=== PATIENT | female | born 1950 | race Caucasian/White ===

== ENCOUNTER 2020-03-16 00:50 | Observation (INO) ==
--- NOTE | 2020-03-16 01:03 | Emergency Department Note ---
Impression & Plan Left-sided chest pain ED Provider Note NAME: IZABEL CAMACHO AGE: 70 SEX: F ARRIVES VIA: Walk-In INFORMANT: Patient ED PROVIDER(S): Kiana Paez DO CHIEF COMPLAINT: Left-sided chest pain PLAN: Disposition: Admitted to the [facility] service Condition: Stable MEDICAL DECISION MAKING: This is a 70-year-old female patient who presents to the emergency department complaining of left-sided chest pain that radiates down her left arm. Patient has a normal-appearing EKG and a negative troponin. The patient's chest discomfort was improved after receiving 2 sublingual nitroglycerin. Patient has a strong family history of heart disease. She had been told previously by her furniture crater at [facility] that she would require a cardiac catheterization. I discussed the case with the [facility] and they will evaluate for further management. Patient had taken aspirin at home. Triage Nursing notes reviewed and agree them. Prior medical records reviewed Vital Signs: reviewed and remarkable for hypertension Differential diagnosis: GERD, costochondritis, NSTEMI, STEMI, aortic dissection ER treatment provided: Sublingual nitroglycerin x2 Diagnostics interpreted by me: ECG: Normal sinus rhythm at a rate of 81. There is no ST segment elevation or signs of ischemia. There is no ectopy Cardiac Monitoring: Normal sinus rhythm at a rate of 80 Laboratory studies: See below Imaging studies: As per my interpretation Chest x-ray: No acute pulmonary infiltrates or consolidations HPI: 70/F arrives for evaluation of left-sided chest tightness. Around 6 PM this evening, the patient noted that she was feeling weak and tired. She then developed some discomfort in her left shoulder. She felt tightness in the left side of her chest that seem to radiate down her left arm. She took her blood pressure and found to be 188/100. At that time, she took a clonidine, aspirin and Xanax along with her hypercholesterol medication. Since then, the discomfort in her arm and shoulder has eased up but the chest discomfort has persisted. This is concerning to the patient since usually the symptoms resolved. ROS: See above HPI for pertinent positives & negatives. A total of 10 systems reviewed and were otherwise negative. PAST MEDICAL HISTORY:Hypertension, hypercholesterolemia, anxiety FAMILY HISTORY:The patient's father at age 65 from a heart attack. The patient is a twin and the twin at age 59 from complications of vascular disease SOCIAL HISTORY:The patient does not smoke; she lives with family HOME MEDICATIONS:See list ALLERGIES:See list VITALS:See Below PHYSICAL EXAMINATION: HEENT: Head - normocephalic and atraumatic Pupils are equal, round, and reactive to light. Extraocular eye muscles are intact, and sclera are anicteric. Nose - moist nasal mucosa without discharge. Mouth - moist buccal mucosa. Oropharynx is nonerythematous and there is no tonsillar exudate or edema noted. Neck: Supple; no JVD, nuchal rigidity, cervical lymphadenopathy, or auscultated bruits. Heart: Regular rate and rhythm. There is a normal S1 and S2 with no murmurs, clicks, or gallops appreciated. Lungs: Clear to auscultation bilaterally with no wheezes, rales, or rhonchi. Abdomen: Soft, completely nontender, nondistended, with good bowel sounds. There are no palpable pulsatile masses or hepatosplenomegaly. There is no guarding, rigidity, or rebound noted. Extremities: No evidence of cyanosis, clubbing, or edema. There are easily palpable peripheral pulses. Skin: warm and dry with good turgor and no rashes. ED COURSE: Times/Reassessments: 0100: Patient was evaluated in room a 12. A complete history and physical was performed. An IV lock was initiated and labs were drawn as above. An order was placed for continuous cardiac monitoring. The patient was in a normal sinus rhythm at a rate of 80. Twelve-lead EKG was obtained. The patient was given sublingual nitroglycerin for chest discomfort that she rated as a 6/10 0140: The patient was reevaluated at this time and she rated her pain as a 4/10 stating that the nitro helped. The patient's blood pressure had come down sl ightly. She was given a second sublingual nitroglycerin 0200: The patient was reevaluated at this time and she rated the discomfort in her chest is a 3/10. She explained that her furniture crater at [facility] told her that because of her high cholesterol, she would require a cardiac cath. I discussed the case with the [facility] hospitalist and they will evaluate for further management. Kiana Paez, DO Past Med/Surg History Social History Smoking Status: Never smoker Preferred Language: Polish Feels Safe at Home: Yes Allergies Allergies Allergy/AdvReac Type Severity Reaction Status Date / Time erythromycin base AdvReac Severe Gastrointestinal Verified 03/16/20 01:49 Upset Home Meds Home Medications Medication Instructions Recorded Confirmed alprazolam 1 tab PO DAILY PRN 03/16/20 03/16/20 amlodipine 10 mg PO DAILY 03/16/20 03/16/20 bempedoic acid-ezetimibe [Nexlizet] 1 tab PO QPM 03/16/20 03/16/20 clonidine HCl 0.1 mg PO BID PRN 03/16/20 03/16/20 levalbuterol tartrate [Xopenex HFA] 2 inh INHALATION Q6H PRN 03/16/20 03/16/20 metformin 1,000 mg PO BIDM 03/16/20 03/16/20 montelukast 10 mg PO DAILY PRN 03/16/20 03/16/20 Results & Data (ED) Vital Signs Vital Signs - 24 hr 03/16/20 00:53 03/16/20 01:09 03/16/20 01:16 Temperature 37.0 C Temperature Source Oral Pulse Rate 88 78 78 Pulse Rate from SpO2 Sensor 79 75 Respiratory Rate 20 17 13 Respiratory Effort / Characteristics Non-Labored Spontaneous Respiratory Depth Normal Blood Pressure 201/98 H 194/96 H 175/88 H Blood Pressure Mean 132 136 134 Pulse Oximetry 96 97 96 Oxygen Delivery Method Room Air Room Air Sepsis New/Unexplained Change in Mental Status N/A Sepsis Action Taken by Nursing No Action Required 03/16/20 01:17 03/16/20 01:20 03/16/20 01:25 Temperature Temperature Source Pulse Rate 87 85 Pulse Rate from SpO2 Sensor 88 83 Respiratory Rate 24 15 Respiratory Effort / Characteristics Respiratory Depth Blood Pressure 151/84 H 167/84 H Blood Pressure Mean 106 109 Pulse Oximetry 98 95 94 Oxygen Delivery Method Room Air Room Air Sepsis New/Unexplained Change in Mental Status Sepsis Action Taken by Nursing 03/16/20 01:30 03/16/20 01:35 03/16/20 01:40 Temperature Temperature Source Pulse Rate 78 78 78 Pulse Rate from SpO2 Sensor 79 76 Respiratory Rate 16 17 16 Respiratory Effort / Characteristics Respiratory Depth Blood Pressure 160/83 H 154/85 H 141/82 H Blood Pressure Mean 106 127 110 Pulse Oximetry 94 93 Oxygen Delivery Method Room Air Room Air Room Air Sepsis New/Unexplained Change in Mental Status Sepsis Action Taken by Nursing 03/16/20 01:46 03/16/20 03:40 Temperature Temperature Source Pulse Rate 74 79 Pulse Rate from SpO2 Sensor 73 Respiratory Rate 15 20 Respiratory Effort / Characteristics Respiratory Depth Blood Pressure 154/79 H 177/93 H Blood Pressure Mean 101 121 Pulse Oximetry 95 98 Oxygen Delivery Method Room Air Room Air Sepsis New/Unexplained Change in Mental Status Sepsis Action Taken by Nursing Laboratory Data Result diagrams: 03/16/20 01:07 03/16/20 01:07 Lab Results 03/16/20 03/16/20 03/16/20 Range/Units 01:07 01:07 01:07 WBC 7.95 (4.8-10.8) K/uL RBC 4.12 L (4.2-5.4) M/uL Hgb 11.3 L (12.0-16.0) g/dL Hct 35.7 L (37-47) % MCV 86.7 (80-100) fL MCH 27.4 (25-34) pg MCHC 31.7 L (32-36) g/dL RDW Std Deviation 53.5 H (36.4-46.3) fL RDW Coeff of Guillermina 16.9 H (11.5-14.5) % Plt Count 273 (130-400) K/uL MPV 12.0 H (7.4-10.4) fL Immature Gran % (Auto) 0.1 % Neut % (Auto) 58.1 % Lymph % (Auto) 25.4 % [place] % (Auto) 7.3 % Eos % (Auto) 8.7 % Baso % (Auto) 0.4 % Neut # (Auto) 4.62 (1.4-6.5) K/uL Lymph # (Auto) 2.02 (1.2-3.4) K/uL [place] # (Auto) 0.58 (0.11-0.59) K/uL Eos # (Auto) 0.69 H (0-0.5) K/uL Baso # (Auto) 0.03 (0-0.2) K/uL Immature Gran # (Auto) 0.01 (0.00-0.02) K/uL PT 10.0 (9.0-12.0) Seconds INR 0.9 (0.9-1.1) APTT 25.5 (21.0-31.0) Seconds PTT Ratio 0.9 Sodium 141 (136-145) mmol/L Potassium 3.8 (3.5-5.1) mmol/L Chloride 111 H (98-107) mmol/L Carbon Dioxide 21 (21-32) mmol/L Anion Gap 10.0 (3-11) BUN 19 H (7-18) mg/dl Creatinine 1.43 H (0.6-1.2) mg/dl Est Cr Clr Drug Dosing 44.1 ml/min Est GFR ( Amer) 43.5 Est GFR (Non-Af Amer) 37.5 BUN/Creatinine Ratio 13.1 (10-20) Glucose 117 H (70-99) mg/dl Calcium 9.8 (8.5-10.1) mg/dl Magnesium 1.8 (1.8-2.4) mg/dl Total Bilirubin 0.3 (0.2-1) mg/dl AST 11 L (15-37) U/L ALT 19 (12-78) U/L Alkaline Phosphatase 59 (45-117) U/L Troponin I < 0.015 (0-0.045) ng/ml Total Protein 7.8 (6.4-8.2) gm/dl Albumin 3.8 (3.4-5.0) gm/dl Globulin 4.0 (2.5-4.0) gm/dl Albumin/Globulin Ratio 1.0 (0.9-2) Lipase 244 (73-393) U/L TSH 3.720 (0.300-4.500) uIu/ml Administered Medications Nitroglycerin (Nitroglycerin Sl 0.4 Mg/Tab Tab) 0.4 mg SL UD PRN PRN Reason: Chest Pain Stop: 04/15/20 01:13 Last Admin: 03/16/20 01:46 Dose: 0.4 mg Documented by: [id number] Admin: 03/16/20 01:16 Dose: 0.4 mg Documented by: [id number] Discontinued Medications Amlodipine Besylate (Amlodipine Besylate 5 Mg Tab) 10 mg PO NOW STA Stop: 03/16/20 03:16 Last Admin: 03/16/20 03:37 Dose: 10 mg Documented by: [id number] Clonidine HCl (Clonidine Hcl 0.1 Mg Tab) 0.1 mg PO NOW STA Stop: 03/16/20 03:41 Last Admin: 03/16/20 03:42 Dose: 0.1 mg Documented by: [id number] Nitroglycerin (Nitroglycerin Sl 0.4 Mg/Tab Tab) Confirm Administered Dose 0.4 mg .ROUTE .STK-MED ONE Stop: 03/16/20 01:15 Last Admin: 03/16/20 01:16 Dose: Not Given Documented by: [id number] Tramadol HCl (Tramadol Hcl 50 Mg Tablet) Confirm Administered Dose 50 mg .ROUTE .STK-MED ONE Stop: 03/16/20 02:49 Last Admin: 03/16/20 03:35 Dose: Not Given Documented by: [id number] Tramadol HCl (Tramadol Hcl 50 Mg Tablet) 25 mg PO NOW STA Stop: 03/16/20 03:12 Last Admin: 03/16/20 03:35 Dose: Not Given Documented by: [id number] Discharge Plan Visit Data Chief Complaint: Chest Pain Stated Complaint: RADIATING CHEST PAIN ED Provider: Kiana Paez Discharge Problem: Left-sided chest pain Forms Stand Alone Forms: [facility] Prescriptions Prescriptions: No Action amlodipine 10 mg tablet 10 mg PO DAILY RF: 0 metformin 1,000 mg tablet 1,000 mg PO BIDM RF: 0 Nexlizet 180-10 mg tablet 1 tab PO QPM RF: 0 clonidine HCl 0.1 mg tablet 0.1 mg PO BID PRN (Reason: Hypertension) RF: 0 montelukast 10 mg Tablet 10 mg PO DAILY PRN (Reason: asthma) RF: 0 levalbuterol tartrate [Xopenex HFA] 45 mcg/actuation Hfa Aerosol Inhaler 2 inh INHALATION Q6H PRN (Reason: Shortness Of Breath Or Wheezing) RF: 0 alprazolam 1 tab PO DAILY PRN (Reason: Anxiety) RF: 0
[2020-03-16] MEDS ORDERED: NITROGLYCERIN SL 0.4 MG/TAB TAB ONE (01:14)
[2020-03-16] MEDS: NITROGLYCERIN SL 0.4 MG/TAB TAB SL PRN ×2 (01:16→01:46)
[2020-03-16 01:31] LABS: Basophils # (auto) 0.03 K/uL (0-0.2); Basophils % (auto) 0.4 %; Eosinophils # (auto) 0.69 K/uL (0-0.5); Eosinophils % (auto) 8.7 %; Hematocrit (blood only) 35.7 % (37-47); Hemoglobin 11.3 g/dL (12.0-16.0); Immature Granulocytes # (auto) 0.01 K/uL (0.00-0.02); Immature Granulocytes % (auto) 0.1 %; Lymphocytes # (auto) 2.02 K/uL (1.2-3.4); Lymphocytes % (auto) 25.4 %; Mean Corpuscular Hemoglobin 27.4 pg (25-34); Mean Corpuscular Hgb Conc 31.7 g/dL (32-36); Mean Corpuscular Volume 86.7 fL (80-100); Monocytes # (auto) 0.58 K/uL (0.11-0.59); Monocytes % (auto) 7.3 %; Neutrophils # (auto) 4.62 K/uL (1.4-6.5); Neutrophils % (auto) 58.1 %; Platelet Count 273 K/uL (130-400); RDW Coefficient of Variation 16.9 % (11.5-14.5); RDW Standard Deviation 53.5 fL (36.4-46.3); Red Blood Count 4.12 M/uL (4.2-5.4); White Blood Count 7.95 K/uL (4.8-10.8)
[2020-03-16 01:38] LABS: Blood Urea Nitrogen 19 mg/dl (7-18); Carbon Dioxide 21 mmol/L (21-32); Chloride 111 mmol/L (98-107); Potassium 3.8 mmol/L (3.5-5.1); Sodium 141 mmol/L (136-145)
[2020-03-16 01:39] LABS: Alanine Aminotransferase 19 U/L (12-78); Albumin Level 3.8 gm/dl (3.4-5.0); Aspartate Aminotransferase 11 U/L (15-37); BUN Creatinine Ratio 13.1 (10-20); Calcium 9.8 mg/dl (8.5-10.1); Creatinine Clr Calc Pharmacy 44.1 ml/min; Est GFR (African American) 43.5; Est GFR (Non-African American) 37.5; Glucose 117 mg/dl (70-99); Lipase 244 U/L (73-393)
[2020-03-16 01:43] LABS: Alkaline Phosphatase 59 U/L (45-117); Bilirubin,Total 0.3 mg/dl (0.2-1); INR 0.9 (0.9-1.1); Partial Thromboplastin Ratio 0.9; Partial Thromboplastin Time 25.5 Seconds (21.0-31.0); Total Protein 7.8 gm/dl (6.4-8.2); Troponin I < 0.015 ng/ml (0-0.045)
[2020-03-16] MEDS ORDERED: TRAMADOL HCL 50 MG TABLET ONE (02:48)
[2020-03-16] MEDS ORDERED: TRAMADOL HCL 50 MG TABLET PO STA (03:11)
--- NOTE | 2020-03-16 03:11 | History & Physical Report ---
Date of Service March 16, 2020 Assessment & Plan (1) Left-sided chest pain: Possibly from uncontrolled hypertension Musculoskeletal component given reproducibility on examination Anxiety contributory Rule out ACS hx CVA as per records hyperlipidemia currently on Nextlizet tx DM 2 on oral medications well-controlled as of recent outpatient hemoglobin A1c of 6.16 Oct 2019 CRI, creatinine at baseline Chronic anemia, hemoglobin at baseline OBS PCU Continue amlodipine. Increase clonidine frequency to twice daily RTC for now (patient currently taking 1 tablet in the morning, 1 tablet as needed at night) Analgesia, anxiolytic PRN Follow troponin TTE, Cardiology consult RE chest pain ISS BG goal [id number] DVT prophylaxis. Heparin subcu Full code Text document was generated using [email or web address] voice recognition software. It may contain grammatical or spelling errors. Kindly contact undersigned for clarification of any documentation item in question. History of Present Illness Chief Complaint: Chest pain Primary Care Provider: Dr. Bravo History obtained from patient and records. Medical history significant for CVA, hypertension, hyperlipidemia, DM 2 on oral medications, CRI (baseline creatinine 1.4 ), chronic anemia (baseline hemoglobin 11), anxiety/mood disorder. 2 days ago patient noted transient left-sided chest pain going to her left arm without other associated symptoms. Recurrence of left-sided chest pain going to the arm last night. SBP 180s at home which patient gets from time to time. No headache, no cough, no shortness of breath, no diaphoresis. No unusual neck pain. No unusual stress at home. Denies unusual stress. Denies NSAID intake. Some relief with nitroglycerin given at the ER. Medical History as above Surgical History : section, tarsal tunnel release, tubal ligation, ovarian cyst drainage Family History : Heart disease, breast cancer, stroke, hypercholesterolemia Personal/Social history : Non-smoker, no EtOH intake, prior work as an [employer] Allergies Allergy/AdvReac Type Severity Reaction Status Date / Time erythromycin base AdvReac Severe Gastrointestinal Verified 03/16/20 01:49 Upset Home Medications Home Medications Medication Instructions Recorded Confirmed Type alprazolam 1 tab PO DAILY PRN 03/16/20 03/16/20 History amlodipine 10 mg PO DAILY 03/16/20 03/16/20 History bempedoic acid-ezetimibe [Nexlizet] 1 tab PO QPM 03/16/20 03/16/20 History clonidine HCl 0.1 mg PO BID PRN 03/16/20 03/16/20 History levalbuterol tartrate [Xopenex HFA] 2 inh INHALATION Q6H PRN 03/16/20 03/16/20 History metformin 1,000 mg PO BIDM 03/16/20 03/16/20 History montelukast 10 mg PO DAILY PRN 03/16/20 03/16/20 History Past Med/Surg History Social History Smoking Status: Never smoker Hx Alcohol Use: No Hx Substance Use: No Preferred Language: Maori Communication Ability: Effective Risk Control Officer Required: No Beliefs That Will Affect Care: None Current Living Situation: Family Feels Safe at Home: Yes Assistive Devices: Denture - Upper, Denture - Lower and Glasses Review of Systems Review of Systems: As per HPI, all 10 systems reviewed, all other ROS negative Physical Exam Physical Exam: GENERAL: Slightly uncomfortable, slightly anxious, no respiratory distress SKIN: Pallor , warm HEENT: Pale palpebral conjunctivae, no ptosis, dry buccal mucosa NECK : Supple, no tenderness CHEST : CTA, left chest wall tenderness HEART : RRR, no obvious murmurs ABDOMEN: Some distention, nontender EXTREMITIES : No LE swelling/tenderness, no other conspicuous deformities noted NEUROLOGIC : Coherent, no facial asymmetry, no other gross focality Results & Data Results & Data ([facility]) Vital Signs (Past 12 Hours) Vital Signs Temp Pulse Resp BP Pulse Ox 03/16/20 01:46 74 15 154/79 H 95 03/16/20 01:40 78 16 141/82 H 03/16/20 01:35 78 17 154/85 H 93 03/16/20 01:30 78 16 160/83 H 94 03/16/20 01:25 85 15 167/84 H 94 03/16/20 01:20 87 24 151/84 H 95 03/16/20 01:17 98 03/16/20 01:16 78 13 175/88 H 96 03/16/20 01:09 78 17 194/96 H 97 03/16/20 00:53 37.0 C 88 20 201/98 H 96 Laboratory Results Laboratory Results WBC 7.95 K/uL (4.8-10.8) 03/16/20 01:07 RBC 4.12 M/uL (4.2-5.4) L 03/16/20 01:07 Hgb 11.3 g/dL (12.0-16.0) L 03/16/20 01:07 Hct 35.7 % (37-47) L 03/16/20 01:07 MCV 86.7 fL (80-100) 03/16/20 01:07 MCH 27.4 pg (25-34) 03/16/20 01:07 MCHC 31.7 g/dL (32-36) L 03/16/20 01:07 RDW Std Deviation 53.5 fL (36.4-46.3) H 03/16/20 01:07 RDW Coeff of Guillermina 16.9 % (11.5-14.5) H 03/16/20 01:07 Plt Count 273 K/uL (130-400) 03/16/20 01:07 MPV 12.0 fL (7.4-10.4) H 03/16/20 01:07 Immature Gran % (Auto) 0.1 % 03/16/20 01:07 Neut % (Auto) 58.1 % 03/16/20 01:07 Lymph % (Auto) 25.4 % 03/16/20 01:07 [place] % (Auto) 7.3 % 03/16/20 01:07 Eos % (Auto) 8.7 % 03/16/20 01:07 Baso % (Auto) 0.4 % 03/16/20 01:07 Neut # (Auto) 4.62 K/uL (1.4-6.5) 03/16/20 01:07 Lymph # (Auto) 2.02 K/uL (1.2-3.4) 03/16/20 01:07 [place] # (Auto) 0.58 K/uL (0.11-0.59) 03/16/20 01:07 Eos # (Auto) 0.69 K/uL (0-0.5) H 03/16/20 01:07 Baso # (Auto) 0.03 K/uL (0-0.2) 03/16/20 01:07 Immature Gran # (Auto) 0.01 K/uL (0.00-0.02) 03/16/20 01:07 PT 10.0 Seconds (9.0-12.0) 03/16/20 01:07 INR 0.9 (0.9-1.1) 03/16/20 01:07 APTT 25.5 Seconds (21.0-31.0) 03/16/20 01:07 PTT Ratio 0.9 03/16/20 01:07 Sodium 141 mmol/L (136-145) 03/16/20 01:07 Potassium 3.8 mmol/L (3.5-5.1) 03/16/20 01:07 Chloride 111 mmol/L (98-107) H 03/16/20 01:07 Carbon Dioxide 21 mmol/L (21-32) 03/16/20 01:07 Anion Gap 10.0 (3-11) 03/16/20 01:07 BUN 19 mg/dl (7-18) H 03/16/20 01:07 Creatinine 1.43 mg/dl (0.6-1.2) H 03/16/20 01:07 Est Cr Clr Drug Dosing 44.1 ml/min 03/16/20 01:07 Est GFR ( Amer) 43.5 03/16/20 01:07 Est GFR (Non-Af Amer) 37.5 03/16/20 01:07 BUN/Creatinine Ratio 13.1 (10-20) 03/16/20 01:07 Glucose 117 mg/dl (70-99) H 03/16/20 01:07 Calcium 9.8 mg/dl (8.5-10.1) 03/16/20 01:07 Total Bilirubin 0.3 mg/dl (0.2-1) 03/16/20 01:07 AST 11 U/L (15-37) L 03/16/20 01:07 ALT 19 U/L (12-78) 03/16/20 01:07 Alkaline Phosphatase 59 U/L (45-117) 03/16/20 01:07 Troponin I < 0.015 ng/ml (0-0.045) 03/16/20 01:07 Total Protein 7.8 gm/dl (6.4-8.2) 03/16/20 01:07 Albumin 3.8 gm/dl (3.4-5.0) 03/16/20 01:07 Globulin 4.0 gm/dl (2.5-4.0) 03/16/20 01:07 Albumin/Globulin Ratio 1.0 (0.9-2) 03/16/20 01:07 Lipase 244 U/L (73-393) 03/16/20 01:07 Diagnostic Findings Chest x-ray as per my interpretation no congestion EKG as per my interpretation : Rate rate 80, NSR, normal axis, no ischemia
[2020-03-16] MEDS ORDERED: AMLODIPINE BESYLATE 5 MG TAB PO STA (03:15)
[2020-03-16] MEDS ORDERED: cloNIDine HCL 0.1 MG TAB PO STA (03:40)
[2020-03-16 03:41] LABS: Magnesium 1.8 mg/dl (1.8-2.4)
[2020-03-16] MEDS ORDERED: PNEUMOCOCCAL ADMINISTRATION CHARGE ONE (05:07)
[2020-03-16] MEDS ORDERED: PNEUMOCOCCAL POLYSACCHARIDES 25 MCG/0.5 ML VIAL/SYR IM ONE (05:07)
[2020-03-16] MEDS ORDERED: DEXTROSE 50% 50 ML SYRINGE IV PRN (05:08)
[2020-03-16] MEDS ORDERED: LEVALBUTEROL TARTRATE 15 GM HFA.AER.AD INH PRN (05:08)
[2020-03-16] MEDS ORDERED: NITROGLYCERIN SL 0.4 MG/TAB TAB SL PRN (05:08)
[2020-03-16] MEDS ORDERED: ACETAMINOPHEN 325 MG TAB PO PRN (05:08)
[2020-03-16] MEDS ORDERED: MONTELUKAST SODIUM 10 MG TABLET PO PRN (05:08)
[2020-03-16] MEDS ORDERED: LACTATED RINGER'S 1,000 ML IV SCH (05:08)
[2020-03-16] MEDS ORDERED: GLUCOSE 40% GEL 15 GM TUBE PO PRN (05:08)
[2020-03-16] MEDS ORDERED: LORazepam 0.25 MG/0.5 ML VIAL IV PRN (05:08)
[2020-03-16] MEDS ORDERED: GLUCOSE 10 TABS/TUBE PO PRN (05:08)
[2020-03-16] MEDS ORDERED: GLUCAGON FOR INJ 1 MG VIAL SQ PRN (05:08)
[2020-03-16] MEDS ORDERED: PROMETHAZINE HCL 12.5 MG in SODIUM CHLORIDE 0.9% 50 ML IV PRN (05:08)
[2020-03-16] MEDS ORDERED: HYDROmorphone INJ 0.5 MG/0.5 ML SYR IV PRN (05:08)
[2020-03-16] MEDS ORDERED: CARBOHYDRATES FOR HYPOGLYCEMIA PO PRN (05:08)
[2020-03-16] MEDS ORDERED: ACETAMINOPHEN 325 MG TAB ONE (05:18)
[2020-03-16] MEDS: INSULIN ASPART 100 UNITS/ML 3 ML PEN SC SCH ×3 (05:25→17:00)
[2020-03-16] MEDS ORDERED: ALPRAZolam 0.25 MG TABLET PO PRN (05:26)
[2020-03-16] MEDS: HEPARIN SOD 5,000 UNIT/0.5 ML VIAL SQ SCH ×2 (06:21→14:17)
[2020-03-16 06:30] LABS: Estimated Average Glucose 108 mg/dl; Hemoglobin A1C 5.4 % (4.5-5.6)
--- NOTE | 2020-03-16 07:53 | XRay Report ---
XR chest 1V portable HISTORY: Atypical Chest Pain COMPARISON: None. FINDINGS: There is 1.7 cm nodular density overlying the right lateral lung base. Otherwise, lungs are clear. No pleural effusions. No pneumothorax. The heart is normal in size. IMPRESSION: 1. No acute process within the chest. 2. Questionable 1.7 cm nodular density overlying the right lung base which could be external to the p atient or represent a nipple shadow. Nonemergent follow-up chest x-ray with PA and lateral views and nipple markers is recommended for further evaluation. ACT 112: Negative or not required by law. Electronically signed by: Demetrius Lucio M.D. 03/16/2020 7:52 AM
--- NOTE | 2020-03-16 11:00 | Cardiology Consultation ---
Date of Consultation March 16, 2020 Assessment & Plan (1) Left-sided chest pain: The patient reports chest pain as described above. Troponins have so far been negative. Echocardiogram revealed normal LV function without wall motion abnormalities. Discussed with the patient that chest pain can be related to a number of etiologies other than cardiac including stress, musculoskeletal, gastrointestinal and pulmonary processes. Will have patient complete dobutamine stress test to rule out coronary disease. If the stress test is negative she will not need to undergo any additional cardiac work up in the hospital and may follow up with per primary rn intern as an outpatient. (2) Hypertension: The patient reports "adequate" blood pressure management at home however blood pressures in the hospital revealed systolic blood pressure consistently above 140. She would benefit from improved control. Could consider [facility] or [facility]. Recommend outpatient follow up with primary rn intern. (3) Diastolic dysfunction: Improved HTN management as above. History of Present Illness Reason for Consultation: chest pain Requesting Physician: Dr. Gates Attending Physician: Padmaja Akhtar MD History of Present Illness 70 year old female patient presented to the ED last evening with c/o chest pain that radiated down her left arm. She had traveled to see her daughter yesterday which is a [address] It was raining during the drive which she reported makes her nervous to drive in. When she returned home she was unloading groceries from her car and noticed that she was diaphoretic and had some chest pressure in her mid sternum. At that time she sat down and checked her blood pressure which she reported was 180 systolically and her BSG was around 120. She took her evening medications which included Clonidine, Xanax, and Nexlizet. 15 minutes later she rechecked her blood pressure which had not improved and her chest pain seemed to be worse. She denies dizziness, palpitations, or shortness of breath during the event. At that time she came to the ED for further evaluation. In the ED she received Nitro which she reported did alleviate the chest pain. She did report another episode of chest discomfort after arriving to her room in the critical care unit, which resolved without intervention. She reports feeling back to "normal" at this time. She has been following with a rn intern in [place] who has been treating her for hypercholesterolemia who recommended genetic counseling. She has spoken with the genetic counselor via phone but has had no blood work done at this time. He also recommended a cardiac cath which has not yet been completed. Allergies Allergy/AdvReac Type Severity Reaction Status Date / Time erythromycin base AdvReac Severe Gastrointestinal Verified 03/16/20 01:49 Upset Home Medications Home Medications Medication Instructions Recorded Confirmed Type alprazolam 1 tab PO DAILY PRN 03/16/20 03/16/20 History amlodipine 10 mg PO DAILY 03/16/20 03/16/20 History bempedoic acid-ezetimibe [Nexlizet] 1 tab PO QPM 03/16/20 03/16/20 History clonidine HCl 0.1 mg PO BID PRN 03/16/20 03/16/20 History levalbuterol tartrate [Xopenex HFA] 2 inh INHALATION Q6H PRN 03/16/20 03/16/20 History metformin 1,000 mg PO BIDM 03/16/20 03/16/20 History montelukast 10 mg PO DAILY PRN 03/16/20 03/16/20 History Patient History Medical History (Updated 03/16/20 @ 12:11 by Esau Parks DO) Hypertension Social History Smoking Status: Never smoker Hx Alcohol Use: No Hx Substance Use: No Preferred Language: Liberian Communication Ability: Effective Electric Meter Reader Required: No Beliefs That Will Affect Care: None Current Living Situation: Family Feels Safe at Home: Yes Assistive Devices: Glasses Review of Systems Review of Systems: All systems reviewed & are unremarkable except as noted in HPI & below Physical Exam Physical Exam: Physical Exam: General: Awake, alert and oriented x 3. No acute distress. HEENT: Normocephalic, atraumatic. Pupils equal, round and reactive to light and accommodation. Extraocular muscles are intact. Anicteric sclera. Moist mucous membranes. Neck: No JVD. No bruit. Cardiovascular: Regular. No S-4. Normal S-1 and S-2. No S-3. No murmurs, rubs or gallops. Pulmonary: Clear to auscultation bilaterally. No rales, rhonchi, or wheezing. Abdomen: Bowel sounds x 4, soft. No rebound, guarding or tenderness. No organomegaly. Extremities: No clubbing, cyanosis or edema. +2 pedal pulses bilaterally. Skin: Warm and dry. Results & Data ([facility]) Vital Signs (Past 12 Hours) Vital Signs Temp Pulse Pulse Resp BP BP Pulse Ox 03/16/20 07:35 36.6 C 59 L 16 141/79 H 96 03/16/20 07:27 61 03/16/20 05:28 135/79 03/16/20 04:20 36.4 C L 62 20 176/80 H 97 03/16/20 04:00 70 18 163/85 H 95 03/16/20 03:40 79 20 177/93 H 98 03/16/20 01:46 74 15 154/79 H 95 03/16/20 01:40 78 16 141/82 H 03/16/20 01:35 78 17 154/85 H 93 03/16/20 01:30 78 16 160/83 H 94 03/16/20 01:25 85 15 167/84 H 94 03/16/20 01:20 87 24 151/84 H 95 03/16/20 01:17 98 03/16/20 01:16 78 13 175/88 H 96 03/16/20 01:09 78 17 194/96 H 97 03/16/20 00:53 37.0 C 88 20 201/98 H 96 Laboratory Results Laboratory Results - last 24 hr 03/16/20 03/16/20 03/16/20 01:07 01:07 01:07 WBC 7.95 RBC 4.12 L Hgb 11.3 L Hct 35.7 L MCV 86.7 MCH 27.4 MCHC 31.7 L RDW Std Deviation 53.5 H RDW Coeff of Guillermina 16.9 H Plt Count 273 MPV 12.0 H Immature Gran % (Auto) 0.1 Neut % (Auto) 58.1 Lymph % (Auto) 25.4 [place] % (Auto) 7.3 Eos % (Auto) 8.7 Baso % (Auto) 0.4 Neut # (Auto) 4.62 Lymph # (Auto) 2.02 [place] # (Auto) 0.58 Eos # (Auto) 0.69 H Baso # (Auto) 0.03 Immature Gran # (Auto) 0.01 PT 10.0 INR 0.9 APTT 25.5 PTT Ratio 0.9 Sodium 141 Potassium 3.8 Chloride 111 H Carbon Dioxide 21 Anion Gap 10.0 BUN 19 H Creatinine 1.43 H Est Cr Clr Drug Dosing 44.1 Est GFR ( Amer) 43.5 Est GFR (Non-Af Amer) 37.5 BUN/Creatinine Ratio 13.1 Glucose 117 H POC Glucose Estimat Average Glucose Hemoglobin A1c Calcium 9.8 Magnesium 1.8 Total Bilirubin 0.3 AST 11 L ALT 19 Alkaline Phosphatase 59 Troponin I < 0.015 Total Protein 7.8 Albumin 3.8 Globulin 4.0 Albumin/Globulin Ratio 1.0 Lipase 244 TSH 3.720 03/16/20 03/16/20 03/16/20 04:32 05:21 05:21 WBC RBC Hgb Hct MCV MCH MCHC RDW Std Deviation RDW Coeff of Guillermina Plt Count MPV Immature Gran % (Auto) Neut % (Auto) Lymph % (Auto) [place] % (Auto) Eos % (Auto) Baso % (Auto) Neut # (Auto) Lymph # (Auto) [place] # (Auto) Eos # (Auto) Baso # (Auto) Immature Gran # (Auto) PT INR APTT PTT Ratio Sodium Potassium Chloride Carbon Dioxide Anion Gap BUN Creatinine Est Cr Clr Drug Dosing Est GFR ( Amer) Est GFR (Non-Af Amer) BUN/Creatinine Ratio Glucose POC Glucose 106 H Estimat Average Glucose 108 Hemoglobin A1c 5.4 Calcium Magnesium Total Bilirubin AST ALT Alkaline Phosphatase Troponin I < 0.015 Total Protein Albumin Globulin Albumin/Globulin Ratio Lipase TSH 03/16/20 03/16/20 07:08 11:03 WBC RBC Hgb Hct MCV MCH MCHC RDW Std Deviation RDW Coeff of Guillermina Plt Count MPV Immature Gran % (Auto) Neut % (Auto) Lymph % (Auto) [place] % (Auto) Eos % (Auto) Baso % (Auto) Neut # (Auto) Lymph # (Auto) [place] # (Auto) Eos # (Auto) Baso # (Auto) Immature Gran # (Auto) PT INR APTT PTT Ratio Sodium Potassium Chloride Carbon Dioxide Anion Gap BUN Creatinine Est Cr Clr Drug Dosing Est GFR ( Amer) Est GFR (Non-Af Amer) BUN/Creatinine Ratio Glucose POC Glucose 107 H 81 Estimat Average Glucose Hemoglobin A1c Calcium Magnesium Total Bilirubin AST ALT Alkaline Phosphatase Troponin I Total Protein Albumin Globulin Albumin/Globulin Ratio Lipase TSH Medications Administered Current Inpatient Medications Acetaminophen (Acetaminophen 325 Mg Tab) 650 mg PO Q4H PRN PRN Reason: Pain or Fever Stop: 04/15/20 05:07 Alprazolam (Alprazolam 0.25 Mg Tablet) 0.25 mg PO DAILY PRN PRN Reason: Anxiety Stop: 04/15/20 05:25 Amlodipine Besylate (Amlodipine Besylate 5 Mg Tab) 10 mg PO DAILY MAYANK Stop: 04/16/20 08:59 Clonidine HCl (Clonidine Hcl 0.1 Mg Tab) 0.1 mg PO BID MAYANK Stop: 04/15/20 20:59 Dextrose (Dextrose 50% 50 Ml Syringe) 25 - 50 ml IV UD PRN; Protocol PRN Reason: Hypoglycemia Protocol Stop: 04/15/20 05:07 Glucagon (Glucagon For Inj 1 Mg Vial) 1 mg SQ UD PRN; Protocol PRN Reason: Hypoglycemia Protocol Stop: 04/15/20 05:07 Glucose (Glucose 10 Tabs/Tube) 4 - 8 tabs PO UD PRN; Protocol PRN Reason: Hypoglycemia Protocol Stop: 04/15/20 05:07 Glucose (Glucose 40% Gel 15 Gm Tube) 15 - 30 gm PO UD PRN; Protocol PRN Reason: Hypoglycemia Protocol Stop: 04/15/20 05:07 Heparin Sodium (Porcine) (Heparin Sod 5,000 Unit/0.5 Ml Vial) 5,000 units SQ Q8 MAYANK Stop: 04/15/20 05:59 Last Admin: 03/16/20 06:21 Dose: 5,000 units Documented by: Hydromorphone HCl (Hydromorphone Inj 0.5 Mg/0.5 Ml Syr) 0.5 mg IV Q3H PRN PRN Reason: Pain Stop: 03/30/20 05:07 Lactated Ringer's (Lr) 1,000 mls @ 40 mls/hr IV .Q24H MAYANK Stop: 04/15/20 05:07 Last Admin: 03/16/20 05:25 Dose: 40 mls/hr Documented by: Promethazine HCl 12.5 mg/ (Sodium Chloride) 50.5 mls @ 202 mls/hr IV Q6H PRN PRN Reason: Nausea And Vomiting Stop: 04/15/20 05:07 Lorazepam (Ativan) 0.25 mg in 0.5 mls @ 0.5 mls/min IV Q4H PRN PRN Reason: Anxiety Stop: 04/15/20 05:07 Insulin Aspart (Insulin Aspart 100 Units/Ml 3 Ml Pen) 0 units SC ACHS [facility] Stop: 04/15/20 05:07 Last Admin: 03/16/20 12:42 Dose: Not Given Documented by: Levalbuterol HCl (Levalbuterol Tartrate 15 Gm Hfa.Aer.Ad) 2 puffs INH Q6H PRN PRN Reason: Shortness Of Breath Or Wheezing Stop: 04/15/20 05:07 Miscellaneous (Nexlizet~Order Awaiting Action) 1 ea N/A QS [facility] Stop: 04/15/20 07:59 Last Admin: 03/16/20 08:18 Dose: Not Given Documented by: Miscellaneous (Carbohydrates For Hypoglycemia ) 15 - 30 gm PO UD PRN PRN Reason: Hypoglycemia Protocol Stop: 04/15/20 05:07 Montelukast Sodium (Montelukast Sodium 10 Mg Tablet) 10 mg PO DAILY PRN PRN Reason: asthma Stop: 04/15/20 05:07 Nitroglycerin (Nitroglycerin Sl 0.4 Mg/Tab Tab) 0.4 mg SL UD PRN PRN Reason: Chest Pain Stop: 04/15/20 01:13 Last Admin: 03/16/20 01:46 Dose: 0.4 mg Documented by: Nitroglycerin (Nitroglycerin Sl 0.4 Mg/Tab Tab) 0.4 mg SL UD PRN PRN Reason: Chest Pain Stop: 04/15/20 05:07
--- NOTE | 2020-03-16 12:50 | Hospitalist Progress Note ---
Date of Service March 16, 2020 Assessment & Plan (1) Left-sided chest pain: Chest pain was nonexertional but anyway typical presentation Negative serial cardiac enzymes and negative EKG for any ACS Appreciate cardiology input and recommendation Echo did not show any significant abnormalities We will have dobutamine stress test prior to discharge Uncontrolled hypertension May be contributing the chest pain Anxiety contributory Blood pressure remains elevated Chest blood pressure medications on discharge History of CVA as per records-no acute symptoms DM 2 on oral medications well-controlled as of recent outpatient hemoglobin A1c of 6.16 Oct 2019 We will hold any oral medication SSI CRI, creatinine at baseline Chronic anemia, hemoglobin at baseline DVT prophylaxis. Heparin subcu Full code Admission and Anticipated Discharge Date Admission Date: March 16, 2020 Subjective 03/16/2020 The patient was seen and examined in telemetry unit in presence of the daughter He was admitted with left-sided chest pain with radiation to left neck and left upper extremity Initial pain was not relieved with sublingual nitro and she was noted to have a very high blood pressure She denies any more chest pain as of this morning and denies any other symptoms. Review of Systems Review of Systems: All systems reviewed and are unremarkable except as noted below Cardiovascular: no chest pain, no dyspnea and no palpitations Physical Exam Physical Exam: Sitting at the edge of the bed without any acute symptoms Constitutional: well developed, well nourished, + ill appearing and + obese; no acute distress Eyes: PERRL, conjunctivae normal, anicteric sclerae ENMT: external ear and nose normal, oropharynx normal Neck: trachea midline, no thyromegaly Respiratory: normal respiratory effort; no respiratory distress Auscultation: lungs clear to auscultation bilaterally Cardiovascular: Rate/Rhythm: regular rate and regular rhythm Heart Sounds: no murmur Gastrointestinal (Abdomen): Inspection/Auscultation: abdomen normal to inspection and normal bowel sounds; abdomen not distended Percuss ion/Palpation: abdomen soft; abdomen nontender Musculoskeletal: No acute arthritis involving any joints Neurologic: moves all extremities; no focal motor deficits Alert, awake and oriented x3 Psychiatric: A+Ox3, euthymic affect Lymphatic: no cervical or axillary lymphadenopathy Results & Data Results & Data ([facility]) Vital Signs (Past 12 Hours) Vital Signs Temp Pulse Pulse Resp BP BP Pulse Ox 03/16/20 11:36 36.5 C 66 16 181/95 H 95 03/16/20 07:35 36.6 C 59 L 16 141/79 H 96 03/16/20 07:27 61 03/16/20 05:28 135/79 03/16/20 04:20 36.4 C L 62 20 176/80 H 97 03/16/20 04:00 70 18 163/85 H 95 03/16/20 03:40 79 20 177/93 H 98 03/16/20 01:46 74 15 154/79 H 95 03/16/20 01:40 78 16 141/82 H 03/16/20 01:35 78 17 154/85 H 93 03/16/20 01:30 78 16 160/83 H 94 03/16/20 01:25 85 15 167/84 H 94 03/16/20 01:20 87 24 151/84 H 95 03/16/20 01:17 98 03/16/20 01:16 78 13 175/88 H 96 03/16/20 01:09 78 17 194/96 H 97 03/16/20 00:53 37.0 C 88 20 201/98 H 96 Laboratory Results Short CBC 03/16/20 Range/Units 01:07 WBC 7.95 (4.8-10.8) K/uL Hgb 11.3 L (12.0-16.0) g/dL Hct 35.7 L (37-47) % Plt Count 273 (130-400) K/uL BMP 03/16/20 01:07 Sodium 141 Potassium 3.8 Chloride 111 H Carbon Dioxide 21 BUN 19 H Creatinine 1.43 H Glucose 117 H Calcium 9.8 Cardiac Enzymes 03/16/20 03/16/20 Range/Units 01:07 05:21 Troponin I < 0.015 < 0.015 (0-0.045) ng/ml Liver Function 03/16/20 Range/Units 01:07 Total Bilirubin 0.3 (0.2-1) mg/dl AST 11 L (15-37) U/L ALT 19 (12-78) U/L Alkaline Phosphatase 59 (45-117) U/L Albumin 3.8 (3.4-5.0) gm/dl Medications Administered Current Inpatient Medications Acetaminophen (Acetaminophen 325 Mg Tab) 650 mg PO Q4H PRN PRN Reason: Pain or Fever Stop: 04/15/20 05:07 Alprazolam (Alprazolam 0.25 Mg Tablet) 0.25 mg PO DAILY PRN PRN Reason: Anxiety Stop: 04/15/20 05:25 Amlodipine Besylate (Amlodipine Besylate 5 Mg Tab) 10 mg PO DAILY [facility]ANK Stop: 04/16/20 08:59 Clonidine HCl (Clonidine Hcl 0.1 Mg Tab) 0.1 mg PO BID [facility] Stop: 04/15/20 20:59 Dextrose (Dextrose 50% 50 Ml Syringe) 25 - 50 ml IV UD PRN; Protocol PRN Reason: Hypoglycemia Protocol Stop: 04/15/20 05:07 Glucagon (Glucagon For Inj 1 Mg Vial) 1 mg SQ UD PRN; Protocol PRN Reason: Hypoglycemia Protocol Stop: 04/15/20 05:07 Glucose (Glucose 10 Tabs/Tube) 4 - 8 tabs PO UD PRN; Protocol PRN Reason: Hypoglycemia Protocol Stop: 04/15/20 05:07 Glucose (Glucose 40% Gel 15 Gm Tube) 15 - 30 gm PO UD PRN; Protocol PRN Reason: Hypoglycemia Protocol Stop: 04/15/20 05:07 Heparin Sodium (Porcine) (Heparin Sod 5,000 Unit/0.5 Ml Vial) 5,000 units SQ Q8 [facility] Stop: 04/15/20 05:59 Last Admin: 03/16/20 06:21 Dose: 5,000 units Documented by: Hydromorphone HCl (Hydromorphone Inj 0.5 Mg/0.5 Ml Syr) 0.5 mg IV Q3H PRN PRN Reason: Pain Stop: 03/30/20 05:07 Lactated Ringer's (Lr) 1,000 mls @ 40 mls/hr IV .Q24H [facility] Stop: 04/15/20 05:07 Last Admin: 03/16/20 05:25 Dose: 40 mls/hr Documented by: Promethazine HCl 12.5 mg/ (Sodium Chloride) 50.5 mls @ 202 mls/hr IV Q6H PRN PRN Reason: Nausea And Vomiting Stop: 04/15/20 05:07 Lorazepam (Ativan) 0.25 mg in 0.5 mls @ 0.5 mls/min IV Q4H PRN PRN Reason: Anxiety Stop: 04/15/20 05:07 Insulin Aspart (Insulin Aspart 100 Units/Ml 3 Ml Pen) 0 units SC ACHS [facility] Stop: 04/15/20 05:07 Last Admin: 03/16/20 12:42 Dose: Not Given Documented by: Levalbuterol HCl (Levalbuterol Tartrate 15 Gm Hfa.Aer.Ad) 2 puffs INH Q6H PRN PRN Reason: Shortness Of Breath Or Wheezing Stop: 04/15/20 05:07 Miscellaneous (Nexlizet~Order Awaiting Action) 1 ea N/A QS [facility] Stop: 04/15/20 07:59 Last Admin: 03/16/20 08:18 Dose: Not Given Documented by: Miscellaneous (Carbohydrates For Hypoglycemia ) 15 - 30 gm PO UD PRN PRN Reason: Hypoglycemia Protocol Stop: 04/15/20 05:07 Montelukast Sodium (Montelukast Sodium 10 Mg Tablet) 10 mg PO DAILY PRN PRN Reason: asthma Stop: 04/15/20 05:07 Nitroglycerin (Nitroglycerin Sl 0.4 Mg/Tab Tab) 0.4 mg SL UD PRN PRN Reason: Chest Pain Stop: 04/15/20 01:13 Last Admin: 03/16/20 01:46 Dose: 0.4 mg Documented by: Nitroglycerin (Nitroglycerin Sl 0.4 Mg/Tab Tab) 0.4 mg SL UD PRN PRN Reason: Chest Pain Stop: 04/15/20 05:07
[2020-03-16] MEDS ORDERED: ATROPINE SULFATE 0.1 MG/ML 10ML SYR IV ONE (13:00)
[2020-03-16] MEDS ORDERED: METOPROLOL TARTRATE 1 MG/ML VIAL IV ONE (13:01)
[2020-03-16] MEDS ORDERED: DOBUTamine HCL 12.5 MG/ML 20 ML VIAL IV ONE (13:01)
[2020-03-16 15:46] VITALS: BP 154/83; PULSE 70; TEMP 97.5; O2SAT 94
--- NOTE | 2020-03-16 16:36 | Electrocardiogram Report ---
Test Reason : Blood Pressure : / mmHG Vent. Rate : 081 BPM Atrial Rate : 081 BPM P-R Int : 144 ms QRS Dur : 080 ms QT Int : 364 ms P-R-T Axes : 057 071 040 degrees QTc Int : 422 ms Normal sinus rhythm Possible Anterior infarct , age undetermined Abnormal ECG No previous ECGs available Confirmed by Baltazar Vo ([id number]) on 03/16/2020 4:35:40 PM Referred By: REFERRED SELF Confirmed By:Baltazar Vo
[2020-03-16] MEDS ORDERED: cloNIDine HCL 0.1 MG TAB PO SCH (21:00)
--- NOTE | 2020-03-17 08:12 | Discharge Summary ---
Date of Service March 17, 2020 Admission HPI Per Admitting Provider History obtained from patient and records. Medical history significant for CVA, hypertension, hyperlipidemia, DM 2 on oral medications, CRI (baseline creatinine 1.4 ), chronic anemia (baseline hemoglobin 11), anxiety/mood disorder. 2 days ago patient noted transient left-sided chest pain going to her left arm without other associated symptoms. Recurrence of left-sided chest pain going to the arm last night. SBP 180s at home which patient gets from time to time. No headache, no cough, no shortness of breath, no diaphoresis. No unusual neck pain. No unusual stress at home. Denies unusual stress. Denies NSAID intake. Some relief with nitroglycerin given at the ER. 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 Admission Exam Per Admitting Provider Physical Exam: GENERAL: Slightly uncomfortable, slightly anxious, no respiratory distress SKIN: Pallor , warm HEENT: Pale palpebral conjunctivae, no ptosis, dry buccal mucosa NECK : Supple, no tenderness CHEST : CTA, left chest wall tenderness HEART : RRR, no obvious murmurs ABDOMEN: Some distention, nontender EXTREMITIES : No LE swelling/tenderness, no other conspicuous deformities noted NEUROLOGIC : Coherent, no facial asymmetry, no other gross focality Principal Diagnosis Left-sided chest pain, negative dobutamine stress echo, elevated blood pressure Discharge Exam Constitutional well developed, well nourished, + ill appearing and + obese; no acute distress Eyes PERRL, conjunctivae normal, anicteric sclerae ENMT external ear and nose normal, oropharynx normal Neck trachea midline, no thyromegaly Respiratory normal respiratory effort; no respiratory distress Auscultation: lungs clear to auscultation bilaterally Cardiovascular Rate/Rhythm: regular rate and regular rhythm Heart Sounds: no murmur Gastrointestinal (Abdomen) Inspection/Auscultation: abdomen normal to inspection and normal bowel sounds; abdomen not distended Percussion/Palpation: abdomen soft; abdomen nontender Neurologic moves all extremities; no focal motor deficits Psychiatric A+Ox3, euthymic affect Lymphatic no cervical or axillary lymphadenopathy Discharge Data Allergies Allergy/AdvReac Type Severity Reaction Status Date / Time erythromycin base AdvReac Severe Gastrointestinal Verified 03/16/20 01:49 Upset Consultations 03/16/20 02:01 ED Decision to Admit Stat 03/16/20 05:08 Consult Cardiology Routine Hospital Course (1) Left-sided chest pain: Chest pain was nonexertional but anyway typical presentation Negative serial cardiac enzymes and negative EKG for any ACS Appreciate cardiology input and recommendation Echo did not show any significant abnormalities We will have dobutamine stress test prior to discharge Uncontrolled hypertension May be contributing the chest pain Anxiety contributory Blood pressure remains elevated Chest blood pressure medications on discharge History of CVA as per records-no acute symptoms DM 2 on oral medications well-controlled as of recent outpatient hemoglobin A1c of 6.16 Oct 2019 We will hold any oral medication SSI CRI, creatinine at baseline Chronic anemia, hemoglobin at baseline DVT prophylaxis. Heparin subcu Full code Total Time Total Time Spent Total Time Spent (In Minutes): 35 minutes Total Time Includes: Examination of the Patient, Discharge Planning, Medication Reconciliation and Communication With Other Providers Discharge Plan Discharge Items Patient Disposition: Home - Self-Care Reason For Visit: CP Discharge Diagnosis: Left-sided chest pain, negative dobutamine stress echo, elevated blood pressure Condition on Discharge: Good Activity: Resume your previous activity Non-emergency contact: Primary Care Provider Call non-emergency contact if: you have any medication questions and your symptoms worsen Follow-up/Referrals: Joe Bravo MD [Physician] - 03/23/20 2:20 pm (Your appointment is with Dr. Torres. Dr. 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 Studies at Discharge: No Stand-Alone Forms: My Matter and Form, Smoking Cessation Medications and DC Order Prescriptions: Continued amlodipine 10 mg tablet 10 mg PO DAILY RF: 0 metformin 1,000 mg tablet 1,000 mg PO BIDM RF: 0 Nexlizet 180-10 mg tablet 1 tab PO QPM RF: 0 clonidine HCl 0.1 mg tablet 0.1 mg PO BID PRN (Reason: Hypertension) RF: 0 montelukast 10 mg Tablet 10 mg PO DAILY PRN (Reason: asthma) RF: 0 levalbuterol tartrate [Xopenex HFA] 45 mcg/actuation Hfa Aerosol Inhaler 2 inh INHALATION Q6H PRN (Reason: Shortness Of Breath Or Wheezing) RF: 0 alprazolam 1 tab PO DAILY PRN (Reason: Anxiety) RF: 0 Discharge Orders: Discharge Order (Routine); Ordered 03/16/20 Ordered By: Padmaja Alford/Other Patient Handouts: Using a Blood Sugar Log, What Is Angina?, Diabetes and Heart Disease, High Blood Sugar (Hyperglycemia), Hypoglycemia (Low Blood Sugar), How to Check Your Blood Sugar, Understanding Carbohydrates, Diabetes: Meal Planning, Your Heart Is at Risk, Warning Signs of a Heart Attack, Eating Heart-Healthy Foods, Glucose (Blood) Admission Data Admit Date/Time: 03/16/20 03:16 Attending Provider: Padmaja Akhtar Admit Provider: Barry Iniguez Primary Care Provider: PCP,NO Other Providers: Barry Iniguez ; Esau Parks ; Rod Atkins ; Prakash Saldaña ; Cleveland Fortune ; Dave Olmedo ; Joe Weber ; Rachael Reeves ; Prudence Yuen ; Иван Molina Other Interventions: Discharge Summary Assessment (RN) Last Done: 03/16/20 17:28
[2020-03-17] MEDS ORDERED: AMLODIPINE BESYLATE 5 MG TAB PO SCH (09:00)
== END 2020-03-16 19:12 | disposition home or self-care (01) ==
LOC: 2S 00:50 → ED 00:50 → 2S 04:10
DX: D64.9 Anemia, unspecified; Z79.84 Long term (current) use of oral hypoglycemic drugs; E11.9 Type 2 diabetes mellitus without complications; R07.9 Chest pain, unspecified; K21.9 Gastro-esophageal reflux disease without esophagitis; I10 Essential (primary) hypertension; Z86.73 Personal history of transient ischemic attack (TIA), and cerebral infarction without residual deficits; Z88.1 Allergy status to other antibiotic agents; Z79.899 Other long term (current) drug therapy; E78.5 Hyperlipidemia, unspecified

== ENCOUNTER 2023-06-03 14:38 | Inpatient (IN) ==
--- NOTE | 2023-06-03 14:43 | ED Triage Note ---
Date of Service June 03, 2023 Provider in Triage Author: Alva Lawler History of Present Illness This patient was briefly evaluated while in triage. An abbreviated physical exam was performed. This patient is a 73-year-old Female who presents to the ED for evaluation of headache on the top left of her head. She checked her blood pressure and it was elevated in the 200/100. She took her blood pressure medication and two tylenol. She called her PA-C and was unable to get in. She states hx migraine, headache is starting to resolve at this time. BP 157/87 in traige. Also reports concern of UTI. Physical Exam CONSTITUTIONAL: in no acute pain or distress, resting comfortably SKIN: pink, warm, dry CARDIAC: regular rate and rhythm RESPIRATORY: in no respiratory distress, lungs clear to auscultation ABDOMEN: no TTP MSK: 5/5 strength throughout NEURO: headache, no other neuro deficits, alert and oriented x 3 Initial orders for labs and / or imaging were placed and patient was placed in the waiting area until a bed is available. Please see further documentation for the full ED course.
[2023-06-03 15:34] LABS: Basophils # (auto) 0.06 K/uL (0.00-0.20); Basophils % (auto) 0.9 %; Eosinophils # (auto) 0.09 K/uL (0.00-0.50); Eosinophils % (auto) 1.3 %; Hematocrit (blood only) 38.8 % (37.0-47.0); Hemoglobin 13.2 g/dl (12.0-16.0); Immature Granulocytes # (auto) 0.04 K/uL (0.01-0.20); Immature Granulocytes % (auto) 0.6 %; Lymphocytes # (auto) 1.83 K/uL (1.20-3.40); Lymphocytes % (auto) 26.3 %; Mean Corpuscular Hemoglobin 31.7 pg (25.0-34.0); Mean Platelet Volume 11.7 fL (9.4-12.4); Monocytes # (auto) 0.38 K/uL (0.11-0.59); Monocytes % (auto) 5.5 %; Neutrophils # (auto) 4.55 K/uL (1.40-6.50); Neutrophils % (auto) 65.4 %; Platelet Count 198 K/uL (130-400); RDW Coefficient of Variation 12.7 % (11.5-14.5); RDW Standard Deviation 43.6 fL (36.4-46.3); Red Blood Count 4.17 M/uL (4.20-5.40); White Blood Count 6.95 K/ul (4.8-10.8)
[2023-06-03 15:43] LABS: Appearance Urine Clear (Clear); Bacteria Urine Automated Negative (Negative); Bilirubin Urine Negative (Negative); Blood Urine Negative (Negative); Cast Urine Automated 0 /lpf (0-5); Color Urine Yellow; Epithelial Cell Urine Auto 0-5 /lpf (0-5); Glucose Urine UA Negative (Negative); Ketones Urine Negative (Negative); Leukocyte Esterase Urine 2+ (Negative); Nitrite Urine Negative (Negative); Protein Urine Negative (Negative); RBC Urine Automated 0-4 /hpf (0-4); Specific Gravity Urine 1.005 (1.000-1.030); Urobilinogen Urine Negative (Negative); WBC Urine Automated >30 /hpf (0-5)
--- NOTE | 2023-06-03 15:48 | CT Scan Report ---
CT OF THE HEAD WITHOUT CONTRAST CLINICAL HISTORY: Headache. COMPARISON STUDY: No previous studies for comparison. CT DOSE: 625.8 mGy.cm TECHNIQUE: Helical axial images of the head were obtained without IV contrast. Automated exposure con trol was utilized for the study. A dose lowering technique was utilized adhering to the principles o f ALARA. FINDINGS: No acute intracranial hemorrhage is present. Basal cisterns are patent. There are no extra axial collections. Encephalomalacia within the right occipital lobe and medial right temporal lobe is noted. 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 There is a 3.8 x 3 cm hypodense focus with lo ss of rodriguez-white differentiation within the anterior superior right frontal lobe on image 18 of 32. C SF densities along the medial aspect of the cerebellar hemispheres could reflect faheem cisterna magna or an arachnoid cyst. Old infarcts could appear similar but are considered less likely. White matter hypodensity suggests small vessel disease. IMPRESSION: 1. No acute intracranial hemorrhage. 2. 3.8 x 3 cm hypodense focus with loss of rodriguez-white differentiation within the anterior superior ri ght frontal lobe. This favors a subacute to acute infarct. MRI could be obtained for further evaluati on. 2. 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 ACT 112: Negative or not required by law. Electronically signed by: Davion Ledesma M.D. 06/03/2023 3:46 PM
[2023-06-03 15:50] LABS: BUN Creatinine Ratio 9.9 (10-20); Calcium 9.6 mg/dl (8.6-10.3); Creatinine Clr Calc Pharmacy 46.1 ml/min; Est GFR (African American) 47.4 ml/min; Est GFR (Non-African American) 40.9 ml/min; Potassium 3.7 mmol/L (3.5-5.1)
[2023-06-03 15:56] LABS: Troponin I High Sensitivity 10.3 pg/ml (0-14)
--- NOTE | 2023-06-03 18:05 | Emergency Department Note ---
History of Present Illness General Chief Complaint: Headache Stated Complaint: HEADACHE Time Seen by Provider: 06/03/23 17:12 History of Present Illness Provider complaint: + headache Onset (ago): day(s) 1 (Began when the patient woke up this morning) Onset description: + gradual and + now resolved Severity: moderate Quality: + throbbing and + dull Relieved By: + prescription medication (Amlodipine) and + other (Oral hydration with water) Exacerbated By: + none Context: + long history of migraine; no occurred at rest, no occurred during intercourse, no recent head injury, no known CO exposure, no tick bite, no recent spinal/epidural procedure or no recent URI Associated symptoms: + nausea and + other (Blurry vision); no fever, no vomiting, no neck stiffness, no photophobia, no eye pain, no syncope, no near syncope, no vision loss, no scotoma, no confusion, no cough, no diaphoresis or no shortness of breath Treatments prior to arrival: + migraine medication (Amlodipine) Home Medications Medication Instructions Recorded Confirmed Type amlodipine 10 mg tablet 10 mg PO QAM 03/16/20 06/03/23 History clonidine HCl 0.1 mg tablet 0.1 mg PO BID PRN SBP over 200. 03/16/20 06/03/23 History levalbuterol tartrate 45 2 inh inhalation Q6H PRN Shortness 03/16/20 06/03/23 History mcg/actuation aerosol inhaler Of Breath Or Wheezing (Xopenex HFA) montelukast 10 mg tablet 10 mg PO DAILY PRN asthma 03/16/20 06/03/23 History alirocumab 150 mg/mL subcutaneous 150 mg subcut .[id number] 06/03/23 06/03/23 History pen injector (Praluent Pen) aspirin 81 mg tablet 81 mg PO DAILY PRN Pain 06/03/23 06/03/23 History budesonide-formoterol HFA 160 2 puff inhalation BID 06/03/23 06/03/23 History mcg-4.5 mcg/actuation aerosol inhaler (Symbicort) cyanocobalamin (vitamin B-12) 1,000 mcg PO DAILY 06/03/23 06/03/23 History 1,000 mcg tablet,extended release (Vitamin B-12 ER) insulin glargine 100 unit/mL (3 26 unit subcut PM 12/18/23 12/18/23 History mL) subcutaneous pen (Lantus Solostar U-100 Insulin) Allergies Allergy/AdvReac Type Severity Reaction Status Date / Time olmesartan [From Benicar] Allergy Severe Stopped me Unverified 06/03/23 17:30 from urinating erythromycin base AdvReac Severe Gastrointestinal Verified 06/03/23 17:30 Upset Sulfa (Sulfonamide AdvReac Severe Gastrointestinal Unverified 06/03/23 17:30 Antibiotics) Upset codeine AdvReac Intermediate Nausea Unverified 06/03/23 17:30 Seasonal Allergies Allergy Intermediate Congestion, Uncoded 06/03/23 17:31 itchy watery eyes, runny nose Beef, chicken AdvReac Intermediate Acid Reflux Uncoded 06/03/23 17:30 Past Med/Surg History Medical History No pertinent family history Hypertension Surgical History No pertinent past surgical history Social History Smoking Status: Never smoker Hx Alcohol Use: No Hx Substance Use: No Preferred Language: Urdu Communication Ability: Effective [employer] Required: No Beliefs That Will Affect Care: None Current Living Situation: Family Feels Safe at Home: Yes Assistive Devices: Glasses Physical Exam Vital Signs Vital Signs - 24 hr 06/03/23 14:39 06/03/23 17:07 06/03/23 17:59 Temperature 36.6 C Temperature Source Temporal Artery Scan Pulse Rate 73 68 Pulse Rate [Apical] 69 Respiratory Rate 18 18 Respiratory Effort / Characteristics Non-Labored Spontaneous Respiratory Depth Normal Respiratory Pattern Regular Blood Pressure 159/87 H Blood Pressure [Right Arm] 176/90 H Blood Pressure Mean 111 Blood Pressure Mean [Right Arm] 118 Blood Pressure Position [Right Arm] Lying Pulse Oximetry 95 99 Oxygen Delivery Method Room Air Sepsis Recent Fever Within 48 Hours No Sepsis New/Unexplained Change in Mental Status N/A Sepsis Action Taken by Nursing No Action Required 06/03/23 18:07 Temperature 37 C Temperature Source Oral Pulse Rate Pulse Rate [Apical] 70 Respiratory Rate 18 Respiratory Effort / Characteristics Non-Labored Spontaneous Respiratory Depth Normal Respiratory Pattern Blood Pressure Blood Pressure [Right Arm] 193/89 H Blood Pressure Mean Blood Pressure Mean [Right Arm] 123 Blood Pressure Position [Right Arm] Pulse Oximetry 97 Oxygen Delivery Method Room Air Sepsis Recent Fever Within 48 Hours Sepsis New/Unexplained Change in Mental Status Sepsis Action Taken by Nursing Physical Exam HENT: Exam performed. -Head: Normocephalic and atraumatic. -Right Ear: External ear normal. No mastoid erythema -Left Ear: External ear normal. No mastoid erythema -Mouth/Throat: The oropharynx is clear and moist. No trismus in the jaw. No dental abscesses or uvula swelling. No oropharyngeal exudate or tonsillar abscesses. EYES: Conjunctivae and EOM are normal. Pupils are equal, round, and reactive to light. Right eye exhibits no discharge. Left eye exhibits no discharge. No scleral icterus. NECK: Normal range of motion. Neck supple. No JVD present. No spinous process tenderness present. No rigidity. No tracheal deviation and normal range of motion present. No Brudzinski's sign and no Kernig's sign noted. CV: Normal rate, regular rhythm, normal heart sounds and intact distal pulses. There is no peripheral edema. Palpable radial pulses bue. PULM/CHEST: Effort normal and breath sounds normal. No respiratory distress. No stridor. She has no wheezes. She has no rales. MUSC/SKEL: Normal range of motion. There is no peripheral edema, tenderness or deformity. NEURO: She is alert and oriented to person, place, and time. She has normal strength. No cranial nerve deficit or sensory deficit. Coordination and gait normal. GCS eye subscore is 4. GCS verbal subscore is 5. GCS motor subscore is 6. Cerebellar tests wnl. No clonus. SKIN: Skin is warm and dry. She is not diaphoretic. PSYCH: She has a normal mood and affect. Behavior is normal. Judgment and thought content normal. Course Course 171: The patient was evaluated in room A10. A complete history and physical exam was performed Medical Decision Making Laboratory Data Attestation: I reviewed the patient's lab results. 06/03/23 15:12 06/03/23 15:12 Lab Results 06/03/23 06/03/23 Range/Units 15:12 15:13 WBC 6.95 (4.8-10.8) K/ul RBC 4.17 L (4.20-5.40) M/uL Hgb 13.2 (12.0-16.0) g/dl Hct 38.8 (37.0-47.0) % MCV 93.0 (80.0-100.0) fL MCH 31.7 (25.0-34.0) pg MCHC 34.0 (32.0-36.0) g/dL RDW Std Deviation 43.6 (36.4-46.3) fL RDW Coeff of Guillermina 12.7 (11.5-14.5) % Plt Count 198 (130-400) K/uL MPV 11.7 (9.4-12.4) fL Immature Gran % (Auto) 0.6 % Neut % (Auto) 65.4 % Lymph % (Auto) 26.3 % [place]ff[place] % (Auto) 5.5 % Eos % (Auto) 1.3 % Baso % (Auto) 0.9 % Neut # (Auto) 4.55 (1.40-6.50) K/uL Lymph # (Auto) 1.83 (1.20-3.40) K/uL [place]ffie # (Auto) 0.38 (0.11-0.59) K/uL Eos # (Auto) 0.09 (0.00-0.50) K/uL Baso # (Auto) 0.06 (0.00-0.20) K/uL Immature Gran # (Auto) 0.04 (0.01-0.20) K/uL Sodium 139 (136-145) mmol/L Potassium 3.7 (3.5-5.1) mmol/L Chloride 106 (98-107) mmol/L Carbon Dioxide 26 (21-32) mmol/L Anion Gap 7 (3-11) BUN 13 (6-23) mg/dl Creatinine 1.31 H (0.6-1.2) mg/dl Est Cr Clr Drug Dosing 46.1 ml/min Est GFR ( Amer) 47.4 ml/min Est GFR (Non-Af Amer) 40.9 ml/min BUN/Creatinine Ratio 9.9 L (10-20) Glucose 112 H (70-99(Fasting)) mg/dl Calcium 9.6 (8.6-10.3) mg/dl Troponin I High Sens 10.3 (0-14) pg/ml Urine Color Yellow Urine Appearance Clear (Clear) Urine pH 6.0 (4.5-7.5) Ur Specific [place] 1.005 (1.000-1.030) Urine Protein Negative (Negative) Urine Glucose (UA) Negative (Negative) Urine Ketones Negative (Negative) Urine Blood Negative (Negative) Urine Nitrite Negative (Negative) Urine Bilirubin Negative (Negative) Urine Urobilinogen Negative (Negative) Ur Leukocyte Esterase 2+ H (Negative) Urine WBC (Auto) >30 H (0-5) /hpf Urine RBC (Auto) 0-4 (0-4) /hpf U Hyaline Cast (Auto) 0 (0-5) /lpf U Epithel Cells (Auto) 0-5 (0-5) /lpf Urine Bacteria (Auto) Negative (Negative) Imaging Data Radiologist's Impression: Head CT 06/03/23 14:50 CT OF THE HEAD WITHOUT CONTRAST CLINICAL HISTORY: Headache. COMPARISON STUDY: No previous studies for comparison. CT DOSE: 625.8 mGy.cm TECHNIQUE: Helical axial images of the head were obtained without IV contrast. Automated exposure control was utilized for the study. A dose lowering technique was utilized adhering to the principles of ALARA. FINDINGS: No acute intracranial hemorrhage is present. Basal cisterns are patent. There are no extra axial collections. Encephalomalacia within the right occipital lobe and medial right temporal lobe is noted. 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 There is a 3.8 x 3 cm hypodense focus with loss of rodriguez- white differentiation within the anterior superior right frontal lobe on image 18 of 32. CSF densities along the medial aspect of the cerebellar hemispheres could reflect faheem cisterna magna or an arachnoid cyst. Old infarcts could appear similar but are considered less likely. White matter hypodensity suggests small vessel disease. IMPRESSION: 1. No acute intracranial hemorrhage. 2. 3.8 x 3 cm hypodense focus with loss of rodriguez-white differentiation within the anterior superior right frontal lobe. This favors a subacute to acute infarct. MRI could be obtained for further evaluation. 2. 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 ACT 112: Negative or not required by law. Electronically signed by: Davion Ledesma M.D. 06/03/2023 3:46 PM ECG Data Attestation: I personally reviewed and interpreted this ECG as follows: Rate (beats per minute): 68 Rhythm: normal sinus Findings: + PVC; no ST depression, no ST elevation or no prolonged QT MDM Narrative Cardiac monitoring: An order was placed for continuous cardiac monitoring. The monitor shows a rate of 70 with sinus rhythm interpreted by me Patient was seen during a time of extreme volume and extreme acuity. Nursing triage protocols were initiated labs and imaging was conducted by protocol in the triage area. Imaging shows possible infarct. Patient will be admitted to the hospitalist team for stroke workup MRI and neurology evaluation. Impression & Plan Headache, Stroke-like symptoms Discharge Plan Visit Data Chief Complaint: Headache Stated Complaint: HEADACHE ED Provider: Parish Rolon Discharge Problem: Headache, Stroke-like symptoms Patient Disposition: Being Evaluated by Hospitalist Forms Stand Alone Forms: Trak Prescriptions Prescriptions: No Action amlodipine 10 mg tablet 10 mg PO QAM clonidine HCl 0.1 mg tablet 0.1 mg PO BID PRN (Reason: SBP over 200. ) montelukast 10 mg Tablet 10 mg PO DAILY PRN (Reason: asthma) levalbuterol tartrate [Xopenex HFA] 45 mcg/actuation Hfa Aerosol Inhaler 2 inh INHALATION Q6H PRN (Reason: Shortness Of Breath Or Wheezing) cyanocobalamin (vitamin B-12) [Vitamin B-12] 1,000 mcg Tablet Extended Release 1,000 mcg PO DAILY aspirin 81 mg Tablet 81 mg PO DAILY PRN (Reason: Pain) budesonide-formoterol [Symbicort] 160-4.5 mcg/actuation HFA aerosol inhaler 2 puff INHALATION BID insulin glargine [Lantus Solostar U-100 Insulin] 100 unit/mL (3 mL) insulin pen 26 unit SUBCUT PM Praluent Pen 150 mg/mL pen injector 150 mg SUBCUT .[id number] Referrals Referrals: PCP,NO [Primary Care Provider] - Discharge Problem: Headache Qualifiers: Headache type: unspecified Headache chronicity pattern: unspecified pattern I ntractability: not intractable Qualified Code(s): R51.9 - Headache, unspecified
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
[2023-06-03] MEDS ORDERED: PHARMACIST DISCHARGE MED REC CONSULT PRN (18:57)
[2023-06-03] MEDS ORDERED: ASPIRIN CHEW 324 MG PO STA (19:10)
[2023-06-03] MEDS ORDERED: DEXTROSE 50% 50 ML SYRINGE IV PRN (19:42)
[2023-06-03] MEDS ORDERED: CARBOHYDRATES FOR HYPOGLYCEMIA PO PRN (19:42)
[2023-06-03] MEDS ORDERED: GLUCOSE 40% GEL 15 GM TUBE PO PRN (19:42)
[2023-06-03] MEDS ORDERED: LEVALBUTEROL TARTRATE 15 GM HFA.AER.AD INH PRN (19:42)
[2023-06-03] MEDS ORDERED: GLUCOSE 10 TAB/TUBE PO PRN (19:42)
[2023-06-03] MEDS ORDERED: MONTELUKAST SODIUM 10 MG TABLET PO PRN (19:42)
[2023-06-03] MEDS ORDERED: GLUCAGON FOR INJ 1 MG VIAL SQ PRN (19:42)
[2023-06-03] MEDS ORDERED: ACETAMINOPHEN 325 MG TAB PO PRN (19:42)
[2023-06-03] MEDS: INSULIN ASPART PER UNIT CHARGE SC SCH (20:23)
[2023-06-03] MEDS ORDERED: LANTUS PER UNIT CHARGE SQ SCH (21:00)
--- OUTSIDE RECORDS SUMMARY | 2023-06-03 23:36 | External Medical Summary | Summary of Care ---
Author Name Unknown Organization [facility] Address [address] [address] Phone [phone] Care Team Providers Care Plant Equipment Engineer Name Role Phone Joe Bravo MD Primary Care Provider [phone] Reason for Visit * Reason Onset Date Comments Appointment 04/15/2023 Encounter Details Date Type Department Care Team (Late st Contact Info) Description 04/15/2023 Telephone Nephrology, [facility] [address] [facility] [place] [address] Real Tejeda MD [address] [facility] [place] [address] Appointment Allergies Active Allergy Reactions Criticality Noted Date Comments Atenolol Tachycardia High 03/26/2018 Olmesartan Other (Please comment) High 03/26/2018 Unable to void Codeine 10/27/1997 Vomiting Rosuvastatin Nausea/vomiting 01/20/2020 Pollen 08/31/2021 Other trees Erythromycin Nausea/vomiting High 08/24/2013 Atorvastatin Nausea/vomiting 01/20/2020 Lost 20lbs Lisinopril 03/26/2018 Hair loss Sulfa Antibiotics Nausea/vomiting Low 05/13/2018 Simvastatin Nausea/vomiting 01/20/2020 documented as of this encounter (statuses as of 04/15/2023) Medications Medication Sig Dispensed Refills Start Date End Date Status Cetirizine HCl 10 MG CapsuleIndications: Chronic rhinitis,Nasal turbinate hypertrophy Take 1 Cap by mouth daily. 30 Cap 5 10/31/2017 Active Additional Information Patient taking differently:10 mg OralDAILY PRN, Reported on 01/20/2020 Glucose Blood (RELION PRIME TEST) STRPIndications:Typ e 1 diabetes mellitus with hemoglobin A1c goal of less than 7.0% (HCC) Test glucose 5 times daily Dx: E11.22 200 Strip 11 04/14/2019 Active Blood Glucose Monitoring Suppl (RELION PRIME MONITOR) DEVIIndications:Typ e 1 diabetes mellitus with hemoglobin A1c goal of less than 7.0% (HCC) Test Glucose 5 times daily Dx: E11.22 1 Device 0 04/14/2019 Active RELION LANCETS MICRO-THIN 33G MISCIndications:Typ e 1 diabetes mellitus with hemoglobin A1c goal of less than 7.0% (HCC) Test glucose 5 times daily DX: E11.22 200 Each 11 04/14/2019 Active Zoster Vac Recomb Adjuvanted 50 MCG/0.5ML Intramuscular Suspension Reconstituted (Shingrix)Indicatio ns:Need for vaccination for zoster Inject 0.5 mL into a large muscle now and repeat dose in 60 to 180 days 1 Each 1 03/30/2020 Active Montelukast Sodium 10 MG Oral Tablet (Singulair)Indicati ons:Asthma with severity to be determined Take 1 Tab by mouth daily as needed for Allergies. 90 Tab 3 01/20/2021 Active metFORMIN HCl 500 MG Oral Tablet (Glucophage) TAKE 1 TABLET BY MOUTH TWICE DAILY WITH MORNING MEAL AND WITH EVENING MEAL 180 Tab 1 01/26/2021 Active Additional Information Patient taking differently: Has been using prn, Reported on 05/24/2021 Levalbuterol HCl 1.25 MG/3ML Inhalation Nebulization Solution (Xopenex)Indication s:Mild intermittent asthma with exacerbation,Acute bronchitis, antibiotics not indicated Inhale 3 mL via nebulizer every 4 hours as needed for Wheezing or Shortness of Breath. 120 mL 1 05/22/2021 Active ALPRAZolam 0.5 MG Oral Tablet (xaNAX)Indications: Anxiety state Take by mouth 1 Tablet as needed in the morning AND 1 Tablet as needed at noon AND 1 Tablet as needed in the evening for Anxiety. 30 Tablet 0 08/01/2021 Active cloNIDine HCl 0.1 MG Oral Tablet (Catapres)Indicatio ns:HTN, goal below 140/90 TAKE 1 TABLET BY MOUTH THREE TIMES DAILY 270 Tablet 3 08/09/2021 Active Tylenol 325 MG Oral Capsule (Acetaminophen) Take by mouth 325 mg as needed for Headache. 0 Active PreserVision AREDS Oral Capsule Take by mouth 1 Capsule daily . Macusheild gold instead of this 0 Active Famotidine 20 MG Oral Tablet (Pepcid)Indications :Gastroesophageal reflux disease without esophagitis Take by mouth 1 Tablet in the morning. 90 Tablet 3 10/11/2021 Active Aspirin 81 MG Oral Tablet Chewable (Aspirin 81) Take by mouth 81 mg in the morning. 0 Active Triamcinolone Acetonide 0.1 % External Cream (Aristocort)Indicat ions:Dermatitis Apply topically to affected area 2 times a day as needed for Irritation. To affected area. 80 g 5 01/31/2022 Active Triamcinolone Acetonide 0.1 % External Lotion (Aristocort)Indicat ions:Folliculitis Apply topically to affected area 2 times a day . To affected area. 60 mL 5 01/31/2022 Active Levalbuterol Tartrate 45 MCG/ACT Inhalation Aerosol (Xopenex Hfa)Indications:Ast hma with severity to be determined INHALE 2 PUFFS BY MOUTH EVERY 4 HOURS NEEDED FOR WHEEZING 15 g 3 02/27/2022 Active Lantus SoloStar 100 UNIT/ML Subcutaneous Solution Pen-injectorIndicat ions:Type 2 diabetes mellitus with stage 3b chronic kidney disease, without long-term current use of insulin ([facility]) INJECT 8 to 11 UNITS SUBCUTANEOUSLY ONCE DAILY (ADJUST DOSING DEPENDING ON GLUCOSE MONITORING) 15 mL 3 02/27/2022 Active amLODIPine Besylate 10 MG Oral Tablet (Norvasc) Take 1 tablet by mouth once daily 90 Tablet 0 08/24/2022 Active ReliOn Pen [place] 32G X 4 MM (Insulin Pen Needle)Indications: Type 2 diabetes mellitus with stage 3b chronic kidney disease, without long-term current use of insulin (HCC) USE ONCE DAILY 100 Each 3 04/11/2023 Active documented as of this encounter (statuses as of 04/15/2023) Active Problems Problem Noted Date Diagnosed Date Statin intolerance 05/07/2022 Hypertensive heart disease w ith diastolic heart failure and stage 3b chronic kidney disease 01/31/2022 Asthma, intermittent, uncomplicated 01/31/2022 Diastolic congestive heart failure 02/08/2021 Other hyperlipidemia 02/08/2021 Left carotid stenosis 02/08/2021 Diabetes mellitus with peripheral vascular disea se 02/08/2021 Type 2 diabetes mellitus wit h stage 3b chronic kidney disease 10/25/2020 Overview: Per CKD protocol Hypertensive kidney disease with stage 3b chronic kidney disease 04/25/2020 Overview: Per CKD protocol Familial hypercholesterolemia 03/21/2020 Diabetes mellitus type 2, noninsulin dependent 0 07/14/2019 Anxiety state 07/14/2019 Cerebrovascular disease, arteriosclerotic, post- stroke 05/13/2018 ADVANCE DIRECTIVE INFORMATION 10/25/2005 Overview: No, Advance Directive brochure offered , patient declined. Gastroesophageal reflux disease without esophagi tis 10/25/2005 Family history of premature CAD 01/24/2002 Overview: ICD-10 update of inactive term PLANTAR FIBROMATOSIS 11/02/1998 Asthma with severity to be determined 09/23/1998 Overview: ICD-10 update of inactive term FAMILY HX-BREAST MALIG FAM HX-DIABETES MELLITUS Osteitis condensans Major depressive disorder without psychotic feat ures Overview: ICD-10 update of inactive term BENIGN HYPERTENSION documented as of this encounter (statuses as of 04/15/2023) Resolved Problems Problem Noted Date Diagnosed Date Resolved Date Chronic kidney disease, stage 3b 10/25/2020 07/19/2021 Overview: Per CKD protocol Duplicate Skin lesion 11/04/2019 11/04/2019 Hypertensive kidney disease with stage 3 chronic kidney disease 07/14/2019 04/28/2020 Overview: Per CKD protocol Gastroesophageal reflux dise ase without esophagitis 07/14/2019 07/14/2019 Hyperlipidemia, unspecified 07/14/2019 07/19/2021 Overview: Duplicate. More specific code in use Diabetes mellitus with stage 3 chronic kidney disease 08/25/2018 10/27/2020 Overview: Per CKD protocol #1 Type 1 diabetes mellitus wit h hemoglobin A1c goal of less than 7.0% 05/13/2018 10/20/2019 PERIAPICAL ABSCESS 01/24/2002 9 DIARRHEA 01/24/2002 08/06/2018 Other chronic sinusitis 01/24/200206/18 Heartburn 01/24/2002 08/06/2018 Skin Tags 01/21/2002 11/04/2019 documented as of this encounter (statuses as of 04/15/2023) Immunizations Name Administration Dates Next Due COVID-19 mRNA, LNP-s, No Pre serve, 2-Dose Series (Moderna) 10/07/2020,09/09/2020 PPD 07/18/2004 Pneumococcal Polysaccharide PPV23 (Pneumovax) 03/16/2020 SEASONAL INFLUENZA, PF, 6 M & Above, IM , (FLULAVAL or FLUZONE) 03/30/2020,07/14/2019,05/13/2018 05/13/2019 TDAP (age 10 and older)(Boostrix) 05/04/2020 documented as of this encounter Social History Tobacco Use Types Packs/Day Years Used Date Smoking Tobacco: Never Smokeless Tobacco: Never Alcohol Use Standard Drinks/Week Comments No 0 (1 standard drink = 0.6 oz pur e alcohol) Hasn't had any in years PHQ-2 Answer Date Recorded PHQ Adult Total Score 0 08/10/2020 Hunger Vital Sign Answer Date Recorded Within the past 12 months, y ou worried that your food would run out before you got the money to buy more. Never true 08/10/19 21 Within the past 12 months, t he food you bought just didn't last and you didn't have money to get more. Never true 08/10/2020 Sex and Gender Information Value Date Recorded Sex Assigned at Not on file Gender Identity Not on file Sexual Orientation Not on file Job Start Date Occupation Industry Not on file Not on file Not on file documented as of this encounter Miscellaneous Notes * Telephone Encounter - Karin Hughes OSA - 04/15/2023 8:16 AM EDT 04/15 called patient, left message. Trying to get patient re-scheduled for a follow-up with Dr. Tejeda. Last seen in 2021. Patient is on the recall list. documented in this encounter Plan of Treatment Health Maintenance Due Date Last Done Comments DXA Scan 1950 Hepatitis C Screening 01/08/1970 Cologuard 01/08/1997 Colonoscopy 01/08/1997 Sigmoidoscopy 01/08/1997 Colorectal Cancer Screening 05/05/1997 Fecal Occult Blood Test 05/05/1997 05/05/1996 Zoster Vaccines (1 of 2) 01/08/2002 Hepatitis B (1 of 3 - Risk 3-dose series) 2012 Albumin/Creatinine Ratio 10/23/2020 10/24/2019 Pneumococcal Vaccine: 65+ Years (2 - PCV) 03/16/2021 03/16/2020 Depression Screening 08/10/2021 08/10/2020 Diabetic Foot Exam 08/10/2021 08/10/2020, 07/14/2019 *SPIROMETRY ONCE FOR ASTHMA-ADULT 05/10/2022 CKD HGB USE SMARTSET 27393 05/22/202205/22, 05/22/2021, 11/24/2020, Additional history exists CKD PHOS USE SMARTSET 40593 05/22/2022 05/22/2021, 0 10/24/2019 GFR 05/27/2022 11/25/2021, 12/0 11/2020, 08/23/2020, Additional history exists HbA1c 05/27/2022 11/25/2021, 11/15, 08/23/2020, Additional history exists B-12 11/25/2022 11/25/2021, 11/15, 08/23/2020, Additional history exists Mammogram 02/02/2023 02/02/2022, 11/29/2020 COVID-19 Vaccine ( season) 2023 10/07/2020, 09/09/2020 Influenza Vaccine (FLU shot) (#1) 2023 03/30/2020, 07/14/2019, 05/13/2018 DIABETES-EYE EXAM 01/02/2024 01/01/2023, , 08/13/2018 DTaP,Tdap,and Td Vaccines (2 - Td or Tdap) 05/04/2030 05/04/2020 GARDASIL-HPV IMMUNIZATION SERIES Aged Out No longer eligible based on patient's age to complete this topic MENINGOCOCCAL (MENACTRA/MENVEO) Aged Out No longer eligible based on patient's age to complete this topic documented as of this encounter Medical Devices Not on filedocumented as of this encounter Care Teams Plant Equipment Engineer Relationship Specialty Start Date End Date Joe Bravo MD [address] [place] [address] PCP - General Family Medicine 03/26/18 documented as of this encounter
--- OUTSIDE RECORDS SUMMARY | 2023-06-03 23:36 | External Medical Summary | Continuity of Care Document ---
Author Name Unknown Organization [address] Address [address] [place], [place] [id number] Care Team Providers Care Shake Sawyer Name Role Phone JahAnh victor Huma Primary Care Physician [phone] [id number] Date(s): 04/03/23 - 04/03/23 [facility] [address], [address] [place] [address] [phone] Discharge Disposition: Home or Self Care Attending Physician: DO Moon Jason D Referring Physician: DO Moon Jason D Allergies, Adverse Reactions, Alerts Substance Reaction Severity Status atenolol SOB Active codeine vomiting nausea Active erythromycin vomiting nausea Active lisinopril hair loss Active sulfa drugs voiting nausea Active Bactrim vomiting nausea Active Benicar kidney issues Active Medications amLODIPine 10 mg oral tablet Start: 12/10/22 14:02:00 EDT, 1 tab, PO, Daily, Disp# 90 tab, Refills: 2, TAKE 1 TABLET BY MOUTH ONCE DAILY, Pharmacy: [facility] Start Date: 12/10/22 Status: Ordered aspirin 81 mg oral delayed release tablet Start: 09/24/22 8:05:00 EDT, Ocassionally Start Date: 09/24/22 Status: Ordered cloNIDine 0.1 mg oral tablet TAKE 1 TABLET BY MOUTH THREE TIMES DAILY Start Date: 07/30/22 Status: Ordered famotidine 20 mg oral tablet TAKE 1 TABLET BY MOUTH IN THE MORNING Start Date: 07/30/22 Status: Ordered FreeStyle Dayday 2 - 14 day reader Start: 08/16/22 16:04:00 EST, See Instructions, Disp# 2 each, continous glucose monitoring, Pharmacy: [facility] Start Date: 08/16/22 Status: Ordered FreeStyle Dayday 2 - 14 day sensor Start: 08/16/22 16:04:00 EST, See Instructions, Disp# 2 each, Refills: 11, Continous glucose monitoring, Pharmacy: [facility] Start Date: 08/16/22 Status: Ordered Lantus Solostar Pen 100 units/mL subcutaneous solution Start: 10/17/22 15:47:00 EDT, See Instructions, Disp# 15 mL, Refills: 3, INJECT 20 to 25 UNITS SUBCUTANEOUSLY ONCE DAILY (ADJUST DOSING DEPENDING ON GLUCOSE MONITORING), Pharmacy: [facility] 2229 Start Date: 10/17/22 Status: Ordered levalbuterol CFC free 45 mcg/inh inhalation aerosol Start: 03/26/23 9:56:00 EDT, 2 puff, inhaled, q4h, Disp# 1 each, Refills: 5, INHALE 2 PUFFS BY MOUTH EVERY 4 HOURS NEEDED FOR WHEEZING, Pharmacy: [facility] [address]229 Start Date: 03/26/23 Stop Date: 09/22/23 Status: Ordered montelukast 10 mg oral tablet Start: 09/24/22 8:22:00 EDT, 1 tab, PO, Daily, Disp# 30 tab, Refills: 5, TAKE 1 TABLET BY MOUTH ONCE DAILY NEEDED FOR ALLERGIES, Pharmacy: [facility] [address] Start Date: 09/24/22 Status: Ordered mupirocin 2% topical ointment Start: 09/24/22 8:28:00 EDT, 1 appl, topical, tid, Disp# 15 g, Refills: 0, Pharmacy: [facility] [address] Start Date: 09/24/22 Stop Date: 09/29/22 Status: Ordered Praluent Pen 150 mg/mL subcutaneous solution Start: 04/01/23 14:05:00 EDT, 150 mg =, subQ, [id number] Start Date: 04/01/23 Status: Ordered RELION PEN NEEDLE [id number] MIS USE ONCE DAILY Start Date: 07/30/22 Status: Ordered Symbicort 160 mcg-4.5 mcg/inh inhalation aerosol Start: 02/05/23 13:37:00 EDT, See Instructions, Disp# 11 g, Refills: 5, Inhale 2 puffs by mouth twice daily, Brand Medically Necessary, Pharmacy: [facility] Start Date: 02/05/23 Status: Ordered Problem List Condition Confirmation Course Effective Dates Status H ealth Status Informant Benign hypertension without CHF Confirmed Active Chronic kidney disease (CKD) stage G3b/A2, moderately decreased glomerular filtration rate (GFR) between 30-44 mL/min/1.73 square meter and albuminuria creatinine ratio between 30-299 mg/g Confirmed Active History of CVA (cerebrovascular accident) Confirmed Active Other hyperlipidemia Confirmed Active Left carotid artery stenosis Confirmed Active Asthma, moderate persistent, well-controlled Confirmed Active Controlled type 2 diabetes mellitus with stage 3 chronic kidney disease, with long-term current use of insulin Confirmed Active Social History Social History Type Response Smoking Status Never smoked cigaret domenic Sex Female Patient Care team information Care Team Personnel Name: CHERRY Manriquez, Anh Finn Position: Physician Asst [facility] - Family Med Member Role: Primary Care Provider Address: Address: [address] [place] [id number] [place] Care Team Related Persons Name: ZAKIA ARANDA
--- OUTSIDE RECORDS SUMMARY | 2023-06-03 23:36 | External Medical Summary | Continuity of Care Document ---
Author Name Unknown Organization [facility] [address] [facility] Address [address] [place], [place] [id number] Care Team Providers Care Educational Guidance Counselor Name Role Phone Anh Manriquez Primary Care Physician [phone] [id number] Date(s): 04/01/23 - 04/01/23 [facility] [address], [address] [place] [phone] Encounter Diagnosis Left carotid artery stenosis(Discharge Diagnosis) - 04/01/23 Esophagitis, reflux(Discharge Diagnosis) - 04/01/23 Discharge Disposition: Home or Self Care Attending Physician: MD Botello Eugene J Referring Physician: CHERRY Manriquez Jessica A Allergies, Adverse Reactions, Alerts Substance Reaction Severity Status atenolol SOB Active codeine vomiting nausea Active erythromycin vomiting nausea Active lisinopril hair loss Active sulfa drugs voiting nausea Active Bactrim vomiting nausea Active Benicar kidney issues Active Medications amLODIPine 10 mg oral tablet Start: 12/10/22 14:02:00 EDT, 1 tab, PO, Daily, Disp# 90 tab, Refills: 2, TAKE 1 TABLET BY MOUTH ONCE DAILY, Pharmacy: [id number] Start Date: 12/10/22 Status: Ordered aspirin 81 [...] Disp# 2 each, continous glucose monitoring, Pharmacy: [facility] Start Date: 08/16/22 Status: Ordered FreeStyle Dayday 2 - 14 day sensor Start: 08/16/22 16:04:00 EST, See Instructions, Disp# 2 each, Refills: 11, Continous glucose monitoring, Pharmacy: [facility] Start Date: 08/16/22 Status: Ordered Lantus Solostar Pen 100 units/mL subcutaneous solution Start: 10/17/22 15:47:00 EDT, See Instructions, Disp# 15 mL, Refills: 3, INJECT 20 to 25 UNITS SUBCUTANEOUSLY ONCE DAILY (ADJUST DOSING DEPENDING ON GLUCOSE MONITORING), Pharmacy: [facility]229 Start Date: 10/17/22 Status: Ordered levalbuterol CFC free 45 mcg/inh inhalation aerosol Start: 03/26/23 9:56:00 EDT, 2 puff, inhaled, q4h, Disp# 1 each, Refills: 5, INHALE 2 PUFFS BY MOUTH EVERY 4 HOURS NEEDED FOR WHEEZING, Pharmacy: [facility] Start Date: 03/26/23 Stop Date: 09/22/23 Status: Ordered montelukast 10 mg oral tablet Start: 09/24/22 8:22:00 EDT, 1 tab, PO, Daily, Disp# 30 tab, Refills: 5, TAKE 1 TABLET BY MOUTH ONCE DAILY NEEDED FOR ALLERGIES, Pharmacy: [facility] Start Date: 09/24/22 Status: Ordered mupirocin 2% topical ointment Start: 09/24/22 8:28:00 EDT, 1 appl, topical, tid, Disp# 15 g, Refills: 0, Pharmacy: [facility] Start Date: 09/24/22 Stop Date: 09/29/22 Status: Ordered Praluent Pen 150 mg/mL subcutaneous solution Start: 04/01/23 14:05:00 EDT, 150 mg =, subQ, [id number] Start Date: 04/01/23 Status: Ordered RELION PEN NEEDLE [id number] MIS USE ONCE DAILY Start Date: 07/30/22 Status: Ordered Symbicort 160 mcg-4.5 mcg/inh inhalation aerosol Start: 02/05/23 13:37:00 EDT, See Instructions, Disp# 11 g, Refills: 5, Inhale 2 puffs by mouth twice daily, Brand Medically Necessary, Pharmacy: [facility] Start Date: 02/05/23 Status: Ordered Mental Status 04/01/23 Barriers to Learning one year None evide nt Mandatory Health Literacy Documentation Yes Health Literacy Communication Barriers N ever Primary Language Upper Sorbian Problem List Condition Confirmation Course Effective Dates [...] long-term current use of insulin Confirmed Active Diagnosis Diagnosis Type Effective Dates Health Status Cl inical Service Informant Left carotid artery stenosis Discharge Diagnosis 04/01/23 Non-Specified Esophagitis, reflux Discharge Diagnosis 04/01/23 Non-Specified Social History Social History Type Response Smoking Status Never smoked cigaret domenic Sex Female Patient Care team information Care Team Personnel Name: CHERRY Manriquez, Anh Finn Position: Physician Asst [facility] - Family Med Member Role: Primary Care Provider Address: Address: [address] [place] [id number] Care Team Related Persons Name: ZAKIA ARANDA
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
--- OUTSIDE RECORDS SUMMARY | 2023-06-03 23:36 | External Medical Summary | Continuity of Care Document ---
Author Name Unknown Organization [address] Address [address] [place], [place] [id number] Care Team Providers Care Multimedia Producer Name Role Phone Anh Manriquez Primary Care Physician [phone] [id number] Date(s): 03/28/23 - 03/28/23 [facility] [address], [address] [place] [address] [phone] Discharge Disposition: Home or Self Care Attending [...] 1 TABLET BY MOUTH ONCE DAILY, Pharmacy: [facility] 2229 Start Date: 12/10/22 Status: Ordered aspirin [...] Disp# 2 each, continous glucose monitoring, Pharmacy: [facility] 2229 Start Date: 08/16/22 Status: Ordered FreeStyle Dayday 2 - 14 day sensor Start: 08/16/22 16:04:00 EST, See Instructions, Disp# 2 each, Refills: 11, Continous glucose monitoring, Pharmacy: [facility] 2229 Start Date: 08/16/22 Status: Ordered Lantus Solostar Pen 100 units/mL subcutaneous solution Start: 10/17/22 15:47:00 EDT, See Instructions, Disp# 15 mL, Refills: 3, INJECT 20 to 25 UNITS SUBCUTANEOUSLY ONCE DAILY (ADJUST DOSING DEPENDING ON GLUCOSE MONITORING), Pharmacy: [facility] 2229 Start Date: 10/17/22 Status: Ordered levalbuterol CFC free 45 mcg/inh inhalation aerosol Start: 03/26/23 9:56:00 EDT, 2 puff, inhaled, q4h, Disp# 1 each, Refills: 5, INHALE 2 PUFFS BY MOUTH EVERY 4 HOURS NEEDED FOR WHEEZING, Pharmacy: [facility] 2229 Start Date: 03/26/23 Stop Date: 09/22/23 Status: Ordered montelukast 10 mg oral tablet Start: 09/24/22 8:22:00 EDT, 1 tab, PO, Daily, Disp# 30 tab, Refills: 5, TAKE 1 TABLET BY MOUTH ONCE DAILY NEEDED FOR ALLERGIES, Pharmacy: [facility] 2229 Start Date: 09/24/22 Status: Ordered mupirocin 2% topical ointment Start: 09/24/22 8:28:00 EDT, 1 appl, topical, tid, Disp# 15 g, Refills: 0, Pharmacy: [facility] 2229 Start Date: 09/24/22 Stop Date: 09/29/22 Status: Ordered RELION PEN NEEDLE [id number] MIS USE ONCE DAILY Start Date: 07/30/22 Status: Ordered Repatha SureClick 140 mg/mL subcutaneous solution Start: 08/16/22 15:39:00 EST, 140 mg =, subQ, [id number] Start Date: 08/16/22 Status: Ordered Symbicort 160 mcg-4.5 mcg/inh inhalation aerosol Start: 02/05/23 13:37:00 EDT, See Instructions, Disp# 11 g, Refills: 5, Inhale 2 puffs by mouth twice daily, Brand Medically Necessary, Pharmacy: [facility] 2230 Start Date: 02/05/23 Status: Ordered [...] long-term current use of insulin Confirmed Active Results Radiology Reports * Exam Date Time Procedure Performing Provider Status 03/28/23 3:55 PM VL Carotid Duplex Bilateral Saturday, imelda; Final Notes: (VL Carotid Duplex Bilateral) Reason For Exam: left carotid stenosis w/ hx of CVA VL Carotid Duplex Bilateral [facility] FINAL REPORT Name: IZABEL CAMACHO : 1950 Visit: [id number] Date: 28 Mar 2023 TYPE OF TEST: Cerebrovascular Duplex REASON FOR TEST Known carotid stenosis INTERPRETATION/FINDINGS Duplex imaging performed of the bilateral extracranial arteries: 1. No hemodynamically significant stenosis in the right internal carotid artery. 2. 80-99% stenosis of the left internal carotid artery. 3. >50% stenosis of the left external carotid artery. 4. Bidirectional flow insonated in the left vertebral artery. 5. Normal, antegrade flow in the right vertebral artery. 6. Normal flow in the bilateral subclavian arteries. Plaque Morphology: 1. Irregular-surfaced, fibro-fatty plaque in the right bulb and internal carotid artery. 2. Complex, calcified and smooth-surfaced, fatty plaque in the left bulb and internal carotid artery. *Technologist preliminary results were given to Anh Manriquez PA-C in person (03/28/2023 @ 4743). Read back. Verified. No previous studies available for comparison. IMPRESSION/COMMENTS I have personally reviewed the data relevant to the interpretation of this study. TECHNOLOGIST: Rosalinda Crabtree RDCS, RVT PHYSICIAN: Angelica Genao M.D. Signed: 03/28/2023 06:09 PM Final Dictated by:MD Genao Kristine L Dictated DT/TM:03/28/2023 6:09 Signed by:MD Genao Kristine L Signed (Electronic Signature):03/28/2023 6:09 p Transcribed by:CHEMA Social History Social History Type Response Smoking Status Never smoked cigaret domenic Sex Female Patient Care team information Care Team Personnel Name: CHERRY Manriquez, Anh Finn Position: Physician Jonast Maxine - Family Med Member Role: Primary Care Provider Address: Address: [address] [place] [address] Care Team Related Persons Name: ZAKIA ARANDA
--- OUTSIDE RECORDS SUMMARY | 2023-06-03 23:36 | External Medical Summary | Summary of Care ---
Author Name Unknown Organization [facility] Address [address] [facility] [place] [address] Phone [phone] Care Team Providers Care Boilermaker Mechanic Name Role Phone Svetlana Bravo MD Primary Care Provider [phone] Reason for Visit * Reason Comments eRx-Medication Refill Encounter Details Date Type Department Care Team (Late st Contact Info) Description 04/10/[address] [facility] [address] [place] [address] Svetlana Bravo MD [address] [place] [address] Type 2 diabetes mellitus with stage 3b chronic kidney disease, without long-term current use of insulin ([facility]) Allergies Active Allergy Reactions Criticality Noted Date Comments Atenolol Tachycardia High 03/26/2018 Olmesartan Other (Please comment) High 03/26/2018 Unable to void Codeine 10/27/1997 Vomiting Rosuvastatin Nausea/vomiting 01/20/2020 Pollen 08/31/2021 Other trees Erythromycin Nausea/vomiting High 08/24/2013 Atorvastatin Nausea/vomiting 01/20/2020 Lost 20lbs Lisinopril 03/26/2018 Hair loss Sulfa Antibiotics Nausea/vomiting Low 05/13/2018 Simvastatin Nausea/vomiting 01/20/2020 documented as of this encounter (statuses as of 04/11/2023) Medications Medication Sig Dispensed Refills Start Date End Date Status Cetirizine HCl 10 MG CapsuleIndication s:Chronic rhinitis,Nasal turbinate hypertrophy Take 1 Cap by mouth daily. 30 Cap 5 8 Active Additional Information Patient taking differently:10 mg OralDAILY PRN, Reported on 01/20/2020 Glucose Blood (RELION PRIME TEST) STRPIndications:T ype 1 diabetes mellitus with hemoglobin A1c goal of less than 7.0% (HCC) Test glucose 5 times daily Dx: E11.22 200 Strip 11 9 Active Blood Glucose Monitoring Suppl (RELION PRIME MONITOR) DEVIIndications:T ype 1 diabetes mellitus with hemoglobin A1c goal of less than 7.0% (HCC) Test Glucose 5 times daily Dx: E11.22 1 Device 0 9 Active RELION LANCETS MICRO-THIN 33G MISCIndications:T ype 1 diabetes mellitus with hemoglobin A1c goal of less than 7.0% (HCC) Test glucose 5 times daily DX: E11.22 200 Each 11 9 Active Zoster Vac Recomb Adjuvanted 50 MCG/0.5ML Intramuscular Suspension Reconstituted (Shingrix)Indicat ions:Need for vaccination for zoster Inject 0.5 mL into a large muscle now and repeat dose in 60 to 180 days 1 Each 1 0 Active Montelukast Sodium 10 MG Oral Tablet (Singulair)Indica tions:Asthma with severity to be determined Take 1 Tab by mouth daily as needed for Allergies. 90 Tab 3 1 Active metFORMIN HCl 500 MG Oral Tablet (Glucophage) TAKE 1 TABLET BY MOUTH TWICE DAILY WITH MORNING MEAL AND WITH EVENING MEAL 180 Tab 1 1 Active Additional Information Patient taking differently: Has been using prn, Reported on 05/24/2021 Levalbuterol HCl 1.25 MG/3ML Inhalation Nebulization Solution (Xopenex)Indicati ons:Mild intermittent asthma with exacerbation,Acut e bronchitis, antibiotics not indicated Inhale 3 mL via nebulizer every 4 hours as needed for Wheezing or Shortness of Breath. 120 mL 1 1 Active ALPRAZolam 0.5 MG Oral Tablet (xaNAX)Indication s:Anxiety state Take by mouth 1 Tablet as needed in the morning AND 1 Tablet as needed at noon AND 1 Tablet as needed in the evening for Anxiety. 30 Tablet 0 2 Active cloNIDine HCl 0.1 MG Oral Tablet (Catapres)Indicat ions:HTN, goal below 140/90 TAKE 1 TABLET BY MOUTH THREE TIMES DAILY 270 Tablet 3 2 Active Tylenol 325 MG Oral Capsule (Acetaminophen) Take by mouth 325 mg as needed for Headache. 0 Active PreserVision AREDS Oral Capsule Take by mouth 1 Capsule daily . Macusheild gold instead of this 0 Active Famotidine 20 MG Oral Tablet (Pepcid)Indicatio ns:Gastroesophage al reflux disease without esophagitis Take by mouth 1 Tablet in the morning. 90 Tablet 3 2 Active Aspirin 81 MG Oral Tablet Chewable (Aspirin 81) Take by mouth 81 mg in the morning. 0 Active Triamcinolone Acetonide 0.1 % External Cream (Aristocort)Indic ations:Dermatitis Apply topically to affected area 2 times a day as needed for Irritation. To affected area. 80 g 5 2 Active Triamcinolone Acetonide 0.1 % External Lotion (Aristocort)Indic ations:Folliculit is Apply topically to affected area 2 times a day . To affected area. 60 mL 2 Active Levalbuterol Tartrate 45 MCG/ACT Inhalation Aerosol (Xopenex Hfa)Indications:A sthma with severity to be determined INHALE 2 PUFFS BY MOUTH EVERY 4 HOURS NEEDED FOR WHEEZING 15 g 2 Active Lantus SoloStar 100 UNIT/ML Subcutaneous Solution Pen-injectorIndic ations:Type 2 diabetes mellitus with stage 3b chronic kidney disease, without long-term current use of insulin ([facility]) INJECT 8 to 11 UNITS SUBCUTANEOUSLY ONCE DAILY (ADJUST DOSING DEPENDING ON GLUCOSE MONITORING) 15 mL 3 2 Active amLODIPine Besylate 10 MG Oral Tablet (Norvasc) Take 1 tablet by mouth once daily 90 Tablet 0 3 Active ReliOn Pen [place] 32G X 4 MM (Insulin Pen Needle)Indication s:Type 2 diabetes mellitus with stage 3b chronic kidney disease, without long-term current use of insulin ([facility]) USE ONCE DAILY 100 Each 3 3 Active ReliOn Pen [place] 32G X 4 MM (Insulin Pen Needle)Indication s:Type 2 diabetes mellitus with stage 3b chronic kidney disease, without long-term current use of insulin ([facility]) USE WITH INSULIN PEN DAILY 100 Each 3 2 023 Discontinued documented as of this encounter (statuses as of 04/11/2023) Active Problems Problem Noted Date Diagnosed Date [...] as of this encounter (statuses as of 04/11/2023) Resolved Problems Problem Noted Date Diagnosed Date [...] as of this encounter (statuses as of 04/11/2023) Immunizations Name Administration Dates Next Due COVID-19 [...] encounter Miscellaneous Notes * Telephone Encounter - William Barraza RP - 04/11/2023 9:45 AM EDT Signed Prescriptions: Disp Refills ReliOn Pen [place] 32G X 4 MM (Insulin Pen*100 Ea*3 Sig: USE ONCE DAILYAuthorizing Provider: SVETLANA BRAVO User: WILLIAM BARRAZA documented in this encounter Plan of Treatment Upcoming Encounters Date Type Department Care Team (Late st Contact Info) Description 04/17/2023 1:30 PM EDT Office Visit Nephrology, [facility] [address] [place] [address] ZemaAlize george PA-C [address] [place] [address] Health Maintenance Due Date Last Done Comments [...] FOR ASTHMA-ADULT 05/10/2022 CKD HGB USE SMARTSET 08071 05/22/202205/22, 05/22/2021, 11/24/2020, Additional history exists CKD PHOS USE SMARTSET 26169 05/22/2022 05/22/2021, 0 10/24/2019 GFR 05/27/2022 11/25/2021, [...] Not on filedocumented as of this encounter Visit Diagnoses Diagnosis Type 2 diabetes mellitus with stage 3b chronic kidney disease, without long-term current use of insulin (HCC) documented in this encounter Care Teams Boilermaker Mechanic Relationship Specialty Start Date End Date [facility]vetlana Bravo [facility] [address] [facility] [place] [address] PCP - General Family Medicine 03/26/18 documented as of this encounter
--- OUTSIDE RECORDS SUMMARY | 2023-06-03 23:36 | External Medical Summary | Summary of Care ---
Author Name Unknown Organization [facility] Address [address] [facility] [address] Phone [phone] Care Team Providers Care Sports Athletic Trainer Name Role Phone Joe Bravo MD Primary Care Provider [phone] Reason for Visit * Reason Onset Date Comments Appointment 04/16/2023 Encounter Details Date Type Department Care Team (Late st Contact Info) Description 04/16/2023 Telephone Nephrology, [place] [address] [facility] [place] [address] Real Tejeda MD [address] [facility] [place] [address] Appointment Allergies Active Allergy Reactions Criticality Noted Date Comments Atenolol Tachycardia High 03/26/2018 Olmesartan Other (Please comment) High 03/26/2018 Unable to void Codeine 10/27/1997 Vomiting Rosuvastatin Nausea/vomiting 01/20/2020 Pollen 08/31/2021 Other trees Erythromycin Nausea/vomiting High 08/24/2013 Atorvastatin Nausea/vomiting 01/20/2020 Lost 20lbs Lisinopril 03/26/2018 Hair loss Sulfa Antibiotics Nausea/vomiting Low 05/13/2018 Simvastatin Nausea/vomiting 01/20/2020 documented as of this encounter (statuses as of 04/16/2023) Medications Medication Sig Dispensed Refills Start Date [...] disease, without long-term current use of insulin ([facility]) INJECT 8 to 11 UNITS SUBCUTANEOUSLY ONCE DAILY (ADJUST DOSING DEPENDING ON GLUCOSE MONITORING) 15 mL 3 02/27/2022 Active amLODIPine Besylate 10 MG Oral Tablet (Norvasc) Take 1 tablet by mouth once daily 90 Tablet 0 08/24/2022 Active ReliOn Pen [place] 32G X 4 MM (Insulin Pen Needle)Indications: Type 2 diabetes mellitus with stage 3b chronic kidney disease, without long-term current use of insulin (HCC) USE ONCE DAILY 100 Each 3 04/11/2023 Active documented as of this encounter (statuses as of 04/16/2023) Active Problems Problem Noted Date Diagnosed Date [...] as of this encounter (statuses as of 04/16/2023) Resolved Problems Problem Noted Date Diagnosed Date [...] as of this encounter (statuses as of 04/16/2023) Immunizations Name Administration Dates Next Due COVID-19 [...] Telephone Encounter - Karin Hughes OSA - 04/16/2023 9:33 AM EDT 04/16 called patient to schedule a follow-up with Dr. Tejeda. Patient has switched to [facility] in June 2022. Patient is being removed from the recall list. documented in this encounter [...] FOR ASTHMA-ADULT 05/10/2022 CKD HGB USE SMARTSET 52007 05/22/202205/22, 05/22/2021, 11/24/2020, Additional history exists CKD PHOS USE SMARTSET 13247 05/22/2022 05/22/2021, 0 10/24/2019 GFR 05/27/2022 11/25/2021, 12/0 11/2020, 08/23/2020, Additional history exists HbA1c 05/27/2022 11/25/2021, 11/15, 08/23/2020, Additional history exists B-12 11/25/2022 11/25/2021, 11/15, 08/23/2020, Additional history exists Mammogram 02/02/2023 02/02/2022, 11/29/2020 COVID-19 Vaccine ( season) 2023 10/07/2020, 09/09/2020 Influenza Vaccine (FLU shot) (#1) 2023 03/30/2020, 07/14/2019, 05/13/2018 Diabetic Eye Exam 01/02/2024 01/01/2023, , 08/13/2018 DTaP,Tdap,and Td Vaccines (2 - Td or Tdap) 05/04/2030 05/04/2020 GARDASIL-HPV IMMUNIZATION SERIES Aged Out No longer eligible based on patient's age to complete this topic MENINGOCOCCAL (MENACTRA/MENVEO) Aged Out No longer eligible based on patient's age to complete this topic documented as of this encounter Medical Devices Not on filedocumented as of this encounter Care Teams Sports Athletic Trainer Relationship Specialty Start Date End Date Joe Bravo MD [address] [place] [address] PCP - General Family Medicine 03/26/18 documented as of this encounter
--- OUTSIDE RECORDS SUMMARY | 2023-06-03 23:36 | External Medical Summary | Continuity of Care Document ---
Author Name Unknown Organization [address] Address [address] [place], [place] [id number] Care Team Providers Care Sales Support Advisor Name Role Phone Anh Manriquez Primary Care Physician [phone] [id number]26[facility] - 03/26/23 [facility] [address], [address] [place] [address] [phone] Discharge Disposition: Home or Self Care Attending [...] 1 TABLET BY MOUTH ONCE DAILY, Pharmacy: [facility] 2229 Start Date: 12/10/22 Status: Ordered [...] Disp# 2 each, continous glucose monitoring, Pharmacy: [facility] 2229 Start Date: 08/16/22 Status: Ordered FreeStyle Dayday 2 - 14 day sensor Start: 08/16/22 16:04:00 EST, See Instructions, Disp# 2 each, Refills: 11, Continous glucose monitoring, Pharmacy: [facility] 2229 Start Date: 08/16/22 Status: Ordered Lantus Solostar Pen 100 units/mL subcutaneous solution Start: 10/17/22 15:47:00 EDT, See Instructions, Disp# 15 mL, Refills: 3, INJECT 20 to 25 UNITS SUBCUTANEOUSLY ONCE DAILY (ADJUST DOSING DEPENDING ON GLUCOSE MONITORING), Pharmacy: [facility] 2229 Start Date: 10/17/22 Status: Ordered levalbuterol CFC free 45 mcg/inh inhalation aerosol Start: 03/26/23 9:56:00 EDT, 2 puff, inhaled, q4h, Disp# 1 each, Refills: 5, INHALE 2 PUFFS BY MOUTH EVERY 4 HOURS NEEDED FOR WHEEZING, Pharmacy: [facility] 2229 Start Date: 03/26/23 Stop Date: 09/22/23 Status: Ordered montelukast 10 mg oral tablet Start: 09/24/22 8:22:00 EDT, 1 tab, PO, Daily, Disp# 30 tab, Refills: 5, TAKE 1 TABLET BY MOUTH ONCE DAILY NEEDED FOR ALLERGIES, Pharmacy: [facility] 2229 Start Date: 09/24/22 Status: Ordered mupirocin 2% topical ointment Start: 09/24/22 8:28:00 EDT, 1 appl, topical, tid, Disp# 15 g, Refills: 0, Pharmacy: [facility] 2229 Start Date: 09/24/22 Stop Date: 09/29/22 Status: Ordered RELION PEN NEEDLE [id number] MIS USE ONCE DAILY Start Date: 07/30/22 Status: Ordered Repatha SureClick 140 mg/mL subcutaneous solution Start: 08/16/22 15:39:00 EST, 140 mg =, subQ, [id number] Start Date: 08/16/22 Status: Ordered Symbicort 160 mcg-4.5 mcg/inh inhalation aerosol Start: 02/05/23 13:37:00 EDT, See Instructions, Disp# 11 g, Refills: 5, Inhale 2 puffs by mouth twice daily, Brand Medically Necessary, Pharmacy: [facility]04 Start Date: 02/05/23 Status: Ordered Problem List [...] Member Role: Primary Care Provider Address: Address: [address] [place] [address] Care Team Related Persons Name: ZAKIA ARANDA
--- OUTSIDE RECORDS SUMMARY | 2023-06-03 23:37 | External Medical Summary | Continuity of Care Document ---
Author Name Unknown Organization [place] [address] [place] [id number] Care Team Providers Care Hospital Coder Name Role Phone Anh Manriquez Primary Care Physician [phone] Encounter [facility] [id number] Date(s): 12/27/22 - 12/27/22 [facility] [address] [facility] [address] [facility] [address] Practice Site [address] [facility] [address] [place], [place] [address]Tuaqm [phone] Discharge Disposition: Home or Self Care Attending Physician: DO Chiu Gretchen Elizabeth Allergies, Adverse Reactions, Alerts Substance Reaction Severity [...] Disp# 2 each, continous glucose monitoring, Pharmacy: [facility] 2229 Start Date: 08/16/22 Status: Ordered FreeStyle Dayday 2 - 14 day sensor Start: 08/16/22 16:04:00 EST, See Instructions, Disp# 2 each, Refills: 11, Continous glucose monitoring, Pharmacy: [facility] 2229 Start Date: 08/16/22 Status: Ordered Lantus Solostar Pen 100 units/mL subcutaneous solution Start: 10/17/22 15:47:00 EDT, See Instructions, Disp# 15 mL, Refills: 3, INJECT 20 to 25 UNITS SUBCUTANEOUSLY ONCE DAILY (ADJUST DOSING DEPENDING ON GLUCOSE MONITORING), Pharmacy: [facility] 2229 Start Date: 10/17/22 Status: Ordered levalbuterol CFC free 45 mcg/inh inhalation aerosol Start: 08/16/22 15:51:00 EST, 2 puff, inhaled, q4h, Disp# 1 each, Refills: 5, INHALE 2 PUFFS BY MOUTH EVERY 4 HOURS NEEDED FOR WHEEZING, Pharmacy: [facility] 2229 Start Date: 08/16/22 Stop Date: 02/12/23 Status: Ordered montelukast 10 mg oral tablet Start: 09/24/22 8:22:00 EDT, 1 tab, PO, Daily, Disp# 30 tab, Refills: 5, TAKE 1 TABLET BY MOUTH ONCE DAILY NEEDED FOR ALLERGIES, Pharmacy: [facility] 2229 Start Date: 09/24/22 Status: Ordered mupirocin 2% topical ointment Start: 09/24/22 8:28:00 EDT, 1 appl, topical, tid, Disp# 15 g, Refills: 0, Pharmacy: [facility] 2229 Start Date: 09/24/22 Stop Date: 09/29/22 Status: Ordered RELION PEN NEEDLE [id number] MIS USE ONCE DAILY Start Date: 07/30/22 Status: Ordered Repatha SureClick 140 mg/mL subcutaneous solution Start: 08/16/22 15:39:00 EST, 140 mg =, subQ, [id number] Start Date: 08/16/22 Status: Ordered Symbicort 160 mcg-4.5 mcg/inh inhalation aerosol Start: 08/16/22 15:50:00 EST, 2 puff, inhaled, bid, Disp# 1 each, Refills: 5, Pharmacy: [facility] 2229 Start Date: 08/16/22 Stop Date: 02/12/23 Status: Ordered Problem List Condition Confirmation Course Effective Dates Status H ealth Status Informant Asthma in adult Confirmed Active Benign hypertension without CHF Confirmed Active Chronic kidney disease (CKD) stage G3b/A2, moderately decreased glomerular filtration rate (GFR) between 30-44 mL/min/1.73 square meter and albuminuria creatinine ratio between 30-299 mg/g Confirmed Active History of CVA (cerebrovascular accident) Confirmed Active Other hyperlipidemia Confirmed Active Left carotid artery stenosis Confirmed Active Asthma, moderate persistent, poorly-controlled Confirmed Active Type 2 diabetes, HbA1c goal < 7% Confirmed Active Social History Social History Type Response Smoking Status Never smoked cigaret domenic Sex Female Patient Care team information Care Team Personnel Name: CHERRY Manriquez, Anh Finn Position: Physician Jonast Maxine - Family Med Member Role: Primary Care Provider Address: Address: [address] [place] [address] [place] Care Team Related Persons Name: ZAKIA ARANDA
--- OUTSIDE RECORDS SUMMARY | 2023-06-03 23:37 | External Medical Summary | Summary of Care ---
Author Name Unknown Organization [facility] Address [address] [place] [address] Phone [phone] Care Team Providers Care Machinist First Class Name Role Phone Joe Bravo MD Primary Care Provider [phone] Reason for Visit * Reason Onset Date Comments Appointment 12/21/2022 Year return Encounter Details Date Type Department Care Team Description 12/21/2022 Telephone Vascular Surg [facility] [address] [place] [address] Rod Merlos MD [address] [place] [address] Appointment (Year return) Allergies Active Allergy Reactions Severity Noted Date Comments Atenolol Tachycardia High 03/26/2018 Olmesartan Other (Please comment) High 03/26/2018 Unable to void Codeine 10/27/1997 Vomiting Rosuvastatin Nausea/vomiting 01/20/2020 Pollen 08/31/2021 Other trees Erythromycin Nausea/vomiting High 08/24/2013 Atorvastatin Nausea/vomiting 01/20/2020 Lost 20lbs Lisinopril 03/26/2018 Hair loss Sulfa Antibiotics Nausea/vomiting Low 05/13/2018 Simvastatin Nausea/vomiting 01/20/2020 documented as of this encounter (statuses as of 12/25/2022) Medications Medication Sig Dispensed Refills Start Date [...] disease, without long-term current use of insulin ([facility]) INJECT 8 to 11 UNITS SUBCUTANEOUSLY ONCE DAILY (ADJUST DOSING DEPENDING ON GLUCOSE MONITORING) 15 mL 3 02/27/2022 Active ReliOn Pen [place] 32G X 4 MM (Insulin Pen Needle)Indications: Type 2 diabetes mellitus with stage 3b chronic kidney disease, without long-term current use of insulin (HCC) USE WITH INSULIN PEN DAILY 100 Each 3 02/27/2022 Active amLODIPine Besylate 10 MG Oral Tablet (Norvasc) Take 1 tablet by mouth once daily 90 Tablet 0 08/24/2022 Active documented as of this encounter (statuses as of 12/25/2022) Active Problems Problem Noted Date Statin intolerance 05/07/2022 Hypertensive heart disease w ith diastolic heart failure and stage 3b chronic kidney disease 01/31/2022 Asthma, intermittent, uncomplicated 01/15 Diastolic congestive heart failure 02/08 Other hyperlipidemia 02/08/2021 Left carotid stenosis 02/08/2021 Diabetes mellitus with peripheral vascul ar disease 02/08/2021 Type 2 diabetes mellitus with stage 3b c hronic kidney disease 10/25/2020 Overview: Per CKD protocol Hypertensive kidney disease with stage 3 b chronic kidney disease 04/25/2020 Overview: Per CKD protocol Familial hypercholesterolemia 03/21/2020 Diabetes mellitus type 2, noninsulin dep endent 07/14/2019 Anxiety state 07/14/2019 Cerebrovascular disease, arterioscleroti c, post-stroke 05/13/2018 ADVANCE DIRECTIVE INFORMATION 10/25/2005 Overview: No, Advance Directive brochure offered , patient declined. Gastroesophageal reflux disease without esophagitis 10/25/2005 Family history of premature CAD 01/25/20 Overview: ICD-10 update of inactive term PLANTAR FIBROMATOSIS 11/02/1998 Asthma with severity to be determined Overview: ICD-10 update of inactive term FAMILY HX-BREAST MALIG FAM HX-DIABETES MELLITUS Osteitis condensans Major depressive disorder without psycho tic features Overview: ICD-10 update of inactive term BENIGN HYPERTENSION documented as of this encounter (statuses as of 12/25/2022) Resolved Problems Problem Noted Date Resolved Date Chronic kidney disease, stage 3b 10/25/2020 07/19/2021 Overview: Per CKD protocol Duplicate Skin lesion 11/04/2019 11/04/2019 Hypertensive kidney disease with stage 3 chronic kidney disease 07/14/2019 04/28/2020 Overview: Per CKD protocol Gastroesophageal reflux disease without esophagi tis 07/14/2019 07/14/2019 Hyperlipidemia, unspecified 07/14/2019 02/07/2021 Overview: Duplicate. More specific code in use Diabetes mellitus with stage 3 chronic kidney di sease 08/25/2018 10/27/2020 Overview: Per CKD protocol #1 Type 1 diabetes mellitus wit h hemoglobin A1c goal of less than 7.0% 05/13/2018 10/20/2019 PERIAPICAL ABSCESS 01/24/2002 08/06/2018 DIARRHEA 01/24/2002 08/06/2018 Other chronic sinusitis 01/24/2002 07/14/19 Heartburn 01/24/2002 08/06/2018 Skin Tags 01/21/2002 11/04/2019 documented as of this encounter (statuses as of 12/25/2022) Immunizations Name Administration Dates Next Due COVID-19 mRNA, LNP-s, No Pre serve, 2-Dose Series (Moderna) 10/07/2020,09/09/2020 PPD 07/18/2004 Pneumococcal Polysaccharide PPV23 (Pneumovax) 03/16/2020 Seasonal Influenza, Quadriva lent, No Preserve, 6 Mons & Above, IM 03/30/2020,07/14/2019,05/13/2018 05/13/2019 TDAP (age 10 and older)(Boostrix) 05/04/2020 documented as of this encounter Social History Tobacco Use Types Packs/Day Years Used Date Smoking Tobacco: Never Smokeless Tobacco: Never Alcohol Use Standard Drinks/Week Comments No 0 (1 standard drink = 0.6 oz pur e alcohol) Hasn't had any in years Food Insecurity Answer Date Recorded Within the past 12 months, y ou worried that your food would run out before you got money to buy more. Never true 08/10/2020 Within the past 12 months, t he food you bought just didn't last and you didn't have money to get more. Never true 08/10/2020 Sex Assigned at Date Recorded Not on file Job Start Date Occupation Industry Not on file Not on file Not on file documented as of this encounter Miscellaneous Notes * Telephone Encounter - PETRA Mueller - 12/25/2022 7:34 AM EDT Sent letter recall [facility] * Telephone Encounter - PETRA Mueller - 12/24/2022 9:36 AM EDT Called patient x2 to schedule her year appt Left message rr * Telephone Encounter - PETRA Mueller - 12/21/2022 3:11 PM EDT 1 year RTC visit @ [facility] with Dr. Gaurang marie/ study due 02/2023 Carotid duplex Called and left message for patient to schedule her one year return rrh documented in this encounter Plan of Treatment Upcoming Encounters Date Type Specialty Care Team Description 04/17/2023 Office Visit Nephrology Alize Bergman PA-C [address] [place] [address] Health Maintenance Due Date Last Done Comments DXA Scan 1950 B-12 01/08/1970 Hepatitis C Screening 01/08/1970 Cologuard 01/08/1997 Colonoscopy 01/08/1997 Sigmoidoscopy 01/08/1997 Colorectal Cancer Screening 05/05/1997 Fecal Occult Blood Test 05/05/1997 05/05/1996 Zoster Vaccines (1 of 2) 01/08/2002 Albumin/Creatinine Ratio 10/23/2020 10/24/2019 COVID-19 Vaccine (3 - Moderna series) 12/02/2020 10/07/2020, 09/09/2020 Pneumococcal Vaccine: 65+ Years (2 - PCV) 03/16/2021 03/16/2020 DIABETES-EYE EXAM 05/02/2021 05/02/2020, 08/13/2018 DIABETES-FOOT EXAM 08/10/2021 08/10/2020, 07/14/2019 Depression Screening, Annual for Pts 12 and Over 08/10/2021 08/10/2020 *SPIROMETRY ONCE FOR ASTHMA-ADULT 05/10/2022 CKD HGB USE SMARTSET 63651 05/22/202205/22, 05/22/2021, 11/24/2020, Additional history exists CKD PHOS USE SMARTSET 42001 05/22/2022 05/22/2021, 0 10/24/2019 GFR 05/27/2022 11/25/2021, 11/2020, 08/23/2020, Additional history exists HbA1c 05/27/2022 11/25/2021, 11/15, 08/23/2020, Additional history exists Mammogram 02/02/2023 02/02/2022, 11/29/2020 Influenza Vaccine (FLU shot) (#1) 2023 03/30/2020, 07/14/2019, 05/13/2018 DTaP,Tdap,and Td Vaccines (2 - Td or Tdap) 05/04/2030 05/04/2020 GARDASIL-HPV IMMUNIZATION SERIES Aged Out No longer eligible based on patient's age to complete this topic Hepatitis B Aged Out No longer eligi ble based on patient's age to complete this topic MENINGOCOCCAL (MENACTRA/MENVEO) Aged Out No longer eligible based on patient's age to complete this topic documented as of this encounter Medical Devices Not on filedocumented as of this encounter Care Teams Machinist First Class Relationship Specialty Start Date End Date Joe Bravo MD [address] [place] [address] PCP - General Family Medicine 03/26/18 documented as of this encounter
--- OUTSIDE RECORDS SUMMARY | 2023-06-03 23:37 | External Medical Summary | Summary of Care ---
Author Name Unknown Organization [facility] Address [address] [place] [address] Phone [phone] Care Team Providers Care Manager Process Improvement Name Role Phone Joe Bravo MD Primary Care Provider [phone] Reason for Visit * Reason Onset Date Comments Appointment 12/21/2022 Year return Encounter Details Date Type Department Care Team Description 12/21/2022 Telephone Vascular Surg [facility] [address] [place] [address] Rod Merlos MD [address] [place] [address] Appointment (Year return) Allergies Active [...] as of this encounter (statuses as of 12/24/2022) Medications Medication Sig Dispensed Refills Start Date [...] disease, without long-term current use of insulin ([facility]) INJECT 8 to 11 UNITS SUBCUTANEOUSLY ONCE DAILY (ADJUST DOSING DEPENDING ON GLUCOSE MONITORING) 15 mL 3 02/27/2022 Active ReliOn Pen [place] 32G X 4 MM (Insulin Pen Needle)Indications: Type 2 diabetes mellitus with stage 3b chronic kidney disease, without long-term current use of insulin (HCC) USE WITH INSULIN PEN DAILY 100 Each 3 02/27/2022 Active amLODIPine Besylate 10 MG Oral Tablet (Norvasc) Take 1 tablet by mouth once daily 90 Tablet 0 08/24/2022 Active documented as of this encounter (statuses as of 12/24/2022) Active Problems Problem Noted Date Statin intolerance [...] as of this encounter (statuses as of 12/24/2022) Resolved Problems Problem Noted Date Resolved Date [...] as of this encounter (statuses as of 12/24/2022) Immunizations Name Administration Dates Next Due COVID-19 [...] PM EDT 1 year RTC visit @ [facility] with Dr. Gaurang marie/ study due 02/2023 Carotid duplex Called and left message for patient to schedule her one year return rr documented in this encounter Plan of Treatment Upcoming Encounters Date Type Specialty Care Team Description 04/17/2023 Office Visit Nephrology Alize Bergman PA-C [address] [place] [address] Health Maintenance Due Date Last Done Comments [...] FOR ASTHMA-ADULT 05/10/2022 CKD HGB USE SMARTSET 02415 05/22/202205/22, 05/22/2021, 11/24/2020, Additional history exists CKD PHOS USE SMARTSET 37136 05/22/2022 05/22/2021, 0 10/24/2019 GFR 05/27/2022 11/25/2021, [...] filedocumented as of this encounter Care Teams Manager Process Improvement Relationship Specialty Start Date End Date Joe Bravo MD [address] [place], [place] [id number] PCP - General Family Medicine 03/26/18 documented as of this encounter
--- OUTSIDE RECORDS SUMMARY | 2023-06-03 23:37 | External Medical Summary | Summary of Care ---
Author Name Unknown Organization [facility] Address [address] [facility] [address] Phone [phone] Care Team Providers Care Shipsmith Name Role Phone Joe Bravo MD Primary Care Provider [phone] Encounter Details Date Type Department Care Team Description 01/03/2023 Orders Only [facility] [address] [place] [address] Joe Bravo MD [address] [place] [address] Allergies Active Allergy Reactions Severity Noted Date Comments Atenolol Tachycardia High 03/26/2018 Olmesartan Other (Please comment) High 03/26/2018 Unable to void Codeine 10/27/1997 Vomiting Rosuvastatin Nausea/vomiting 01/20/2020 Pollen 08/31/2021 Other trees Erythromycin Nausea/vomiting High 08/24/2013 Atorvastatin Nausea/vomiting 01/20/2020 Lost 20lbs Lisinopril 03/26/2018 Hair loss Sulfa Antibiotics Nausea/vomiting Low 05/13/2018 Simvastatin Nausea/vomiting 01/20/2020 documented as of this encounter (statuses as of 01/03/2023) Medications Medication Sig Dispensed Refills Start Date [...] long-term current use of insulin ([facility]) INJECT 8 to 11 UNITS SUBCUTANEOUSLY ONCE DAILY (ADJUST DOSING DEPENDING ON GLUCOSE MONITORING) 15 mL 3 02/27/2022 Active ReliOn Pen [place] 32G X 4 MM (Insulin Pen Needle)Indications: Type 2 diabetes mellitus with stage 3b chronic kidney disease, without long-term current use of insulin (HCC) USE WITH INSULIN PEN DAILY 100 Each 3 02/27/2022 Active amLODIPine Besylate 10 MG Oral Tablet (Norvasc) Take 1 tablet by mouth once daily 90 Tablet 0 08/24/2022 Active documented as of this encounter (statuses as of 01/03/2023) Active Problems Problem Noted Date Statin intolerance [...] as of this encounter (statuses as of 01/03/2023) Resolved Problems Problem Noted Date Resolved Date Chronic kidney disease, stage 3b 10/25/2020 07/19/2021 Overview: Per CKD protocol Duplicate Skin lesion 11/04/2019 11/04/2019 Hypertensive kidney disease with stage 3 chronic kidney disease 07/14/2019 04/28/2020 Overview: Per CKD protocol Gastroesophageal reflux disease without esophagi tis 07/14/2019 07/14/2019 Hyperlipidemia, unspecified 07/14/2019 02/0 07/2021 Overview: Duplicate. More specific code in use [...] as of this encounter (statuses as of 01/03/2023) Immunizations Name Administration Dates Next Due COVID-19 [...] on file documented as of this encounter Plan of Treatment Upcoming Encounters Date Type Specialty Care Team Description 04/17/2023 Office Visit Nephrology Alize Bergman PA-C [address] [facility] [place] [address] Health Maintenance Due Date Last Done Comments DXA Scan 1950 Hepatitis C Screening 01/08/1970 Cologuard 01/08/1997 Colonoscopy 01/08/1997 Sigmoidoscopy 01/08/1997 Colorectal Cancer Screening 05/05/1997 Fecal Occult Blood Test 05/05/1997 05/05/1996 Zoster Vaccines (1 of 2) 01/08/2002 Albumin/Creatinine Ratio 10/23/2020 10/24/2019 COVID-19 Vaccine (3 - Moderna series) 12/02/2020 10/07/2020, 09/09/2020 Pneumococcal Vaccine: 65+ Years (2 - PCV) 03/16/2021 03/16/2020 DIABETES-EYE EXAM 05/02/2021 01/01/2023, , 08/13/2018 DIABETES-FOOT EXAM 08/10/2021 08/10/2020, 07/14/2019 Depression Screening, Annual for Pts 12 and Over 08/10/2021 08/10/2020 *SPIROMETRY ONCE FOR ASTHMA-ADULT 05/10/2022 CKD HGB USE SMARTSET 06834 05/22/202205/22, 05/22/2021, 11/24/2020, Additional history exists CKD PHOS USE SMARTSET 70572 05/22/2022 05/22/2021, 0 10/24/2019 GFR 05/27/2022 11/25/2021, [...] Not on filedocumented as of this encounter Procedures Procedure Name Priority Date/Time Associated Diagnosis Comments DIABETIC EYE EXAM Routine 01/01/2023 documented in this encounter Results * DIABETIC EYE EXAM (01/01/2023) 01/01/2023 History Per Patient OTHER OUTSIDE LAB (SEE SCANNED REPORT) documented in this encounter Care Teams Shipsmith Relationship Specialty Start Date End Date Joe Bravo MD [address] [place] [address] PCP - General Family Medicine 03/26/18 documented as of this encounter
--- OUTSIDE RECORDS SUMMARY | 2023-06-03 23:37 | External Medical Summary | Summary of Care ---
Author Name Unknown Organization [facility] Address [address] [place] [address] Phone [phone] Care Team Providers Care Vertical Contour Band Saw Operator Name Role Phone Joe Bravo MD Primary Care Provider [phone] Reason for Visit * Reason Onset Date Comments Appointment 12/21/2022 Year return Encounter Details Date Type Department Care Team Description 12/21/2022 Telephone Vascular Surg [facility] [address] [place] [address] Rod Merlos MD [address] [place] [address] Appointment (Year return) Allergies Active [...] disease, without long-term current use of insulin ([facility]) INJECT 8 to 11 UNITS SUBCUTANEOUSLY ONCE DAILY (ADJUST DOSING DEPENDING ON GLUCOSE MONITORING) 15 mL 3 02/27/2022 Active ReliOn Pen [place] 32G X 4 MM (Insulin Pen Needle)Indications: [...] to schedule her year appt Left message [facility] * Telephone Encounter - PETRA Mueller - 12/21/2022 3:11 PM EDT 1 year RTC visit @ [facility] with Dr. Gaurang marie/ study due 02/2023 Carotid duplex Called and left message for patient to schedule her one year return [facility] documented in this encounter Plan of Treatment Upcoming Encounters Date Type Specialty Care Team Description 04/17/2023 Office Visit Nephrology Alize Bergman PA-C [address] [place], [place] [address] Health Maintenance Due Date Last Done Comments [...] FOR ASTHMA-ADULT 05/10/2022 CKD HGB USE SMARTSET 11965 05/22/202205/22, 05/22/2021, 11/24/2020, Additional history exists CKD PHOS USE SMARTSET 42650 05/22/2022 05/22/2021, 0 10/24/2019 GFR 05/27/2022 11/25/2021, 1211/2020, 08/23/2020, Additional history exists HbA1c 05/27/2022 11/25/2021, [...] filedocumented as of this encounter Care Teams Vertical Contour Band Saw Operator Relationship Specialty Start Date End Date Joe Bravo MD [address] [place], [place] [phone] PCP - General Family Medicine 03/26/18 documented as of this encounter
--- OUTSIDE RECORDS SUMMARY | 2023-06-03 23:37 | External Medical Summary | Summary of Care ---
Author Name Unknown Organization [facility] Address [address] [place] [address] Phone [phone] Care Team Providers Care Assistant Hairstylist Name Role Phone Joe Bravo MD Primary Care Provider [phone] Reason for Visit * Reason Onset Date Comments Appointment 12/21/2022 Year return Encounter Details Date Type Department Care Team Description 12/21/2022 Telephone Vascular Surg [facility] [address] [place] [address] Rod Merlos MD [address] [place] [address] Appointment (Year return) Allergies Active [...] without long-term current use of insulin ([facility]) INJECT 8 to 11 UNITS SUBCUTANEOUSLY ONCE DAILY (ADJUST DOSING DEPENDING ON GLUCOSE MONITORING) 15 mL 3 02/27/2022 Active ReliOn Pen [place] 32G X 4 MM (Insulin Pen Needle)Indications: [...] 12/25/2022 7:34 AM EDT Sent letter recall [facility] * Telephone Encounter - PETRA Mueller - 12/24/2022 9:36 AM EDT Called patient x2 to schedule her year appt Left message rr * Telephone Encounter - PETRA Mueller - 12/21/2022 3:11 PM EDT 1 year RTC visit @ [facility] with Dr. Gaurang marie/ study due 02/2023 Carotid duplex Called and left message for patient to schedule her one year return rrh documented in this encounter Plan of Treatment Upcoming Encounters Date Type Specialty Care Team Description 04/17/2023 Office Visit Nephrology Alize Bergman PA-C [address] [place] [address] Health Maintenance Due Date Last Done Comments [...] FOR ASTHMA-ADULT 05/10/2022 CKD HGB USE SMARTSET 08669 05/22/202205/22, 05/22/2021, 11/24/2020, Additional history exists CKD PHOS USE SMARTSET 82741 05/22/2022 05/22/2021, 0 10/24/2019 GFR 05/27/2022 11/25/2021, [...] filedocumented as of this encounter Care Teams Assistant Hairstylist Relationship Specialty Start Date End Date Joe Bravo MD [address] [place] [address] PCP - General Family Medicine 03/26/18 documented as of this encounter
--- OUTSIDE RECORDS SUMMARY | 2023-06-03 23:37 | External Medical Summary | Summary of Care ---
Author Name Unknown Organization [facility] Address [address] [facility] [place] [address] Phone [phone] Care Team Providers Care Carpet Cleaning Technician Name Role Phone Joe Bravo MD Primary Care Provider [phone] Reason for Visit * Reason Onset Date Comments Medication Refill 08/19/2022 Encounter Details Date Type Department Care Team Description 08/19/2022 Refill [facility] [address] [place] [address] Medication, [place] [facility]ill, [address] [place] [address] Allergies Active Allergy Reactions Severity Noted Date Comments Atenolol Tachycardia High 03/26/2018 Olmesartan Other (Please comment) High 03/26/2018 Unable to void Codeine 10/27/1997 Vomiting Rosuvastatin Nausea/vomiting 01/20/2020 Pollen 08/31/2021 Other trees Erythromycin Nausea/vomiting High 08/24/2013 Atorvastatin Nausea/vomiting 01/20/2020 Lost 20lbs Lisinopril 03/26/2018 Hair loss Sulfa Antibiotics Nausea/vomiting Low 05/13/2018 Simvastatin Nausea/vomiting 01/20/2020 documented as of this encounter (statuses as of 01/30/2023) Medications Medication Sig Dispensed Refills Start Date [...] without long-term current use of insulin (HCC) INJECT 8 to 11 UNITS SUBCUTANEOUSLY ONCE DAILY (ADJUST DOSING DEPENDING ON GLUCOSE MONITORING) 15 mL 3 02/27/2022 Active ReliOn Pen [place] 32G X 4 MM (Insulin Pen Needle)Indications: Type 2 diabetes mellitus with stage 3b chronic kidney disease, without long-term current use of insulin (HCC) USE WITH INSULIN PEN DAILY 100 Each 3 02/27/2022 Active documented as of this encounter (statuses as of 01/30/2023) Active Problems Problem Noted Date Statin intolerance [...] as of this encounter (statuses as of 01/30/2023) Resolved Problems Problem Noted Date Resolved Date [...] 01/24/2002 08/06/2018 Other chronic sinusitis 01/24/2002 07/14/19 20 Heartburn 01/24/2002 08/06/2018 Skin Tags 01/21/2002 11/04/2019 documented as of this encounter (statuses as of 01/30/2023) Immunizations Name Administration Dates Next Due COVID-19 [...] Office Visit Nephrology Alize Bergman PA-C [address] [facility], [place] [address] Health Maintenance Due Date Last Done Comments DXA Scan 1950 Hepatitis C Screening 01/08/1970 Cologuard 01/08/1997 Colonoscopy 01/08/1997 Sigmoidoscopy 01/08/1997 Colorectal Cancer Screening 05/05/1997 Fecal Occult Blood Test 05/05/1997 05/05/1996 Zoster Vaccines (1 of 2) 01/08/2002 Albumin/Creatinine Ratio 10/23/2020 10/24/2019 COVID-19 Vaccine (3 - Moderna series) 12/02/2020 10/07/2020, 09/09/2020 Pneumococcal Vaccine: 65+ Years (2 - PCV) 03/16/2021 03/16/2020 DIABETES-FOOT EXAM 08/10/2021 08/10/2020, 07/14/2019 Depression Screening, Annual for Pts 12 and Over 08/10/2021 08/10/2020 *SPIROMETRY ONCE FOR ASTHMA-ADULT 05/10/2022 CKD HGB USE SMARTSET 94231 05/22/202205/22, 05/22/2021, 11/24/2020, Additional history exists CKD PHOS USE SMARTSET 97723 05/22/2022 05/22/2021, 0 10/24/2019 GFR 05/27/2022 11/25/2021, [...] filedocumented as of this encounter Care Teams Carpet Cleaning Technician Relationship Specialty Start Date End Date Joe Bravo MD [address] [place] [address] PCP - General Family Medicine 03/26/18 documented as of this encounter
--- NOTE | 2023-06-03 23:40 | Magnetic Resonance Report ---
Exam(s): MRI HEAD Without Contrast EXAM: MR Head Without Intravenous Contrast CLINICAL HISTORY: Reason for exam: CVA workup. TECHNIQUE: Magnetic resonance images of the head/brain without intravenous contrast in multiple planes. COMPARISON: CT head 06/03/2023. FINDINGS: Brain: Acute infarctions of the right frontal lobe, left occipital lobe, and right cerebellum. Mild hemosiderin staining the right frontal lobe infarction compatible petechial hemorrhage. Punctate foci of susceptibility artifact in the cerebral hemispheres and left cerebellum likely represent chronic microhemorrhages. Chronic right posterior cerebral artery territory infarction and chronic bilateral cerebellar infarctions. Global parenchymal volume loss with chronic microvascular ischemic changes and chronic infarctions is present. Ventricles: Unremarkable. No ventriculomegaly. Bones/joints: Unremarkable. No acute fracture. Sinuses: Mild mucosal thickening in the paranasal sinuses. Mastoid air cells: Trace mastoid effusions. Orbits: Unremarkable as visualized. IMPRESSION: 1. Acute infarctions of the right frontal lobe, left occipital lobe, and right cerebellum. 2. Global parenchymal volume loss with chronic microvascular ischemic changes and chronic infarctions is present. Communications: Call Doctor Stroke Electronically signed by: Bandar Contreras MD 06/03/23 23:39 PM
--- NOTE | 2023-06-03 23:42 | Magnetic Resonance Report ---
Exam(s): MRA HEAD Without Contrast EXAM: MR Angiography Head Without Intravenous Contrast CLINICAL HISTORY: Reason for exam: acute/subacute right frontal stroke. TECHNIQUE: Magnetic resonance angiography images of the head without intravenous contrast. COMPARISON: MRI brain 06/03/2023. 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 Intracranial segment is patent with no significant stenosis. Right anterior cerebral artery: Unremarkable. No occlusion or significant stenosis. No aneurysm. Right middle cerebral artery: Unremarkable. No occlusion or significant stenosis. No aneurysm. 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 Right vertebral artery: Unremarkable as visualized. Left internal carotid artery: No acute findings. Intracranial segment is patent with no significant stenosis. No aneurysm. Left anterior cerebral artery: Unremarkable. No occlusion or significant stenosis. No aneurysm. Left middle cerebral artery: Unremarkable. No occlusion or significant stenosis. No aneurysm. Left posterior cerebral artery: Unremarkable. No occlusion or significant stenosis. No aneurysm. Left vertebral artery: Unremarkable as visualized. Basilar artery: Unremarkable. No occlusion or significant stenosis. No aneurysm. IMPRESSION: 1. 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 Otherwise, no large vessel occlusion. 2. 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 Electronically signed by: Bandar Contreras MD 06/03/23 23:41 PM
--- NOTE | 2023-06-03 23:47 | Ultrasound Report ---
Exam(s): US CAROTID EXAM: US Duplex Bilateral Extracranial Arteries CLINICAL HISTORY: Reason for exam: Acute/subacute right frontal stroke. TECHNIQUE: Real-time duplex ultrasound scan of the extracranial arteries integrating B-mode two-dimensional vascular structure, Doppler spectral analysis and color flow Doppler imaging. COMPARISON: None. FINDINGS: Right common carotid artery: Unremarkable. No occlusion or significant stenosis on color flow and spectral Doppler imaging. Right internal carotid artery: Unremarkable. No occlusion or significant stenosis on color flow and spectral Doppler imaging. Right external carotid artery: Unremarkable. No occlusion or significant stenosis on color flow and spectral Doppler imaging. Right vertebral artery: Unremarkable. Antegrade flow. Right ICA/CCA ratio: Unremarkable. Within normal limits. Left common carotid artery: Unremarkable. No occlusion or significant stenosis on color flow and spectral Doppler imaging. Left internal carotid artery: Calcified atherosclerosis of the left carotid bifurcation. There is narrowing of the proximal left internal carotid artery. Peak systolic velocity of the proximal left internal carotid artery measures 475 cm/s. Left external carotid artery: Unremarkable. No occlusion or significant stenosis on color flow and spectral Doppler imaging. Left vertebral artery: Unremarkable. Antegrade flow. Left ICA/CCA ratio: 11.2 Lymph nodes: Unremarkable. No lymphadenopathy. CAROTID STENOSIS REFERENCE USING SRU CRITERIA: Mild - <50% stenosis. ICA PSV is less than 125 cm/second and plaque or intimal thickening is visible. Moderate - 50-69% stenosis. ICA PSV is 125 to 230 cm/second and plaque is visible. Severe - 70-94% stenosis. ICA PSV is more than 230 cm/second and visible plaque with lumen narrowing is seen. Near occlusion - 95-99% stenosis. ICA PSV is variable and significant plaque with luminal narrowing is seen. Occluded - 100% stenosis. No flow identified. IMPRESSION: Atherosclerosis of the left carotid bifurcation with greater than 70% stenosis of the proximal left internal carotid artery by ultrasound. Consider evaluation with CT neck angiogram as clinically warranted. Electronically signed by: Bandar Contreras MD 06/03/23 23:46 PM
[2023-06-04] MEDS ORDERED: PHARMACY GLYCEMIC MGMT CONSULT PRN (00:11)
[2023-06-04 06:36] LABS: Basophils # (auto) 0.04 K/uL (0.00-0.20); Basophils % (auto) 0.8 %; Eosinophils % (auto) 3.9 %; Hematocrit (blood only) 35.5 % (37.0-47.0); Hemoglobin 12.1 g/dl (12.0-16.0); Immature Granulocytes # (auto) 0.01 K/uL (0.01-0.20); Immature Granulocytes % (auto) 0.2 %; Lymphocytes # (auto) 1.54 K/uL (1.20-3.40); Mean Corpuscular Hemoglobin 31.5 pg (25.0-34.0); Mean Corpuscular Hgb Conc 34.1 g/dL (32.0-36.0); Mean Corpuscular Volume 92.4 fL (80.0-100.0); Mean Platelet Volume 12.1 fL (9.4-12.4); Monocytes # (auto) 0.44 K/uL (0.11-0.59); Monocytes % (auto) 8.6 %; Neutrophils # (auto) 2.91 K/uL (1.40-6.50); Neutrophils % (auto) 56.5 %; Platelet Count 185 K/uL (130-400); RDW Coefficient of Variation 12.5 % (11.5-14.5); RDW Standard Deviation 42.5 fL (36.4-46.3); Red Blood Count 3.84 M/uL (4.20-5.40); White Blood Count 5.14 K/ul (4.8-10.8)
[2023-06-04 07:14] LABS: Estimated Average Glucose 126 mg/dl
[2023-06-04 07:15] LABS: BUN Creatinine Ratio 10.9 (10-20); Calcium 9.1 mg/dl (8.6-10.3); Chol HDL Ratio 3.3 (0-5); Creatinine Clr Calc Pharmacy 51.6 ml/min; Est GFR (African American) 53.2 ml/min; Est GFR (Non-African American) 45.9 ml/min
[2023-06-04] MEDS ORDERED: FLUTICASONE/VILANTEROL 200/25MCG 14 PUFFS/INHALER INH SCH (09:00)
[2023-06-04] MEDS ORDERED: ASPIRIN 81 MG ECTAB PO SCH (09:00)
[2023-06-04] MEDS ORDERED: amLODIPine BESYLATE 5 MG TAB PO SCH (09:00)
[2023-06-04] MEDS ORDERED: CYANOCOBALAMIN (B-12) 500 MCG TABLET PO SCH (09:00)
[2023-06-04] MEDS: INSULIN ASPART PER UNIT CHARGE SC SCH ×3 (09:13→16:59)
--- NOTE | 2023-06-04 09:31 | Neurology Consultation ---
Date of Consultation June 04, 2023 Assessment & Plan (1) CVA (cerebral vascular accident): Plan Neuro: Mental: AOx4, fluent speech, normal comprehension, no apraxia, no L/R confusion, no neglect CN: PERRL, Full EOM, symmetric face, intact sensation t/o face, midline T/U/P, 5/5 SCM/traps. Motor: No abnormal movements, normal tone and bulk, 5/5 t/o bilaterally Sens: intact to touch b/l grossly Coord: intact FNT b/l, maybe subtle rt hand dysmetria at the end. DTR: 2+ sym b/l Gait: intact grossly Impression: 73 yo female with acute rt frontal and left occipital and rt cerebellum ischemic stroke in setting of probably UTI and prior hx of stroke with Rt P2 severe stenosis. Although she did have b/l stroke, overall appearance of the stroke does not appears to be embolic in nature. there is also no report of prior atrial fib or hypercoag state. Recommendations: 1. finish Standard stroke work up as planned 2. antiplatelet therapy: for this pt, recommend 90 days, then ASA 81mg daily is ok. * DAPT (dual antiplatelet therapy): start for pts with ABCD2 score 4 or higher. Initial loading dose with ASA 325mg and Plavix 300mg (if pt has not been started), then ASA 81mg daily and Plavix 75mg daily. Continue DAPT for 21 days if found small vessel disease only or continue for 90 days if found to have intracranial large artery atherosclerosis. After that, can continue single antiplatelet therapy (either ASA or Plavix). 3. Images: TTE with bubble done this morning. CTA deferred due to poor renal, ok with carotid ultrasound. 4. Permissive Hypertension for next 24-48 hrs. Keep SBP goal range less than 220. Avoid hypotension. Do not stop beta-demarco if on it. 6. Long-term SBP goal less than 130. 7. Plenty of hydration including IV fluid if possible (use isotonic solution) next 1-2 days. Avoid hypovolemia and hypotension. 8. Initiate DVT prevention therapy. 9. Avoid hypoglycemia, serum glucose goal during hospitalization: 140-180. 10. Long-term HgA1c goal less than 7. 11. Start statin if not on it and no absolute contraindication, long-term LDL goal less than 70. 12. Head of bed up 30 degrees if possible. 13. Stroke education by nursing and appropriate staff. 14. Telemetry monitoring. Consider half-way cardiac monitoring, i.e. MCOT (mobile cardiac outpatient telemetry) or ICM (insertable ekg monitor, e.g. LINQ), if never had ocean transportation intermediary cardiac monitoring done previously. And if found to have atrial flutter or fibrillation, should consider anticoagulation therapy if no contraindication. please check with cardiology, per pt, she already had prior holter monitoring. 16. Consult physical therapy consult for any need at home. pt is eager to go home today, told her she can likely go home next 1-2 days once all testing done and as BP normalizes. she can have routine f/u with neurology as outpt in 1-2 months. please call again if new question. Chart reviewed I have spent more than 50% educating patient about potential diagnosis and neurological evaluation and coordinating care with patient's treatment team. Total time spent (including chart review and coordination of care): 85 min (this includes chart review). History of Present Illness Attending Physician: Alex Montague, History of Present Illness HPI: pt with mri brain finding of new acute ischemic stroke in rt frontal, left occiput, rt cerebellum. pt this morning essentially asymptomatic from it. pt initially with headache and now asymptomatic. no vision change this morning. 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 pt has been off ASA due to prior issue with anemia. pt apparently also followed by cardiology for ventricular dysfunction, only saw 2020 note from cardiology for stress test work up etc. pt denies having weakness or gait problem or speech change. chart reviewed. admission HPI: Tessa is a 73-year-old female with PMH of CVA, HTN, T2DM, and asthma. She presented for worsening headache on the top of her head the morning of 06/03. She was having headache when she woke up this morning, and took her morning amlodipine as well as extra strength Tylenol at 0650; then took Tylenol again at 1400 without relief. She also noted some visual changes this morning when trying to read; she reports that it was "dark and spotty". She wears glasses at baseline. She denies recent trauma to the head or neck. She also reports that she takes insulin 26u at nighttime, but sometimes splits it and reports that she took 11u this morning. Prior ischemic posterior stroke on 03/14/2018; the patient reports that she hit her head, but did not go to the hospital; she then worked through the weekend and did not experience any slurred speech, facial droop, or unilateral deficits. However [facility] they noted an acute stroke. Patient has not been taking aspirin daily; stopped aspirin years ago due to pernicious anemia with metformin use. history of migraines. Head CT on arrival revealed an acute to subacute infarct in the anterior superior right frontal lobe. History of migraines. She denies smoking, tobacco use, and recreational drug use; minimal alcohol use. She rates her headache 2/10 on the posterior scalp at the time of admission; no radiation down the neck. Patient is hypertensive at time of admission at 193/89. ROS: Patient endorses posterior scalp headache, visual changes that have resolved, and flank pain/burning with urination earlier in the week (resolved). Patient denies slurred speech, facial droop, difficulty swallowing, unilateral deficits, fever, chills, night-sweats, diplopia, photophobia, neck pain, neck stiffness, confusion, word finding difficulty, changes in hearing/taste/smell, CP, pleuritic CP, SOB, abdominal pain, nausea, vomiting, burning with urination, urinary s/s, or numbness/tingling going down arms or legs. She denies PMH of MN, DVT/PE, cancer Allergies Allergy/AdvReac Type Severity Reaction Status Date / Time olmesartan [From Benicar] Allergy Severe Stopped me Unverified 06/03/23 17:30 from urinating erythromycin base AdvReac Severe Gastrointestinal Verified 06/03/23 17:30 Upset Sulfa (Sulfonamide AdvReac Severe Gastrointestinal Unverified 06/03/23 17:30 Antibiotics) Upset codeine AdvReac Intermediate Nausea Unverified 06/03/23 17:30 Seasonal Allergies Allergy Intermediate Congestion, Uncoded 06/03/23 17:31 itchy watery eyes, runny nose Beef, chicken AdvReac Intermediate Acid Reflux Uncoded 06/03/23 17:30 Home Medications Medication Instructions Recorded Confirmed Type amlodipine 10 mg tablet 10 mg PO QAM 03/16/20 06/03/23 History clonidine HCl 0.1 mg tablet 0.1 mg PO BID PRN SBP over 200. 03/16/20 06/03/23 History levalbuterol tartrate 45 2 inh inhalation Q6H PRN Shortness 03/16/20 06/03/23 History mcg/actuation aerosol inhaler Of Breath Or Wheezing (Xopenex HFA) montelukast 10 mg tablet 10 mg PO DAILY PRN asthma 03/16/20 06/03/23 History alirocumab 150 mg/mL subcutaneous 150 mg subcut .[id number] 06/03/23 06/03/23 History pen injector (Praluent Pen) aspirin 81 mg tablet 81 mg PO DAILY PRN Pain 06/03/23 06/03/23 History budesonide-formoterol HFA 160 2 puff inhalation BID 06/03/23 06/03/23 History mcg-4.5 mcg/actuation aerosol inhaler (Symbicort) cyanocobalamin (vitamin B-12) 1,000 mcg PO DAILY 06/03/23 06/03/23 History 1,000 mcg tablet,extended release (Vitamin B-12 ER) insulin glargine 100 unit/mL (3 26 unit subcut PM 06/03/23 06/03/23 History mL) subcutaneous pen (Lantus Solostar U-100 Insulin) Patient History Medical History (Updated 06/04/23 @ 09:45 by Tyler Rojas MD) Asthma History of stroke Diabetes No pertinent family history Hypertension Surgical History No pertinent past surgical history Social History Smoking Status: Never smoker Hx Alcohol Use: No Hx Substance Use: No Preferred Language: Kiswahili Communication Ability: Effective Automotive General Sales Manager Required: No Beliefs That Will Affect Care: None Current Living Situation: Family Other Information That Helps Us Care for You: No Feels Safe at Home: Yes Safety Concerns: Feels Safe At This Time Assistive Devices: Glasses Review of Systems Review of Systems: All systems reviewed & are unremarkable except as noted in Subjective Constitutional: as per Subjective / HPI Eyes: as per Subjective / HPI Ear, Nose, Mouth, Throat: as per Subjective / HPI Respiratory: as per Subjective / HPI Cardiovascular: as per Subjective / HPI Gastrointestinal: as per Subjective / HPI Musculoskeletal: as per Subjective / HPI Integumentary: as per Subjective / HPI Neurologic: as per Subjective / HPI Psychiatric: as per Subjective / HPI Endocrine: as per Subjective / HPI Hematologic / Lymphatic: as per Subjective / HPI Allergy / Immunological: as per Subjective / HPI Results & Data Vital Signs (Past 12 Hours) Vital Signs Temp Pulse Pulse Resp BP Pulse Ox O2 Del Method 06/04/23 07:12 36.5 C 77 17 175/94 H 96 Room Air 06/04/23 03:22 36.6 C 74 20 176/99 H 95 Room Air 06/03/23 23:17 79 06/03/23 22:36 36.7 C 79 18 114/71 06/03/23 21:58 36.5 C 71 16 185/95 H 96 Room Air PG Care Time/CCT Total # of Minutes Spent Total Time Spent with Patient: Total time spent is greater than 50% in coordination of care (as documented) at patient's floor/unit and/or counseling patient: Coding Level of Care Code 93505 IN/OBS CONSULT LVL 5,80M Diagnoses Cerebrovascular accident (CVA), unspecified mechanism I63.9 CVA mechanism: unspecified (1) CVA (cerebral vascular accident) CVA mechanism: unspecified Qualified Code(s): I63.9 - Cerebral infarction, unspecified
[2023-06-04] MEDS ORDERED: CLOPIDOGREL BISULFATE 300 MG TAB PO ONE (10:14)
--- NOTE | 2023-06-04 10:31 | Hospitalist Progress Note ---
Date of Service June 04, 2023 Assessment & Plan (1) CVA (cerebral vascular accident): Plan: - Head CT on arrival favored an acute to subacute infarct of the anterior superior right frontal lobe; no acute intracranial hemorrhage - TNKase contraindicated given the window of symptoms - Brain MRI -- acute infarctions of right frontal lobe, left occipital lobe, and right cerebellum - Brain MRA -- Severe stenosis of proximal P2 segment of right GROUP MARKETING VP related to chronic right GROUP MARKETING VP territory infarction. Otherwise no LVO; 2mm medially projecting aneurysm of infundibulum from cavernous segment of right ICA. 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 Moon if possible since she follows with JASON Hernandez ([facility]) (2) Diabetes: Plan: Last A1c 5.4% on 03/16/2020 Patient normally takes Lantus 26u HS Split Lantus 13u BID while inpatient SSI; with target BSG range 110-150mg/dL, CF 45, carb ratio 15 T2DM diet Adjust regimen as needed (3) Hypertension: Plan: Permissive HTN in the setting of stroke; treat if SBP >220 or DBP >120 Hold a.m. amlodipine, then continue on 12 Hold clonidine (4) History of stroke: Plan: On 03/14/2018; right GROUP MARKETING VP infarct; in the setting of acute head trauma, per patient Patient was previously taken on aspirin 81 mg daily years ago d/t pernicious anemia associated with aspirin and metformin usage, per patient (5) Asthma: Plan: Continue Symbicort Plan Disposition: Admit to PCU telemetry Full code T2DM diet (patient passed dysphagia screen) VTE PPx: SCDs Admission and Anticipated Discharge Date Admission Date: June 03, 2023 Asia Zarate is a 73 y/o pleasant female patient who was admitted due to acute CVA (ischemic) involving the (R) frontal and (L) occipital and (R) cerebellum. On admission she was c/o vision changes in the form of spots in her vision ("black spots") and associated worsening headache on the top of her head that began yesterday (06/03/23) morning. She was evaluated today and found to be alone, sitting on the side of the bed eating, and in no acute distress. She endorses mild headache (1/10), but no vision changes or ambulation problems when she walks around the room or to the bathroom. She feels better. Denies chest pain, SOB, HUDSON, fevers, chills, malaise, weakness, or any other symptoms. Review of Systems Review of Systems: As per HPI. Physical Exam Physical Exam: General: Alert. Oriented to person, time, and place. Afebrile. No acute distress. Eyes: pupils equal and reactive to light bilaterally, extraocular movements intact. Cardiac: Regular rate and rhythm, no murmurs/rubs/gallops. Respiratory: Clear to auscultation bilaterally a/p, no wheezes/rales/rhonchi. No increased work of breathing. Symmetrical chest rise. No respiratory distress. Abdomen: Soft, nontender, nondistended. Bowel sounds present. Lower Extremities: No lower extremity edema or swelling. No deep calf pain. Natanael's negative bilaterally. 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
--- NOTE | 2023-06-04 12:21 | Pharmacy Report ---
Pharmacy Glycemic Short Note 2 - Date of Service June 04, 2023 - Glycemic Short BSG Results (Last 24 hours): 06/03/23 06/03/23 06/04/23 15:12 20:10 06:20 Glucose 112 H 102 H POC Glucose 101 H 06/04/23 06/04/23 07:10 11:09 Glucose POC Glucose 117 H 113 H OUTPATIENT ANTIDIABETIC REGIMEN: * Lantus 26 units HS ASSESSMENT: * 73 year old female admitted with concerns for CVA. Pharmacy consulted for glycemic management. Patient received 13 units of basal insulin last evening, fasting BSG 102 mg/dL - patient ordered diet this morning, however no PO intake noted * Plan to continue with basal only at HS for now, will add a small scale in case PO intake poor today PLAN FOR INPATIENT GLYCEMIC CONTROL: * Hold outpatient oral diabetes medications * Basal insulin * Lantus 6-9 units HS based upon BSG value * Bolus insulin * NovoLog per scale ACHS or Q6hrs while NPO * Goal Range: Low 110 mg/dL - High 150 mg/dL * Correction Factor: 45 mg/dL/unit * Nutritional / Prandial insulin per carb ratio of 1 unit per 15 grams CHO consumed
[2023-06-04] MEDS ORDERED: STROKE PATIENT DISCHARGE STA (17:19)
--- NOTE | 2023-06-04 17:23 | Discharge Summary ---
Date of Service June 04, 2023 Admission HPI Per Admitting Provider Tessa is a 73-year-old female with PMH of CVA, HTN, T2DM, and asthma. She presented for worsening headache on the top of her head the morning of 06/03. She was having headache when she woke up this morning, and took her morning amlodipine as well as extra strength Tylenol at 0650; then took Tylenol again at 1400 without relief. She also noted some visual changes this morning when trying to read; she reports that it was "dark and spotty". She wears glasses at baseline. She denies recent trauma to the head or neck. She also reports that she takes insulin 26u at nighttime, but sometimes splits it and reports that she took 11u this morning. Prior ischemic posterior stroke on 03/14/2018; the patient reports that she hit her head, but did not go to the hospital; she then worked through the weekend and did not experience any slurred speech, facial droop, or unilateral deficits. However when she went to the [facility] on 03/19/2018 they noted an acute stroke. Patient has not been taking aspirin da james; stopped aspirin years ago due to pernicious anemia with metformin use. history of migraines. Head CT on arrival revealed an acute to subacute infarct in the anterior superior right frontal lobe. History of migraines. She denies smoking, tobacco use, and recreational drug use; minimal alcohol use. She rates her headache 2/10 on the posterior scalp at the time of admission; no radiation down the neck. Patient is hypertensive at time of admission at 193/89. ROS: Patient endorses posterior scalp headache, visual changes that have resolved, and flank pain/burning with urination earlier in the week (resolved). Patient denies slurred speech, facial droop, difficulty swallowing, unilateral deficits, fever, chills, night-sweats, diplopia, photophobia, neck pain, neck stiffness, confusion, word finding difficulty, changes in hearing/taste/smell, CP, pleuritic CP, SOB, abdominal pain, nausea, vomiting, burning with urination, urinary s/s, or numbness/tingling going down arms or legs. She denies PMH of MN, DVT/PE, cancer Principal Diagnosis stroke Discharge Exam In general she is awake and alert pleasant no distress. HEENT normocephalic atraumatic mucous membranes moist. Breathing unlabored no accessory muscle use good effort. Skin shows no rashes no pallor or icterus. No overt neurodeficits noted. See resident progress note and neuro note for further details on physical exam. Discharge Data Allergies Allergy/AdvReac Type Severity Reaction Status Date / Time olmesartan [From Benicar] Allergy Severe Stopped me Unverified 06/03/23 17:30 from urinating erythromycin base AdvReac Severe Gastrointestinal Verified 06/03/23 17:30 Upset Sulfa (Sulfonamide AdvReac Severe Gastrointestinal Unverified 06/03/23 17:30 Antibiotics) Upset codeine AdvReac Intermediate Nausea Unverified 06/03/23 17:30 Seasonal Allergies Allergy Intermediate Congestion, Uncoded 06/03/23 17:31 itchy watery eyes, runny nose Beef, chicken AdvReac Intermediate Acid Reflux Uncoded 06/03/23 17:30 Consultations 06/03/23 17:24 ED Decision to Admit Stat 06/03/23 19:58 Consult Neurology Routine 06/04/23 15:58 Consult [facility] sleever Routine Ordered Studies 06/03/23 14:50 CT Brain [CT head/brain wo con] Stat 06/03/23 18:57 MR brain wo con Urgent 06/03/23 19:51 MR angio head wo con Urgent US carotid doppler BI Urgent Hospital Course (1) CVA (cerebral vascular accident): Stroke of multiple territoriesright frontal, left occipital, right cerebellar. Workup shows chronic appearing right P2 severe stenosis, known longstanding left carotid 70% stenosis, with surprisingly clear right sided circulation anteriorly. A1c 6.0, lipids show total cholesterol of 107 with an HDL 32, LDL 46, triglycerides 147. Blood pressure running somewhat high, but patient notes this is not normal for her, and is likely in the context of stroke related autoregulation. No atrial fibrillation, echocardiogram done formal read by cardiology pending at the time of this dictation. Seen by neurologyrecommended dual antiplatelets for now, likely for 3 weeks followed by Plavix alone. Seen by PT/OT, stable for home. Does not show overt visual field deficits at the bedside to any examiner, did ask her to have formal visual field assessment at her eye doctor given the occipital involvement, and cautioned to make sure she is looking very carefully before doing anything that could result in harm if she were to have an undetected blind spot (which again she does not have any symptoms of and does not show at the bedside). Echo pending, ask cardiology to assist in setting up outpatient event monitordiscussed with patient that while the literature favors treating with dual antiplatelets when a "smoking gun" of embolism for this type of stroke is not found, definitely concerning given multiple territories across multiple distributions of circulation and will evaluate for causes of cardioembolic/central embolic stroke Safe/stable for home. Total Time Total Time Spent Total Time Spent (In Minutes): Less than 30 Discharge Plan Discharge Items Patient Disposition: Home - Self-Care Reason For Visit: HEADACHE, CVA WORKUP Discharge Diagnosis: stroke Activity: Resume your previous activity Non-emergency contact: Primary Care Provider Call non-emergency contact if: you have any medication questions Follow-up/Referrals: Tyler Rojas MD [Physician] - PCP,DWAYNE [Primary Care Provider] - Diet: Regular Addtl Attending Provider Instructions: stroke: As we discussed, you did have a stroke of several discrete areas of your brain. While this does raise concern for more of a "clot caused stroke" (embolic stroke), we do not see any clear evidence of a cause of embolism (i.e. clot driven strokes tend to come from the heart with things like atrial fibrillation that we are not seeing). Because of this, we need to look at you 2 different ways simultaneously: We treat with aspirin and Plavix together for the time being, to prevent a future stroke. At the same time, we look more closely for any reasons that you could have had a clot driven stroke (waiting on the ultrasound of your heart to be read at the time of this dictation, and we will get a cardiac event monitor set up via the [facility] cardiology office to screen in more depth for atrial fibrillation). Generally, this will mostly be the difference of treating with aspirin and Plavix to prevent a future stroke or treating with a different type of blood thinner such as Eliquis. Further, as we discussed, while you are not showing is anything that looks to be a true visual field deficit, I would have you see your regular eye doctor this week/next week for more formal visual field screening to make sure you do not have a blind spot that you are unaware of. Until that time, be extremely careful with any situation where "not seeing what you don't see" could be dangerous (such as dr gupta, stairs, etc). follow your blood pressure daily at home - in the short term, it's common/expected (and actually preferred) to let your pressures run a little high (around 160-180) - and then after about a month ideally not wanting to see anything above ~130. it's quite likely that your pressures will get back to normal without any additional medications; if that's not the case, then Marley porter adjust medicines/add medicines if needed as she is seeing you in the office we will have you on aspirin and plavix (clopidogrel) BOTH for the next 3 weeks at least (depending on how you're doing and how the rest of the workup turns out, we might have you on BOTH for as long as 3 months) and then we'll eventually drop the aspirin and just have you on plavix (clopidogrel); as we discussed if we see clear evidence of a clot-caused stroke (such as seeing afib on your thermal engineer) then it will most likely simply entail a switch from aspirin/plavix to a different type of blood thinner like eliquis stay well hydrated - we have better blood flow through "full" blood vessels (the same as a hose has higher pressure when the faucet is turned the whole way on) - so make sure you get 60-80 ounces of fluid a day follow up with Marley Manriquez in the [facility] family med office ideally in the next week expect a call from Dr Moon's office ([facility] Cardiology) to have the thermal engineer set up by some time next week again the echocardiogram has not yet been read by the on-call journalism internship, but given the very low likelihood it will show something (afib / most common clot type causes of strokes don't show up on an echo) we'll let you go home and give you a call if there's anything that would require a change in management, and Marley Manriquez can review the full report with you otherwise, that way you're not "held hostage" here in the hospital waiting on a test that's not very likely to be "game changing"! Pending Studies at Discharge: Yes (echocardiogram has not yet been read) Stand-Alone Forms: My [facility] [employer], Smoking Cessation Medications and DC Order Prescriptions: New clopidogrel 75 mg Tablet 75 mg PO QAM Qty: 90 0RF aspirin 81 mg Tablet,Delayed Release (Dr/Ec) 81 mg PO QAM Qty: 90 0RF Continued amlodipine 10 mg tablet 10 mg PO QAM clonidine HCl 0.1 mg tablet 0.1 mg PO BID PRN (Reason: SBP over 200. ) montelukast 10 mg Tablet 10 mg PO DAILY PRN (Reason: asthma) levalbuterol tartrate [Xopenex HFA] 45 mcg/actuation Hfa Aerosol Inhaler 2 inh INHALATION Q6H PRN (Reason: Shortness Of Breath Or Wheezing) cyanocobalamin (vitamin B-12) [Vitamin B-12] 1,000 mcg Tablet Extended Release 1,000 mcg PO DAILY aspirin 81 mg Tablet 81 mg PO DAILY PRN (Reason: Pain) budesonide-formoterol [Symbicort] 160-4.5 mcg/actuation HFA aerosol inhaler 2 puff INHALATION BID insulin glargine [Lantus Solostar U-100 Insulin] 100 unit/mL (3 mL) insulin pen 26 unit SUBCUT PM Praluent Pen 150 mg/mL pen injector 150 mg SUBCUT .[id number] Discharge Orders: Discharge Order (Routine); Ordered 06/04/23 Ordered By: Alex Alford/Other Patient Handouts: High Blood Sugar (Hyperglycemia), Hypoglycemia (Low Blood Sugar), Managing Type 2 Diabetes Admission Data Admit Date/Time: 06/03/23 19:09 Attending Provider: Alex Montague Admit Provider: Eliazar Kim Primary Care Provider: PCP,NO Other Providers: Eliazar Kim; Tyler Rojas Coding Level of Care Code 84773 IN/OBS DISCH 30 MIN/LESS Diagnoses Cerebrovascular accident (CVA), unspecified mechanism I63.9 CVA mechanism: unspecified
--- NOTE | 2023-06-04 17:30 | Billing Data ---
Date of Service June 04, 2023 Coding Level of Care Code 46987 IN/OBS DISCH 30 MIN/LESS
--- NOTE | 2023-06-04 18:45 | XCELERA ---
[id number]
[2023-06-04] MEDS ORDERED: LANTUS PER UNIT CHARGE SQ SCH (21:00)
[2023-06-05] MEDS ORDERED: ATORVASTATIN 40 MG TAB PO SCH (09:00)
[2023-06-05] MEDS ORDERED: ATORVASTATIN 20 MG TAB PO SCH (09:00)
[2023-06-05] MEDS ORDERED: CLOPIDOGREL BISULFATE 75 MG TAB PO SCH (09:00)
--- NOTE | 2023-06-06 05:26 | Electrocardiogram Report ---
Test Reason : Blood Pressure : / mmHG Vent. Rate : 068 BPM Atrial Rate : 068 BPM P-R Int : 150 ms QRS Dur : 084 ms QT Int : 404 ms P-R-T Axes : 042 055 003 degrees QTc Int : 429 ms Sinus rhythm with Premature ventricular complexes Premature atrial complexes Possible Anterior infarct (cited on or before 16-MAR-2020) Abnormal ECG When compared with ECG of 16-MAR-2020 00:59, Premature atrial complexes are now Present Premature ventricular complexes are now Present Inverted T waves have replaced nonspecific T wave abnormality in Inferior leads Confirmed by Baltazar Vo ([id number]) on 06/06/2023 5:26:27 AM Referred By: Confirmed By:Baltazar Vo
--- NOTE | 2023-06-06 10:54 | Pharmacy Report ---
Pharmacist Stroke Counseling - Date of Service June 06, 2023 - Scope: Pharmacy has been consulted to provide medication discharge counseling for this patient admitted with [ischemic stroke] [hemorrhagic stroke] [transient ischemic attack] as per the Pharmacist Discharge Counseling for Stroke Patients Pro tocol. - Medications on Discharge: Home Medications Medication Instructions Recorded Confirmed amlodipine 10 mg tablet 10 mg PO QAM 03/16/20 06/03/23 clonidine HCl 0.1 mg tablet 0.1 mg PO BID PRN SBP over 200. 03/16/20 06/03/23 levalbuterol tartrate 45 2 inh inhalation Q6H PRN Shortness 03/16/20 06/03/23 mcg/actuation aerosol inhaler Of Breath Or Wheezing (Xopenex HFA) montelukast 10 mg tablet 10 mg PO DAILY PRN asthma 03/16/20 06/03/23 alirocumab 150 mg/mL subcutaneous 150 mg subcut .[id number] 06/03/23 06/03/23 pen injector (Praluent Pen) aspirin 81 mg tablet 81 mg PO DAILY PRN Pain 06/03/23 06/03/23 budesonide-formoterol HFA 160 2 puff inhalation BID 06/03/23 06/03/23 mcg-4.5 mcg/actuation aerosol inhaler (Symbicort) cyanocobalamin (vitamin B-12) 1,000 mcg PO DAILY 06/03/23 06/03/23 1,000 mcg tablet,extended release (Vitamin B-12 ER) insulin glargine 100 unit/mL (3 26 unit subcut PM 06/03/23 06/03/23 mL) subcutaneous pen (Lantus Solostar U-100 Insulin) New Rx's Medication Instructions Recorded aspirin 81 mg tablet,delayed 81 mg PO QAM #90 tabs 06/04/23 release clopidogrel 75 mg tablet 75 mg PO QAM #90 tabs 06/04/23 - Action: The above medications, specifically ones for stroke treatment/prophylaxis, have been reviewed in detail with the patient and/or patient motor vehicle field representative(s) prior to discharge. This includes indication, common adverse reactions, drug interactions, and medication administration. Medication counseling has been employed using the teach-back method to ensure understanding. - Outcome: The patient and/or patient motor vehicle field representative(s) have demonstrated understanding of the medications. Additional comments: Spoke with Tessa regarding her discharge medications. She has picked up her new medications. * She is aware that aspirin and clopidogrel will work to keep her platelets from sticking together and forming a clot. Reviewed to let doctor, surgeons, and dentists know that she is taking this as this could change how they treat her. * Reviewed importance of lower cholesterol with Praluent and lower cholesterol helps to prevent stroke. * Reviewed A1C from the hospital that was in goal range (6%), mentioned that she can talk with her primary care doctor about starting a medication with proven CVD benefit to help lower stroke risk (mentioned Janene and Margaux). Stated that with her current A1C this is not necessary as an A1C within goal range will also help prevent stroke, but it is an option she can discuss with her primary care doctor. Tessa asked if these medications were expensive, and stated that it does vary, but they usually are covered by insurance. * Reinforced the importance of maintaining blood pressure within goal range to help prevent stroke. Reviewed that these medications may not make her feel better, but are working to prevent stroke and heart attacks in the background. All questions answered Thank you for allowing pharmacy to be involved in the care of this patient. Please call [phone] with any additional questions
== END 2023-06-04 18:12 | disposition home or self-care (01) | DRG 66 ==
LOC: ED 14:38 → EDINP 19:09 → SUATTDRO 19:09 → 2S 19:43

== ENCOUNTER 2023-06-08 16:13 | Observation (INO) ==
[2023-06-08 16:36] LABS: Basophils # (auto) 0.03 K/uL (0.00-0.20); Basophils % (auto) 0.4 %; Eosinophils # (auto) 0.13 K/uL (0.00-0.50); Eosinophils % (auto) 1.9 %; Hematocrit (blood only) 37.7 % (37.0-47.0); Hemoglobin 12.6 g/dl (12.0-16.0); Immature Granulocytes # (auto) 0.04 K/uL (0.01-0.20); Immature Granulocytes % (auto) 0.6 %; Lymphocytes # (auto) 1.67 K/uL (1.20-3.40); Lymphocytes % (auto) 24.9 %; Mean Corpuscular Hemoglobin 31.5 pg (25.0-34.0); Mean Corpuscular Hgb Conc 33.4 g/dL (32.0-36.0); Mean Corpuscular Volume 94.3 fL (80.0-100.0); Mean Platelet Volume 12.2 fL (9.4-12.4); Monocytes # (auto) 0.41 K/uL (0.11-0.59); Monocytes % (auto) 6.1 %; Neutrophils # (auto) 4.44 K/uL (1.40-6.50); Neutrophils % (auto) 66.1 %; Platelet Count 189 K/uL (130-400); RDW Coefficient of Variation 12.3 % (11.5-14.5); RDW Standard Deviation 42.8 fL (36.4-46.3); White Blood Count 6.72 K/ul (4.8-10.8)
[2023-06-08] MEDS ORDERED: SODIUM CHLORIDE 0.9% 1,000 ML IV ONE (16:52)
--- NOTE | 2023-06-08 16:54 | Emergency Department Note ---
Impression & Plan Chest pain ADMIT ED Provider Note HPI: History obtained from patient. The patient is a 73-year-old female with history of previous CVA noted on CT imaging earlier this month, presents emergency department with multiple issues today. Patient states that earlier today she had a headache, this seemed to improve with Tylenol. Patient states she was having intermittent issues with right hand numbness today that is now also resolved. Patient states that at various points throughout the day today she had chest pain towards the right side of her chest that radiated to her back but that is also now resolved. Patient is a somewhat poor historian, she arrives with a family member at the bedside. On arrival here to the ED the patient does not have any focal deficits, she is mildly hypertensive on arrival at 146/67 but is otherwise hemodynamically stable and saturating well on room air. ROS: - Per HPI Differential Diagnosis: Acute intracranial hemorrhage, acute ischemic stroke, TIA, acute coronary syndrome, pneumothorax, pulmonary embolism, amongst other potential pathologies. *Outpatient medications and allergy history reviewed. 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 Lab work shows no leukocytosis, hemoglobin is normal, platelet count is normal, CMP does not show any critical findings, troponin is slightly elevated at 39, EKG per my interpretation does not show any evidence of any acute ischemic changes. CT imaging of the head does not show any evidence of any acute infarct but does redemonstrate subacute infarcts similar to previous imaging earlier this month. No evidence of any acute intracranial hemorrhage per the interpreting radiologist. Repeat troponin was also obtained and shows slight progression to 42.4 from 39. On my reassessment the patient is resting comfortably in bed, she does not have any focal deficits, she currently is asymptomatic from the standpoint of having any symptoms however following discussion with the patient and her family they are concerned about her chest pain and elevated troponin and would prefer admission versus discharge. Given the patient's multiple risk factors including TIA-like symptoms earlier today I think this is reasonable. [facility] service was consulted for admission, patient was given aspirin prior to admission, patient was placed for admission in stable condition for chest pain, elevated troponin. Consultants: -[facility], Dr. Mancilla Disposition discussion held by myself with: -Patient and daughter is at bedside Diagnosis: 1. Chest pain, acute, transient 2. Elevated troponin, acute 3. Transient right hand numbness, acute, nonspecific 4. 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 Required: No Beliefs That Will Affect Care: None Current Living Situation: Family Feels Safe at Home: Yes Assistive Devices: None Allergies Allergies Allergy/AdvReac Type Severity Reaction Status Date / Time olmesartan [From Benicar] Allergy Severe Stopped me Unverified 06/08/23 17:48 from urinating erythromycin base AdvReac Severe Gastrointestinal Verified 06/08/23 17:48 Upset Sulfa (Sulfonamide AdvReac Severe Gastrointestinal Unverified 06/08/23 17:48 Antibiotics) Upset codeine AdvReac Intermediate Nausea Unverified 06/08/23 17:48 Seasonal Allergies Allergy Intermediate Congestion, Uncoded 06/08/23 17:48 itchy watery eyes, runny nose Beef, chicken AdvReac Intermediate Acid Reflux Uncoded 06/08/23 17:48 Home Meds Home Medications Medication Instructions Recorded Confirmed amlodipine 10 mg tablet 10 mg PO QAM 03/16/20 06/08/23 clonidine HCl 0.1 mg tablet 0.1 mg PO BID PRN SBP over 200. 03/16/20 06/08/23 levalbuterol tartrate 45 2 inh inhalation Q6H PRN Shortness 03/16/20 06/08/23 mcg/actuation aerosol inhaler Of Breath Or Wheezing (Xopenex HFA) montelukast 10 mg tablet 10 mg PO DAILY PRN asthma 03/16/20 06/08/23 alirocumab 150 mg/mL subcutaneous 150 mg subcut .[id number] 06/03/23 06/08/23 pen injector (Praluent Pen) budesonide-formoterol HFA 160 2 puff inhalation BID 06/03/23 06/08/23 mcg-4.5 mcg/actuation aerosol inhaler (Symbicort) cyanocobalamin (vitamin B-12) 1,000 mcg PO DAILY 06/03/23 06/08/23 1,000 mcg tablet,extended release (Vitamin B-12 ER) insulin glargine 100 unit/mL (3 26 unit subcut PM 06/03/23 06/08/23 mL) subcutaneous pen (Lantus Solostar U-100 Insulin) Previous Rx's Medication Instructions Recorded aspirin 81 mg tablet,delayed 81 mg PO QAM #90 tabs 06/04/23 release clopidogrel 75 mg tablet 75 mg PO QAM #90 tabs 06/04/23 Results & Data (ED) Vital Signs Vital Signs - 24 hr 06/08/23 16:16 06/08/23 16:30 06/08/23 18:41 Temperature 36.8 C Temperature Source Temporal Artery Scan Pulse Rate 60 Pulse Rate [Left Finger] 65 61 Respiratory Rate 18 20 16 Blood Pressure 203/87 H Blood Pressure [Left Arm] 146/67 H 160/81 H Blood Pressure Mean 125 Blood Pressure Mean [Left Arm] 93 107 Blood Pressure Position [Left Arm] Sitting Sitting Pulse Oximetry 96 96 96 Oxygen Delivery Method Room Air Room Air Sepsis Recent Fever Within 48 Hours No Sepsis New/Unexplained Change in Mental Status No Sepsis Action Taken by Nursing No Action Required 06/08/23 20:00 12/23/23 20:00 Temperature Temperature Source Pulse Rate Pulse Rate [Left Finger] 59 L Respiratory Rate 16 Blood Pressure Blood Pressure [Left Arm] 157/83 H Blood Pressure Mean Blood Pressure Mean [Left Arm] 107 Blood Pressure Position [Left Arm] Pulse Oximetry 96 94 Oxygen Delivery Method Room Air Room Air Sepsis Recent Fever Within 48 Hours Sepsis New/Unexplained Change in Mental Status Sepsis Action Taken by Nursing Laboratory Data 06/08/23 16:24 06/08/23 16:24 Lab Results 06/08/23 06/08/23 Range/Units 16:24 18:04 WBC 6.72 (4.8-10.8) K/ul RBC 4.00 L (4.20-5.40) M/uL Hgb 12.6 (12.0-16.0) g/dl Hct 37.7 (37.0-47.0) % MCV 94.3 (80.0-100.0) fL MCH 31.5 (25.0-34.0) pg MCHC 33.4 (32.0-36.0) g/dL RDW Std Deviation 42.8 (36.4-46.3) fL RDW Coeff of Guillermina 12.3 (11.5-14.5) % Plt Count 189 (130-400) K/uL MPV 12.2 (9.4-12.4) fL Immature Gran % (Auto) 0.6 % Neut % (Auto) 66.1 % Lymph % (Auto) 24.9 % [place] % (Auto) 6.1 % Eos % (Auto) 1.9 % Baso % (Auto) 0.4 % Neut # (Auto) 4.44 (1.40-6.50) K/uL Lymph # (Auto) 1.67 (1.20-3.40) K/uL [place] # (Auto) 0.41 (0.11-0.59) K/uL Eos # (Auto) 0.13 (0.00-0.50) K/uL Baso # (Auto) 0.03 (0.00-0.20) K/uL Immature Gran # (Auto) 0.04 (0.01-0.20) K/uL PT 10.3 (9.0-12.0) Seconds INR 0.9 (0.9-1.1) APTT 25 (21-31) Seconds PTT Ratio 0.9 Sodium 136 (136-145) mmol/L Potassium 3.8 (3.5-5.1) mmol/L Chloride 103 (98-107) mmol/L Carbon Dioxide 26 (21-32) mmol/L Anion Gap 7 (3-11) BUN 17 (6-23) mg/dl Creatinine 1.22 H (0.6-1.2) mg/dl Est Cr Clr Drug Dosing 49.9 ml/min Est GFR ( Amer) 51.6 ml/min Est GFR (Non-Af Amer) 44.5 ml/min BUN/Creatinine Ratio 13.9 (10-20) Glucose 85 (70-99(Fasting)) mg/dl Calcium 9.2 (8.6-10.3) mg/dl Total Bilirubin 0.4 (0.2-1.0) mg/dl AST 16 (13-39) U/L ALT 10 (7-52) U/L Alkaline Phosphatase 68 (34-104) U/L Troponin I High Sens 39.1 H 42.4 H (0-14) pg/ml Total Protein 7.1 (6.0-8.3) gm/dl Albumin 4.1 (3.4-5.0) gm/dl Globulin 3.0 (2.5-4.0) gm/dl Albumin/Globulin Ratio 1.4 (0.9-2) Administered Medications Discontinued Medications Aspirin (Aspirin Chew 324 Mg) 324 mg PO NOW STA Stop: 06/08/23 19:01 Last Admin: 06/08/23 19:04 Dose: 324 mg Documented By: DARCIE Sodium Chloride (Nss) 1,000 mls @ 999 mls/hr IV .Q1H1M ONE Stop: 06/08/23 17:52 Last Infusion: 06/08/23 18:48 Dose: Infused Documented By: Admin: 06/08/23 17:17 Dose: 999 mls/hr Documented By: DARCIE Imaging Data Radiologist's Impression: Chest X-Ray 06/08/23 16:21 XR chest 1V not portable CLINICAL HISTORY: Chest pain, nonspecific COMPARISON STUDY: Chest radiograph March 16, 2020. FINDINGS: Lung volumes are normal. There is no consolidation to suggest pneumonia. Linear bibasilar densities favor atelectasis. There is no pneumothorax or pleural effusion. Cardiac size is normal. Mediastinal contours are normal. There is no evidence for pulmonary edema. IMPRESSION: No acute cardiopulmonary findings. ACT 112: Negative or not required by law. Electronically signed by: Davion Ledesma M.D. 06/08/2023 5:[address] 06/08/23 17:49 CT OF THE HEAD WITHOUT CONTRAST CLINICAL HISTORY: Headache. Right hand numbness. COMPARISON STUDY: Head CT and MRI of the brain June 03, 2023. CT DOSE: 703.85 mGy.cm TECHNIQUE: Helical axial images of the head were obtained without IV contrast. Automated exposure control was utilized for the study. A dose lowering technique was utilized adhering to the principles of ALARA. FINDINGS: No acute intracranial hemorrhage is present. 4.8 cm right frontal lobe infarct is again noted. A 1.8 cm subacute left occipital lobe infarct is also noted. 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 Old bilateral cerebellar infarcts are present. Possible subacute right cerebellar infarct is present. No new infarcts are identified by CT. White matter hypodensity suggests small vessel disease. Ventricular system is unremarkable. Basal cisterns are patent. There are no extra-axial collections. There are no findings to suggest acute dural sinus thrombosis. IMPRESSION: 1. No acute intracranial hemorrhage. 2. Expected evolution of the subacute right frontal and left occipital infarcts shown on MRI of June 03, 2023. Possible subacute right cerebellar infarct. No hemorrhagic conversion. No significant mass effect. 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, as above. ACT 112: Negative or not required by law. Electronically signed by: Davion Ledesma M.D. 06/08/2023 6:12 PM Discharge Plan Visit Data Chief Complaint: Cardiac Assessment Stated Complaint: CHEST PAIN , SHORTNESS OF BREATH ED Provider: Joe Kapoor Discharge Problem: Chest pain Forms Stand Alone Forms: [facility] [employer] Prescriptions Prescriptions: No Action amlodipine 10 mg tablet 10 mg PO QAM clonidine HCl 0.1 mg tablet 0.1 mg PO BID PRN (Reason: SBP over 200. ) montelukast 10 mg Tablet 10 mg PO DAILY PRN (Reason: asthma) levalbuterol tartrate [Xopenex HFA] 45 mcg/actuation Hfa Aerosol Inhaler 2 inh INHALATION Q6H PRN (Reason: Shortness Of Breath Or Wheezing) cyanocobalamin (vitamin B-12) [Vitamin B-12] 1,000 mcg Tablet Extended Release 1,000 mcg PO DAILY budesonide-formoterol [Symbicort] 160-4.5 mcg/actuation HFA aerosol inhaler 2 puff INHALATION BID insulin glargine [Lantus Solostar U-100 Insulin] 100 unit/mL (3 mL) insulin pen 26 unit SUBCUT PM Praluent Pen 150 mg/mL pen injector 150 mg SUBCUT .[id number] clopidogrel 75 mg Tablet 75 mg PO QAM Qty: 90 0RF aspirin 81 mg Tablet,Delayed Release (Dr/Ec) 81 mg PO QAM Qty: 90 0RF Referrals Referrals: PCP,NO [Physician] - Discharge Problem: Chest pain Qualifiers: Chest pain type: unspecified Qualified Code(s): R07.9 - Chest pain, unspecified
[2023-06-08 16:55] LABS: Albumin Globulin Ratio 1.4 (0.9-2); Albumin Level 4.1 gm/dl (3.4-5.0); BUN Creatinine Ratio 13.9 (10-20); Bilirubin,Total 0.4 mg/dl (0.2-1.0); Calcium 9.2 mg/dl (8.6-10.3); Creatinine Clr Calc Pharmacy 49.9 ml/min; Est GFR (African American) 51.6 ml/min; Est GFR (Non-African American) 44.5 ml/min; Potassium 3.8 mmol/L (3.5-5.1); Total Protein 7.1 gm/dl (6.0-8.3)
[2023-06-08 17:01] LABS: Troponin I High Sensitivity 39.1 pg/ml (0-14)
[2023-06-08 17:04] LABS: INR 0.9 (0.9-1.1); Partial Thromboplastin Ratio 0.9; Partial Thromboplastin Time 25 Seconds (21-31); Prothrombin Time 10.3 Seconds (9.0-12.0)
--- NOTE | 2023-06-08 17:23 | XRay Report ---
XR chest 1V not portable CLINICAL HISTORY: Chest pain, nonspecific COMPARISON STUDY: Chest radiograph March 16, 2020. FINDINGS: Lung volumes are normal. There is no consolidation to suggest pneumonia. Linear bibasilar d ensities favor atelectasis. There is no pneumothorax or pleural effusion. Cardiac size is normal. Med iastinal contours are normal. There is no evidence for pulmonary edema. IMPRESSION: No acute cardiopulmonary findings. ACT 112: Negative or not required by law. Electronically signed by: Davion Ledesma M.D. 06/08/2023 5:21 PM
--- NOTE | 2023-06-08 18:15 | CT Scan Report ---
CT OF THE HEAD WITHOUT CONTRAST CLINICAL HISTORY: Headache. Right hand numbness. COMPARISON STUDY: Head CT and MRI of the brain June 03, 2023. CT DOSE: 703.85 mGy.cm TECHNIQUE: Helical axial images of the head were obtained without IV contrast. Automated exposure con trol was utilized for the study. A dose lowering technique was utilized adhering to the principles o f ALARA. FINDINGS: No acute intracranial hemorrhage is present. 4.8 cm right frontal lobe infarct is again not ed. A 1.8 cm subacute left occipital lobe infarct is also noted. 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 Old bilateral cerebellar infarcts are present. Possible subacute right cerebellar infarct is present. No new infarcts are identified by CT. White matter hypodensity suggests small vessel diseas e. Ventricular system is unremarkable. Basal cisterns are patent. There are no extra-axial collection s. There are no findings to suggest acute dural sinus thrombosis. IMPRESSION: 1. No acute intracranial hemorrhage. 2. Expected evolution of the subacute right frontal and left occipital infarcts shown on MRI of Decem 2022. Possible subacute right cerebellar infarct. No hemorrhagic conversion. No significant m ass effect. 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, as above. ACT 112: Negative or not required by law. Electronically signed by: Davion Ledesma M.D. 06/08/2023 6:12 PM
[2023-06-08 18:39] LABS: Troponin I High Sensitivity 42.4 pg/ml (0-14)
[2023-06-08] MEDS ORDERED: ASPIRIN CHEW 324 MG PO STA (19:00)
--- NOTE | 2023-06-08 19:49 | History & Physical Report ---
Date of Service June 08, 2023 Assessment & Plan (1) Intermittent chest pain: Plan: Patient endorses intermittent chest/jaw pain x 3 on 06/08 No prior history of MIs Elevated troponin 39.1 --> 42.4 on arrival EKG on arrival showed normal sinus rhythm at 65 bpm; QTc 403 TSH WNL Continuous telemetry monitoring Nitrostat as needed for chest pain Repeat AM troponin Repeat a.m. EKG A.m. CBC, BMP (2) History of stroke: Plan: Patient was recently discharged from [facility] following an acute to subacute anterior superior right frontal lobe CVA; admission from 06/03-06/04 She also had a right MASTER PRINTER infarct on 03/14/2018; in the setting of acute head trauma, per patient Continue aspirin, Plavix Given recent emboli, and no history of A-fib, hypercoagulable panel ordered, pending (3) Diabetes: Plan: Last A1c 6.0% on 06/04/2023 Patient normally takes Lantus 26u HS Split Lantus 13u BID while inpatient SSI; with target BSG range 110-150mg/dL, CF 45, carb ratio 15 T2DM diet Adjust regimen as needed (4) Hypertension: Plan: Continue amlodipine Hold clonidine (5) Asthma: Plan: Continue Symbicort Plan Disposition: Obs -admit to MedSurg telemetry Full code T2DM, AHA diet VTE PPx: Lovenox 40mg SQ q24h History of Present Illness Chief Complaint: Cardiac Assessment Primary Care Provider: Anh Manriquez PA-C Tessa is a pleasant 73-year-old female with PMH of T2DM, CVA, HTN, and asthma. She presented due to intermittent chest pain on throughout 06/08. Patient was concerned that she was having a heart attack today, and reports that she has an extensive family history of heart attacks (including father, and brothers). Patient took her normal dose of AM amlodipine the night of 06/07 at 2230. She then reports she felt woozy when she woke up this morning, and was having chest palpitations. She took her normal morning medications, but reports that she took clonidine 0.1 mg 3 times throughout the day. She also took 2 tablets of Tylenol this morning. Patient describes 3 instances of intermittent chest pain as dull and achy. It radiates to her left shoulder. She also endorses jaw pain and numbness in her right hand throughout the day. No past history of MIs. Hypertension 160/81 at time of admission; vitals otherwise stable ED Course: ASA 324mg p.o. IVF ROS: Patient endorses UTI, chills, burning with urination, intermittent chest pain Patient denies fever, slurred speech, facial droop, unilateral deficits, SOB, abdominal pain, N/V/D, Allergies Allergy/AdvReac Type Severity Reaction Status Date / Time olmesartan [From Benicar] Allergy Severe Stopped me Unverified 06/08/23 17:48 from urinating erythromycin base AdvReac Severe Gastrointestinal Verified 06/08/23 17:48 Upset Sulfa (Sulfonamide AdvReac Severe Gastrointestinal Unverified 06/08/23 17:48 Antibiotics) Upset codeine AdvReac Intermediate Nausea Unverified 06/08/23 17:48 Seasonal Allergies Allergy Intermediate Congestion, Uncoded 06/08/23 17:48 itchy watery eyes, runny nose Beef, chicken AdvReac Intermediate Acid Reflux Uncoded 06/08/23 17:48 Home Medications Medication Instructions Recorded Confirmed Type amlodipine 10 mg tablet 10 mg PO QAM 03/16/20 06/08/23 History clonidine HCl 0.1 mg tablet 0.1 mg PO BID PRN SBP over 200. 03/16/20 06/08/23 History levalbuterol tartrate 45 2 inh inhalation Q6H PRN Shortness 03/16/20 06/08/23 History mcg/actuation aerosol inhaler Of Breath Or Wheezing (Xopenex HFA) montelukast 10 mg tablet 10 mg PO DAILY PRN asthma 03/16/20 06/08/23 History alirocumab 150 mg/mL subcutaneous 150 mg subcut .[id number] 06/03/23 06/08/23 History pen injector (Praluent Pen) budesonide-formoterol HFA 160 2 puff inhalation BID 06/03/23 06/08/23 History mcg-4.5 mcg/actuation aerosol inhaler (Symbicort) cyanocobalamin (vitamin B-12) 1,000 mcg PO DAILY 06/03/23 06/08/23 History 1,000 mcg tablet,extended release (Vitamin B-12 ER) insulin glargine 100 unit/mL (3 26 unit subcut PM 06/03/23 06/08/23 History mL) subcutaneous pen (Lantus Solostar U-100 Insulin) aspirin 81 mg tablet,delayed 81 mg PO QAM #90 tabs 06/04/23 06/08/23 Rx release clopidogrel 75 mg tablet 75 mg PO QAM #90 tabs 06/04/23 06/08/23 Rx Past Med/Surg History Medical History (Updated 06/08/23 @ 21:02 by Joe Kapoor DO) Asthma History of stroke Diabetes No pertinent family history Hypertension Surgical History No pertinent past surgical history Social History Smoking Status: Never smoker Hx Alcohol Use: Yes Alcohol type: wine Hx Substance Use: No Preferred Language: Turkish Communication Ability: Effective 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 Beliefs That Will Affect Care: None Current Living Situation: Family Other Information That Helps Us Care for You: No Feels Safe at Home: Yes Safety Concerns: Feels Safe At This Time Assistive Devices: Glasses Review of Systems Review of Systems: See HPI above Physical Exam Physical Exam: General: no acute distress; pleasant affect; non-toxic appearing; well- nourished; cooperative HEENT: normocephalic, atraumatic; no scleral icterus; PERRLA w/ EOMs intact; moist mucus membrane; vision and hearing grossly intact Neck: supple; no lymphadenopathy; trachea midline Skin: warm, dry without signs of tenting; no cyanosis; no rashes, bruising, lesions, or erythema noted CV: chest wall NTP; RRR; S1/S2 normal; no murmurs/rubs/gallops; pulses intact and symmetric at radial, DP, and PT Lungs: no acute respiratory distress; symmetrical chest wall expansion; clear breath sounds across all lung smith w/o adventitious sounds; no wheezing ABD: Soft, NTP; BS present; no rebound/guarding; no rashes, lesions or bruising on the abdomen or back MSK: no tics or fasciculations; +1 pitting edema in the LEs B/L around the ankles, nonerythematous Neuro: A&Ox3; fluent speech; no focal deficits; no facial droop; sensation grossly intact in the LEs B/L Results & Data Results & Data Vital Signs (Past 12 Hours) Vital Signs Temp Pulse Pulse Resp BP BP Pulse Ox 06/08/23 18:41 61 16 160/81 H 96 06/08/23 16:30 65 20 146/67 H 96 06/08/23 16:16 36.8 C 60 18 203/87 H 96 O2 Del Method 06/08/23 18:41 06/08/23 16:30 Room Air 06/08/23 16:16 Room Air Laboratory Results Abnormal lab results 06/08/23 06/08/23 Range/Units 16:24 18:04 RBC 4.00 L (4.20-5.40) M/uL Creatinine 1.22 H (0.6-1.2) mg/dl Troponin I High Sens 39.1 H 42.4 H (0-14) pg/ml Diagnostic Findings Chest X-Ray 06/08/23 16:21 XR chest 1V not portable CLINICAL HISTORY: Chest pain, nonspecific COMPARISON STUDY: Chest radiograph March 16, 2020. FINDINGS: Lung volumes are normal. There is no consolidation to suggest pneumonia. Linear bibasilar densities favor atelectasis. There is no pneumothorax or pleural effusion. Cardiac size is normal. Mediastinal contours are normal. There is no evidence for pulmonary edema. IMPRESSION: No acute cardiopulmonary findings. ACT 112: Negative or not required by law. Electronically signed by: Davion Ledesma M.D. 06/08/2023 5:[address] 06/08/23 17:49 CT OF THE HEAD WITHOUT CONTRAST CLINICAL HISTORY: Headache. Right hand numbness. COMPARISON STUDY: Head CT and MRI of the brain June 03, 2023. CT DOSE: 703.85 mGy.cm TECHNIQUE: Helical axial images of the head were obtained without IV contrast. Automated exposure control was utilized for the study. A dose lowering technique was utilized adhering to the principles of ALARA. FINDINGS: No acute intracranial hemorrhage is present. 4.8 cm right frontal lobe infarct is again noted. A 1.8 cm subacute left occipital lobe infarct is also noted. There is an old right MASTER PRINTER territory infarct. Old bilateral cerebellar infarcts are present. Possible subacute right cerebellar infarct is present. No new infarcts are identified by CT. White matter hypodensity suggests small vessel disease. Ventricular system is unremarkable. Basal cisterns are patent. There are no extra-axial collections. There are no findings to suggest acute dural sinus thrombosis. IMPRESSION: 1. No acute intracranial hemorrhage. 2. Expected evolution of the subacute right frontal and left occipital infarcts shown on MRI of June 03, 2023. Possible subacute right cerebellar infarct. No hemorrhagic conversion. No significant mass effect. 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, as above. ACT 112: Negative or not required by law. Electronically signed by: Davion Ledesma M.D. 06/08/2023 6:12 PM Code Status & VTE Plan Code Status Full code VTE Prophylaxis Plan VTE Prophylaxis will be ordered: Yes Supervising Physician Co-Signing Physician Notes Attending addendum: I have physically seen this patient, have supervised the SMITHA's activities, and agree with the H&P unless as otherwise noted. Assessment and Plan: Elevated troponin/chest pain/hypertension- The patient will be admitted to telemetry for serial cardiac enzymes, serial EKG's, cardiac rhythm monitoring and a 2-D echocardiogram with Dopplers. Troponin 39.1 on admission, with follow-up 42.4 Continue amlodipine, aspirin and clopidogrel Transient headache/right hand numbness- Status post admission to [facility] from 06/03-06/04/2023 for right frontal, left occipital and right cerebellar infarcts TIA-like symptoms at this point along with history of recent infarcts and old infarcts are concerning for possible intermittent atrial fibrillation and/or hypercoagulable state Echocardiogram performed on 06/04/2023 with normal EF is 65-70%, sclerotic aortic valve, mild mitral regurgitation, overall similar to 03/16/2020, no mention of thrombus Order hypercoagulable panel If symptoms are recurrent, may need a SOL Diabetes mellitus- In hospital adjustments to glargine as noted Placed on Accu-Cheks SSI as noted Hyperlipidemia- On Praluent as an outpatient PG Care Time/CCT Total # of Minutes Spent Total Time Spent with Patient: Total time spent is greater than 50% in coordination of care (as documented) at patient's floor/unit and/or counseling patient: Coding [place] [address] INT INP/OBS CARE 3/75MIN Patient Type Established Medical Decision Making Moderate Complexity Diagnoses Intermittent chest pain R07.9 History of stroke Z86.73 Diabetes E11.9 Hypertension I10 Asthma J45.909
[2023-06-08] MEDS ORDERED: FAMOTIDINE 20 MG TAB PO ONE (20:34)
[2023-06-08 21:13] LABS: Magnesium 1.9 mg/dl (1.7-2.4)
[2023-06-08 21:23] LABS: Appearance Urine Clear (Clear); Bilirubin Urine Negative (Negative); Blood Urine Negative (Negative); Color Urine Yellow; Glucose Urine UA Negative (Negative); Ketones Urine Negative (Negative); Leukocyte Esterase Urine Trace (Negative); Nitrite Urine Negative (Negative); Protein Urine Negative (Negative); Specific Gravity Urine 1.004 (1.000-1.030); Urobilinogen Urine Negative (Negative)
[2023-06-08 21:29] LABS: Thyroid Stimulating Hormone 1.576 uIu/ml (0.300-4.500)
[2023-06-08 21:43] LABS: Bacteria Urine Automated Negative (Negative); Epithelial Cell Urine Auto 0-5 /lpf (0-5); RBC Urine Automated 0-4 /hpf (0-4); WBC Urine Automated 0 /hpf (0-5)
[2023-06-08] MEDS ORDERED: DEXTROSE 50% 50 ML SYRINGE IV PRN (23:40)
[2023-06-08] MEDS ORDERED: ACETAMINOPHEN 325 MG TAB PO PRN (23:40)
[2023-06-08] MEDS ORDERED: MONTELUKAST SODIUM 10 MG TABLET PO PRN (23:40)
[2023-06-08] MEDS ORDERED: GLUCOSE 40% GEL 15 GM TUBE PO PRN (23:40)
[2023-06-08] MEDS ORDERED: GLUCAGON FOR INJ 1 MG VIAL SQ PRN (23:40)
[2023-06-08] MEDS ORDERED: GLUCOSE 10 TAB/TUBE PO PRN (23:40)
[2023-06-08] MEDS ORDERED: LEVALBUTEROL TARTRATE 15 GM HFA.AER.AD INH PRN (23:40)
[2023-06-08] MEDS ORDERED: ENOXAPARIN INJ 40 MG/0.4 ML SYR SQ SCH (23:40)
[2023-06-08] MEDS ORDERED: NITROGLYCERIN SL 0.4 MG/TAB TAB SL PRN (23:40)
[2023-06-08] MEDS ORDERED: CARBOHYDRATES FOR HYPOGLYCEMIA PO PRN (23:40)
[2023-06-09] MEDS: LANTUS PER UNIT CHARGE SQ SCH ×2 (00:43→08:50)
[2023-06-09] MEDS: INSULIN ASPART PER UNIT CHARGE SC SCH ×3 (00:43→12:02)
[2023-06-09] MEDS ORDERED: INFLUENZA VACCINE HIGH-DOSE (HD-IIV4) PF 65+ 0.7mL SYR IM ONE (02:38)
[2023-06-09 07:27] LABS: Basophils # (auto) 0.04 K/uL (0.00-0.20); Basophils % (auto) 0.8 %; Eosinophils # (auto) 0.14 K/uL (0.00-0.50); Eosinophils % (auto) 2.8 %; Hematocrit (blood only) 35.7 % (37.0-47.0); Immature Granulocytes # (auto) 0.01 K/uL (0.01-0.20); Immature Granulocytes % (auto) 0.2 %; Lymphocytes % (auto) 27.9 %; Mean Corpuscular Hemoglobin 31.2 pg (25.0-34.0); Mean Corpuscular Hgb Conc 33.6 g/dL (32.0-36.0); Mean Corpuscular Volume 92.7 fL (80.0-100.0); Mean Platelet Volume 12.9 fL (9.4-12.4); Monocytes # (auto) 0.33 K/uL (0.11-0.59); Monocytes % (auto) 6.6 %; Neutrophils % (auto) 61.7 %; Platelet Count 174 K/uL (130-400); RDW Coefficient of Variation 12.8 % (11.5-14.5); RDW Standard Deviation 43.4 fL (36.4-46.3); Red Blood Count 3.85 M/uL (4.20-5.40); White Blood Count 5.02 K/ul (4.8-10.8)
[2023-06-09 07:50] LABS: BUN Creatinine Ratio 11.1 (10-20); Calcium 9.2 mg/dl (8.6-10.3); Creatinine Clr Calc Pharmacy 56.2 ml/min; Est GFR (African American) 59.8 ml/min; Est GFR (Non-African American) 51.6 ml/min
[2023-06-09] MEDS ORDERED: ASPIRIN 81 MG ECTAB PO SCH (09:00)
[2023-06-09] MEDS ORDERED: amLODIPine BESYLATE 5 MG TAB PO SCH (09:00)
[2023-06-09] MEDS ORDERED: cloNIDine HCL 0.1 MG TAB PO SCH (09:00)
[2023-06-09] MEDS ORDERED: FLUTICASONE/VILANTEROL 200/25MCG 14 PUFFS/INHALER INH SCH (09:00)
[2023-06-09] MEDS ORDERED: CLOPIDOGREL BISULFATE 75 MG TAB PO SCH (09:00)
--- NOTE | 2023-06-09 10:37 | Discharge Summary ---
Date of Service June 09, 2023 Admission HPI Per Admitting Provider Tessa is a pleasant 73-year-old female with PMH of T2DM, CVA, HTN, and asthma. She presented due to intermittent chest pain on throughout 06/08. Patient was concerned that she was having a heart attack today, and reports that she has an extensive family history of heart attacks (including father, and brothers). Patient took her normal dose of AM amlodipine the night of 06/07 at 2230. She then reports she felt woozy when she woke up this morning, and was having chest palpitations. She took her normal morning medications, but reports that she took clonidine 0.1 mg 3 times throughout the day. She also took 2 tablets of Tylenol this morning. Patient describes 3 instances of intermittent chest pain as dull and achy. It radiates to her left shoulder. She also endorses jaw pain and numbness in her right hand throughout the day. No past history of MIs. Hypertension 160/81 at time of admission; vitals otherwise stable ED Course: ASA 324mg p.o. IVF ROS: Patient endorses UTI, chills, burning with urination, intermittent chest pain Patient denies fever, slurred speech, facial droop, unilateral deficits, SOB, abdominal pain, N/V/D, Discharge Data Allergies Allergy/AdvReac Type Severity Reaction Status Date / Time olmesartan [From Benicar] Allergy Severe Stopped me Unverified 06/08/23 17:48 from urinating erythromycin base AdvReac Severe Gastrointestinal Verified 06/08/23 17:48 Upset Sulfa (Sulfonamide AdvReac Severe Gastrointestinal Unverified 06/08/23 17:48 Antibiotics) Upset codeine AdvReac Intermediate Nausea Unverified 06/08/23 17:48 Consultations 06/08/23 19:04 ED Decision to Admit Stat Ordered Studies 06/08/23 17:49 CT head/brain wo con Stat Hospital Course (1) Intermittent chest pain: Patient endorses intermittent chest/jaw pain x 3 on 06/08 No prior history of MIs Elevated troponin 39.1 --> 42.4 on arrival EKG on arrival showed normal sinus rhythm at 65 bpm; QTc 403 TSH WNL Continuous telemetry monitoring Nitrostat as needed for chest pain Repeat AM troponin Repeat a.m. EKG A.m. 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; in the setting of acute head trauma, per patient Continue aspirin, Plavix Given recent emboli, and no history of A-fib, hypercoagulable panel ordered, pending (3) Diabetes: Last A1c 6.0% on 06/04/2023 Patient normally takes Lantus 26u HS Split Lantus 13u BID while inpatient SSI; with target BSG range 110-150mg/dL, CF 45, carb ratio 15 T2DM diet Adjust regimen as needed (4) Hypertension: Continue amlodipine Hold clonidine (5) Asthma: Continue Symbicort Plan Disposition: Obs -admit to [facility] telemetry Full code T2DM, AHA diet VTE PPx: Lovenox 40mg SQ q24h Discharge Plan Discharge Items Patient Disposition: Home - Self-Care Reason For Visit: CARDIAC ASSESSMENT, ELEVATED TROPONIN Discharge Diagnosis: Atypical chest pain Activity: Per Instructions section Exercise Comment: Low intensity exercise until after you are seen by your dewer Non-emergency contact: Primary Care Provider and Gunite Nozzle Operator Call non-emergency contact if: you have any medication questions and your symptoms worsen Follow-up/Referrals: Anh Manriquez PA-C [Primary Care Provider] - Diet: Heart Healthy Addtl Attending Provider Instructions: You were observed overnight due to chest pain. Serial high sensitivity troponins overnight were stable which is not consistent with a heart attack. Given hours of chest pain and minimally elevated high sensitivity troponin - I have a low suspicion this pain was coming from your heart however recommend following up with your dewer to consider stress testing. You are no longer having chest pain therefore no further workup was done at this time. No changes to your regular medications were made - you noted you are taking the clonidine three times a day therefore this was just updated on your home medication list. Nitroglycerin was added as needed for recurring chest pain but if you require more than three tablets in an hour please call for an ambulance. Please follow up with your dewer and primary care provider for ongoing blood pressure control. Pending Studies at Discharge: Yes (hypercoagulable workup ordered by admitting physician) Stand-Alone Forms: Benjamin's Desk, Smoking Cessation Medications and DC Order Prescriptions: New nitroglycerin 0.4 mg tablet, sublingual 0.4 mg sublingual ONCE PRN (Reason: chest pain) Qty: 10 0RF Continued amlodipine 10 mg tablet 10 mg PO QAM montelukast 10 mg Tablet 10 mg PO DAILY PRN (Reason: asthma) levalbuterol tartrate [Xopenex HFA] 45 mcg/actuation Hfa Aerosol Inhaler 2 inh INHALATION Q6H PRN (Reason: Shortness Of Breath Or Wheezing) cyanocobalamin (vitamin B-12) [Vitamin B-12] 1,000 mcg Tablet Extended Release 1,000 mcg PO DAILY budesonide-formoterol [Symbicort] 160-4.5 mcg/actuation HFA aerosol inhaler 2 puff INHALATION BID insulin glargine [Lantus Solostar U-100 Insulin] 100 unit/mL (3 mL) insulin pen 26 unit SUBCUT PM Praluent Pen 150 mg/mL pen injector 150 mg SUBCUT .[id number] clopidogrel 75 mg Tablet 75 mg PO QAM Qty: 90 0RF aspirin 81 mg Tablet,Delayed Release (Dr/Ec) 81 mg PO QAM Qty: 90 0RF Changed clonidine HCl 0.1 mg tablet 0.1 mg PO TID Qty: 90 0RF Discharge Orders: Discharge Order (Routine); Ordered 06/09/23 Ordered By: Eliazar Kim Admission Data Admit Date/Time: 06/08/23 20:15 Attending Provider: Eliazar Kim Admit Provider: Master Mancilla Primary Care Provider: Anh Manriquez Other Providers: Master Mancilla Coding Diagnoses Intermittent chest pain R07.9 History of stroke Z86.73 Diabetes E11.9 Hypertension I10 Asthma J45.909
--- NOTE | 2023-06-10 06:06 | Electrocardiogram Report ---
Test Reason : Blood Pressure : / mmHG Vent. Rate : 065 BPM Atrial Rate : 065 BPM P-R Int : 158 ms QRS Dur : 074 ms QT Int : 388 ms P-R-T Axes : 056 030 015 degrees QTc Int : 403 ms Sinus rhythm with Premature atrial complexes Possible Anterior infarct (cited on or before 16-MAR-2020) Abnormal ECG When compared with ECG of 03-JUN-2023 15:08, Premature ventricular complexes are no longer Present Confirmed by Nba Hunt ([id number]) on 06/10/2023 6:06:20 AM Referred By: REFERRED SELF Confirmed By:Nba Hunt
--- NOTE | 2023-06-10 06:34 | Electrocardiogram Report ---
Test Reason : Blood Pressure : / mmHG Vent. Rate : 070 BPM Atrial Rate : 070 BPM P-R Int : 184 ms QRS Dur : 086 ms QT Int : 390 ms P-R-T Axes : 047 023 010 degrees QTc Int : 421 ms Normal sinus rhythm with sinus arrhythmia Possible Anterior infarct (cited on or before 16-MAR-2020) Abnormal ECG When compared with ECG of 08-JUN-2023 16:24, (unconfirmed) Premature atrial complexes are no longer Present Confirmed by Nba Hunt ([id number]) on 06/10/2023 6:34:29 AM Referred By: REFERRED SELF Confirmed By:Nba Hunt
== END 2023-06-09 14:21 | disposition home or self-care (01) ==
LOC: 2S 16:13 → ED 16:13 → SUATTDRO 20:15 → 2S 23:00

== ENCOUNTER 2024-03-18 12:40 | Inpatient (IN) ==
[2024-03-18] MEDS: TICAGRELOR 90 MG TAB ONE (13:01)
[2024-03-18] MEDS: ASPIRIN CHEW 324 MG ONE (13:02)
[2024-03-18] MEDS: HEPARIN SOD (PORCINE) 1000 UNIT/ML IV ONE (13:02)
[2024-03-18] MEDS: ASPIRIN CHEW 324 MG PO STA (13:02)
[2024-03-18] MEDS: HEPARIN SOD (PORCINE) 1000 UNIT/ML ONE (13:03)
[2024-03-18] MEDS: TICAGRELOR 90 MG TAB PO ONE (13:03)
--- NOTE | 2024-03-18 13:10 | Emergency Department Note ---
Impression & Plan STEMI (ST elevation myocardial infarction), Left-sided chest pain, Elevated troponin I level ED Provider Note NAME: IZABEL CAMACHO AGE: 74 SEX: F : 1950 ARRIVES VIA: Walk-In INFORMANT: Patient, ED PROVIDER(S): Aryan Patel DO CHIEF COMPLAINT: Chest pain HPI: The patient is a 74-year-old female who is a history of stroke who presented to the emergency department for an evaluation of chest discomfort. The patient states that she started having chest discomfort approximately 11:00 this morning. She describes as an anterior pressure that goes to her neck. She denies having any leg swelling or difficulty breathing. She denies having abdominal pain. She did note some nausea. The patient came to the emerged part with her son. She came through triage. An EKG was obtained and the patient was made a heart alert while she was coming back from triage to room B1. The patient has been compliant with her outpatient medications but she did not take her aspirin this morning. She no longer takes Plavix. ROS: See above HPI for pertinent positives & negatives. A total of 10 systems reviewed and were otherwise negative. PAST MEDICAL HISTORY: See Below PAST SURGICAL HISTORY: See Below FAMILY HISTORY: See Below SOCIAL HISTORY: See Below HOME MEDICATIONS: See Below ALLERGIES: See Below VITALS: See Below PHYSICAL EXAMINATION: GENERAL: The patient is awake and alert. The patient is very anxious appearing. The patient is tearful EYES: The conjunctivae are clear. The pupils are round and reactive. EARS, NOSE, MOUTH AND THROAT: The nose is without any evidence of any deformity. NECK: The neck is nontender and supple. RESPIRATORY: Normal respiratory effort is noted there is no evidence of wheezing rhonchi or rales CARDIOVASCULAR: Regular rate and rhythm noted there no murmurs rubs or gallops normal S1 normal S2. GASTROINTESTINAL: The abdomen is soft. Abdomen is nontender. MUSCULOSKELETAL/EXTREMITIES: There is no evidence of gross deformity full range of motion is noted in the hips and shoulders. SKIN: There is no obvious evidence of any rash. There are no petechiae, pallor or cyanosis noted. NEUROLOGIC: Patient is awake alert and oriented x3 MEDICAL DECISION MAKING: The patient is a 74-year-old female who presented to the emergency department for an evaluation of chest discomfort. The patient was found to have signs of acute ST segment elevation [place] on initial EKG. The patient was made a heart alert immediately. She was treated with aspirin in the emergency department. She was also given a Brilinta load as well as a heparin bolus after consultation with interventional cardiology. I discussed the patient's EKG and condition with her. I discussed her condition with the digital court reporter as well as the [facility]. The patient was evaluated in the emergency department was felt to be a good candidate for cardiac catheterization. She was taken to the [facility]. Triage Nursing notes reviewed. Prior medical records reviewed Vital Signs: reviewed and remarkable for no significant abnormalities Differential diagnosis: Cardiac ischemia, aortic dissection, pulmonary embolism, pneumothorax, pneumonia, pericarditis, myocarditis, esophageal rupture, GERD, cholecystitis, pancreatitis, musculoskeletal, as well as other pathologies. ER treatment provided: See below Diagnostics interpreted by me: ECG: EKG was obtained in the emergency department. My interpretation is sinus rhythm at 65 bpm. Sinus arrhythmia was noted. Acute ST segment elevations were noted in the apical and low lateral leads. Reciprocal changes were noted in the high lateral leads. This was compared to a tracing from June 09, 2023. The ST segment abnormalities are new. This appears to be consistent with acute apical and lateral wall NH. Cardiac Monitoring: An order was placed for continuous cardiac monitoring. The monitor shows a rate of 67 bpm with sinus rhythm. Laboratory studies: As stated above and show below. Imaging studies: See below. Radiographic imaging was reviewed by myself Consultation(s): I discussed this case with Dr. Frankel who is on-call for interventional cardiology. He was evaluating the patient in the emergency department. I discussed this case with Dr. Kim who is on-call for the [facility] group. ED COURSE: Procedures: none Critical Care: I have personally spent greater than 35 minutes of critical care time in the direct management of this patient. This includes bedside care, interpretation of diagnostic studies, and testing, discussion with consultants, patient, and family members, and other required patient management activities. This 35 minutes is in excess of all separately billable procedures. Past Med/Surg History Problem List STEMI (ST elevation myocardial infarction) Chest pain (Acute) Intermittent chest pain CVA (cerebral vascular accident) Diastolic dysfunction Left-sided chest pain (Acute) Medical History Abnormal urinalysis Stroke-like symptoms Headache Asthma History of stroke Diabetes No pertinent family history Hypertension Surgical History No pertinent past surgical history Social History Smoking Status: Never smoker Second Hand Exposure: No; Do You Dip or Chew Tobacco: No; Tobacco Cessation Education Requested by Patient: No Hx Alcohol Use: No Hx Substance Use: No Preferred Language: Italian Communication Ability: Effective Orthotic Fitter Required: No Beliefs That Will Affect Care: None Current Living Situation: Alone Other Information That Helps Us Care for You: No Feels Safe at Home: Yes Safety Concerns: Feels Safe At This Time Assistive Devices: Denture - Upper, Denture - Lower and Glasses Allergies Allergies Allergy/AdvReac Type Severity Reaction Status Date / Time olmesartan [From Benicar] Allergy Severe Stopped me Unverified 06/08/23 17:48 from urinating erythromycin base AdvReac Severe Gastrointestinal Verified 06/08/23 17:48 Upset Sulfa (Sulfonamide AdvReac Severe Gastrointestinal Unverified 06/08/23 17:48 Antibiotics) Upset codeine AdvReac Intermediate Nausea Unverified 06/08/23 17:48 Home Meds Home Medications Medication Instructions Recorded Confirmed amlodipine 10 mg tablet 10 mg PO QAM 03/16/20 03/18/24 levalbuterol tartrate 45 2 inh inhalation Q6H PRN Shortness 03/16/20 03/18/24 mcg/actuation aerosol inhaler Of Breath Or Wheezing (Xopenex HFA) montelukast 10 mg tablet 10 mg PO DAILY PRN asthma 03/16/20 03/18/24 budesonide-formoterol HFA 160 2 puff inhalation BID PRN seasonal 06/03/23 03/18/24 mcg-4.5 mcg/actuation aerosol inhaler (Symbicort) insulin glargine 100 unit/mL (3 13 unit subcut PM 06/03/23 03/18/24 mL) subcutaneous pen (Lantus Solostar U-100 Insulin) clonidine HCl 0.1 mg tablet 0.2 mg PO QID 03/18/24 03/18/24 esomeprazole magnesium 40 mg 40 mg PO DAILY PRN gerd/nausea 03/18/24 03/18/24 capsule,delayed release evolocumab 140 mg/mL subcutaneous 140 mg subcut UD 03/18/24 03/18/24 pen injector (Reptessiea SureOdellick) famotidine 20 mg tablet 20 mg PO DAILY PRN gerd/nausea 03/18/24 03/18/24 semaglutide 0.25 mg or 0.5 mg (2 0.25 mg subcut WK 03/18/24 03/18/24 mg/3 mL) subcutaneous pen injector (Ozempic) spironolactone 25 mg tablet 25 mg PO DAILY 03/18/24 03/18/24 Previous Rx's Medication Instructions Recorded aspirin 81 mg tablet,delayed 81 mg PO QAM #90 tabs 06/04/23 release Results & Data (ED) Vital Signs Vital Signs - 24 hr 03/18/24 12:45 03/18/24 13:03 03/18/24 13:04 Temperature 36.4 C L Temperature Source Skin Pulse Rate 63 65 Pulse Rate [Apical] Pulse Rhythm Pulse Rhythm [Apical] Pulse Strength [Apical] Respiratory Rate 20 Respiratory Effort / Characteristics Non-Labored Spontaneous Respiratory Depth Normal Respiratory Pattern Blood Pressure 140/85 Blood Pressure [Left Arm] Blood Pressure Mean 103 Blood Pressure Mean [Left Arm] Blood Pressure Position [Left Arm] Pulse Oximetry 98 100 Oxygen Delivery Method Room Air Room Air Sepsis Recent Fever Within 48 Hours No Sepsis New/Unexplained Change in Mental Status No Sepsis Action Taken by Nursing No Action Required 03/18/24 13:04 03/18/24 13:04 03/18/24 13:12 Temperature 36.8 C 36.8 C Temperature Source Oral Oral Pulse Rate 71 71 Pulse Rate [Apical] 70 Pulse Rhythm Regular Pulse Rhythm [Apical] Regular Pulse Strength [Apical] Normal Respiratory Rate 20 20 20 Respiratory Effort / Characteristics Non-Labored Spontaneous Respiratory Depth Normal Respiratory Pattern Regular Blood Pressure 170/90 H Blood Pressure [Left Arm] 170/90 H Blood Pressure Mean Blood Pressure Mean [Left Arm] 116 Blood Pressure Position [Left Arm] Semi-fowlers Pulse Oximetry 100 100 100 Oxygen Delivery Method Room Air Room Air Room Air Sepsis Recent Fever Within 48 Hours Sepsis New/Unexplained Change in Mental Status Sepsis Action Taken by [facility] Medications Current Medication List: was personally reviewed by me Laboratory Data Attestation: I reviewed the patient's lab results. 03/18/24 15:12 03/18/24 12:58 Lab Results 03/18/24 Range/Units 12:58 WBC 9.31 (4.8-10.8) K/ul RBC 4.27 (4.20-5.40) M/uL Hgb 13.6 (12.0-16.0) g/dl Hct 40.0 (37.0-47.0) % MCV 93.7 (80.0-100.0) fL MCH 31.9 (25.0-34.0) pg MCHC 34.0 (32.0-36.0) g/dL RDW Std Deviation 42.0 (36.4-46.3) fL RDW Coeff of Guillermina 12.1 (11.5-14.5) % Plt Count 210 (130-400) K/uL MPV 11.4 (9.4-12.4) fL Immature Gran % (Auto) 0.3 % Neut % (Auto) 81.6 % Lymph % (Auto) 13.2 % [place] % (Auto) 3.7 % Eos % (Auto) 0.6 % Baso % (Auto) 0.6 % Neut # (Auto) 7.59 H (1.40-6.50) K/uL Lymph # (Auto) 1.23 (1.20-3.40) K/uL [place] # (Auto) 0.34 (0.11-0.59) K/uL Eos # (Auto) 0.06 (0.00-0.50) K/uL Baso # (Auto) 0.06 (0.00-0.20) K/uL Immature Gran # (Auto) 0.03 (0.01-0.20) K/uL PT 10.4 (9.0-12.0) Seconds INR 1.0 (0.9-1.1) APTT 24 (21-31) Seconds PTT Ratio 0.9 Sodium 140 (136-145) mmol/L Potassium 4.5 (3.5-5.1) mmol/L Chloride 106 (98-107) mmol/L Carbon Dioxide 23 (21-32) mmol/L Anion Gap 11 (3-11) BUN 18 (6-23) mg/dl Creatinine 1.49 H (0.6-1.2) mg/dl Est Cr Clr Drug Dosing 41.8 ml/min eGFR 37.09 BUN/Creatinine Ratio 12.1 (10-20) Glucose 155 H (70-99(Fasting)) mg/dl Calcium 10.1 (8.6-10.3) mg/dl Total Bilirubin 0.7 (0.2-1.0) mg/dl AST 19 (13-39) U/L ALT 11 (7-52) U/L Alkaline Phosphatase 64 (34-104) U/L Troponin I High Sens 93.0 H* (0-14) pg/ml Total Protein 7.9 (6.0-8.3) gm/dl Albumin 4.5 (3.4-5.0) gm/dl Globulin 3.4 (2.5-4.0) gm/dl Albumin/Globulin Ratio 1.3 (0.9-2) Administered Medications Sodium Chloride (Nss) 1,000 mls @ 75 mls/hr IV .[id number] [facility] Stop: 04/17/24 14:29 Last Admin: 03/18/24 15:31 Dose: 75 mls/hr Documented By: MAYDA Insulin Aspart (Insulin Aspart Per Unit Charge) 0 units SC [facility] Stop: 04/17/24 17:14 Last Admin: 03/18/24 17:32 Dose: Not Given Documented By: MAYDA Miscellaneous (Icu Protocol For Hyperglycemia) 1 each N/A [facility] Stop: 03/20/24 16:29 Last Admin: 03/18/24 16:34 Dose: 1 each Documented By: MAYDA Discontinued Medications Adenosine (Adenosine Iv Soln 3 Mg/Ml 2 Ml Vial) Confirm Administered Dose 6 mg IV .STK-MED ONE Stop: 03/18/24 13:52 Last Admin: 03/18/24 14:02 Dose: 6 mg Documented By: PILI Aspirin (Aspirin Chew 324 Mg) 324 mg PO NOW STA Stop: 03/18/24 12:58 Last Admin: 03/18/24 13:02 Dose: 324 mg Documented By: KALIA Aspirin (Aspirin Chew 324 Mg) Confirm Administered Dose 324 mg .ROUTE .STK-MED ONE Stop: 03/18/24 12:59 Last Admin: 03/18/24 13:02 Dose: Not Given Documented By: KALIA Fentanyl Citrate (Fentanyl Citrate Pf 100 Mcg/2 Ml Vial) Confirm Administered Dose 100 mcg .ROUTE .ST-MED ONE Stop: 03/18/24 13:18 Last Admin: 03/18/24 14:03 Dose: 100 mcg Documented By: JONNY Heparin Sodium (Porcine) (Heparin Sod (Porcine) 1000 Unit/Ml) Confirm Administered Dose 1,000 units .ROUTE .STK-MED ONE Stop: 03/18/24 12:59 Last Admin: 03/18/24 13:03 Dose: Not Given Documented By: KALIA Heparin Sodium (Porcine) (Heparin Sod (Porcine) 1000 Unit/Ml) 5,000 units IV NOW ONE Stop: 03/18/24 13:02 Last Admin: 03/18/24 13:02 Dose: 5,000 units Documented By: KALIA Co-signed By: Heparin Sodium (Porcine) (Heparin (Porcine) 1000 Unit/Ml 10 Ml ([facility] Use Only)) Confirm Administered Dose 10,000 units .ROUTE .[facility] ONE Stop: 03/18/24 13:17 Last Admin: 03/18/24 14:03 Dose: 5,500 units Documented By: JONNY Heparin Sodium/Sodium Chloride (Heparin In Nss Infusion 1000 Unit/500 Ml (2 U/Ml) Bag) Confirm Administered Dose 3,000 units IV .[facility] ONE Stop: 03/18/24 13:18 Last Admin: 03/18/24 13:26 Dose: 3,000 units Documented By: PILI Famotidine (Pepcid 20mg Iv Push) 20 mg in 5 mls @ 2.5 mls/min IV NOW STA Stop: 03/18/24 17:07 Last Admin: 03/18/24 17:31 Dose: 2.5 mls/min Documented By: MAYDA Pantoprazole Sodium 40 mg/ (Syringe) 10 mls @ 5 mls/min IV NOW ONE Stop: 03/18/24 17:07 Last Admin: 03/18/24 17:31 Dose: 5 mls/min Documented By: MAYDA Ioversol (Optiray 350) Confirm Administered Dose 1 ml .ROUTE .STK-MED ONE Stop: 03/18/24 13:19 Last Admin: 03/18/24 14:03 Dose: 165 ml Documented By: PILI Midazolam HCl (Midazolam Hcl 1 Mg/Ml 2ml Vial) Confirm Administered Dose 2 mg .ROUTE .STK-MED ONE Stop: 03/18/24 13:17 Last Admin: 03/18/24 14:02 Dose: 4 mg Documented By: JONNY Midazolam HCl (Midazolam Hcl 1 Mg/Ml 2ml Vial) Confirm Administered Dose 2 mg .ROUTE .STK-MED ONE Stop: 03/18/24 13:28 Last Admin: 03/18/24 13:28 Dose: Not Given Documented By: JONNY Nicardipine HCl (Nicardipine Hcl Inj 2.5 Mg/Ml 10 Ml Amp) Confirm Administered Dose 25 mg .ROUTE .STK-MED ONE Stop: 03/18/24 13:18 Last Admin: 03/18/24 13:26 Dose: 25 mg Documented By: PILI Nitroglycerin/Dextrose (Nitroglycerin/D5w 100mcg/Ml 20ml Syr) Confirm Administered Dose 2,000 mcg .ROUTE .STK-MED ONE Stop: 03/18/24 13:18 Last Admin: 03/18/24 13:28 Dose: 2,000 mcg Documented By: PILI Ondansetron HCl (Ondansetron Inj 2 Mg/Ml 2 Ml Vial) Confirm Administered Dose 4 mg .ROUTE .STK-MED ONE Stop: 03/18/24 13:16 Last Admin: 03/18/24 13:26 Dose: 4 mg Documented By: BERNA Ticagrelor (Ticagrelor 90 Mg Tab) Confirm Administered Dose 180 mg .ROUTE .STK- MED ONE Stop: 03/18/24 12:59 Last Admin: 03/18/24 13:01 Dose: 180 mg Documented By: KALIA Ticagrelor (Ticagrelor 90 Mg Tab) 180 mg PO ONE ONE Stop: 03/18/24 13:02 Last Admin: 03/18/24 13:03 Dose: Not Given Documented By: KALIA Imaging Data Attestation: I personally reviewed and interpreted this imaging study as follows: My Impression: 1 view chest x-ray was obtained in the emergency department. My interpretation is no free air or definite infiltrate, final report below. Radiologist's Impression: Chest X-Ray 03/18/24 12:47 XR chest 1V portable HISTORY: 74 years-old Female Chest pain, nonspecific acute chest pain COMPARISON: 06/08/2023 TECHNIQUE: AP view of the chest FINDINGS: Cardiac silhouette is mildly enlarged. Atherosclerosis of the aorta. The medial lung apices are partially obscured by the patient's chin. No pneumothorax, pleural effusion or airspace consolidation. The bones of the chest appear grossly intact. IMPRESSION: No acute process. ACT 112: Negative or not required by law. The above report was generated using voice recognition software. It may contain grammatical, syntax or spelling errors. Electronically signed by: Nile Duran M.D. 03/18/2024 1:15 PM Discharge Plan Visit Data Chief Complaint: Shortness of Breath/Dyspnea Stated Complaint: SOB ED Provider: Aryan Patel Discharge Problem: STEMI (ST elevation myocardial infarction), Left-sided chest pain, Elevated troponin I level Patient Disposition: Admitted As Inpatient Discharge Instructions Interventions: ED Discharge Assessment Last Done: 03/18/24 13:12 Discharge Problem: STEMI (ST elevation myocardial infarction) Qualifiers: Involved coronary artery: unspecified coronary artery Qualified Code(s): I21.3 - ST elevation (STEMI) myocardial infarction of unspecified site
--- NOTE | 2024-03-18 13:16 | XRay Report ---
XR chest 1V portable HISTORY: 74 years-old Female Chest pain, nonspecific acute chest pain COMPARISON: 06/08/2023 TECHNIQUE: AP view of the chest FINDINGS: Cardiac silhouette is mildly enlarged. Atherosclerosis of the aorta. The medial lung apices are parti ally obscured by the patient's chin. No pneumothorax, pleural effusion or airspace consolidation. The bones of the chest appear grossly intact. IMPRESSION: No acute process. ACT 112: Negative or not required by law. The above report was generated using voice recognition software. It may contain grammatical, syntax o r spelling errors. Electronically signed by: Nile Duran M.D. 03/18/2024 1:15 PM
[2024-03-18] MEDS: niCARdipine HCL INJ 2.5 MG/ML 10 ML AMP ONE (13:26)
[2024-03-18] MEDS: ONDANSETRON INJ 2 MG/ML 2 ML VIAL ONE (13:26)
[2024-03-18 13:27] LABS: Basophils # (auto) 0.06 K/uL (0.00-0.20); Basophils % (auto) 0.6 %; Eosinophils # (auto) 0.06 K/uL (0.00-0.50); Eosinophils % (auto) 0.6 %; Hemoglobin 13.6 g/dl (12.0-16.0); Immature Granulocytes # (auto) 0.03 K/uL (0.01-0.20); Immature Granulocytes % (auto) 0.3 %; Lymphocytes # (auto) 1.23 K/uL (1.20-3.40); Lymphocytes % (auto) 13.2 %; Mean Corpuscular Hemoglobin 31.9 pg (25.0-34.0); Mean Corpuscular Volume 93.7 fL (80.0-100.0); Mean Platelet Volume 11.4 fL (9.4-12.4); Monocytes # (auto) 0.34 K/uL (0.11-0.59); Monocytes % (auto) 3.7 %; Neutrophils # (auto) 7.59 K/uL (1.40-6.50); Neutrophils % (auto) 81.6 %; Platelet Count 210 K/uL (130-400); RDW Coefficient of Variation 12.1 % (11.5-14.5); Red Blood Count 4.27 M/uL (4.20-5.40); White Blood Count 9.31 K/ul (4.8-10.8)
[2024-03-18] MEDS: MIDAZOLAM HCL 1 MG/ML 2ML VIAL ONE ×2 (13:28→14:02)
[2024-03-18] MEDS: NITROGLYCERIN/D5W 100MCG/ML 20ML SYR ONE (13:28)
[2024-03-18 13:33] LABS: Potassium 4.5 mmol/L (3.5-5.1)
[2024-03-18 13:34] LABS: Albumin Globulin Ratio 1.3 (0.9-2); Albumin Level 4.5 gm/dl (3.4-5.0); BUN Creatinine Ratio 12.1 (10-20); Bilirubin,Total 0.7 mg/dl (0.2-1.0); Calcium 10.1 mg/dl (8.6-10.3); Creatinine Clr Calc Pharmacy 41.8 ml/min; Globulin 3.4 gm/dl (2.5-4.0); Total Protein 7.9 gm/dl (6.0-8.3)
[2024-03-18 13:41] LABS: Partial Thromboplastin Ratio 0.9; Partial Thromboplastin Time 24 Seconds (21-31); Prothrombin Time 10.4 Seconds (9.0-12.0)
[2024-03-18] MEDS: ADENOSINE IV SOLN 3 MG/ML 2 ML VIAL IV ONE (14:02)
[2024-03-18] MEDS: fentaNYL citrate PF 100 MCG/2 ML VIAL ONE (14:03)
[2024-03-18] MEDS: HEPARIN (PORCINE) 1000 UNIT/ML 10 ML (CATH LAB USE ONLY) ONE (14:03)
[2024-03-18] MEDS: OPTIRAY 350 ONE (14:03)
[2024-03-18] MEDS ORDERED: NITROGLYCERIN SL 0.4 MG/TAB TAB SL PRN (14:18)
[2024-03-18] MEDS ORDERED: ATROPINE SULFATE 0.1 MG/ML 10ML SYR IV PRN (14:18)
--- NOTE | 2024-03-18 14:27 | Pre Anesthesia Assessment ---
Date of Service March 18, 2024 Pre Sedation Assessment Vital Signs Temp Pulse Pulse Resp BP BP Pulse Ox 03/18/24 13:12 36.8 C 71 20 170/90 H 100 03/18/24 13:04 71 20 100 03/18/24 13:04 36.8 C 70 20 170/90 H 100 03/18/24 13:04 100 03/18/24 13:03 65 03/18/24 12:45 36.4 C L 63 20 140/85 98 O2 Del Method 03/18/24 13:12 Room Air 03/18/24 13:04 Room Air 03/18/24 13:04 Room Air 03/18/24 13:04 Room Air 03/18/24 13:03 03/18/24 12:45 Room Air Cardiovascular Additional Comments: Regular rhythm, bradycardic rate. Grade 2/6 systolic murmur. No edema. Respiratory normal respiratory effort, lungs clear to auscultation Pre-Sedation Airway Assessment Smoking Status: Never smoker Mallampati 3 ASA 4 Notes The planned sedation has been discussed with the patient. Informed Consent was obtained. I have identified the patient, determined the appropriateness of sedation and have assessed the patient immediately prior to the procedure. All medicine(s) and interventions are by my order. [facility] Procedure Codes (Charges) Indication for Procedure Indication for procedure: Acute ST elevation [place]
--- NOTE | 2024-03-18 14:29 | Post Anesthesia Assessment ---
Date of Service March 18, 2024 Post Sedation Assessment Vital Signs Temp Pulse Pulse Resp BP BP Pulse Ox 03/18/24 13:12 36.8 C 71 20 170/90 H 100 03/18/24 13:04 71 20 100 03/18/24 13:04 36.8 C 70 20 170/90 H 100 03/18/24 13:04 100 03/18/24 13:03 65 03/18/24 12:45 36.4 C L 63 20 140/85 98 O2 Del Method 03/18/24 13:12 Room Air 03/18/24 13:04 Room Air 03/18/24 13:04 Room Air 03/18/24 13:04 Room Air 03/18/24 13:03 03/18/24 12:45 Room Air Recovery Score Activity: Moves 4 extremities Respiration: Deep Breath/Cough Circulation: +/-20% PreAnes Value Consciousness: Fully Awake Oxygen Saturation: > 92% On Room Air Discharge Sedation Level of Care: Fast Track Phase II Post Sedation Plan On clinical assessment, the patient appears to have tolerated the sedation without complications. Patient is recovering as anticipated. Patient will continue to be monitored by nursing and may be discharged when sedation discharge criteria are met per below protocol. Upon Completions of procedure up to 15 minutes continue every 5 minute vital signs and the P.A.R. score; then discharge to a Phase I or Fast Track to Phase II per the following guidelines: * Discharge Patient to appropriate Phase II area if PAR is 8 or greater or return to pre- procedure baseline. The post - procedure orders will be as directed. * If PAR score is less than 8 or not return to pre-procedure baseline then patient will follow Phase I monitoring till PAR is reached for Phase II. The Phase I may be done in procedure room or may call to secure a Phase I area. * If naloxone or flumazenil are used for reversal, hold in Phase I for continued monitoring from when last reversal dose was given for a minimum of 60 minutes or longer pending the nurse and/or physician discretion of patient condition before discharge to Phase II. Please call the Sedation Physician to re-evaluate and complete post-note for discharge to Phase II area. Do NOT discharge from procedure sedation or Phase 1 until post- sedation evaluation note is complete by procedure /sedation MD Sedation Discharge Instructions to be given to the patient at discharge to home. [facility] Procedure Codes (Charges) Indication for Procedure Indication for procedure: ST elevation [place] Sedation/Anesthesia Procedure 1: Sedation/Anesthesia: 04140 Mod Sedation by the same physician;Init15 Min Child Age 5 & Up (Initial 15 minutes, start time 1020) Total Sedation Time (minutes): 55 Procedure 2: Sedation/Anesthesia: 17963 Mod Sedation by the same physician; Ea [id number] Minutes (Additional 40 minutes, end time 1115) Total Sedation Time (minutes): 55
--- NOTE | 2024-03-18 15:30 | Electrocardiogram Report ---
Test Reason : Blood Pressure : */* mmHG Vent. Rate : 65 BPM Atrial Rate : 65 BPM P-R Int : 180 ms QRS Dur : 86 ms QT Int : 388 ms P-R-T Axes : -3 -1 55 degrees QTcB Int : 403 ms Sinus rhythm with marked sinus arrhythmia possible Inferior infarct , age undetermined Lateral injury pattern ACUTE OR / STEMI Abnormal ECG When compared with ECG of 09-Jun-2023 10:51, ST elevation now present in Anterior leads Confirmed by Jose Montero ([id number]) on 03/18/2024 3:29:59 PM Referred By: REFERRED SELF Confirmed By: Jose Montero
[2024-03-18] MEDS: SODIUM CHLORIDE 0.9% 1,000 ML IV SCH (15:31)
[2024-03-18 15:33] LABS: Basophils # (auto) 0.04 K/uL (0.00-0.20); Basophils % (auto) 0.4 %; Eosinophils # (auto) 0.01 K/uL (0.00-0.50); Eosinophils % (auto) 0.1 %; Hematocrit (blood only) 39.3 % (37.0-47.0); Hemoglobin 12.6 g/dl (12.0-16.0); Immature Granulocytes # (auto) 0.05 K/uL (0.01-0.20); Immature Granulocytes % (auto) 0.4 %; Lymphocytes # (auto) 1.14 K/uL (1.20-3.40); Lymphocytes % (auto) 10.1 %; Mean Corpuscular Hemoglobin 31.3 pg (25.0-34.0); Mean Corpuscular Hgb Conc 32.1 g/dL (32.0-36.0); Mean Corpuscular Volume 97.5 fL (80.0-100.0); Mean Platelet Volume 11.2 fL (9.4-12.4); Monocytes % (auto) 2.7 %; Neutrophils # (auto) 9.75 K/uL (1.40-6.50); Neutrophils % (auto) 86.3 %; Platelet Count 204 K/uL (130-400); RDW Coefficient of Variation 12.1 % (11.5-14.5); RDW Standard Deviation 43.7 fL (36.4-46.3); Red Blood Count 4.03 M/uL (4.20-5.40); White Blood Count 11.29 K/ul (4.8-10.8)
[2024-03-18 15:57] LABS: Troponin I High Sensitivity 682.6 pg/ml (0-14)
[2024-03-18 16:14] LABS: Influenza A virus by PCR Negative (Neg); Influenza B virus by PCR Negative (Neg); RSV by PCR Negative (Neg); SARS CoV2 RNA(COVID-19) Ceph NEGATIVE (Negative)
[2024-03-18] MEDS ORDERED: PHARMACY GLYCEMIC MGMT CONSULT PRN (16:33)
[2024-03-18] MEDS ORDERED: GLUCAGON FOR INJ 1 MG VIAL SQ PRN (16:33)
[2024-03-18] MEDS ORDERED: GLUCOSE 10 TAB/TUBE PO PRN (16:33)
[2024-03-18] MEDS ORDERED: GLUCOSE 40% GEL 15 GM TUBE PO PRN (16:33)
[2024-03-18] MEDS ORDERED: CARBOHYDRATES FOR HYPOGLYCEMIA PO PRN (16:33)
[2024-03-18] MEDS ORDERED: DEXTROSE 50% 50 ML SYRINGE IV PRN (16:33)
[2024-03-18] MEDS: ICU Protocol for HYPERglycemia SCH (16:34)
--- NOTE | 2024-03-18 16:34 | History & Physical Report ---
Date of Service March 18, 2024 Assessment & Plan (1) STEMI (ST elevation myocardial infarction): Plan: S/p cardiac catheterization with severe multivessel coronary artery disease with successful PCI of the culprit RCA with STONE Aspirin, Brilinta, metoprolol, Repatha (continue as outpatient), intolerant to statins Hold clonidine, spironolactone and amlodipine for consideration of ACEi/ARB (possible prior concern with lisinopril of hair loss per patient) TTE Admit to ICU (2) Type 2 diabetes mellitus: Plan: HbA1C 6.0 in May 2023, will repeat with AM labs Recently reduced Lantus dosing due to starting on Ozempic (due next dose on Saturday) Consult pharmacy for glycemic control in setting of STEMI (3) History of stroke: (4) Hypertension: (5) Hyperlipidemia: Plan GERD - takes famotidine everyday for nausea, Nexium more as needed, continue pantoprazole and famotidine daily here VTE prophylaxis - deferred to ICU team Diet - heart healthy, T2DM Disposition - admit to ICU Admission and Anticipated Discharge Date Admission Date: March 18, 2024 History of Present Illness Chief Complaint: Chest pain Primary Care Provider: Anh Manriquez PA-C Tessa Almaraz is a 74 year old female presents to the ER with chest pain. Around 10am had severe central chest pain radiating to jaw with associated nausea, shortness of breath and diaphoresis. Severity 10/10. Patient seen after cardiac catheterization and currently notes no chest pain. Accidently locked in her daughters room and managed to push her way out but with all the exertion is when the pain started but did not alleviate when at rest. Called her son who brought her to the ER. She was notably admitted overnight for atypical chest pain in May with advice to consider outpatient stress testing although she reports no recurrent symptoms since then and never underwent stress testing with her general operations agent. Allergies Allergy/AdvReac Type Severity Reaction Status Date / Time olmesartan [From Benicar] Allergy Severe Stopped me Unverified 06/08/23 17:48 from urinating erythromycin base AdvReac Severe Gastrointestinal Verified 06/08/23 17:48 Upset Rffmfkx-UHP-OeN Reductase AdvReac Severe Nausea and Verified 03/18/24 18:52 Inhibitor vomiting Sulfa (Sulfonamide AdvReac Severe Gastrointestinal Unverified 06/08/23 17:48 Antibiotics) Upset codeine AdvReac Intermediate Nausea Unverified 06/08/23 17:48 atenolol AdvReac Unknown Worsening Verified 03/18/24 18:53 Asthma Home Medications Medication Instructions Recorded Confirmed Type amlodipine 10 mg tablet 10 mg PO QAM 03/16/20 03/18/24 History levalbuterol tartrate 45 2 inh inhalation Q6H PRN Shortness 03/16/20 03/18/24 History mcg/actuation aerosol inhaler Of Breath Or Wheezing (Xopenex HFA) montelukast 10 mg tablet 10 mg PO DAILY PRN asthma 03/16/20 03/18/24 History budesonide-formoterol HFA 160 2 puff inhalation BID PRN seasonal 06/03/23 03/18/24 History mcg-4.5 mcg/actuation aerosol inhaler (Symbicort) insulin glargine 100 unit/mL (3 13 unit subcut PM 06/03/23 03/18/24 History mL) subcutaneous pen (Lantus Solostar U-100 Insulin) aspirin 81 mg tablet,delayed 81 mg PO QAM #90 tabs 06/04/23 03/18/24 Rx release clonidine HCl 0.1 mg tablet 0.2 mg PO QID 03/18/24 03/18/24 History esomeprazole magnesium 40 mg 40 mg PO DAILY PRN gerd/nausea 03/18/24 03/18/24 History capsule,delayed release evolocumab 140 mg/mL subcutaneous 140 mg subcut UD 03/18/24 03/18/24 History pen injector (Too Jo) famotidine 20 mg tablet 20 mg PO DAILY PRN gerd/nausea 03/18/24 03/18/24 History semaglutide 0.25 mg or 0.5 mg (2 0.25 mg subcut WK 03/18/24 03/18/24 History mg/3 mL) subcutaneous pen injector (Ozempic) spironolactone 25 mg tablet 25 mg PO DAILY 03/18/24 03/18/24 History Past Med/Surg History Problem List (Updated 03/18/24 @ 20:57 by Armando Hamm DO) STEMI (ST elevation myocardial infarction) Chest pain (Acute) Intermittent chest pain Diastolic dysfunction Left-sided chest pain (Acute) Medical History Type 2 diabetes mellitus Hyperlipidemia Abnormal urinalysis Headache Asthma History of stroke Diabetes No pertinent family history Hypertension Surgical History No pertinent past surgical history Social History Smoking Status: Never smoker Second Hand Exposure: No; Do You Dip or Chew Tobacco: No; Tobacco Cessation Education Requested by Patient: No Hx Alcohol Use: No Hx Substance Use: No Preferred Language: Estonian Communication Ability: Effective Lead Burner Apprentice Required: No Beliefs That Will Affect Care: None Current Living Situation: Alone Other Information That Helps Us Care for You: No Feels Safe at Home: Yes Safety Concerns: Feels Safe At This Time Assistive Devices: Denture - Upper, Denture - Lower and Glasses Review of Systems Review of Systems: All systems reviewed & are unremarkable except as noted in HPI & below Physical Exam Constitutional: WD/WN, vitals as above Eyes: + anicteric sclerae; normal pupil size ENMT: external ear and nose normal, oropharynx normal Respiratory: normal respiratory effort, lungs clear to auscultation Cardiovascular: RRR, no murmur, no edema Gastrointestinal (Abdomen): normal bowel sounds, soft, nontender, no hepatosplenomegaly Musculoskeletal: no cyanosis or clubbing, extremities motor strength 5/5 Skin: no rashes, warm and dry Neurologic: moves all extremities and awake; no focal motor deficits and not confused Psychiatric: A+Ox3, euthymic affect Genitourinary: no CVA tenderness Results & Data Results & Data Vital Signs (Past 12 Hours) Vital Signs Temp Pulse Pulse Resp BP BP Pulse Ox 03/18/24 16:21 61 17 100 03/18/24 16:12 63 19 96 03/18/24 16:00 154/73 H 03/18/24 16:00 154/73 H 03/18/24 15:48 56 L 14 95 03/18/24 15:42 56 L 14 100 03/18/24 15:33 58 L 14 99 03/18/24 15:31 132/57 L 03/18/24 15:24 53 L 20 96 03/18/24 15:24 03/18/24 15:18 55 L 15 98 03/18/24 15:13 143/70 H 03/18/24 15:12 55 L 21 98 03/18/24 15:00 54 L 17 98 03/18/24 15:00 131/66 03/18/24 14:51 55 L 19 99 03/18/24 14:49 54 L 18 156/72 H 96 03/18/24 14:35 54 L 17 107/54 L 96 03/18/24 14:20 52 L 17 122/62 96 03/18/24 13:12 36.8 C 71 20 170/90 H 100 03/18/24 13:04 71 20 100 03/18/24 13:04 36.8 C 70 20 170/90 H 100 03/18/24 13:04 100 03/18/24 13:03 65 03/18/24 12:45 36.4 C L 63 20 140/85 98 Pulse Ox O2 Del Method O2 Del Method 03/18/24 16:21 03/18/24 16:12 03/18/24 16:00 03/18/24 16:00 03/18/24 15:48 03/18/24 15:42 03/18/24 15:33 03/18/24 15:31 03/18/24 15:24 03/18/24 15:24 98 Room Air 03/18/24 15:18 03/18/24 15:13 03/18/24 15:12 Room Air 03/18/24 15:00 03/18/24 15:00 03/18/24 14:51 03/18/24 14:49 Room Air 03/18/24 14:35 Room Air 03/18/24 14:20 Room Air 03/18/24 13:12 Room Air 03/18/24 13:04 Room Air 03/18/24 13:04 Room Air 03/18/24 13:04 Room Air 03/18/24 13:03 03/18/24 12:45 Room Air Laboratory Results Abnormal lab results 03/18/24 03/18/24 03/18/24 Range/Units 12:58 13:52 15:12 WBC 11.29 H (4.8-10.8) K/ul RBC 4.03 L (4.20-5.40) M/uL Neut # (Auto) 7.59 H 9.75 H (1.40-6.50) K/uL Lymph # (Auto) 1.14 L (1.20-3.40) K/uL Activ Coag Time Kaolin 238 H (94-140) SECONDS Creatinine 1.49 H (0.6-1.2) mg/dl Glucose 155 H (70-99(Fasting)) mg/dl POC Glucose (70-99) mg/dl Troponin I High Sens 93.0 H* 682.6 H* D (0-14) pg/ml 03/18/24 Range/Units 16:21 WBC (4.8-10.8) K/ul RBC (4.20-5.40) M/uL Neut # (Auto) (1.40-6.50) K/uL Lymph # (Auto) (1.20-3.40) K/uL Activ Coag Time Kaolin (94-140) SECONDS Creatinine (0.6-1.2) mg/dl Glucose (70-99(Fasting)) mg/dl POC Glucose 121 H (70-99) mg/dl Troponin I High Sens (0-14) pg/ml Diagnostic Findings XR chest 1V portable HISTORY: 74 years-old Female Chest pain, nonspecific acute chest pain COMPARISON: 06/08/2023 TECHNIQUE: AP view of the chest FINDINGS: Cardiac silhouette is mildly enlarged. Atherosclerosis of the aorta. The medial lung apices are partially obscured by the patient's chin. No pneumothorax, pleural effusion or airspace consolidation. The bones of the chest appear grossly intact. IMPRESSION: No acute process. Medications Administered ER medications given: Aspirin 324 mg p.o. Ticagrelor 180 mg p.o. Heparin 5000 units IV ECG Rate (beats per minute): 65 Rhythm: sinus with SA Findings: + ST elevation (Anterolateral) Comparison ECG Date: from (June 09, 2023) Change: the following changes noted (ST elevations are new) Code Status & VTE Plan Code Status Full VTE Prophylaxis Plan VTE Prophylaxis will be ordered: No PG Care Time/CCT Total # of Minutes Spent Total Time Spent with Patient: Total time spent is greater than 50% in coordination of care (as documented) at patient's floor/unit and/or counseling patient: Coding Level of Care Code 80687 INT INP/OBS CARE 3/75MIN Diagnoses STEMI (ST elevation myocardial infarction) I21.3 Type 2 diabetes mellitus E11.9 History of stroke Z86.73 Hypertension I10 Hyperlipidemia E78.5
--- NOTE | 2024-03-18 16:42 | XCELERA ---
[id number] [id number]
--- NOTE | 2024-03-18 17:09 | Cardiac Catheterization ---
ACC Data: Title Closer Cardiac Status Clinical evaluation leading to the procedure CAD Presenation: STEMI Anginal Classification: CCS IV Heart Failure: No Cardiogenic Shock within 24 Hours: No Cardiac Arrest within 24 Hours: No Imaging Studies Past 6 Months: No Stress Studies Past 6 Months: No STEMI OR Non-STEMI Symptom Onset Date: 03/18/24 Symptom Onset Time: 11:00 Thrombolytics: No Coronary Anatomy Dominant: Right Left Main (% Stenosis): Normal LAD (% Stenosis): Mid (90-95 5) D1 (% Stenosis): Proximal (95%) Circumflex (% Stenosis): Distal (Long eccentric up to 90%) OM1 (% Stenosis): Normal OM2 (% Stenosis): Normal OM3 (% Stenosis): Normal L PL1 (% Stenosis): Normal RCA (% Stenosis): Proximal (100%) and Distal (50%) R PDA (% Stenosis): Normal R PL1 (% Stenosis): Normal (Up to 50%) Diagnostic Physicians Name: Rod Frankel MD, PhD Closure Device Percutaneous Entry Location: Radial Closure Device: Radial Band Recommendations: Medical Therapy and/or Counseling and PCI without planned CABG PCI Indication: PCI for STEMI - Stable First Noted: First EKG Lesion Segment Name: Proximal RCA Culprit Artery: Yes Stenosis Prior to Rx (%): 100 Chronic Total Occlusion: No Pre-Procedure GEETA Flow: 0 Previously Treated Lesion: No Lesion Complexity: Non-High/Non-C Lesion Length (mm): 12 Thrombus Present: Yes Bifurcation Lesion: No Guidewire Across Lesion: Yes Intraprocedure Events Significant Disection: No Perforation: Yes Cardiac Cath Procedure Full Procedure Date March 18, 2024 Pre-Procedure Diagnosis Pre-Procedure Diagnosis: STEMI AUC Score AUC Score: 09 Post-Procedure Diagnosis Post-Procedure Diagnosis: Severe CAD and Successful PCI Procedure(s) Performed Procedure(s) Performed: Coronary Angiography and Drug Eluting Stent Rn Allergy Rod Frankel MD, PhD Estimated Blood Loss Estimated Blood Loss: 10 Medication(s) Medication(s): Adenosine, Fentanyl, Heparin, Lidocaine 1%, Nicardipine, Nitroglycerin and Versed Summary of Findings Brief description: Patient was brought to the cardiac catheterization suite where she was shaved and prepped in a sterile fashion. Sedated using IV Versed and fentanyl. Soft tissues of the right wrist were anesthetized using 2 mL of 1% Xylocaine. The right radial artery was accessed with a modified Seldinger technique and a 6 Romanian radial artery glide sheath was placed. Patient was provided anticoagulation with IV heparin and antispasmodics including nicardipine and nitroglycerin. All catheters were advanced and exchanged over a 0.035 J-tip wire. Left coronary angiography in orthogonal views with a 6 Romanian EBU 3.0 guide catheter. Right coronary angiography performed in orthogonal views with a 5 Romanian JR4 diagnostic catheter. The patient had significant vasospasm with a 6 Romanian catheter we therefore chose to proceed with PCI using a 5 Romanian catheter. ACT was checked and additional heparin was provided. This process was repeated throughout the case to ensure appropriate therapeutic anticoagulation. 5 Romanian JR4 guide catheter was used to engage the right coronary. BMW reversal guidewire was advanced through the guide catheter and under fluoroscopic guidance positioned distally. The lesion was predilated using a CBR X trek 1.5 x 8 mm balloon with 2 inflations to 8 ace. The balloon was removed and supervisor livestock yard angiography performed. Additional predilatation was performed using a trek 2.5 x 12 mm balloon inflated twice up to 8 ace. The balloon was then deflated and removed. An Zavalla 3.0 x 18 mm drug-eluting stent was then positioned across the lesion with initial inflation pressure of 13 ace. A second inflation was performed to 18 ace. The stent balloon was then removed. [employer] angiography revealed residual thrombus, and some plaque. Decision was made to proceed with postdilatation. A 3.5 x 8 mm NC Shiv balloon was positioned in the proximal portion of the stent. It was first inflated to 14 ace and then repositioned so that its proximal edge was at the proximal edge of the stent. This was postdilated to 17 ace. Balloon removed. An NC sprinter 3.25 balloon was then used to dilate the IntraStent thrombus and residual plaque which was in the distal part of the stent. 2 inflations were performed up to 10 ace. The balloon was then removed. Finally, the mid to proximal portion of the stent was postdilated using an NC Shiv 3.5x8 mm balloon inflated to 13 atms. Guidewire and balloon were removed. Final angiographic evaluation performed in orthogonal views. Guide catheter was removed. Radial artery sheath was removed. Hemostasis was obtained using the TR band. Patient was hemodynamically stable and asymptomatic. She was then admitted to the ICU for further workup and management. This ended the case. Coronary angiography findings: Left [id number]. Bifurcates into LAD and circumflex. No disease. [id number]. Gives an early arising medium caliber branching first diagonal. This has proximal 95% stenosis. LAD then gives a large septal branch. Beyond this in the mid to distal vessel there is a long eccentric 90 to 95% stenosis. The distal vessel beyond this has mild luminal irregularities. MFb-[id number] and nondominant. Proximally there is mild less than 20% stenosis. The AV groove vessel gives a small OM1 and shortly thereafter a small OM 2. Then there is a large caliber branching OM 3. In the distal AV groove circumflex which remains relatively large in caliber there is a long eccentric up to 90% stenosis occurring before the ostium of a large posterolateral branch. RCA-proximally this is 100% occluded. GEETA 0 flow. PCI of RCA-there is less than 10% residual stenosis post PCI. This appears to be mostly thrombus but also some residual "cheese grater" effect from the stent. No evidence of dissection or perforation post PCI GEETA II flow post PCI Post PCI the mid and distal RCA are visualized. The mid has no significant disease but as it transitions to the distal segment there is up to 50% stenosis. The RCA then bifurcates into a large multi branching posterior lateral and a long PDA. Posterolateral has scattered up to 50% stenosis. The PDA has sluggish flow distally but no focal stenosis. Summary: 1. Severe multivessel coronary artery disease as described. Culprit lesion for ST elevation WI is the RCA. 2. Successful PCI of the RCA with a large caliber drug-eluting stent. 3. Significant residual coronary disease in the LAD and circumflex. These may be appropriate for PCI in the near future. 4. Dual antiplatelet therapy with aspirin 81 mg daily and Brilinta 90 mg p.o. twice daily. Therapy should continue for up to 2 years. Consideration can be made for change to clopidogrel. 5. Guideline directed medical therapy for secondary prevention of coronary disease. Patient will be on aspirin 81 mg daily, will initiate beta-demarco as tolerated, reported allergy to olmesartan but will consider alternative GARDENIA inhibitor/ARB given diabetes, and patient was on Praluent. While hospitalized she will be on statin as I do not see this as a listed allergy but she will resume PCSK9 inhibitor as an outpatient. She reportedly follows with the hyper lipidemia clinic in [place]. 6. Highly recommend the patient participate in cardiac rehab after discharge. Hemodynamics Rest Ao:: 136/67 mmHg Final Ao: 109/47 mmHg LV: Not performed Recommendations Recommendations: Medical Therapy and/or Counseling and PCI without planned CABG Radiation Exposure (mGy) 2676 mGy, fluoroscopy time 13.8 minutes Contrast (mls) 165 cc Anesthesia 4 mg Versed, 100 mcg fentanyl IV. Start 1321, and 1407 Procedural Complication(s) None Disposition ICU I attest to the content of the Intraoperative Record and any orders documented therein. Any exceptions are noted below. [facility] Card Cath Procedure Codes Cardiac Catheterization Procedure 1: Cardiovascular Cath Procedures: 83976 Coronaries Moderate Sedation Procedure 1: Sedation/Anesthesia: 03295 Mod Sedation by the same physician;Init15 Min Child Age 5 & Up (Initial 15 min, start time 1321) Procedure 2: Sedation/Anesthesia: 66068 Mod Sedation by the same physician; Ea [id number] Minutes (Additional 31 min, end time 1407) Stenting Procedure 1: Cardiovascular Stent Procedures: 26095 Perc transluminal revascularization of acute sub/total occl, aMI (RCA) PG Care Time/CCT Total # of Minutes Spent Total Time Spent with Patient: Total time spent is greater than 50% in coordination of care (as documented) at patient's floor/unit and/or counseling patient:
[2024-03-18] MEDS: FAMOTIDINE 20MG IV PUSH 20 MG/5 ML SYR IV STA (17:31)
[2024-03-18] MEDS: PANTOprazole 40 MG in SYRINGE 0 ML IV ONE (17:31)
[2024-03-18] MEDS: INSULIN ASPART PER UNIT CHARGE SC SCH (17:32)
--- NOTE | 2024-03-18 17:44 | Cardiology Consultation ---
Date of Consultation March 18, 2024 Assessment & Plan (1) STEMI (ST elevation myocardial infarction): Status post PCI of the RCA. Significant residual disease in the left coronary system. She will remain on aspirin 81 mg daily and Brilinta 90 mg p.o. twice daily as tolerated. She was hypertensive and this will need to be managed. She is diabetic and by definition is dyslipidemic. Echocardiogram was performed as requested. I recommend ICU for 24 hours and assuming no complications she can be transferred to the stepdown unit following this. Initiating guideline directed medical therapy. This includes aspirin 81 mg daily, beta-demarco, statin, and GARDENIA inhibitor/ARB. She is specifically intolerant to statin, atenolol, and olmesartan. We will try to optimize her medical therapy using alternative medications. In place of statin she will continue with her PCSK9 inhibitor although this is not likely to be available in the hospital she can resume her prior dosing schedule at home. I strongly encourage her to participate in cardiac rehab as an outpatient. (2) Hypertension: Blood pressure is above target. We are going to start metoprolol to tartrate 25 mg p.o. but twice daily and hopefully she will tolerate this without developing significant wheezing. Previously also on clonidine 0.2 mg 4 times daily which is not optimal but can continue if needed. We would anticipate rebound hypertension if we removed the medication completely. Will need to look further into her ARB intolerance. She takes amlodipine 10 mg daily which can continue although it would be preferable for her to take an GARDENIA inhibitor or angiotensin receptor demarco. (3) Diastolic dysfunction: The echo demonstrates normal EF with anticipated RCA territory hypokinesis which is mild. He does have LVH consistent with inadequately controlled blood pressure. Mild valvular heart disease. Grade 1 diastolic dysfunction and normal RV function. She has no evidence of volume overload at this time. I would anticipate resolution of her wall motion abnormality during recovery post revascularization. Plan I will see the patient tomorrow. Will see how her renal function is post catheterization as she had a GFR of only 37 today prior to cath. Will discuss revascularization including PCI of the LAD and potentially at some time PCI of the circumflex. Patient will also need to decide if she elects to continue with [facility] group cardiology or she would like to transfer her care to [facility] cardiology. History of Present Illness Reason for Consultation: Stat for ST elevation RI Attending Physician: Eliazar Kim MD History of Present Illness 74-year-old diabetic female presented after developing sudden onset chest pain at around 11:00 AM. She had chest pressure with associated nausea and shortness of breath. In the emergency department she was found to have evidence of acute ST elevation RI. After brief discussion with the patient to obtain informed consent we proceeded to the cardiac catheterization suite where she underwent diagnostic coronary angiography via the right radial artery approach. This revealed severe multivessel coronary artery disease. Culprit lesion was an occluded RCA for which she received a single large caliber drug-eluting stent. She was subsequently admitted to the ICU for further workup and management. Reviewing the patient's history she was seen in 2019 as an consult here in the hospital by the [facility] cardiology group. Subsequently underwent dobutamine stress echocardiogram which did not demonstrate significant ischemia. Does not seem that she followed up with cardiology any further but she has followed with the lipidologist in [employer]. Patient has a history of CVA. More recently, she changed primary care providers and now follows with [facility] primary care. She has followed with Dr. Landon Botello for carotid artery disease. I spoke with the patient's son who said that she had put off "heart surgery" but was supposed to go back soon to see them. Investigating further it seems that this was actually vascular surgery and the patient has severe left internal carotid stenosis. Further investigation has also revealed that she is intolerant to statins and that she takes a PCSK9 inhibitor for her dyslipidemia. Furthermore, she reportedly developed worsening asthma symptoms on atenolol. Allergies Allergy/AdvReac Type Severity Reaction Status Date / Time olmesartan [From Benicar] Allergy Severe Stopped me Unverified 06/08/23 17:48 from urinating erythromycin base AdvReac Severe Gastrointestinal Verified 06/08/23 17:48 Upset Sulfa (Sulfonamide AdvReac Severe Gastrointestinal Unverified 06/08/23 17:48 Antibiotics) Upset codeine AdvReac Intermediate Nausea Unverified 06/08/23 17:48 Home Medications Medication Instructions Recorded Confirmed Type amlodipine 10 mg tablet 10 mg PO QAM 03/16/20 03/18/24 History levalbuterol tartrate 45 2 inh inhalation Q6H PRN Shortness 03/16/20 03/18/24 History mcg/actuation aerosol inhaler Of Breath Or Wheezing (Xopenex HFA) montelukast 10 mg tablet 10 mg PO DAILY PRN asthma 03/16/20 03/18/24 History budesonide-formoterol HFA 160 2 puff inhalation BID PRN seasonal 06/03/23 03/18/24 History mcg-4.5 mcg/actuation aerosol inhaler (Symbicort) insulin glargine 100 unit/mL (3 13 unit subcut PM 06/03/23 03/18/24 History mL) subcutaneous pen (Lantus Solostar U-100 Insulin) aspirin 81 mg tablet,delayed 81 mg PO QAM #90 tabs 06/04/23 03/18/24 Rx release clonidine HCl 0.1 mg tablet 0.2 mg PO QID 03/18/24 03/18/24 History esomeprazole magnesium 40 mg 40 mg PO DAILY PRN gerd/nausea 03/18/24 03/18/24 History capsule,delayed release evolocumab 140 mg/mL subcutaneous 140 mg subcut UD 03/18/24 03/18/24 History pen injector (Repatha SureClick) famotidine 20 mg tablet 20 mg PO DAILY PRN gerd/nausea 03/18/24 03/18/24 History semaglutide 0.25 mg or 0.5 mg (2 0.25 mg subcut WK 03/18/24 03/18/24 History mg/3 mL) subcutaneous pen injector (Ozempic) spironolactone 25 mg tablet 25 mg PO DAILY 03/18/24 03/18/24 History Patient History Medical History Abnormal urinalysis Stroke-like symptoms Headache Asthma History of stroke Diabetes No pertinent family history Hypertension Surgical History No pertinent past surgical history Social History Smoking Status: Never smoker Second Hand Exposure: No; Do You Dip or Chew Tobacco: No; Tobacco Cessation Education Requested by Patient: No Hx Alcohol Use: No Hx Substance Use: No Preferred Language: Martiniquais Communication Ability: Effective Experimental Rocket Sled Mechanic Required: No Beliefs That Will Affect Care: None Current Living Situation: Alone Other Information That Helps Us Care for You: No Feels Safe at Home: Yes Safety Concerns: Feels Safe At This Time Assistive Devices: Denture - Upper, Denture - Lower and Glasses Physical Exam Constitutional: Awake alert oriented obese elderly female in mild distress. Neck: No JVD. Left bruit. Respiratory: Clear to auscultation bilaterally. No wheezing, rhonchi, or rales. Cardiovascular: Regular rhythm with mildly bradycardic rate. Grade 2/6 systolic murmur. No edema. S4 gallop. Musculoskeletal: no cyanosis or clubbing, extremities motor strength 5/5 Neurologic: Cognition intact. Speech fluent. Moves 4 extremities voluntarily. Psychiatric: A+Ox3, euthymic affect Results & Data Vital Signs (Past 12 Hours) Vital Signs Temp Pulse Pulse Resp BP BP Pulse Ox 03/18/24 17:37 36.4 C L 03/18/24 17:31 142/79 H 03/18/24 17:24 67 19 98 03/18/24 17:21 65 19 89 L 03/18/24 17:03 64 14 95 03/18/24 17:00 140/70 03/18/24 16:57 63 26 H 87 L 03/18/24 16:54 64 21 100 03/18/24 16:36 64 21 99 03/18/24 16:30 146/89 H 03/18/24 16:30 146/89 H 03/18/24 16:21 61 17 100 03/18/24 16:12 63 19 96 03/18/24 16:00 154/73 H 03/18/24 16:00 154/73 H 03/18/24 15:48 56 L 14 95 03/18/24 15:42 56 L 14 100 03/18/24 15:33 58 L 14 99 03/18/24 15:31 132/57 L 03/18/24 15:26 53 L 03/18/24 15:24 53 L 20 96 03/18/24 15:24 03/18/24 15:18 55 L 15 98 03/18/24 15:13 143/70 H 03/18/24 15:12 55 L 21 98 03/18/24 15:00 54 L 17 98 03/18/24 15:00 131/66 03/18/24 14:51 55 L 19 99 03/18/24 14:49 54 L 18 156/72 H 96 03/18/24 14:35 54 L 17 107/54 L 96 03/18/24 14:20 52 L 17 122/62 96 03/18/24 13:12 36.8 C 71 20 170/90 H 100 03/18/24 13:04 71 20 100 03/18/24 13:04 36.8 C 70 20 170/90 H 100 03/18/24 13:04 100 03/18/24 13:03 65 03/18/24 12:45 36.4 C L 63 20 140/85 98 Pulse Ox O2 Del Method O2 Del Method 03/18/24 17:37 03/18/24 17:31 03/18/24 17:24 03/18/24 17:21 03/18/24 17:03 03/18/24 17:00 03/18/24 16:57 03/18/24 16:54 03/18/24 16:36 03/18/24 16:30 03/18/24 16:30 03/18/24 16:21 03/18/24 16:12 03/18/24 16:00 03/18/24 16:00 03/18/24 15:48 03/18/24 15:42 03/18/24 15:33 03/18/24 15:31 03/18/24 15:26 03/18/24 15:24 03/18/24 15:24 98 Room Air 03/18/24 15:18 03/18/24 15:13 03/18/24 15:12 Room Air 03/18/24 15:00 03/18/24 15:00 03/18/24 14:51 03/18/24 14:49 Room Air 03/18/24 14:35 Room Air 03/18/24 14:20 Room Air 03/18/24 13:12 Room Air 03/18/24 13:04 Room Air 03/18/24 13:04 Room Air 03/18/24 13:04 Room Air 03/18/24 13:03 03/18/24 12:45 Room Air PG Care Time/CCT Total # of Minutes Spent Total Time Spent with Patient: Total time spent is greater than 50% in coordination of care (as documented) at patient's floor/unit and/or counseling patient: I spent a total of 55 minutes critical care time in the initial evaluation, examination, formulation of a plan of care, and implementation of the plan of care, discussion with patient, family, and the care team and all associated documentation. This time is exclusive of the time spent for the procedure. Coding Level of Care Code 55946 CRITICAL CARE 1ST 30-74M Diagnoses STEMI (ST elevation myocardial infarction) I21.3 Hypertension I10 Diastolic dysfunction I51.89
[2024-03-18 20:21] LABS: Magnesium 2.1 mg/dl (1.7-2.4)
[2024-03-18] MEDS: LANTUS PER UNIT CHARGE SC SCH (20:31)
[2024-03-18] MEDS: METOPROLOL TARTRATE 25 MG TAB PO SCH (20:33)
[2024-03-18] MEDS: ONDANSETRON INJ 2 MG/ML 2 ML VIAL IV PRN (20:35)
--- NOTE | 2024-03-18 20:52 | Critical Care Consultation ---
Date of Consultation March 18, 2024 Assessment & Plan (1) STEMI (ST elevation myocardial infarction): Reason Critically Ill: ST elevation AK PLAN: Neuro: Headache -Tylenol as needed CV: Hypertension Coronary artery disease -Refer to cardiology consultation GI/Nutrition: High intensity statin Heme: Dual antiplatelet therapy DVT prophylaxis: Patient ambulatory Endocrine: ICU hyperglycemia protocol Check hemoglobin A1c Vascular access: Peripheral IVs Code Status: Full code Disposition: ICU for cardiac monitoring History of Present Illness Reason for Consultation: Status post AK Attending Physician: Eliazar Kim MD History of Present Illness Patient presented to the ED with substernal chest, in the ED she was found to have an ST elevation AK and emergently went to the [facility] and received a drug- eluting stent. During my evaluation the patient is chest pain-free and doing well. She does admit to a 7 out of 10 headache for which she is requesting Tylenol. This headache is similar to previous headaches. Allergies Allergy/AdvReac Type Severity Reaction Status Date / Time olmesartan [From Benicar] Allergy Severe Stopped me Unverified 06/08/23 17:48 from urinating erythromycin base AdvReac Severe Gastrointestinal Verified 06/08/23 17:48 Upset [id number] Reductase AdvReac Severe Nausea and Verified 03/18/24 18:52 Inhibitor vomiting Sulfa (Sulfonamide AdvReac Severe Gastrointestinal Unverified 06/08/23 17:48 Antibiotics) Upset codeine AdvReac Intermediate Nausea Unverified 06/08/23 17:48 atenolol AdvReac Unknown Worsening Verified 03/18/24 18:53 Asthma Home Medications Medication Instructions Recorded Confirmed Type amlodipine 10 mg tablet 10 mg PO QAM 03/16/20 03/18/24 History levalbuterol tartrate 45 2 inh inhalation Q6H PRN Shortness 03/16/20 03/18/24 History mcg/actuation aerosol inhaler Of Breath Or Wheezing (Xopenex HFA) montelukast 10 mg tablet 10 mg PO DAILY PRN asthma 03/16/20 03/18/24 History budesonide-formoterol HFA 160 2 puff inhalation BID PRN seasonal 06/03/23 03/18/24 History mcg-4.5 mcg/actuation aerosol inhaler (Symbicort) insulin glargine 100 unit/mL (3 13 unit subcut PM 06/03/23 03/18/24 History mL) subcutaneous pen (Lantus Solostar U-100 Insulin) aspirin 81 mg tablet,delayed 81 mg PO QAM #90 tabs 06/04/23 03/18/24 Rx release clonidine HCl 0.1 mg tablet 0.2 mg PO QID 03/18/24 03/18/24 History esomeprazole magnesium 40 mg 40 mg PO DAILY PRN gerd/nausea 03/18/24 03/18/24 History capsule,delayed release evolocumab 140 mg/mL subcutaneous 140 mg subcut UD 03/18/24 03/18/24 History pen injector (Repatha SureClick) famotidine 20 mg tablet 20 mg PO DAILY PRN gerd/nausea 03/18/24 03/18/24 History semaglutide 0.25 mg or 0.5 mg (2 0.25 mg subcut WK 03/18/24 03/18/24 History mg/3 mL) subcutaneous pen injector (Ozempic) spironolactone 25 mg tablet 25 mg PO DAILY 03/18/24 03/18/24 History Patient History Medical History Type 2 diabetes mellitus Hyperlipidemia Abnormal urinalysis Headache Asthma History of stroke Diabetes No pertinent family history Hypertension Surgical History No pertinent past surgical history Social History Smoking Status: Never smoker Second Hand Exposure: No; Do You Dip or Chew Tobacco: No; Tobacco Cessation Education Requested by Patient: No Hx Alcohol Use: No Hx Substance Use: No Preferred Language: Yoruba Communication Ability: Effective Fiber Optic Splicer Required: No Beliefs That Will Affect Care: None Current Living Situation: Alone Other Information That Helps Us Care for You: No Feels Safe at Home: Yes Safety Concerns: Feels Safe At This Time Assistive Devices: Denture - Upper, Denture - Lower and Glasses Physical Exam Physical Exam: General: Alert. nontoxic. Skin: Warm, dry, Head: Atraumatic Ears, nose, mouth and throat: airway patent Cardiovascular: Normal peripheral perfusion Respiratory: no respiratory distress Gastrointestinal: Non distended Musculoskeletal: No deformity Results & Data Results & Data Vital Signs (Past 12 Hours) Vital Signs Temp Pulse Pulse Resp BP BP Pulse Ox 03/18/24 20:00 60 19 96 03/18/24 19:30 61 15 131/61 96 03/18/24 19:03 63 13 148/71 H 95 03/18/24 18:44 36.6 C 03/18/24 18:39 68 17 95 03/18/24 18:24 66 19 95 03/18/24 18:00 140/75 03/18/24 17:57 65 21 97 03/18/24 17:42 62 17 99 03/18/24 17:39 61 18 97 03/18/24 17:37 36.4 C L 03/18/24 17:31 142/79 H 03/18/24 17:24 67 19 98 03/18/24 17:21 65 19 89 L 03/18/24 17:03 64 14 95 03/18/24 17:00 140/70 03/18/24 16:57 63 26 H 87 L 03/18/24 16:54 64 21 100 03/18/24 16:36 64 21 99 03/18/24 16:30 146/89 H 03/18/24 16:30 146/89 H 03/18/24 16:21 61 17 100 03/18/24 16:12 63 19 96 03/18/24 16:00 154/73 H 03/18/24 16:00 154/73 H 03/18/24 15:48 56 L 14 95 03/18/24 15:42 56 L 14 100 03/18/24 15:33 58 L 14 99 03/18/24 15:31 132/57 L 03/18/24 15:26 53 L 03/18/24 15:24 53 L 20 96 03/18/24 15:24 03/18/24 15:18 55 L 15 98 03/18/24 15:13 143/70 H 03/18/24 15:12 55 L 21 98 03/18/24 15:00 54 L 17 98 03/18/24 15:00 131/66 03/18/24 14:51 55 L 19 99 03/18/24 14:49 54 L 18 156/72 H 96 03/18/24 14:35 54 L 17 107/54 L 96 03/18/24 14:20 52 L 17 122/62 96 03/18/24 13:12 36.8 C 71 20 170/90 H 100 03/18/24 13:04 71 20 100 03/18/24 13:04 36.8 C 70 20 170/90 H 100 03/18/24 13:04 100 03/18/24 13:03 65 03/18/24 12:45 36.4 C L 63 20 140/85 98 Pulse Ox O2 Del Method O2 Del Method 03/18/24 20:00 03/18/24 19:30 03/18/24 19:03 03/18/24 18:44 03/18/24 18:39 03/18/24 18:24 03/18/24 18:00 03/18/24 17:57 03/18/24 17:42 03/18/24 17:39 03/18/24 17:37 03/18/24 17:31 03/18/24 17:24 03/18/24 17:21 03/18/24 17:03 03/18/24 17:00 03/18/24 16:57 03/18/24 16:54 03/18/24 16:36 03/18/24 16:30 03/18/24 16:30 03/18/24 16:21 03/18/24 16:12 03/18/24 16:00 03/18/24 16:00 03/18/24 15:48 03/18/24 15:42 03/18/24 15:33 03/18/24 15:31 03/18/24 15:26 03/18/24 15:24 03/18/24 15:24 98 Room Air 03/18/24 15:18 03/18/24 15:13 03/18/24 15:12 Room Air 03/18/24 15:00 03/18/24 15:00 03/18/24 14:51 03/18/24 14:49 Room Air 03/18/24 14:35 Room Air 03/18/24 14:20 Room Air 03/18/24 13:12 Room Air 03/18/24 13:04 Room Air 03/18/24 13:04 Room Air 03/18/24 13:04 Room Air 03/18/24 13:03 03/18/24 12:45 Room Air Critical Care Results & Data Vital Signs (Past 12 Hours) Vital Signs Temp Pulse Pulse Resp BP BP Pulse Ox 03/18/24 20:00 60 19 96 03/18/24 19:30 61 15 131/61 96 03/18/24 19:03 63 13 148/71 H 95 03/18/24 18:44 36.6 C 03/18/24 18:39 68 17 95 03/18/24 18:24 66 19 95 03/18/24 18:00 140/75 03/18/24 17:57 65 21 97 03/18/24 17:42 62 17 99 03/18/24 17:39 61 18 97 03/18/24 17:37 36.4 C L 03/18/24 17:31 142/79 H 03/18/24 17:24 67 19 98 03/18/24 17:21 65 19 89 L 03/18/24 17:03 64 14 95 03/18/24 17:00 140/70 03/18/24 16:57 63 26 H 87 L 03/18/24 16:54 64 21 100 03/18/24 16:36 64 21 99 03/18/24 16:30 146/89 H 03/18/24 16:30 146/89 H 03/18/24 16:21 61 17 100 03/18/24 16:12 63 19 96 03/18/24 16:00 154/73 H 03/18/24 16:00 154/73 H 03/18/24 15:48 56 L 14 95 03/18/24 15:42 56 L 14 100 03/18/24 15:33 58 L 14 99 03/18/24 15:31 132/57 L 03/18/24 15:26 53 L 03/18/24 15:24 53 L 20 96 03/18/24 15:24 03/18/24 15:18 55 L 15 98 03/18/24 15:13 143/70 H 03/18/24 15:12 55 L 21 98 03/18/24 15:00 54 L 17 98 03/18/24 15:00 131/66 03/18/24 14:51 55 L 19 99 03/18/24 14:49 54 L 18 156/72 H 96 03/18/24 14:35 54 L 17 107/54 L 96 03/18/24 14:20 52 L 17 122/62 96 10/02/24 13:12 36.8 C 71 20 170/90 H 100 03/18/24 13:04 71 20 100 03/18/24 13:04 36.8 C 70 20 170/90 H 100 03/18/24 13:04 100 03/18/24 13:03 65 03/18/24 12:45 36.4 C L 63 20 140/85 98 Pulse Ox O2 Del Method O2 Del Method 03/18/24 20:00 03/18/24 19:30 03/18/24 19:03 03/18/24 18:44 03/18/24 18:39 03/18/24 18:24 03/18/24 18:00 03/18/24 17:57 03/18/24 17:42 03/18/24 17:39 03/18/24 17:37 03/18/24 17:31 03/18/24 17:24 03/18/24 17:21 03/18/24 17:03 03/18/24 17:00 03/18/24 16:57 03/18/24 16:54 03/18/24 16:36 03/18/24 16:30 03/18/24 16:30 03/18/24 16:21 03/18/24 16:12 03/18/24 16:00 03/18/24 16:00 03/18/24 15:48 03/18/24 15:42 03/18/24 15:33 03/18/24 15:31 03/18/24 15:26 03/18/24 15:24 03/18/24 15:24 98 Room Air 03/18/24 15:18 03/18/24 15:13 03/18/24 15:12 Room Air 03/18/24 15:00 03/18/24 15:00 03/18/24 14:51 03/18/24 14:49 Room Air 03/18/24 14:35 Room Air 03/18/24 14:20 Room Air 03/18/24 13:12 Room Air 03/18/24 13:04 Room Air 03/18/24 13:04 Room Air 03/18/24 13:04 Room Air 03/18/24 13:03 03/18/24 12:45 Room Air Lab & Micro Results (Past 24 Hours) RBC 4.03 M/uL (4.20-5.40) L 03/18/24 WBC 11.29 K/ul (4.8-10.8) H 03/18/24 Hgb 12.6 g/dl (12.0-16.0) 03/18/24 Hct 39.3 % (37.0-47.0) 03/18/24 MCV 97.5 fL (80.0-100.0) 03/18/24 MCH 31.3 pg (25.0-34.0) 03/18/24 MCHC 32.1 g/dL (32.0-36.0) 03/18/24 RDW Standard Deviation 43.7 fL (36.4-46.3) 03/18/24 RDW Coefficient of Variation 12.1 % (11.5-14.5) 03/18/24 Plt Count 204 K/uL (130-400) 03/18/24 MPV 11.2 fL (9.4-12.4) 03/18/24 Neutrophils (%) (Auto) 86.3 % 03/18/24 Lymphocytes (%) (Auto) 10.1 % 03/18/24 Monocytes # (Auto) 0.30 K/uL (0.11-0.59) 03/18/24 Eosinophils # (Auto) 0.01 K/uL (0.00-0.50) 03/18/24 Immature Granulocyte % (Auto) 0.4 % 03/18/24 Neutrophils # (Auto) 9.75 K/uL (1.40-6.50) H 03/18/24 Lymphocytes # (Auto) 1.14 K/uL (1.20-3.40) L 03/18/24 Monocytes # (Auto) 0.30 K/uL (0.11-0.59) 03/18/24 Eosinophils # (Auto) 0.01 K/uL (0.00-0.50) 03/18/24 Basophils # (Auto) 0.04 K/uL (0.00-0.20) 03/18/24 Immature Granulocyte # (Auto) 0.05 K/uL (0.01-0.20) 4 Na 140 mmol/L (136-145) 10/02/24 K 4.5 mmol/L (3.5-5.1) 03/18/24 Cl 106 mmol/L (98-107) 03/18/24 CO2 23 mmol/L (21-32) 03/18/24 Anion Gap 11 (3-11) 03/18/24 BUN 18 mg/dl (6-23) 03/18/24 Creatinine 1.49 mg/dl (0.6-1.2) H 03/18/24 BUN/Creatinine Ratio 12.1 (10-20) 03/18/24 Glu 155 mg/dl (70-99(Fasting)) H 03/18/24 Ca 10.1 mg/dl (8.6-10.3) 03/18/24 Total Bilirubin 0.7 mg/dl (0.2-1.0) 03/18/24 AST 19 U/L (13-39) 03/18/24 ALT 11 U/L (7-52) 03/18/24 Alkaline Phosphatase 64 U/L (34-104) 03/18/24 TP 7.9 gm/dl (6.0-8.3) 03/18/24 Albumin 4.5 gm/dl (3.4-5.0) 03/18/24 Globulin 3.4 gm/dl (2.5-4.0) 03/18/24 Albumin/Globulin Ratio 1.3 (0.9-2) 03/18/24 Mg 2.1 mg/dl (1.7-2.4) 03/18/24 15:12 Calcium Level 10.1 mg/dl (8.6-10.3) 03/18/24 12:58 Prothromb Time International Ratio 1.0 (0.9-1.1) 03/18/24 12:5 8 Diagnostic Findings (Past 24 Hours) Chest X-Ray 03/18/24 12:47 XR chest 1V portable HISTORY: 74 years-old Female Chest pain, nonspecific acute chest pain COMPARISON: 06/08/2023 TECHNIQUE: AP view of the chest FINDINGS: Cardiac silhouette is mildly enlarged. Atherosclerosis of the aorta. The medial lung apices are partially obscured by the patient's chin. No pneumothorax, pleural effusion or airspace consolidation. The bones of the chest appear grossly intact. IMPRESSION: No acute process. ACT 112: Negative or not required by law. The above report was generated using voice recognition software. It may contain grammatical, syntax or spelling errors. Electronically signed by: Nile Duran M.D. 03/18/2024 1:15 PM I & O Totals 24 Hours 03/17/24 03/18/24 03/19/24 06:59 06:59 06:59 Intake Total 0 / 0 Output Total 0 / 0 Balance 0 / 0 Cumulative 03/18/24 12:40 thru 03/18/24 20:00 Intake Total 0 Output Total 0 Balance 0 RT Ventilator Mngmt (Last Documented) Ventilator Ordered Settings Respiratory Rate 19 03/18/24 20:00 Ventilator - PT Measurements Respiratory Rate 19 Coding Level of Care Code 36463 IN/OBS CONSULT LVL 3,45M Diagnoses ST elevation myocardial infarction involving right coronary artery I21.11 Involved coronary artery: right coronary artery (1) STEMI (ST elevation myocardial infarction) Involved coronary artery: right coronary artery Qualified Code(s): I21.11 - ST elevation (STEMI) myocardial infarction involving right coronary artery
[2024-03-18] MEDS: ACETAMINOPHEN 500 MG TAB PO PRN (21:12)
--- OUTSIDE RECORDS SUMMARY | 2024-03-19 01:24 | External Medical Summary | Continuity of Care Document ---
Author Name Unknown Organization [facility] [address] [facility] Address [address] [place] [id number] Care Team Providers Care Director Non Profit Name Role Phone Anh Manriquez Primary Care Physician [phone] [facility]counter [facility] [id number] Date(s): 03/12/24 - 03/12/24 [facility] [address], [facility] [address] [place] [address] [phone] Encounter Diagnosis Benign hypertension without CHF(Discharge Diagnosis) - 03/12/24 Controlled type 2 diabetes mellitus with stage 3 chronic kidney disease, with long-term current useof insulin(Discharge Diagnosis) - 03/12/24 Chronic kidney disease (CKD) stage G3b/A2, moderately decreased glomerular filtration rate (GFR) between 30-44 mL/min/1.73 square meter and albuminuria creatinine ratio between 30-299 mg/g(Discharge Diagnosis) - 03/12/24 History of CVA (cerebrovascular accident)(Discharge Diagnosis) - 03/12/24 Left carotid artery stenosis(Discharge Diagnosis) - 03/12/24 Chronic kidney disease, stage 3b(Final) - Type 2 diabetes mellitus with diabetic chronic kidney disease(Final) - Dysphagia(Discharge Diagnosis) - 03/12/24 GERD (gastroesophageal reflux disease)(Discharge Diagnosis) - 03/12/24 Discharge Disposition: Home or Self Care Attending Physician: CHERRY Manriquez Jessica A Allergies, Adverse Reactions, Alerts Substance Criticality Severity Reaction Reaction Severity Status atenolol SOB Active codeine vomiting nausea Active Bactrim vomiting nausea Active Benicar kidney issues Active erythromycin vomiting nausea Active lisinopril hair loss Active sulfa drugs voiting nausea Active Assessment and Plan Extracted from: Title:Office Visit Note Author:CHERRY Manriquez Jessica A Date:03/12/24 1.Benign hypertension with out CHF Benign hypertension without CHF is chronic and currently well-controlled. Goal SBP <130 135 and DBP <80-85 mmHg. To continue spironolactone 25 mg daily, amlodipine 10 mg daily and clonidine 0.2 mg TID. Continue home BP checks as well that were reviewed today. Follow up again in 6 months and sooner if needed. 2.Controlled type 2 diabetes mellitus with stage 3 chronic kidney disease, with long-term current use of insulin Type 2 diabeteswith stage 3 CKD and technician terminal and repeater use of insulin is chronic and well controlled.Goal A1c is <7% andA1c results reviewed fromJune 2023 was stable at 6.9%. She is interested in starting a GLP-1 receptor agonistin addition to her insulin for cardiac benefits. We will get updated labs today that were orderedand based on results we can then discuss starting GLP-1and would plan to reduce her insulin byat least 50%. We did discuss thather Lantus is not a short acting insulin and should not be ingestedbased on postmealglucose. She was also advisedpostprandial glucose reading is <180 and 2 hours postprandial glucose reading is <150. That goal 1 hourfor now to continue Lantus 26 units daily. Follow-up again in 6 months and annual diabetic eye exams. 3.Chronic kidney disease (CKD) stage G3b/A2, moderately decreased glomerular filtration rate (GFR) between 30-44 mL/min/1.73 square meter and albuminuria creatinine ratio between 30-299 mg/g As above in #2. 4.History of CVA (cerebrovascular accident) History of CVA is chronic. To continue on ASA81 mg and Repathainjections every 2 weeks. 5.Left carotid artery stenosis Left carotid artery stenosis is chronic and uncontrolled. Goalis prevention ofstroke. She did see vascular surgery in March 2023 who recommended carotid endarterectomy, but it sounds like patient was to have EGD due to concerns for dysphagia and eosinophilic esophagitisbefore scheduling. Has not yet had this completed or had a follow-up with vascular. I will plan to reach out tovascular via the EMR to determine ifEGD is dependent on proceeding with carotid endarterectomy. Regardless she would be open to having an endarterectomyif this is recommended, but would like to wait until after mid March when insurance changes. She also multiple times that that the close her pulse ox is normal she has not had any issues with her carotid and discussed that this is unrelateddiscussedtypically carotid artery stenosis is asymptomatic untilit results in a stroke, which could bedevastatingand be a cause of . Patient is agreeable to following back up with vascular. 6.Dysphagia Dysphagia is chronic and uncontrolled. Goal is resolution of symptoms. GI note from August 2023 was reviewed today.Start prescription for esomeprazole 40 mg, 1 tab p.o. every morning and was also given famotidine 20 mg, 1 tab p.o. twicedaily as needed for breakthrough symptoms. Encouraged her toproceed with EGD andcolonoscopy as previously recommended when financially and emotionally ready. 7.GERD (gastroesophageal reflux disease) GERD is chronic and uncontrolled. Goal is resolution of symptoms.Start prescription for esomeprazole 40 mg, 1 tab p.o. every morning and was also given famotidine 20 mg, 1 tab p.o. twicedaily as needed for breakthrough symptoms. Encouraged her toproceed with EGD andcolonoscopy as previously recommended when financially and emotionally ready. Time spent on pre-visit plannin minutes on chart review Face to face time spent w/ patient: 27 minutes Time spent documenting pertinent clinical information into the EMR: 16 minutes Total time: 48 minutes Immunizations Given and Recorded Vaccine Date Status Refusal Reason SARS-CoV-2 mRNA ([id number]) 07/12/21 Re corded SARS-CoV-2 (COVID-19) mRNA-1273 vaccine 10/07/20 R ecorded SARS-CoV-2 (COVID-19) mRNA-1273 vaccine 09/09/20 R ecorded tetanus/diphtheria/pertuss, acel (Tdap) 05/04/20 R ecorded pneumococcal 23-valent vaccine 03/16/20 Recorded Medications amLODIPine 10 mg oral tablet Start: 09/16/23 8:02:00 AM EDT, 1 tab, PO, Daily, Disp# 90 tab, Refills: 3, Pharmacy: [id number] Start Date: 09/16/23 Status: Ordered aspirin 81 mg oral delayed release tablet Start: 10/18/23 3:20:00 PM EDT, 1 tab, PO, Daily Start Date: 10/18/23 Status: Ordered cloNIDine 0.2 mg oral tablet Start: 03/12/24 7:54:00 AM EDT, 1 tab, PO, tid Start Date: 03/12/24 Status: Ordered esomeprazole 40 mg oral delayed release capsule Start: 03/12/24 8:15:00 AM EDT, 1 cap, PO, Daily, Disp# 90 cap, Refills: 3, Pharmacy: [facility] Start Date: 03/12/24 Stop Date: 03/07/25 Status: Ordered famotidine 20 mg oral tablet Start: 03/12/24 8:15:00 AM EDT, 1 tab, PO, bid, Disp# 180 tab, Refills: 3, Pharmacy: [facility] Start Date: 03/12/24 Stop Date: 03/07/25 Status: Ordered FreeStyle Dayday 2 - 14 day reader Start: 08/16/22 4:04:00 PM EST, See Instructions, Disp# 2 each, continous glucose monitoring, Pharmacy: [facility] Start Date: 08/16/22 Status: Ordered FreeStyle Dayday 2 - 14 day sensor Start: 08/16/22 4:04:00 PM EST, See Instructions, Disp# 2 each, Refills: 11, Continous glucose monitoring, Pharmacy: [facility] Start Date: 08/16/22 Status: Ordered Lantus Solostar Pen 100 units/mL subcutaneous solution Start: 02/10/24 9:38:00 AM EDT, 13 unit =, subQ, Daily, Disp# 15 mL, Refills: 1, ADJUST BASED ON GLUCOSE MONITORING., Brand Medically Necessary, Pharmacy: [facility] Start Date: 02/10/24 Status: Ordered levalbuterol CFC free 45 mcg/inh inhalation aerosol Start: 03/26/23 9:56:00 AM EDT, 2 puff, inhaled, q4h, Disp# 1 each, Refills: 5, INHALE 2 PUFFS BY MOUTH EVERY 4 HOURS NEEDED FOR WHEEZING, Pharmacy: [facility] Start Date: 03/26/23 Stop Date: 09/22/23 Status: Ordered montelukast 10 mg oral tablet Start: 09/24/22 8:22:00 AM EDT, 1 tab, PO, Daily, Disp# 30 tab, Refills: 5, TAKE 1 TABLET BY MOUTH ONCE DAILY NEEDED FOR ALLERGIES, Pharmacy: [facility] Start Date: 09/24/22 Status: Ordered mupirocin 2% topical ointment Start: 09/24/22 8:28:00 AM EDT, 1 appl, topical, tid, Disp# 15 g, Refills: 0, Pharmacy: [facility] Start Date: 09/24/22 Stop Date: 09/29/22 Status: Ordered Ozempic (0.25 mg or 0.5 mg dose) 2 mg/3 mL subQ pen Start: 03/13/24 11:17:00 AM EDT, See Instructions, subQ, q7days, Disp# 3 mL, Inject 0.25 mg every 7 days X 4 weeks then increase to 0.5 mg SQ every 7 days., Pharmacy: [facility], Supply Start Date: 03/13/24 Status: Ordered PreserVision AREDS Start: 08/21/23 9:03:00 AM EST Start Date: 08/21/23 Status: Ordered RELION PEN NEEDLE [id number] MIS USE ONCE DAILY Start Date: 07/30/22 Status: Ordered Repatha SureClick 140 mg/mL subcutaneous solution INJECT 1 SYRINGE SUBCUTANEOUSLY EVERY TWO WEEKS Start Date: 03/12/24 Status: Ordered spironolactone 25 mg oral tablet Start: 02/21/24 2:31:00 PM EDT, 1 tab, PO, Daily, Disp# 30 tab, Refills: 2, Pharmacy: [facility] Start Date: 02/21/24 Stop Date: 05/21/24 Status: Ordered Symbicort 160 mcg-4.5 mcg/inh inhalation aerosol Start: 02/05/23 1:37:00 PM EDT, See Instructions, Disp# 11 g, Refills: 5, Inhale 2 puffs by mouth twice daily, Brand Medically Necessary, Pharmacy: [facility] Start Date: 02/05/23 Status: Ordered triamcinolone 0.1% topical cream Start: 10/21/23 12:49:00 PM EDT, 1 appl, topical, bid, Disp# 454 g, Refills: 1, to arms and legs, Pharmacy: [facility] Start Date: 10/21/23 Status: Ordered Mental Status 03/12/24 Barriers to Learning one year None evide nt Mandatory Health Literacy Documentation Yes Health Literacy Communication Barriers N ever Primary Language Turkish Problem List Condition Confirmation Course Effective Dates Status H ealth Status Informant Benign hypertension without CHF Confirmed Active Chronic kidney disease (CKD) stage G3b/A2, moderately decreased glomerular filtration rate (GFR) between 30-44 mL/min/1.73 square meter and albuminuria creatinine ratio between 30-299 mg/g Confirmed Active Diastolic CHF Confirmed Active History of CVA (cerebrovascular accident) Confirmed Active Hyperlipidemia LDL goal <70 Confirmed Active HTN, goal below 130/80 Confirmed Active Left carotid artery stenosis Confirmed Active Asthma, moderate persistent, well-controlled Confirmed Active Controlled type 2 diabetes mellitus with stage 3 chronic kidney disease, with long-term current use of insulin Confirmed Active Diagnosis Diagnosis Type Effective Dates Health Status Clinical Service Informant Benign hypertension without CHF Discharge Diagnosis 03/12/24 Non-Specified Controlled type 2 diabetes mellitus with stage 3 chronic kidney disease, with long-term current use of insulin Discharge Diagnosis 03/12/24 Non-Specified Chronic kidney disease (CKD) stage G3b/A2, moderately decreased glomerular filtration rate (GFR) between 30-44 mL/min/1.73 square meter and albuminuria creatinine ratio between 30-299 mg/g Discharge Diagnosis 03/12/24 Non-Specified Left carotid artery stenosis Discharge Diagnosis 03/12/24 Non-Specified History of CVA (cerebrovascular accident) Discharge Diagnosis 03/12/24 Non-Specified Dysphagia Discharge Diagnosis 03/12/24 Non-Specified GERD (gastroesophageal reflux disease) Discharge Diagnosis 03/12/24 Non-Specified Procedures Procedure Date Related Diagnosis Body Site Status CT of head 1 06/08/[address] [place] [address] IMPRESSION: 1. No acute intracranial hemorrhage. 2. Expected evolution of the subacute right frontal and left occipital infarcts shown on MRI of June 03, 2023. Possible subacute right cerebellar infarct. No hemorrhagic conversion. No significant mass effect. 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 Results Laboratory List Name Date Comprehensive Metabolic Panel (COMP META B PANEL) 03/12/24 Hemoglobin A1C (HEMOGLOBIN, A1C) 03/12/24 Lipid Profile (LIPOPROTEINS) 03/12/24 Microalbumin, Urine, Random (MICROALBUMI N, RD UR) 03/12/24 Thyroid Stimulating Hormone (TSH) 4 Most recent to oldest [Reference Range]: 1 eGFR CKD-EPI [>60 mL/min/1.73 m2] 36 mL/ min/1.73 m2 1 *LOW* (03/12/24 8:49 AM) Estimated Average Glucose 117 mg/dL 2 (03/12/24 8:49 AM) Non-HDL 69 mg/dL 3 (03/12/24 8:49 AM) Estimated CrCl 38.34 mL/min (03/12/24 10:08 AM) Micro Alb (u) [<2.00 mg/dL] <1.20 mg/dL (03/12/24 8:49 AM) Anion Gap [5-14 mmol/L] 6 mmol/L (03/12/24 8:49 AM) Alb [3.5-5.0 g/dL] 4.0 g/dL (03/12/24 8:49 AM) Alk Phos [38-126 unit/L] 59 unit/L (03/12/24 8:49 AM) ALT [<35 unit/L] 12 unit/L (03/12/24 8:49 AM) AST [15-46 unit/L] 19 unit/L (03/12/24 8:49 AM) BUN [7-20 mg/dL] 19 mg/dL (03/12/24 8:49 AM) Ca [8.4-10.2 mg/dL] 9.1 mg/dL (03/12/24 8:49 AM) Chol/HDL 3 (03/12/24 8:49 AM) Chol [125-200 mg/dL] 106 mg/dL *LOW* (03/12/24 8:49 AM) Cl- [96-107 mmol/L] 110 mmol/L *HI* (03/12/24 8:49 AM) HCO3 [22-30 mmol/L] 25 mmol/L (03/12/24 8:49 AM) Cret [0.60-1.00 mg/dL] 1.53 mg/dL *HI* (03/12/24 8:49 AM) HbA1c [4.0-6.0 %] 5.7 % (03/12/24 8:49 AM) Glu [74-106 mg/dL] 88 mg/dL (03/12/24 8:49 AM) HDL [>35 mg/dL] 37 mg/dL (03/12/24 8:49 AM) K [3.5-5.1 mmol/L] 4.6 mmol/L (03/12/24 8:49 AM) LDL Chol, Calculated [50-130 mg/dL] 43 m g/dL *LOW* (03/12/24 8:49 AM) Micro Alb Ratio [<20 ug/mg cret] NOT ANGIE CULATED ug/mg cret (03/12/24 8:49 AM) Na [137-145 mmol/L] 141 mmol/L (03/12/24 8:49 AM) T Bili [0.2-1.3 mg/dL] 0.4 mg/dL (03/12/24 8:49 AM) Prot [6.3-8.2 g/dL] 7.0 g/dL (03/12/24 8:49 AM) TG [<200 mg/dL] 129 mg/dL (03/12/24 8:49 AM) TSH [0.47-4.68 uIU/mL] 2.90 uIU/mL 4 (03/12/24 8:49 AM) Creat (u) 72.99 mg/dL 5 (03/12/24 8:49 AM) 1Result Comment: Testing Performed By: Dept of Pathology [facility] Jordan Alex, [address] [place] [address], [place] [address] 2Result Comment: Testing Performed [facility]: [facility], [address] [place] [address], [place] [address] 3Result Comment: Testing Performed By: Dept of Pathology [facility] Jordan Alex, [address] [place] [address], [place] [address] 4Result Comment: Testing Performed By: [facility], [address] [place] [address], [place] [address] 5Result Comment: Reference Range for Random Urine Not Established. Vital Signs Most recent to oldest [Reference Range]: 1 Patient Weight 94.6 kg (03/12/24 7:51 AM) Temperature [36.5-37.9 DegC] 36.5 DegC (03/12/24 7:51 AM) Heart Rate 66 bpm (03/12/24 7:51 AM) Respiratory Rate 16 br/min (03/12/24 7:51 AM) Blood Pressure 128/72mmHg (03/12/24 7:51 AM) Cuff Pulse Pressure 56 mmHg (03/12/24 7:51 AM) BP Location # 1 Left Arm, Manual (03/12/24 7:51 AM) Social History Social History Type Response Smoking Status Never smoked cigaret domenic Sex Female Sex Representation Female (finding) FCM Outpt Note * CHERRY Manriquez, Anh Finn: PERFORM Event Display: FCM Outpt Note Authored Date: [id number] Chief Complaint Routine visit History of Present Illness Izabel presents for 6 month follow up ofhyperlipidemia, left carotid artery stenosis,historyof both hemorrhagic and ischemic CVA, HTN without known hx of HTN and type 2 diabetes w/ stage III CKD. Since our last visit she did see vascular surgery at [facility] due to chronic left carotid stenosis that was confirmed on US in March 2023 to be 80-99% occluded. Dr. Botello recommended carotid endarterectomy. At that visit patient was also talking about her chronic dysphagia and concern for EoE,so he also recommended GI referral and EGD.She did have a consult with Dr. Alfaro of [facility] and EGD. Notes that she has notscheduled these due topoor insurance coverage and financial difficulties. She is unsureif she still needs to have these test completed before she can have an endarterectomy, but also wonders if she needs an endarterectomy because "my pulse ox is just fine at home." Continues on ASA 81 mg daily and is now on Repatha for hyperlipidemia due to intolerance of statins. No blurred vision, loss of vision, slurred speech, facial droop, confusion, extremity weakness, extremity paresthesias or mental status changes. GERD ischronic and has been uncontrolled. Has daily heartburnof varying severity that feels like a sense of burning in her substernal region and radiates into her throatthat is worse after eating. She takes yoag-oyh-rmrdflqNyfftg 20 mg, 1-2 tabs p.o. dailywhen heartburn is bad and if she is feeling slightly nauseated she will use famotidine. Wonders if she can get a prescription as this would be more cost effective. She does have chronic dysphagia to solid foodswith intermittent need for food regurgitation, nausea and vomiting. Admits that she has not had any episodes in the last few months, butdid see GI andhas a plan to schedule EGD and colonoscopy as recommendedafter mid March 2024 when insurance changes. Hyperlipidemia, HTNand history of both hx ischemic and hemorrhagic CV[facility]. Orantes, every 6 months. For chronic hyperlipidemia, she has previouslybeen intolerant to statin therapy and is now on Repatha. She had been on Praulent, but this was tooexpensive. Checks her BP at home daily thatruns 120-140s/70-80s.Remains on spironolactone 25 mg daily, amlodipine 10 mg daily and clonidine 0.2mg, 1 tab p.o. 3 times daily. No ETOH, tobaccoor recreational drug use. No regular exercise.No claudication, chest pain, SOB, palpitations,tachycardia, dizziness, lightheadedness, weakness, near syncope, syncope, nausea, vomiting, diarrhea, constipation, cough, LE edema, headaches, blurred vision, loss of vision, confusion or epistaxis. Moderate persistent asthma is now well controlled.She is using Symbicort 160/4.5 mcg, 2 inhalations p.o. twice daily only during the spring and summer months. Uses Xopenex PRN, which is less thanonce a month. Type 2 diabetes is chronic and well controlled. Last A1c was 6.9% in June 2023. Checking [id number] minutes after eating or drinking multiple times/day and glucose is usually around 200.Uses Lantus 25 to 26 units once daily; admits she'll use 1-2 units more if she will be eating something sweeter during the day. Notes that she took metformin in the past, but this was discontinuedas it caused her to have "pernicious anemia."Has not had recent hypoglycemia, but when present what will cause excessive sweating. Getting annualeye examinations. Interested jarad GLP1 receptoragonist for DMand cardiacbenefits.No polyuria, polydipsia, polyphagia, numbness/tingling in extremities, poor healing wounds, foot ulcerations, blurred vision, loss of vision, chest pain, SOB, palpitations, tachycardia, loss of balance or falls. Review of Systems ROS:All other systems negative, except HPI. Physical Exam Vitals & Measurements T:36.5C HR:66(Monitored) RR:16 BP:128/72 SpO2:96% WT:94.6kg WT:94.600kg(Dosing) PHQ2 Data(Data Documented on:03/12/2024 07:51) Emotional health assessment NEGATIVE General: Alert and oriented, No acute distress.Pleasant. Eye: Pupils are equal, round and reactive to light, Extraocular movements are intact, Normal conjunctiva. HENT: Normocephalic. TMs clear bilaterally. Posterior pharynx is pink. Uvula rises midline. No drooling, stridor or cyanosis. Neck: Supple, No lymphadenopathy, No thyromegaly. + faint left carotid bruit. Respiratory: Lungs are clear to auscultation, Respirations are non-labored, Breath sounds are equal, Symmetrical chest wall expansion. Cardiovascular: Normal rate, Regular rhythm, + soft, grade I JETT loudest at 2nd ICS, RUSB. No gallop, Good pulses equal in all extremities, Normal peripheral perfusion. No LE edema. Abdomen: Normoactive BS x 4. Soft. No tenderness, palpable masses or organomegaly. Lymphatics: No submandibular, anterior or posterior cervical adenopathy palpable. Musculoskeletal Normal gait. FROM and 5/5 strength at BLE and BUE. Integumentary: Warm, [place], No pallor. Neurologic: Alert, Oriented, Cranial Nerves II-XII are grossly intact. Cognition and Speech: Oriented, Speech clear and coherent, Functional cognition intact. Psychiatric: Cooperative, Appropriate mood & affect, Normal judgment, Nonsuicidal. Assessment/Plan 1.Benign hypertension without CHF Benign hypertension without CHF is chronic and currently well-controlled. Goal SBP <130 135 and DBP <80-85 mmHg. To continue spironolactone 25 mg daily, amlodipine 10 mg daily and clonidine 0.2 mg TID. Continue home BP checks as well that were reviewed today. Follow up again in 6 months and sooner if needed. 2.Controlled type 2 diabetes mellitus with stage 3 chronic kidney disease, with long-term currentuse of insulin Type 2 diabeteswith stage 3 CKD and care home use of insulin is chronic and well controlled.Goal A1c is <7% andA1c results reviewed fromJune 2023 was stable at 6.9%. She is interested in starting a GLP-1 receptor agonistin addition to her insulin for cardiac benefits. We will get updated labs today that were orderedand based on results we can then discuss starting GLP-1and would plan to reduce her insulin byat least 50%. We did discuss thather Lantus is not ashort acting insulin and should not be ingestedbased on postmealglucose. She was also advisedpostprandial glucose reading is <180 and 2 hours postprandial glucose reading is <150. That goal 1 hourfor now to continue Lantus 26 units daily. Follow-up again in 6 months and annual diabetic eye exams. 3.Chronic kidney disease (CKD) stage G3b/A2, moderately decreased glomerular filtration rate (GFR) between 30-44 mL/min/1.73 square meter and albuminuria creatinine ratio between 30-299 mg/g As above in #2. 4.History of CVA (cerebrovascular accident) History of CVA is chronic. To continue on ASA81 mg and Repathainjections every 2 weeks. 5.Left carotid artery stenosis Left carotid artery stenosis is chronic and uncontrolled. Goalis prevention ofstroke. Shedid see vascular surgery in March 2023 who recommended carotid endarterectomy, but it sounds likepatient was to have EGD due to concerns for dysphagia and eosinophilic esophagitisbefore scheduling. Has not yet had this completed or had a follow-up with vascular. I will plan to reach out tovascular via the EMR to determine ifEGD is dependent on proceeding with carotid endarterectomy. Regardless she would be open to having an endarterectomyif this is recommended, but would liketo wait until after mid March when insurance changes. She also multiple times that that the close her pulse ox is normal she has not had any issues with her carotid and discussed that this is unrelateddiscussedtypically carotid artery stenosis is asymptomatic untilit results in a stroke, which could bedevastatingand be a cause of . Patient is agreeable to following back up with vascular. 6.Dysphagia Dysphagia is chronic and uncontrolled. Goal is resolution of symptoms. GI note from August 2023 was reviewed today.Start prescription for esomeprazole 40 mg, 1 tab p.o. every morning and was also given famotidine 20 mg, 1 tab p.o. twicedaily as needed for breakthrough symptoms. Encouraged her toproceed with EGD andcolonoscopy as previously recommended when financially and emotionally ready. 7.GERD (gastroesophageal reflux disease) GERD is chronic and uncontrolled. Goal is resolution of symptoms.Start prescription for esomeprazole 40 mg, 1 tab p.o. every morning and was also given famotidine 20 mg, 1 tab p.o. twicedaily as needed for breakthrough symptoms. Encouraged her toproceed with EGD andcolonoscopy as previously recommended when financially and emotionally ready. Time spent on pre-visit plannin minutes on chart review Face to face time spent w/ patient: 27 minutes Time spent documenting pertinent clinical information into the EMR: 16 minutes Total time: 48 minutes Problem List/Past Medical History Ongoing Asthma, moderate persistent, well-controlled Benign hypertension without CHF Chronic kidney disease (CKD) stage G3b/A2, moderately decreased glomerular filtration rate (GFR) between 30-44 mL/min/1.73 square meter and albuminuria creatinine ratio between 30-299 mg/g Controlled type 2 diabetes mellitus with stage 3 chronic kidney disease, with long-term current useof insulin Diastolic CHF History of CVA (cerebrovascular accident) HTN, goal below 130/80 Hyperlipidemia LDL goal <70 Left carotid artery stenosis Resolved Other hyperlipidemia Procedure/Surgical History CT of head| Service Date: 06/08/2023 Medications amLODIPine(amLODIPine 10 mg oral tablet), 1 tab, PO, Daily aspirin(aspirin 81 mg oral delayed release tablet), 81 mg= 1 tab, PO, Daily budesonide-formoterol(Symbicort 160 mcg-4.5 mcg/inh inhalation aerosol), See Instructions cloNIDine(cloNIDine 0.2 mg oral tablet), 0.2 mg= 1 tab, PO, tid diabetes supplies(Sonexa TherapeuticsStyle Dayday 2 - 14 day reader), See Instructions diabetes supplies(FreeStyle Dayday 2 - 14 day sensor), See Instructions, 11 refills esomeprazole(esomeprazole 40 mg oral delayed release capsule), 40 mg= 1 cap, PO, Daily, 3 refills evolocumab(Repatha SureClick 140 mg/mL subcutaneous solution) famotidine(famotidine 20 mg oral tablet), 20 mg= 1 tab, PO, bid, 3 refills insulin glargine(Lantus Solostar Pen 100 units/mL subcutaneous solution), 20 TO 25 UNITS, subQ, Daily levalbuterol(levalbuterol CFC free 45 mcg/inh inhalation aerosol), 2 puff, inhaled, q4h, 5 refills montelukast(montelukast 10 mg oral tablet), 10 mg= 1 tab, PO, Daily, 5 refills multivitamin with minerals(PreserVision AREDS) mupirocin topical(mupirocin 2% topical ointment), 1 appl, topical, tid spironolactone(spironolactone 25 mg oral tablet), 25 mg= 1 tab, PO, Daily, 2 refills triamcinolone topical(triamcinolone 0.1% topical cream), 1 appl, topical, bid, 1 refills unlisted medication(RELION PEN NEEDLE [id number] MIS) Allergies Bactrimvomiting, nausea Benicarkidney issues atenololSOB codeinevomiting, nausea erythromycinvomiting, nausea lisinoprilhair loss sulfa drugsvoiting, nausea Social History Smoking Status Never smoked cigarettes Family History Cancer: Mother and Brother. Heart attack: Father. Heart disease: Sister. Type I diabetes mellitus: Sister. Health Status Family Member(s) Immunizations Vaccine Date Status SARS-CoV-2 mRNA ([id number]) 07/12/2021 Recorded SARS-CoV-2 (COVID-19) mRNA-1273 vaccine 10/07/2020 Recorded SARS-CoV-2 (COVID-19) mRNA-1273 vaccine 09/09/2020 Recorded tetanus/diphtheria/pertuss, acel (Tdap) 05/04/2020 Recorded pneumococcal 23-valent vaccine 03/16/2020 Recorded Recommendations Health Maintenance Pending(in the next year) OverDue Adult Influenza Vaccine due12/15/23and every 1year Due Breast Cancer Screening due02/03/24and every 731day Adult COVID-19 Vaccination due03/12/24Unknown Frequency Adult Social Determinants of Health Screening due03/12/24Unknown Frequency Colorectal Cancer Screening due03/12/24Unknown Frequency Hepatitis C Screening due03/12/24One-time only Medicare Annual Wellness Visit due03/12/24and every 1year Osteoporosis Screening due03/12/24One-time only Shingles Vaccine due03/12/24One-time only Due In Future Diabetic Eye Exam not due until01/01/25and every 731day Satisfied(in the past 1 year) Satisfied Body Mass Index on10/18/23.Satisfied by LALO Melendez Kyla Diabetes Management A1c on03/12/24.Satisfied by Contributor_system, [email or web address] Lipid Screening on03/12/24.Satisfied by Contributor_system, [email or web address] Electronic Signature on File Electronically Reviewed/Signed by: Anh Manriquez PA-C,MARQUIS Author Signature Dt/Tm::50 PM Physician Memory Care Program Resident [facility] [address] [place] [address] JAW Patient Care team information Care Team Personnel Name: MD Caesar, Bin Jackson Position: Physician - Gastro Member Role: Lifetime Relationship Address: [address] [place] [address] [place] Name: CHERRY Erickson Lynn Position: Physician Memory Care Program Resident Exempt - Vasc Surg Member Role: Lifetime Relationship Address: [address] [place] [id number] [place] Name: CHERRY Manriquez, Anh Finn Position: Physician Asst Exmpt - Family Med Member Role: Primary Care Provider Address: [address] [place] [address] Care Team Related Persons Name: ZAKIA ARANDA
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
[2024-03-19 05:24] LABS: Chol HDL Ratio 2.9 (0-5)
[2024-03-19 06:33] LABS: Basophils # (auto) 0.03 K/uL (0.00-0.20); Basophils % (auto) 0.4 %; Eosinophils # (auto) 0.02 K/uL (0.00-0.50); Eosinophils % (auto) 0.3 %; Hemoglobin 11.4 g/dl (12.0-16.0); Immature Granulocytes # (auto) 0.02 K/uL (0.01-0.20); Immature Granulocytes % (auto) 0.3 %; Lymphocytes % (auto) 20.5 %; Mean Corpuscular Hemoglobin 31.8 pg (25.0-34.0); Mean Corpuscular Hgb Conc 33.5 g/dL (32.0-36.0); Mean Platelet Volume 11.9 fL (9.4-12.4); Monocytes # (auto) 0.58 K/uL (0.11-0.59); Monocytes % (auto) 7.9 %; Neutrophils # (auto) 5.18 K/uL (1.40-6.50); Neutrophils % (auto) 70.6 %; Platelet Count 190 K/uL (130-400); RDW Coefficient of Variation 12.3 % (11.5-14.5); RDW Standard Deviation 42.8 fL (36.4-46.3); Red Blood Count 3.58 M/uL (4.20-5.40); White Blood Count 7.33 K/ul (4.8-10.8)
--- NOTE | 2024-03-19 06:44 | Critical Care Progress Note ---
Date of Service March 19, 2024 Assessment & Plan (1) STEMI (ST elevation myocardial infarction): Plan Pt is a 74 yo female with a past medical hx of CVA (R RECREATION LEADER infarct in 2018), DMT2, HTN, asthma who presented to the hospital on 03/18 for chest pain, found to have a STEMI, s/p heart cath with prox RCA stent on 03/18. Reason Critically Ill: ST elevation RI POD #1 s/p cardiac cath 03/18 with prox RCA stent placement PLAN: Neuro: -no additional needs Headache -Tylenol as needed CV: Hypertension Coronary artery disease -s/p heart cath with RCA stent 03/18 -Refer to cardiology consultation; plan for cath again tomorrow -for HTN, taking metoprolol tartrate 25mg BID, home amlodipine 10mg held on admission, clonidine 0.2 QID held on admission, home spironolactone 25mg daily held on admission GI/Nutrition: -statin intolerance noted; in place of statin will continue home repatha on discharge per cardio note Renal Pt notes baseline CKD, Cr 1.2 or so baseline -Cr 1.49 yesterday improved slightly to 1.40 today, Heme: -Dual antiplatelet therapy; aspirin and Brilinta -DVT prophylaxis: Patient ambulatory Endocrine: -ICU hyperglycemia protocol -Check hemoglobin A1c; 5.9 -lipids; TChol 95, LDL 37, triglyc 124 Vascular access: Peripheral IVs Code Status: Full code Disposition: ICU for cardiac monitoring Admission and Anticipated Discharge Date Admission Date: March 18, 2024 Supervising Physician Co-Signing Physician Notes Dr. Garza was resident physician during care of patient. I separately evaluated patient for brooks portions of the history and the exam. I was present during the critical portion of medical decision making, and I discussed the case with the resident. I generally agree with the findings and plan. Episode of nonsustained ventricular tachycardia. Optimize electrolytes. Patient stable for downgrade out of ICU. Critical care will sign off Subjective Pt is a 74 yo female with a past medical hx of CVA (R RECREATION LEADER infarct in 2018), DMT2, HTN, asthma who presented to the hospital on 03/18 for chest pain, found to have a STEMI, s/p heart cath with prox RCA stent on 03/18. Today, pt states she is feeling okay this morning aside from the sensation of occasional palpitations. She states the palpitations come and go and started overnight. No complaints of chest pain or associated shortness of breath. She did note some nausea overnight that was relieved with zofran, no vomiting. Has not had a headache since yesterday but would like tylenol this morning as a preventative for headache. Review of Systems Review of Systems: All systems reviewed & are unremarkable except as noted in HPI & below Physical Exam Physical Exam: General: Alert and oriented, no acute distress HEENT: Normocephalic, atraumatic, Resp: Lungs clear to auscultation bilaterally, no increased work of breathing Cardio: Regular rate but sporadic skipped beat noted GI: Soft and nontender, nondistended, bowel sounds active Skin: Warm, dry, no rashes on visible skin Results & Data Results & Data Vital Signs (Past 12 Hours) Vital Signs Temp Pulse Resp BP Pulse Ox 03/19/24 06:06 69 16 171/81 H 03/19/24 05:57 71 15 94 03/19/24 05:05 36.8 C 03/19/24 05:03 58 L 15 164/67 H 94 03/19/24 04:57 60 13 93 03/19/24 04:00 55 L 15 139/77 95 03/19/24 03:30 79 22 92 03/19/24 02:06 63 14 95 03/19/24 01:00 61 11 L 140/89 95 03/19/24 00:30 36.7 C 03/19/24 00:15 61 03/19/24 00:03 68 16 147/65 H 96 03/18/24 23:51 58 L 15 94 03/18/24 23:12 71 15 95 03/18/24 23:00 124/59 L 03/18/24 22:39 62 13 96 03/18/24 22:03 70 16 154/89 H 99 03/18/24 21:57 57 L 12 96 03/18/24 21:09 63 17 152/72 H 97 03/18/24 20:51 65 19 98 03/18/24 20:00 60 19 96 03/18/24 19:30 61 15 131/61 96 03/18/24 19:03 63 13 148/71 H 95 03/18/24 18:44 36.6 C (1) STEMI (ST elevation myocardial infarction) Involved coronary artery: right coronary artery Qualified Code(s): I21.11 - ST elevation (STEMI) myocardial infarction involving right coronary artery
[2024-03-19 06:45] LABS: BUN Creatinine Ratio 12.9 (10-20); Calcium 9.1 mg/dl (8.6-10.3); Creatinine Clr Calc Pharmacy 44.5 ml/min; Magnesium 1.9 mg/dl (1.7-2.4); Phosphorus 3.8 mg/dl (2.5-4.9)
[2024-03-19 07:53] LABS: Estimated Average Glucose 123 mg/dl; Hemoglobin A1C 5.9 % (4.5-5.6)
[2024-03-19] MEDS: TICAGRELOR 90 MG TAB PO SCH (08:48)
[2024-03-19] MEDS: FAMOTIDINE 20 MG TAB PO SCH (08:49)
[2024-03-19] MEDS: ASPIRIN 81 MG ECTAB PO SCH (08:49)
[2024-03-19] MEDS: PANTOprazole 40 MG TAB PO SCH (08:50)
[2024-03-19] MEDS ORDERED: ATORVASTATIN 40 MG TAB PO SCH (09:00)
--- NOTE | 2024-03-19 10:09 | Cardiology Progress Note ---
Date of Service March 19, 2024 Assessment & Plan (1) STEMI (ST elevation myocardial infarction): (2) CAD (coronary atherosclerotic disease): (3) Diastolic dysfunction: (4) Familial hypercholesterolemia: (5) Bilateral carotid artery disease: Plan Will cont DAPT indefinitely. She needs to be made aware that she is not on Brilinta and not plavix. She tells me she is due for her Repatha shot tomorrow- she can take this when home. will review last lipids. For staged intervention of LAD tomorrow. Keep NPO post midnight. I will follow up with patient post DC in 2 weeks Admission and Anticipated Discharge Date Admission Date: March 18, 2024 Subjective Pt is a 74 yo female with a past medical hx of CVA (R BR[place] CUTTER infarct in 2018-with left sided weekness after she had ?head trauma), DMT2, HTN, asthma who presented to the hospital on 03/18 for chest pain, found to have a STEMI, s/p CBI by Dr. Frankel with prox RCA stent on 03/18. Her cath was reviewed she also had mid severe LAD disease as well as severe Cx disease. After discussion with Dr. Frankel, the plan is to stent LAD tomorrow pnd renal function. She was seen today in her room with her son. She is feeling well without cardiac complaints. We discussed her known severe LICA disease and mild-mod DARYL being followed by Dr. Botello. She is schedule to see his office in early April for f/u carotids. Her ECG and ECHO were both reviewed. Review of Systems Review of Systems: All systems reviewed & are unremarkable except as noted in HPI & below Physical Exam Physical Exam: AAO x 3 in NAD resting comfortably Respiratory: normal respiratory effort, lungs clear to auscultation Cardiovascular: Regular, JETT at base b/l carotid bruits noted right radial pulse intact; some bruising Results & Data Vital Signs (Past 12 Hours) Vital Signs Temp Pulse Resp BP Pulse Ox 03/19/24 06:06 69 16 171/81 H 03/19/24 05:57 71 15 94 03/19/24 05:05 36.8 C 03/19/24 05:03 58 L 15 164/67 H 94 03/19/24 04:57 60 13 93 03/19/24 04:00 55 L 15 139/77 95 03/19/24 03:30 79 22 92 03/19/24 02:06 63 14 95 03/19/24 01:00 61 11 L 140/89 95 03/19/24 00:30 36.7 C 03/19/24 00:15 61 03/19/24 00:03 68 16 147/65 H 96 03/18/24 23:51 58 L 15 94 03/18/24 23:12 71 15 95 03/18/24 23:00 124/59 L 03/18/24 22:39 62 13 96 03/18/24 22:03 70 16 154/89 H 99 Laboratory Results Abnormal lab results 03/18/24 03/18/24 03/18/24 Range/Units 12:58 13:34 13:52 WBC (4.8-10.8) K/ul RBC (4.20-5.40) M/uL Hgb (12.0-16.0) g/dl Hct (37.0-47.0) % Neut # (Auto) 7.59 H (1.40-6.50) K/uL Lymph # (Auto) (1.20-3.40) K/uL Activ Coag Time Kaolin 183 H 238 H (94-140) SECONDS Chloride (98-107) mmol/L Creatinine 1.49 H (0.6-1.2) mg/dl Glucose 155 H (70-99(Fasting)) mg/dl POC Glucose (70-99) mg/dl Hemoglobin A1c (4.5-5.6) % Troponin I High Sens 93.0 H* (0-14) pg/ml 03/18/24 03/18/24 03/18/24 Range/Units 15:12 16:21 20:28 WBC 11.29 H (4.8-10.8) K/ul RBC 4.03 L (4.20-5.40) M/uL Hgb (12.0-16.0) g/dl Hct (37.0-47.0) % Neut # (Auto) 9.75 H (1.40-6.50) K/uL Lymph # (Auto) 1.14 L (1.20-3.40) K/uL Activ Coag Time Kaolin (94-140) SECONDS Chloride (98-107) mmol/L Creatinine (0.6-1.2) mg/dl Glucose (70-99(Fasting)) mg/dl POC Glucose 121 H 114 H (70-99) mg/dl Hemoglobin A1c (4.5-5.6) % Troponin I High Sens 682.6 H* D (0-14) pg/ml 03/18/24 03/19/24 Range/Units 22:37 04:49 WBC (4.8-10.8) K/ul RBC 3.58 L (4.20-5.40) M/uL Hgb 11.4 L (12.0-16.0) g/dl Hct 34.0 L (37.0-47.0) % Neut # (Auto) (1.40-6.50) K/uL Lymph # (Auto) (1.20-3.40) K/uL Activ Coag Time Kaolin (94-140) SECONDS Chloride 109 H (98-107) mmol/L Creatinine 1.40 H (0.6-1.2) mg/dl Glucose (70-99(Fasting)) mg/dl POC Glucose (70-99) mg/dl Hemoglobin A1c 5.9 H (4.5-5.6) % Troponin I High Sens 52587.9 H* D 30461.2 H* D (0-14) pg/ml Medications Administered Current Inpatient Medications Acetaminophen (Acetaminophen 500 Mg Tab) 1,000 mg PO Q8H PRN PRN Reason: Pain Stop: 04/17/24 20:58 Last Admin: 03/19/24 07:27 Dose: 1,000 mg Aspirin (Aspirin 81 Mg Ectab) 81 mg PO [facility] Stop: 04/18/24 08:59 Last Admin: 03/19/24 08:49 Dose: 81 mg Atropine Sulfate (Atropine Sulfate 0.1 Mg/Ml 10ml Syr) 0.5 mg IV UD PRN PRN Reason: bradycardia/hypotension Stop: 04/17/24 14:17 Dextrose (Dextrose 50% 50 Ml Syringe) 25 - 50 ml IV UD PRN; Protocol PRN Reason: Hypoglycemia Protocol Stop: 04/17/24 16:32 Famotidine (Famotidine 20 Mg Tab) 20 mg PO [facility] Stop: 04/18/24 08:59 Last Admin: 03/19/24 08:49 Dose: 20 mg Glucagon (Glucagon For Inj 1 Mg Vial) 1 mg SQ UD PRN; Protocol PRN Reason: Hypoglycemia Protocol Stop: 04/17/24 16:32 Glucose (Glucose 40% Gel 15 Gm Tube) 15 - 30 gm PO UD PRN; Protocol PRN Reason: Hypoglycemia Protocol Stop: 04/17/24 16:32 Glucose (Glucose 10 Tab/Tube) 4 - 8 tab PO UD PRN; Protocol PRN Reason: Hypoglycemia Treatment Stop: 04/17/24 16:32 Sodium Chloride (Nss) 1,000 mls @ 75 mls/hr IV .[id number] [facility] Stop: 04/17/24 14:29 Last Admin: 03/19/24 05:16 Dose: 75 mls/hr Insulin Aspart (Insulin Aspart Per Unit Charge) 0 units SC ACHS [facility] Stop: 04/17/24 17:14 Last Admin: 03/19/24 08:54 Dose: 3 units Insulin Glargine (Lantus Per Unit Charge) 0 units SC PM [facility]; Protocol Stop: 04/17/24 20:59 Last Admin: 03/18/24 20:31 Dose: Not Given Metoprolol Tartrate (Metoprolol Tartrate 25 Mg Tab) 25 mg PO BID [facility] Stop: 04/17/24 20:59 Last Admin: 03/19/24 08:48 Dose: 25 mg Miscellaneous (Carbohydrates For Hypoglycemia ) 15 - 30 gm PO UD PRN PRN Reason: Hypoglycemia Protocol Stop: 04/17/24 16:32 Miscellaneous Information (Pharmacy Glycemic Mgmt Consult) 1 each N/A UD PRN; Protocol PRN Reason: Consult Stop: 04/17/24 16:32 Nitroglycerin (Nitroglycerin Sl 0.4 Mg/Tab Tab) 0.4 mg SL Q5M PRN PRN Reason: Chest Pain Stop: 04/17/24 14:17 Ondansetron HCl (Ondansetron Inj 2 Mg/Ml 2 Ml Vial) 4 mg IV Q6H PRN PRN Reason: Nausea And Vomiting Stop: 04/17/24 14:17 Last Admin: 03/19/24 06:11 Dose: 4 mg Pantoprazole Sodium (Pantoprazole 40 Mg Tab) 40 mg PO QAM [facility] Stop: 04/18/24 08:59 Last Admin: 03/19/24 08:50 Dose: 40 mg Ticagrelor (Ticagrelor 90 Mg Tab) 90 mg PO BID [facility] Stop: 04/18/24 08:59 Last Admin: 03/19/24 08:48 Dose: 90 mg (1) STEMI (ST elevation myocardial infarction) Involved coronary artery: right coronary artery Qualified Code(s): I21.11 - ST elevation (STEMI) myocardial infarction involving right coronary artery
[2024-03-19] MEDS: CALCIUM CARBONATE 500 MG CHEWABLE TAB PO PRN (12:43)
--- NOTE | 2024-03-19 13:07 | Pharmacy Report ---
Pharmacy Glycemic Short Note 2 - Date of Service March 19, 2024 - Glycemic Short BSG Results (Last 24 hours): 03/18/24 03/18/24 03/18/24 12:58 16:21 20:28 Glucose 155 H POC Glucose 121 H 114 H 03/19/24 03/19/24 03/19/24 04:49 07:23 11:16 Glucose 76 POC Glucose 90 108 H OUTPATIENT ANTIDIABETIC REGIMEN: * Lantus 13 units SC HS * Ozempic 0.25 mg SC every Saturday * HbA1c: 5.9% (03/19/24) ASSESSMENT: * 74 yo F admitted on 03/18/24 secondary to STEMI. Pharmacy has been consulted to assist with inpatient glycemic management. Patient is a Type 2 diabetic as an outpatient. Please refer to outpatient regimen and most recent HbA1c above. * BSGs last evening were 121 and 114 mg/dL. Received no insulin last night. Last dose of Lantus was 03/17/24. * Fasting BSG this AM was 90 mg/dL. Continue with scaled basal dose at bedtime only. Continue with previously ordered Novolog parameters based on weight stress of 2. PLAN FOR INPATIENT GLYCEMIC CONTROL: * Hold outpatient Ozempic * Basal insulin * Lantus 0-10 units SC HS * Bolus insulin * NovoLog per scale ACHS or Q6hrs while NPO * Goal Range: Low 110 mg/dL - High 140 mg/dL * Correction Factor: 30 mg/dL/unit * Nutritional / Prandial insulin per carb ratio of 1 unit per 10 grams CHO consumed
--- NOTE | 2024-03-19 13:26 | Billing Data ---
Date of Service March 19, 2024 Coding Level of Care Code 75679 SUB INP/OBS CARE
[2024-03-19 14:37] LABS: Basophils # (auto) 0.04 K/uL (0.00-0.20); Basophils % (auto) 0.4 %; Eosinophils # (auto) 0.06 K/uL (0.00-0.50); Eosinophils % (auto) 0.6 %; Hemoglobin 13.3 g/dl (12.0-16.0); Immature Granulocytes # (auto) 0.04 K/uL (0.01-0.20); Immature Granulocytes % (auto) 0.4 %; Lymphocytes # (auto) 2.08 K/uL (1.20-3.40); Lymphocytes % (auto) 21.7 %; Mean Corpuscular Hemoglobin 31.5 pg (25.0-34.0); Mean Corpuscular Hgb Conc 32.4 g/dL (32.0-36.0); Mean Corpuscular Volume 97.2 fL (80.0-100.0); Mean Platelet Volume 11.5 fL (9.4-12.4); Monocytes # (auto) 0.65 K/uL (0.11-0.59); Monocytes % (auto) 6.8 %; Neutrophils # (auto) 6.73 K/uL (1.40-6.50); Neutrophils % (auto) 70.1 %; Platelet Count 245 K/uL (130-400); RDW Coefficient of Variation 12.4 % (11.5-14.5); RDW Standard Deviation 44.3 fL (36.4-46.3); Red Blood Count 4.22 M/uL (4.20-5.40)
--- NOTE | 2024-03-19 17:44 | Hospitalist Progress Note ---
Date of Service March 19, 2024 Assessment & Plan (1) STEMI (ST elevation myocardial infarction): Plan: S/p cardiac catheterization with severe multivessel coronary artery disease with successful PCI of the culprit RCA with STONE Aspirin, Brilinta, metoprolol, Repatha (continue as outpatient), intolerant to statins Hold clonidine, spironolactone and amlodipine for consideration of ACEi/ARB (possible prior concern with lisinopril of hair loss per patient) TTE WIll ttransfer out of the ICU. Planned for a staged PCI, planning to stent LAD on 03/20 (2) Type 2 diabetes mellitus: Plan: HbA1C 6.0 in May 2023, will repeat with AM labs Recently reduced Lantus dosing due to starting on Ozempic (due next dose on Saturday) Consult pharmacy for glycemic control in setting of STEMI (3) History of stroke: (4) Hypertension: (5) Hyperlipidemia: Plan GERD - takes famotidine everyday for nausea, Nexium more as needed, continue pantoprazole and famotidine daily here VTE prophylaxis - deferred to ICU team Diet - heart healthy, T2DM Disposition - admit to ICU Admission and Anticipated Discharge Date Admission Date: March 18, 2024 Subjective Patient reports no new symptoms. Review of Systems Review of Systems: All systems reviewed & are unremarkable except as noted in HPI & below Physical Exam Constitutional: WD/WN, vitals as above Eyes: + anicteric sclerae; normal pupil size ENMT: external ear and nose normal, oropharynx normal Respiratory: normal respiratory effort, lungs clear to auscultation Cardiovascular: RRR, no murmur, no edema Gastrointestinal (Abdomen): normal bowel sounds, soft, nontender, no hepatosplenomegaly Musculoskeletal: no cyanosis or clubbing, extremities motor strength 5/5 Skin: no rashes, warm and dry Neurologic: moves all extremities and awake; no focal motor deficits and not confused Psychiatric: A+Ox3, euthymic affect Genitourinary: no CVA tenderness Results & Data Results & Data Vital Signs (Past 12 Hours) Vital Signs Temp Pulse Resp BP Pulse Ox O2 Del Method O2 Del Method 03/19/24 15:00 Room Air 03/19/24 12:07 36.9 C 03/19/24 11:16 154/88 H 03/19/24 11:06 54 L 17 100 Room Air 03/19/24 11:00 61 15 03/19/24 10:12 60 18 95 03/19/24 09:00 67 28 H 96 03/19/24 08:21 79 15 94 03/19/24 08:00 36.8 C 03/19/24 08:00 160/89 H 03/19/24 07:51 68 21 95 03/19/24 07:00 63 16 95 03/19/24 06:06 69 16 171/81 H 03/19/24 05:57 71 15 94 PG Care Time/CCT Total # of Minutes Spent Total Time Spent with Patient: Total time spent is greater than 50% in coordination of care (as documented) at patient's floor/unit and/or counseling patient: Coding Level of Care Code 52194 SUB INP/OBS CARE 2/35MIN Diagnoses ST elevation myocardial infarction involving right coronary artery I21.11 Involved coronary artery: right coronary artery Type 2 diabetes mellitus E11.9 History of stroke Z86.73 Hypertension I10 Hyperlipidemia E78.5 (1) STEMI (ST elevation myocardial infarction) Involved coronary artery: right coronary artery Qualified Code(s): I21.11 - ST elevation (STEMI) myocardial infarction involving right coronary artery
[2024-03-20 07:28] LABS: BUN Creatinine Ratio 11.2 (10-20); Calcium 9.7 mg/dl (8.6-10.3); Creatinine Clr Calc Pharmacy 43.5 ml/min; Potassium 4.2 mmol/L (3.5-5.1)
--- NOTE | 2024-03-20 08:18 | Pre Anesthesia Assessment ---
Date of Service March 20, 2024 Pre Sedation Assessment Vital Signs Temp Pulse Pulse Resp BP BP Pulse Ox 03/20/24 07:34 61 03/20/24 07:11 36.8 C 66 18 175/73 H 93 03/20/24 03:08 37.1 C 62 16 170/78 H 93 03/19/24 23:43 64 03/19/24 23:00 36.8 C 70 20 161/80 H 93 03/19/24 20:00 36.5 C 72 18 172/75 H 99 03/19/24 18:00 62 16 03/19/24 18:00 179/71 H 03/19/24 18:00 179/71 H 03/19/24 17:16 173/94 H 03/19/24 17:16 173/94 H 03/19/24 17:16 173/94 H 03/19/24 17:12 83 20 03/19/24 17:06 63 17 03/19/24 16:13 188/79 H 03/19/24 16:13 188/79 H 03/19/24 16:12 72 16 96 03/19/24 16:09 67 22 03/19/24 15:48 36.8 C 03/19/24 15:09 63 27 H 03/19/24 15:00 03/19/24 14:21 58 L 20 03/19/24 13:00 173/79 H 03/19/24 13:00 58 L 21 03/19/24 12:07 36.9 C 03/19/24 12:06 60 17 03/19/24 11:27 60 16 03/19/24 11:16 154/88 H 03/19/24 11:06 54 L 17 100 03/19/24 11:00 61 15 03/19/24 10:12 60 18 95 03/19/24 09:00 67 28 H 96 03/19/24 08:21 79 15 94 O2 Del Method O2 Del Method 03/20/24 07:34 03/20/24 07:11 Room Air 03/20/24 03:08 Room Air 03/19/24 23:43 03/19/24 23:00 Room Air 03/19/24 20:00 Room Air 03/19/24 18:00 03/19/24 18:00 03/19/24 18:00 03/19/24 17:16 03/19/24 17:16 03/19/24 17:16 03/19/24 17:12 03/19/24 17:06 03/19/24 16:13 03/19/24 16:13 03/19/24 16:12 03/19/24 16:09 03/19/24 15:48 03/19/24 15:09 03/19/24 15:00 Room Air 03/19/24 14:21 03/19/24 13:00 03/19/24 13:00 03/19/24 12:07 03/19/24 12:06 03/19/24 11:27 03/19/24 11:16 03/19/24 11:06 Room Air 03/19/24 11:00 03/19/24 10:12 03/19/24 09:00 03/19/24 08:21 Cardiovascular Additional Comments: Regular rate and rhythm. Grade 2/6 SM. No edema. Respiratory normal respiratory effort, lungs clear to auscultation Pre-Sedation Airway Assessment Smoking Status: Never smoker Hx Sleep Apnea: No Short, Thick Neck: No Thyromental Distance: > or= 3.5 Finger Breadths Oral Cavity: + WNL Mallampati Class: III ASA: ASA3 NPO Status Date of Last Intake of Fluids: 03/20/24 Time of Last Intake of Fluids: 07:56 Last Oral Intake of Fluids Comment: sip with meds Date of Last Intake of Solid Food: 03/19/24 Notes The planned sedation has been discussed with the patient. Informed Consent was obtained. I have identified the patient, determined the appropriateness of sedation and have assessed the patient immediately prior to the procedure. All medicine(s) and interventions are by my order.
[2024-03-20] MEDS: ASPIRIN 81 MG CHEW ONE (08:31)
[2024-03-20] MEDS: fentaNYL citrate PF 100 MCG/2 ML VIAL ONE (09:04)
[2024-03-20] MEDS: HEPARIN (PORCINE) 1000 UNIT/ML 10 ML (CATH LAB USE ONLY) ONE (09:05)
[2024-03-20] MEDS: MIDAZOLAM HCL 1 MG/ML 2ML VIAL ONE (09:05)
[2024-03-20] MEDS: OPTIRAY 350 ONE (09:06)
[2024-03-20] MEDS: niCARdipine HCL INJ 2.5 MG/ML 10 ML AMP ONE (09:07)
[2024-03-20] MEDS: hydrALAZINE HCL 20 MG/ML VIAL ONE (09:08)
[2024-03-20] MEDS: METOPROLOL TARTRATE 1 MG/ML VIAL IV ONE (09:08)
--- NOTE | 2024-03-20 09:12 | Post Anesthesia Assessment ---
Date of Service March 20, 2024 Post Sedation Assessment Vital Signs Temp Pulse Pulse Resp BP BP Pulse Ox 03/20/24 07:34 61 03/20/24 07:11 36.8 C 66 18 175/73 H 93 03/20/24 03:08 37.1 C 62 16 170/78 H 93 03/19/24 23:43 64 03/19/24 23:00 36.8 C 70 20 161/80 H 93 03/19/24 20:00 36.5 C 72 18 172/75 H 99 03/19/24 18:00 62 16 03/19/24 18:00 179/71 H 03/19/24 18:00 179/71 H 03/19/24 17:16 173/94 H 03/19/24 17:16 173/94 H 03/19/24 17:16 173/94 H 03/19/24 17:12 83 20 03/19/24 17:06 63 17 03/19/24 16:13 188/79 H 03/19/24 16:13 188/79 H 03/19/24 16:12 72 16 96 03/19/24 16:09 67 22 03/19/24 15:48 36.8 C 03/19/24 15:09 63 27 H 03/19/24 15:00 03/19/24 14:21 58 L 20 03/19/24 13:00 173/79 H 03/19/24 13:00 58 L 21 03/19/24 12:07 36.9 C 03/19/24 12:06 60 17 03/19/24 11:27 60 16 03/19/24 11:16 154/88 H 03/19/24 11:06 54 L 17 100 03/19/24 11:00 61 15 03/19/24 10:12 60 18 95 O2 Del Method O2 Del Method 03/20/24 07:34 03/20/24 07:11 Room Air 03/20/24 03:08 Room Air 03/19/24 23:43 03/19/24 23:00 Room Air 03/19/24 20:00 Room Air 03/19/24 18:00 03/19/24 18:00 03/19/24 18:00 03/19/24 17:16 03/19/24 17:16 03/19/24 17:16 03/19/24 17:12 03/19/24 17:06 03/19/24 16:13 03/19/24 16:13 03/19/24 16:12 03/19/24 16:09 03/19/24 15:48 03/19/24 15:09 03/19/24 15:00 Room Air 03/19/24 14:21 03/19/24 13:00 03/19/24 13:00 03/19/24 12:07 03/19/24 12:06 03/19/24 11:27 03/19/24 11:16 03/19/24 11:06 Room Air 03/19/24 11:00 03/19/24 10:12 Recovery Score Activity: Moves 4 extremities Respiration: Deep Breath/Cough Circulation: +/-20% PreAnes Value Consciousness: Arouseable (by name) Oxygen Saturation: > 92% On Room Air Post Anesthesia Score: 9 Discharge Sedation Level of Care: Fast Track Phase II Post Sedation Plan On clinical assessment, the patient appears to have tolerated the sedation without complications. Patient is recovering as anticipated. Patient will continue to be monitored by nursing and may be discharged when sedation discharge criteria are met per below protocol. Upon Completions of procedure up to 15 minutes continue every 5 minute vital signs and the P.A.R. score; then discharge to a Phase I or Fast Track to Phase II per the following guidelines: * Discharge Patient to appropriate Phase II area if PAR is 8 or greater or return to pre- procedure baseline. The post - procedure orders will be as directed. * If PAR score is less than 8 or not return to pre-procedure baseline then patient will follow Phase I monitoring till PAR is reached for Phase II. The Phase I may be done in procedure room or may call to secure a Phase I area. * If naloxone or flumazenil are used for reversal, hold in Phase I for continued monitoring from when last reversal dose was given for a minimum of 60 minutes or longer pending the nurse and/or physician discretion of patient condition before discharge to Phase II. Please call the Sedation Physician to re-evaluate and complete post-note for discharge to Phase II area. Do NOT discharge from procedure sedation or Phase 1 until post- sedation evaluation note is complete by procedure /sedation MD Sedation Discharge Instructions to be given to the patient at discharge to home. [facility] Procedure Codes (Charges) Indication for Procedure Indication for procedure: Severe coronary artery disease Sedation/Anesthesia Procedure 1: Sedation/Anesthesia: 06159 Mod Sedation by the same physician;Init15 Min Child Age 5 & Up (Initial 15 minutes, start 0833) Total Sedation Time (minutes): 27 Procedure 2: Sedation/Anesthesia: 41904 Mod Sedation by the same physician; Ea [id number] Minutes (Additional 12 minutes, and 0900) Total Sedation Time (minutes): 27
[2024-03-20 09:15] VITALS: RESP 16
[2024-03-20] MEDS: IODIXANOL (VISIPAQUE) 320 MG/ML 100ML IV ONE (09:25)
[2024-03-20] MEDS: NITROGLYCERIN/D5W 100MCG/ML 20ML SYR ONE (09:25)
--- NOTE | 2024-03-20 12:08 | Pharmacy Report ---
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 Pharmacy has been consulted to assist with inpatient glycemic management. Patient is a Type 2 diabetic as an outpatient. Please refer to outpatient regimen and most recent HbA1c above. * BSGs last evening were 121 and 114 mg/dL. Received no insulin last night. Last dose of Lantus was 03/17/24. * Fasting BSG this AM was 90 mg/dL. Continue with scaled basal dose at bedtime only. Continue with previously ordered Novolog parameters based on weight stress of 2. PLAN FOR INPATIENT GLYCEMIC CONTROL: * Hold outpatient Ozempic * Basal insulin * hold * Bolus insulin * NovoLog per scale ACHS or Q6hrs while NPO * Goal Range: Low 110 mg/dL - High 140 mg/dL * Correction Factor: 30 mg/dL/unit * Nutritional / Prandial insulin per carb ratio of 1 unit per 10 grams CHO consumed
--- NOTE | 2024-03-20 12:48 | Cardiac Catheterization ---
[facility] Data: Body Sander Cardiac Status Clinical evaluation leading to the procedure CAD Presenation: Stable angina Anginal Classification: CCS III Heart Failure: No Cardiogenic Shock within 24 Hours: No Cardiac Arrest within 24 Hours: No Imaging Studies Past 6 Months: Yes (Cath for STEMI) Coronary Anatomy Left Main (% Stenosis): Normal (See prior diagnostic report) Diagnostic Physicians Name: Rod Frankel MD, PhD Closure Device Percutaneous Entry Location: Radial Closure Device: Radial Band Recommendations: Medical Therapy and/or Counseling and PCI without planned CABG PCI Indication: Stable Angina Lesion Segment Name: Mid LAD Culprit Artery: Yes Stenosis Prior to Rx (%): 90-95% Chronic Total Occlusion: No Pre-Procedure GEETA Flow: 3 Previously Treated Lesion: No Lesion Complexity: Non-High/Non-C Lesion Length (mm): 24 Thrombus Present: No Bifurcation Lesion: Yes Guidewire Across Lesion: Yes Intraprocedure Events Significant Disection: No Perforation: No Cardiac Cath Procedure Full Procedure Date March 20, 2024 Pre-Procedure Diagnosis Pre-Procedure Diagnosis: CAD AUC Score AUC Score: 07 Post-Procedure Diagnosis Post-Procedure Diagnosis: Severe CAD and Successful PCI Procedure(s) Performed Procedure(s) Performed: Coronary Angiography and Drug Eluting Stent Stock Plan Administrator Rod Frankel MD, PhD Estimated Blood Loss Estimated Blood Loss: 10 Medication(s) Medication(s): Fentanyl, Heparin, Hydralazine, Lidocaine 1%, Metoprolol, Nicardipine, Nitroglycerin and Versed Summary of Findings Brief description: Patient was brought to the cardiac catheterization suite where she was shaved and prepped in a sterile fashion. Sedated using IV Versed and fentanyl. Soft tissues of the right wrist were anesthetized using 2 mL of 1% Xylocaine. Using the ultrasound for guidance (image saved), the right radial artery was accessed and a 6 Algerian radial artery glide sheath was placed. Patient was provided anticoagulation with IV heparin and antispasmodics including nitroglycerin and nicardipine. She was also provided IV hydralazine and Lopressor for hypertension. A 6 Algerian EBU 3.0 guide catheter was used to engage the left main coronary. A BMW reversal guidewire was advanced and positioned distally in the LAD LAD lesion was predilated using a trek 2.5 x 12 mm balloon inflated 3 times at 8 ace PCI with stent implantation using [place] 2.5 x 30 mm drug-eluting stent deployed initially at 14 ace with a second inflation to 16 ace. Postdilatation of the proximal and mid portion of the stent with a NC Shiv 2.75 x 12 mm noncompliant balloon. 17 ace proximally and 15 ace mid stent. Post PCI angiography was performed. Coronary guidewire was removed and final angiographic evaluation performed. Guide catheter was removed from the patient. Radial artery sheath was removed. Hemostasis was obtained using the TR band. Patient remained hemodynamically stable and asymptomatic. She was returned to the recovery area. This ended the case. PCI findings: 0% residual stenosis in the mid LAD post PCI (90% reduced to 0% stenosis) GEETA-3 flow post PCI No evidence of dissection or perforation post PCI Summary: 1. Successful PCI of the mid LAD using a single drug-eluting stent. 2. Continue dual antiplatelet therapy with aspirin and Brilinta to complete 1 to 2 years. 3. Continue guideline directed medical therapy for secondary prevention of coronary disease per primary stone product fabricator. Hemodynamics Rest Ao:: 186/102 mmHg Final Ao: 204/86 mmHg LV: Not performed Recommendations Recommendations: Medical Therapy and/or Counseling and PCI without planned CABG Radiation Exposure (mGy) 846 mGy, fluoroscopy time 7.3 minutes Contrast (mls) 95 Anesthesia 1 mg Versed, 25 mcg fentanyl IV. Start 0833, and 0900 Disposition Body Sander Holding/Recovery I attest to the content of the Intraoperative Record and any orders documented therein. Any exceptions are noted below. [facility] Card Cath Procedure Codes Therapeutic Services & Ancillary Procedure 1: Cardiovascular Tx and Anc Procedures: 40057 Ultrasonic Guidance Vascular Access Moderate Sedation Procedure 1: Sedation/Anesthesia: 23434 Mod Sedation by the same physician;Init15 Min Child Age 5 & Up (Initial 15 minutes, start time 0833) Procedure 2: Sedation/Anesthesia: 26252 Mod Sedation by the same physician; Ea [id number] Minutes (Additional 12 minutes, end time 0900) Stenting Procedure 1: Cardiovascular Stent Procedures: 94375 Perc transcatheter placement of intracoronary stent(s), with ang (LAD) PG Care Time/CCT Total # of Minutes Spent Total Time Spent with Patient: Total time spent is greater than 50% in coordination of care (as documented) at patient's floor/unit and/or counseling patient:
[2024-03-20 15:23] LABS: Basophils # (auto) 0.03 K/uL (0.00-0.20); Basophils % (auto) 0.4 %; Eosinophils # (auto) 0.01 K/uL (0.00-0.50); Eosinophils % (auto) 0.1 %; Hematocrit (blood only) 39.9 % (37.0-47.0); Immature Granulocytes # (auto) 0.06 K/uL (0.01-0.20); Immature Granulocytes % (auto) 0.8 %; Lymphocytes # (auto) 1.18 K/uL (1.20-3.40); Lymphocytes % (auto) 15.3 %; Mean Corpuscular Hemoglobin 31.2 pg (25.0-34.0); Mean Corpuscular Hgb Conc 32.6 g/dL (32.0-36.0); Mean Corpuscular Volume 95.7 fL (80.0-100.0); Mean Platelet Volume 11.6 fL (9.4-12.4); Monocytes # (auto) 0.43 K/uL (0.11-0.59); Monocytes % (auto) 5.6 %; Neutrophils # (auto) 6.01 K/uL (1.40-6.50); Neutrophils % (auto) 77.8 %; Platelet Count 205 K/uL (130-400); RDW Coefficient of Variation 12.3 % (11.5-14.5); RDW Standard Deviation 42.9 fL (36.4-46.3); Red Blood Count 4.17 M/uL (4.20-5.40); White Blood Count 7.72 K/ul (4.8-10.8)
[2024-03-20 15:26] VITALS: BP 148/80; TEMP 97.9; O2SAT 94
[2024-03-20 16:30] VITALS: PULSE 75
--- NOTE | 2024-03-20 18:44 | Electrocardiogram Report ---
Test Reason : Blood Pressure : */* mmHG Vent. Rate : 85 BPM Atrial Rate : 85 BPM P-R Int : 138 ms QRS Dur : 76 ms QT Int : 392 ms P-R-T Axes : 32 48 23 degrees QTcB Int : 466 ms Normal sinus rhythm Low voltage QRS T wave abnormality, consider lateral ischemia Abnormal ECG Confirmed by Jose Montero ([id number]) on 03/20/2024 6:44:31 PM Referred By: REFERRED SELF Confirmed By: Jose Montero
--- NOTE | 2024-03-20 18:45 | Electrocardiogram Report ---
Test Reason : Blood Pressure : */* mmHG Vent. Rate : 74 BPM Atrial Rate : 74 BPM P-R Int : 142 ms QRS Dur : 84 ms QT Int : 404 ms P-R-T Axes : 70 70 -61 degrees QTcB Int : 448 ms Normal sinus rhythm with sinus arrhythmia Abnormal ECG Confirmed by Jose Montero ([id number]) on 03/20/2024 6:45:00 PM Referred By: REFERRED SELF Confirmed By: Jose Montero
--- NOTE | 2024-03-23 08:17 | Discharge Summary ---
Discharge Summary Date of Service March 20, 2024 Principal Dx & Hospital Course #1 = Principal Diagnosis (1) STEMI (ST elevation myocardial infarction): S/p cardiac catheterization with severe multivessel coronary artery disease with successful PCI of the culprit RCA with STONE Aspirin, Brilinta, metoprolol, Repatha (continue as outpatient), intolerant to statins Hold clonidine, spironolactone and amlodipine for consideration of ACEi/ARB (possible prior concern with lisinopril of hair loss per patient) TTE WIll ttransfer out of the ICU. Planned for a staged PCI, planning to stent LAD on 03/20 (2) Type 2 diabetes mellitus: HbA1C 6.0 in May 2023, will repeat with AM labs Recently reduced Lantus dosing due to starting on Ozempic (due next dose on Saturday) Consult pharmacy for glycemic control in setting of STEMI (3) History of stroke: (4) Hypertension: (5) Hyperlipidemia: Plan GERD - takes famotidine everyday for nausea, Nexium more as needed, continue pantoprazole and famotidine daily here VTE prophylaxis - deferred to ICU team Diet - heart healthy, T2DM Disposition - admit to ICU Admission HPI Per Admitting Provider Tessa Almaraz is a 74 year old female presents to the ER with chest pain. Around 10am had severe central chest pain radiating to jaw with associated nausea, shortness of breath and diaphoresis. Severity 10/10. Patient seen after cardiac catheterization and currently notes no chest pain. Accidently locked in her daughters room and managed to push her way out but with all the exertion is when the pain started but did not alleviate when at rest. Called her son who brought her to the ER. 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 Discharge Exam Constitutional WD/WN, vitals as above Eyes + anicteric sclerae; normal pupil size ENMT external ear and nose normal, oropharynx normal Respiratory normal respiratory effort, lungs clear to auscultation Cardiovascular RRR, no murmur, no edema Gastrointestinal (Abdomen) normal bowel sounds, soft, nontender, no hepatosplenomegaly Musculoskeletal no cyanosis or clubbing, extremities motor strength 5/5 Skin no rashes, warm and dry Neurologic moves all extremities and awake; no focal motor deficits and not confused Psychiatric A+Ox3, euthymic affect Genitourinary no CVA tenderness Discharge Plan Discharge Items Patient Disposition: Home - Self-Care Reason For Visit: STEMI Discharge Diagnosis: CAD S/P PCI Activity: Per Instructions section Non-emergency contact: Social Security Benefits Interviewer Call non-emergency contact if: you have any medication questions, your symptoms worsen, your pain is not controlled, you have a fever, your wound has increased redness and your wound has increased drainage Follow-up/Referrals: Anh Manriquez PA-C [Primary Care Provider] - Diet: Carb Consistent or DM2 and Heart Healthy Addtl Attending Provider Instructions: ACTIVITY RECOMMENDATIONS: It is common to feel weak and fatigue for a few days. * Do not drive or operate any motorized equipment for the next three days. * Limit stair usage (2 or 3 trips a day only) for the next three days. * Do not lift anything heavier than 10 pounds for the next three days. * Do not engage in vigorous exercise or any sports for the next five days. * You may shower the day after your procedure, but do not immerse the area for three days. Cleanse the site gently with soap and water. SPECIAL CARE INSTRUCTIONS: * You may replace the pressure dressing or band-aid the morning after the procedure. * After your procedure, it is normal to have a small bruise or small lump at the site. Examine your site daily for any change in the bruise or lump, redness, swelling, drainage or numbness. Notify your doctor if any change. BLEEDING: * If there is a small amount of bleeding at the site, lie down and apply firm pressure with a clean cloth for ten minutes. When the bleeding stops, lie quietly keeping the procedure limb straight for six hours. Notify your doctor as soon as possible. * If the bleeding does not stop after ten minutes or if there is a large amount of bleeding or spurting, call 911 immediately. Continue to lie down and hold firm pressure until help arrives. SKIN IRRITATION: * You may experience some redness and/or swelling in the area where radiation was administered. If any skin irritation occurs, please contact your family physician. FOLLOW UP VISIT: Keep any scheduled doctor appointments. Pending Studies at Discharge: No Stand-Alone Forms: My [employer], Smoking Cessation Medications and DC Order Prescriptions: New Brilinta 90 mg Tablet 90 mg PO BID Qty: 180 3RF metoprolol tartrate 25 mg Tablet 25 mg PO BID Qty: 180 3RF Continued amlodipine 10 mg tablet 10 mg PO QAM montelukast 10 mg Tablet 10 mg PO DAILY PRN (Reason: asthma) levalbuterol tartrate [Xopenex HFA] 45 mcg/actuation Hfa Aerosol Inhaler 2 inh INHALATION Q6H PRN (Reason: Shortness Of Breath Or Wheezing) budesonide-formoterol [Symbicort] 160-4.5 mcg/actuation HFA aerosol inhaler 2 puff INHALATION BID PRN (Reason: seasonal) insulin glargine [Lantus Solostar U-100 Insulin] 100 unit/mL (3 mL) insulin pen 13 unit SUBCUT PM Ozempic 0.25 mg or 0.5 mg (2 mg/3 mL) pen injector 0.25 mg SUBCUT WK Rx Instructions: Saturday clonidine HCl 0.1 mg tablet 0.2 mg PO QID spironolactone 25 mg tablet 25 mg PO DAILY famotidine 20 mg Tablet 20 mg PO DAILY PRN (Reason: gerd/nausea) esomeprazole magnesium 40 mg capsule,delayed release(DR/EC) 40 mg PO DAILY PRN (Reason: gerd/nausea) Repatha SureClick 140 mg/mL pen injector 140 mg SUBCUT UD Rx Instructions: fridays aspirin 81 mg Tablet,Delayed Release (Dr/Ec) 81 mg PO QAM Qty: 90 3RF Discharge Orders: Discharge Order (Routine); Ordered 03/20/24 Ordered By: Isidro Berg Admission Data Admit Date/Time: 03/18/24 13:17 Attending Provider: Isidro Berg Admit Provider: Eliazar Kim Primary Care Provider: Anh Manriquez Other Providers: Rod Frankel; Eliazar Kim; Armando Hamm Other Interventions: Discharge Summary Assessment (RN) Last Done: 03/20/24 16:26 Hospital Stay Data Consultations 03/18/24 13:01 Consult Cardiac Catheterization Stat 03/18/24 13:05 ED Decision to Admit Stat 03/18/24 14:59 Consult Medication Aid Routine 03/20/24 09:03 Consult Cardiac Rehabilitation Routine Procedures Performed Operation Date: 03/20/24 08:00 Actual Procedures p Cineradiography w/Routine Exam - Rod Frankel MD, PhD p Drug Eluting Stent SGl Vessel - Rod Frankel MD, PhD Diagnostic Imagining Performed 03/18/24 13:09 CL Cath Imgs for PACS use only Stat 03/20/24 07:12 CL Cath Imgs for PACS use only Routine Pending Results Patient Have Any Pending Studies at Discharge: No Discharge Instructions Given to Patient (Per Discharging Provider) ACTIVITY RECOMMENDATIONS: It is common to feel weak and fatigue for a few days. * Do not drive or operate any motorized equipment for the next three days. * Limit stair usage (2 or 3 trips a day only) for the next three days. * Do not lift anything heavier than 10 pounds for the next three days. * Do not engage in vigorous exercise or any sports for the next five days. * You may shower the day after your procedure, but do not immerse the area for three days. Cleanse the site gently with soap and water. SPECIAL CARE INSTRUCTIONS: * You may replace the pressure dressing or band-aid the morning after the procedure. * After your procedure, it is normal to have a small bruise or small lump at the site. Examine your site daily for any change in the bruise or lump, redness, swelling, drainage or numbness. Notify your doctor if any change. BLEEDING: * If there is a small amount of bleeding at the site, lie down and apply firm pressure with a clean cloth for ten minutes. When the bleeding stops, lie quietly keeping the procedure limb straight for six hours. Notify your doctor as soon as possible. * If the bleeding does not stop after ten minutes or if there is a large amount of bleeding or spurting, call 911 immediately. Continue to lie down and hold firm pressure until help arrives. SKIN IRRITATION: * You may experience some redness and/or swelling in the area where radiation was administered. If any skin irritation occurs, please contact your family physician. FOLLOW UP VISIT: Keep any scheduled doctor appointments. Coding Diagnoses ST elevation myocardial infarction involving right coronary artery I21.11 Involved coronary artery: right coronary artery Type 2 diabetes mellitus E11.9 History of stroke Z86.73 Hypertension I10 Hyperlipidemia E78.5
== END 2024-03-20 17:59 | disposition home or self-care (01) | DRG 322 ==
LOC: ED 12:40 → CC 13:09 → SUATTDRO 13:17 → 1E 13:17 → CC 13:32 → 2S 03-19 22:57
PROC: CLB.CCO (2024-03-18 13:10)

== ENCOUNTER 2024-09-02 12:25 | Observation (INO) ==
--- NOTE | 2024-09-02 12:52 | Emergency Department Note ---
Impression & Plan Carotid artery stenosis, History of coronary artery disease, Occlusion of left vertebral artery, Acute UTI, Acute confusion ED Provider Note NAME: IZABEL CAMACHO AGE: 74 SEX: F : 1950 ARRIVES VIA: Walk-In INFORMANT: Patient, ED PROVIDER(S): Kennedy Hudson MD CHIEF COMPLAINT: Confusion MEDICAL DECISION MAKING: Patient presents due to concern for confusion. IV was established and blood work was obtained along with CT head and CT angiography of the head and neck. Patient currently without any obvious deficits. Patient with history of CAD reported some left-sided chest pain 1 out of 10 burning nonradiating not exertional. EKG blood work troponin and chest x-ray also obtained. Patient's blood work shows a normal white count H&H and platelet count. The patient's kidney function with a creat of 1.37. Glucose 133. LFTs and troponin unremarkable TSH normal. Patient's CT head is negative. 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 The patient's neck CTA shows severe stenosis proximal left ICA age-indeterminate but likely occlusion of the proximal mid left vertebral artery. Given these concerns I did speak the on-call vascular surgeon Dr. Botello who recommended admission for stroke workup after discussing the patient's presenting symptoms which were confusion. He did not recommend heparin at this time to continue dual antiplatelet therapy as the patient is already on aspirin and Plavix. Further discussion about restarting the patient's Repatha. I did speak the on-call hospitalist service Dr. Griffiths and the patient was admitted to medicine service. Urinalysis does show concern for possible infection. Rocephin ordered. Discussion w/ other healthcare providers: Dr. Botello vascular surgery Dr. Singh inpatient medicine service Prior /Outside records reviewed: None Differential diagnosis: Infection, dehydration, metabolic abnormality, hypo/hyperglycemia, electrolyte imbalance, anemia, UTI, pneumonia, thyroid dysfunction among others were considered. Diagnostics, as interpreted by me: ECG: Sinus bradycardia, rate of 56, normal intervals, normal axis, T wave version in lead III no obvious ST elevations. Cardiac monitoring: An order was placed for continuous cardiac monitoring. The monitor shows a rate of 62 with sinus rhythm. Patient was placed on pulse oximetry Medical decision rules: None Imaging studies: I informally interpreted the patient's CT head does not show obvious acute ICH with formal report to follow. HPI: Patient presents due to concern for confusion. The patient had spoken with the patient's daughter today and was confused and not know the date was curious as to why the daughter sister was not at the home. Reportedly the daughter sister was removed from living with her back in February. Last known well was normal last evening. Patient also did not know the president or some other questions. She thus presented here with her family who are concerned given her change in mentation. No reported falls or trauma. The patient does have a prior history of ICH associated stroke which this had some associated left-sided deficits at the time that it occurred back in 2018 but this resolved. No surgery at that time. Patient does take aspirin and Brilinta. The patient has been out of her Repatha for the last 2 weeks. No history of CAD and has had 3 MIs in the past and does have several stents. She does follow with Dr. Lerma in [place] as well as Dr. Gutierrez here locally at [facility]. Patient states she is otherwise compliant with her medications other than being out of her most recent Repatha. Patient denies any falls or trauma. Reportedly did have mild headache today and did take aspirin and Tylenol resolved. No vomiting. No sensory deficits no slurred speech or facial droop. PAST MEDICAL HISTORY: See Below PAST SURGICAL HISTORY: See Below SOCIAL HISTORY: See Below HOME MEDICATIONS: See Below ALLERGIES: See Below VITALS: See Below PHYSICAL EXAMINATION: GENERAL: NAD, non-toxic. EYE EXAM: Normal conjunctiva. PERRL, no anisocoria and EOM's grossly intact w/o pain. OROPHARYNX: Moist mucus membranes, grossly normal dentition. NECK: Trachea midline, no stridor. Supple, no nuchal rigidity, no adenopathy, non-tender. No signs of meningismus. FROM of the neck with good chin to chest and neck extension. LUNGS: Clear to auscultation. Normal chest wall mechanics. HEART: NSR, no MRG. ABDOMEN: Abdomen soft, non-tender, no masses, no rebound or guarding. BACK: No CVA TTP. SKIN: No rashes and no bruising. UPPER EXTREMITIES: Upper extremities are grossly normal. LOWER EXTREMITIES: Grossly normal, no edema. NEURO EXAM: A&O x3, cranial nerves II-XII grossly intact, normal speech, moves all 4 extremities. Good [id number], no drift and no sensory deficits. Past Med/Surg History Problem List (Updated 09/02/24 @ 17:27 by Kennedy Hudson MD) Acute confusion (Acute) Acute UTI (Acute) Occlusion of left vertebral artery (Acute) History of coronary artery disease (Acute) Carotid artery stenosis (Acute) Bilateral carotid artery disease Familial hypercholesterolemia CAD (coronary atherosclerotic disease) STEMI (ST elevation myocardial infarction) Chest pain (Acute) Intermittent chest pain Diastolic dysfunction Left-sided chest pain (Acute) Medical History Type 2 diabetes mellitus Hyperlipidemia Abnormal urinalysis Headache Asthma Diabetes No pertinent family history Surgical History No pertinent past surgical history Social History Smoking Status: Never smoker Second Hand Exposure: No; Do You Dip or Chew Tobacco: No; Hx Alcohol Use: No Hx Substance Use: No Preferred Language: Greenlandic Communication Ability: Effective Autocad Required: No Beliefs That Will Affect Care: Orthodox Current Living Situation: Alone Feels Safe at Home: Yes Assistive Devices: Denture - Upper, Denture - Lower and Glasses Allergies Allergies Allergy/AdvReac Type Severity Reaction Status Date / Time olmesartan [From Benicar] Allergy Severe Stopped me Unverified 09/02/24 15:31 from urinating erythromycin base AdvReac Severe Gastrointestinal Verified 09/02/24 15:31 Upset Ttnuafo-SAA-ChH Reductase AdvReac Severe Nausea and Verified 09/02/24 15:31 Inhibitor vomiting Sulfa (Sulfonamide AdvReac Severe Gastrointestinal Unverified 09/02/24 15:31 Antibiotics) Upset codeine AdvReac Intermediate Nausea Unverified 09/02/24 15:31 atenolol AdvReac Unknown Worsening Verified 09/02/24 15:31 Asthma Home Meds Home Medications Medication Instructions Recorded Confirmed amlodipine 10 mg tablet 10 mg PO QAM 03/16/20 09/02/24 levalbuterol tartrate 45 2 inh inhalation Q6H PRN Shortness 03/16/20 09/02/24 mcg/actuation aerosol inhaler Of Breath Or Wheezing (Xopenex HFA) montelukast 10 mg tablet 10 mg PO DAILY PRN asthma 03/16/20 09/02/24 budesonide-formoterol HFA 160 2 puff inhalation BID PRN seasonal 06/03/23 09/02/24 mcg-4.5 mcg/actuation aerosol inhaler (Symbicort) esomeprazole magnesium 40 mg 40 mg PO DAILY PRN gerd/nausea 03/18/24 09/02/24 capsule,delayed release evolocumab 140 mg/mL subcutaneous 140 mg subcut .EVERY 2 WEEKS 03/18/24 09/02/24 pen injector (Repatha SureClick) famotidine 20 mg tablet 20 mg PO DAILY PRN gerd/nausea 03/18/24 09/02/24 semaglutide 0.25 mg or 0.5 mg (2 0.5 mg subcut WK 03/18/24 09/02/24 mg/3 mL) subcutaneous pen injector (Ozempic) spironolactone 25 mg tablet 25 mg PO DAILY PRN Edema 03/18/24 09/02/24 aspirin 81 mg tablet,delayed 81 mg PO BID 09/02/24 09/02/24 release clonidine HCl 0.2 mg tablet 0.2 mg PO QID 09/02/24 09/02/24 insulin glargine 100 unit/mL (3 20 - 25 unit subcut BID 09/02/24 09/02/24 mL) subcutaneous pen (Lantus Solostar U-100 Insulin) metoprolol succinate 50 mg 50 mg PO QPM 09/02/24 09/02/24 tablet,extended release 24 hr Previous Rx's Medication Instructions Recorded ticagrelor 90 mg tablet (Brilinta) 90 mg PO BID #180 tabs 03/20/24 Results & Data (ED) Vital Signs Vital Signs - 24 hr 09/02/24 12:33 09/02/24 12:58 09/02/24 12:58 Temperature 36.7 C Temperature Source Temporal Artery Scan Pulse Rate 68 63 Pulse Rate [Apical] 63 Respiratory Rate 18 20 20 Respiratory Effort / Characteristics Non-Labored Spontaneous Respiratory Depth Normal Respiratory Pattern Regular Blood Pressure 136/82 Blood Pressure [Left Arm] 104/74 Blood Pressure Mean 100 Blood Pressure Mean [Left Arm] 84 Pulse Oximetry 97 96 96 Oxygen Delivery Method Room Air Room Air Room Air Sepsis Recent Fever Within 48 Hours No Sepsis New/Unexplained Change in Mental Status N/A Sepsis Action Taken by Nursing No Action Required 09/02/24 13:11 09/02/24 15:41 Temperature Temperature Source Pulse Rate 58 L Pulse Rate [Apical] 66 Respiratory Rate 20 Respiratory Effort / Characteristics Respiratory Depth Respiratory Pattern Blood Pressure Blood Pressure [Left Arm] 169/78 H Blood Pressure Mean Blood Pressure Mean [Left Arm] 108 Pulse Oximetry 98 Oxygen Delivery Method Room Air Sepsis Recent Fever Within 48 Hours Sepsis New/Unexplained Change in Mental Status Sepsis Action Taken by Shelter Medications Current Medication List: was personally reviewed by me Laboratory Data Attestation: I reviewed the patient's lab results. 09/02/24 12:46 09/02/24 12:46 Lab Results 09/02/24 09/02/24 Range/Units 12:46 15:31 WBC 6.25 (4.8-10.8) K/ul RBC 4.02 L (4.20-5.40) M/uL Hgb 12.6 (12.0-16.0) g/dl Hct 37.4 (37.0-47.0) % MCV 93.0 (80.0-100.0) fL MCH 31.3 (25.0-34.0) pg MCHC 33.7 (32.0-36.0) g/dL RDW Std Deviation 43.8 (36.4-46.3) fL RDW Coeff of Guillermina 12.7 (11.5-14.5) % Plt Count 177 (130-400) K/uL MPV 12.3 (9.4-12.4) fL Immature Gran % (Auto) 0.3 % Neut % (Auto) 74.2 % Lymph % (Auto) 18.4 % Cocke % (Auto) 5.0 % Eos % (Auto) 1.6 % Baso % (Auto) 0.5 % Neut # (Auto) 4.64 (1.40-6.50) K/uL Lymph # (Auto) 1.15 L (1.20-3.40) K/uL Cocke # (Auto) 0.31 (0.11-0.59) K/uL Eos # (Auto) 0.10 (0.00-0.50) K/uL Baso # (Auto) 0.03 (0.00-0.20) K/uL Immature Gran # (Auto) 0.02 (0.01-0.20) K/uL PT 10.2 (9.0-12.0) Seconds INR 0.9 (0.9-1.1) APTT 25 (21-31) Seconds PTT Ratio 0.9 Sodium 141 (136-145) mmol/L Potassium 4.3 (3.5-5.1) mmol/L Chloride 109 H (98-107) mmol/L Carbon Dioxide 25 (21-32) mmol/L Anion Gap 7 (3-11) BUN 14 (6-23) mg/dl Creatinine 1.37 H (0.6-1.2) mg/dl Est Cr Clr Drug Dosing 42.2 ml/min eGFR 41.03 BUN/Creatinine Ratio 10.2 (10-20) Glucose 133 H (70-99(Fasting)) mg/dl Calcium 9.5 (8.6-10.3) mg/dl Magnesium 1.9 (1.7-2.4) mg/dl Total Bilirubin 0.5 (0.2-1.0) mg/dl AST 12 L (13-39) U/L ALT 8 (7-52) U/L Alkaline Phosphatase 72 (34-104) U/L Troponin I High Sens 4.2 (0-14) pg/ml Total Protein 7.1 (6.0-8.3) gm/dl Albumin 4.1 (3.4-5.0) gm/dl Globulin 3.0 (2.5-4.0) gm/dl Albumin/Globulin Ratio 1.4 (0.9-2) TSH 1.712 (0.300-4.500) uIu/ml Urine Color Yellow Urine Appearance Clear (Clear) Urine pH 7.5 (4.5-7.5) Ur Specific [place] 1.036 H (1.000-1.030) Urine Protein Negative (Negative) Urine Glucose (UA) Negative (Negative) Urine Ketones Negative (Negative) Urine Blood Negative (Negative) Urine Nitrite Positive A (Negative) Urine Bilirubin Negative (Negative) Urine Urobilinogen Negative (Negative) Ur Leukocyte Esterase Trace H (Negative) Urine WBC (Auto) 11-20 H (0-5) /hpf Urine RBC (Auto) 0-2 (0-2) /hpf U Hyaline Cast (Auto) 0-2 (0-2) /lpf U Epithel Cells (Auto) 0-2 (0-2) /hpf Urine Bacteria (Auto) 4+ H (None Seen) Administered Medications Discontinued Medications Ioversol (Optiray 320 125ml) 120 ml IV ONCE ONE Stop: 09/02/24 14:16 Last Admin: 09/02/24 14:15 Dose: 120 ml Documented By: JAR Imaging Data Radiologist's Impression: Chest X-Ray 09/02/24 12:40 XR chest 1V portable CLINICAL HISTORY: Weakness COMPARISON STUDY: 03/18/2024 FINDINGS: Heart size and pulmonary vasculature are normal. No effusion, consolidation, or pneumothorax. IMPRESSION: No acute findings. ACT 112: Negative or not required by law. Electronically signed by: Esau Hernandez M.D. 09/02/2024 1:[address] 09/02/24 13:23 CT OF THE HEAD WITHOUT CONTRAST CLINICAL HISTORY: acute confusion, since resolved; h/o ICH COMPARISON STUDY: MRI of the brain June 03, 2023. Head CT June 08, 2023. TECHNIQUE: Helical axial images of the head were obtained without IV contrast. Automated exposure control was utilized for the study. A dose lowering technique was utilized adhering to the principles of ALARA. FINDINGS: No acute intracranial hemorrhage is present. Ventricular system is stable. Basal cisterns are patent. There are no extra-axial collection. Multifocal encephalomalacia represents old infarcts which were shown on CT of June 08, 2023 and include right frontal, bilateral occipital and bilateral cerebellar infarcts. There are no findings to suggest acute dural sinus thrombosis or acute territorial infarct. There are no calvarial fractures. IMPRESSION: 1. No acute intracranial findings. 2. Multiple old infarcts which were shown on prior CT of June 08, 2023. ACT 112: Negative or not required by law. Electronically signed by: Davion Ledesma M.D. 09/02/2024 2:25 PM Head CTA 09/02/24 13:23 CT angio head w con CLINICAL HISTORY: acute confusion, since resolved; h/o ICH. COMPARISON STUDY: MRA of 06/03/2023 TECHNIQUE: Unenhanced axial CT scan of the brain is performed. Subsequently, following the IV administration of 120 cc of Optiray, CT angiogram of the brain was performed from the skull base to the vertex. Images are reviewed in the axial, sagittal, and coronal planes. 3-D MIPS images are created and assessed. IV contrast was administered without complication. All measurements were obtained according to NASCET criteria. A dose lowering technique was utilized adhering to the principles of ALARA. CT DOSE: 996 FINDINGS: There are atherosclerotic calcifications distally at the internal carotid arteries without significant narrowing. Right vertebral artery is dominant and the left vertebral artery is diminutive but patent, anatomic variant. Basilar artery is widely patent. The anterior and middle cerebral arteries are patent bilaterally. The left posterior cerebral artery is patent. The right posterior cerebral artery demonstrates short segment occlusion proximally, stable compared with the prior MRA. 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 IMPRESSION: 1. 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 2. No new arterial occlusion seen of the brain. ACT 112: Negative or not required by law. The above report was generated using voice recognition software. It may contain grammatical, syntax or spelling errors. Electronically signed by: Esau Hernandez M.D. 09/02/2024 2:30 PM Neck CTA 09/02/24 13:23 CT ANGIOGRAPHY OF THE NECK WITH CONTRAST CLINICAL HISTORY: acute confusion, since resolved; h/o ICH COMPARISON STUDY: No previous studies for comparison. Technique: CT angiography of the carotid and vertebral arteries was obtained using Optiray and 3D reconstruction on an independent workstation. NASCET criteria was utilized. Automated exposure control was utilized for the study. A dose lowering technique was utilized adhering to the principles of ALARA. CT DOSE: 996.55 mGy.cm Findings: Visualized portions of the lung disease are unremarkable. There is no cervical spine fracture. There is no cervical lymphadenopathy. Extensive calcified and noncalcified plaque within the proximal left internal carotid artery 90% stenosis of the vessel, 1 cm distal to the vessel origin. There is moderate plaque within the right carotid bifurcation without stenosis. There is also severe stenosis of the proximal left external carotid artery. The right vertebral artery is dominant and patent. No flow is identified within the proximal to mid left vertebral artery. There is trace flow within a diminutive distal cervical portion of the left internal carotid artery. Intracranial portion of the left vertebral artery is diminutive but patent. IMPRESSION: 1. Severe (90%) stenosis of the proximal left internal carotid artery. 2. Age-indeterminate but likely occlusion of the proximal to mid left vertebral artery. Diminutive but patent distal left cervical and intracranial portions of left vertebral artery. 3. Severe stenosis at the origin of the left external carotid artery. 3. Moderate plaque within the right carotid bifurcation. No stenosis of the right internal carotid artery. ACT 112: Negative or not required by law. Electronically signed by: Davion Ledesma M.D. 09/02/2024 2:31 PM Discharge Plan Visit Data Chief Complaint: Confusion Stated Complaint: STROKE ED Provider: Kennedy Hudson Discharge Problem: Carotid artery stenosis, History of coronary artery disease, Occlusion of left vertebral artery, Acute UTI, Acute confusion Forms Stand Alone Forms: [facility] Prescriptions Prescriptions: No Action amlodipine 10 mg tablet 10 mg PO QAM montelukast 10 mg Tablet 10 mg PO DAILY PRN (Reason: asthma) levalbuterol tartrate [Xopenex HFA] 45 mcg/actuation Hfa Aerosol Inhaler 2 inh INHALATION Q6H PRN (Reason: Shortness Of Breath Or Wheezing) budesonide-formoterol [Symbicort] 160-4.5 mcg/actuation HFA aerosol inhaler 2 puff INHALATION BID PRN (Reason: seasonal) Ozempic 0.25 mg or 0.5 mg (2 mg/3 mL) pen injector 0.5 mg SUBCUT WK Rx Instructions: Saturday spironolactone 25 mg tablet 25 mg PO DAILY PRN (Reason: Edema) Rx Instructions: ordered daily but only takes prn famotidine 20 mg Tablet 20 mg PO DAILY PRN (Reason: gerd/nausea) esomeprazole magnesium 40 mg capsule,delayed release(DR/EC) 40 mg PO DAILY PRN (Reason: gerd/nausea) Repatha SureClick 140 mg/mL pen injector 140 mg SUBCUT .EVERY 2 WEEKS Rx Instructions: DUE NOW Brilinta 90 mg Tablet 90 mg PO BID Qty: 180 3RF Rx Instructions: take at 1400 & 0200 metoprolol succinate 50 mg tablet extended release 24 hr 50 mg PO QPM clonidine HCl 0.2 mg tablet 0.2 mg PO QID Rx Instructions: 0500,1000,1800,1200 insulin glargine [Lantus Solostar U-100 Insulin] 100 unit/mL (3 mL) insulin pen 20 - 25 unit SUBCUT BID Rx Instructions: ACCORDING TO GLUCOSE MONITORING aspirin 81 mg tablet,delayed release (DR/EC) 81 mg PO BID Rx Instructions: take at 1400 & 0200 Referrals Referrals: Anh Manriquez PA-C [Primary Care Provider] - Discharge Problem: Carotid artery stenosis Qualifiers: Laterality: left Qualified Code(s): I65.22 - Occlusion and stenosis of left carotid artery
[2024-09-02 13:18] LABS: Basophils # (auto) 0.03 K/uL (0.00-0.20); Basophils % (auto) 0.5 %; Eosinophils % (auto) 1.6 %; Hematocrit (blood only) 37.4 % (37.0-47.0); Hemoglobin 12.6 g/dl (12.0-16.0); Immature Granulocytes # (auto) 0.02 K/uL (0.01-0.20); Immature Granulocytes % (auto) 0.3 %; Lymphocytes # (auto) 1.15 K/uL (1.20-3.40); Lymphocytes % (auto) 18.4 %; Mean Corpuscular Hemoglobin 31.3 pg (25.0-34.0); Mean Corpuscular Hgb Conc 33.7 g/dL (32.0-36.0); Mean Platelet Volume 12.3 fL (9.4-12.4); Monocytes # (auto) 0.31 K/uL (0.11-0.59); Neutrophils # (auto) 4.64 K/uL (1.40-6.50); Neutrophils % (auto) 74.2 %; Platelet Count 177 K/uL (130-400); RDW Coefficient of Variation 12.7 % (11.5-14.5); RDW Standard Deviation 43.8 fL (36.4-46.3); Red Blood Count 4.02 M/uL (4.20-5.40); White Blood Count 6.25 K/ul (4.8-10.8)
--- NOTE | 2024-09-02 13:29 | XRay Report ---
XR chest 1V portable CLINICAL HISTORY: Weakness COMPARISON STUDY: 03/18/2024 FINDINGS: Heart size and pulmonary vasculature are normal. No effusion, consolidation, or pneumothora x. IMPRESSION: No acute findings. ACT 112: Negative or not required by law. Electronically signed by: Esau Hernandez M.D. 09/02/2024 1:28 PM
[2024-09-02 13:31] LABS: Albumin Globulin Ratio 1.4 (0.9-2); Albumin Level 4.1 gm/dl (3.4-5.0); BUN Creatinine Ratio 10.2 (10-20); Bilirubin,Total 0.5 mg/dl (0.2-1.0); Calcium 9.5 mg/dl (8.6-10.3); Creatinine Clr Calc Pharmacy 42.2 ml/min; Magnesium 1.9 mg/dl (1.7-2.4); Potassium 4.3 mmol/L (3.5-5.1); Total Protein 7.1 gm/dl (6.0-8.3)
[2024-09-02 13:35] LABS: Troponin I High Sensitivity 4.2 pg/ml (0-14)
[2024-09-02 13:42] LABS: INR 0.9 (0.9-1.1); Partial Thromboplastin Ratio 0.9; Partial Thromboplastin Time 25 Seconds (21-31); Prothrombin Time 10.2 Seconds (9.0-12.0)
[2024-09-02 13:44] LABS: Thyroid Stimulating Hormone 1.712 uIu/ml (0.300-4.500)
[2024-09-02] MEDS: OPTIRAY 320 125ml IV ONE (14:15)
--- NOTE | 2024-09-02 14:26 | CT Scan Report ---
CT OF THE HEAD WITHOUT CONTRAST CLINICAL HISTORY: acute confusion, since resolved; h/o ICH COMPARISON STUDY: MRI of the brain June 03, 2023. Head CT June 08, 2023. TECHNIQUE: Helical axial images of the head were obtained without IV contrast. Automated exposure con trol was utilized for the study. A dose lowering technique was utilized adhering to the principles o f ALARA. FINDINGS: No acute intracranial hemorrhage is present. Ventricular system is stable. Basal cisterns a re patent. There are no extra-axial collection. Multifocal encephalomalacia represents old infarcts w hich were shown on CT of June 08, 2023 and include right frontal, bilateral occipital and bilater al cerebellar infarcts. There are no findings to suggest acute dural sinus thrombosis or acute territ orial infarct. There are no calvarial fractures. IMPRESSION: 1. No acute intracranial findings. 2. Multiple old infarcts which were shown on prior CT of June 08, 2023. ACT 112: Negative or not required by law. Electronically signed by: Davion Ledesma M.D. 09/02/2024 2:25 PM
--- NOTE | 2024-09-02 14:32 | CT Scan Report ---
CT angio head w con CLINICAL HISTORY: acute confusion, since resolved; h/o ICH. COMPARISON STUDY: MRA of 06/03/2023 TECHNIQUE: Unenhanced axial CT scan of the brain is performed. Subsequently, following the IV adminis tration of 120 cc of Optiray, CT angiogram of the brain was performed from the skull base to the vert ex. Images are reviewed in the axial, sagittal, and coronal planes. 3-D MIPS images are created and a ssessed. IV contrast was administered without complication. All measurements were obtained according to NASCET criteria. A dose lowering technique was utilized adhering to the principles of ALARA. CT DOSE: 996 FINDINGS: There are atherosclerotic calcifications distally at the internal carotid arteries without significant narrowing. Right vertebral artery is dominant and the left vertebral artery is diminutive but patent, anatomic variant. Basilar artery is widely patent. The anterior and middle cerebral dirk jenelle are patent bilaterally. The left posterior cerebral artery is patent. The right posterior cerebr al artery demonstrates short segment occlusion proximally, stable compared with the prior MRA. This c orrelates with the region of the old infarction medial right CHIEF COOK distribution. IMPRESSION: 1. Stable short segment occlusion proximal right CHIEF COOK. 2. No new arterial occlusion seen of the brain. ACT 112: Negative or not required by law. The above report was generated using voice recognition software. It may contain grammatical, syntax o r spelling errors. Electronically signed by: Esau Hernandez M.D. 09/02/2024 2:30 PM
--- NOTE | 2024-09-02 14:33 | CT Scan Report ---
CT ANGIOGRAPHY OF THE NECK WITH CONTRAST CLINICAL HISTORY: acute confusion, since resolved; h/o ICH COMPARISON STUDY: No previous studies for comparison. Technique: CT angiography of the carotid and vertebral arteries was obtained using Optiray and 3D rec onstruction on an independent workstation. NASCET criteria was utilized. Automated exposure control was utilized for the study. A dose lowering technique was utilized adhering to the principles of ALA RA. CT DOSE: 996.55 mGy.cm Findings: Visualized portions of the lung disease are unremarkable. There is no cervical spine fractu re. There is no cervical lymphadenopathy. Extensive calcified and noncalcified plaque within the prox imal left internal carotid artery 90% stenosis of the vessel, 1 cm distal to the vessel origin. There is moderate plaque within the right carotid bifurcation without stenosis. There is also severe steno sis of the proximal left external carotid artery. The right vertebral artery is dominant and patent. No flow is identified within the proximal to mid left vertebral artery. There is trace flow within a diminutive distal cervical portion of the left internal carotid artery. Intracranial portion of the l eft vertebral artery is diminutive but patent. IMPRESSION: 1. Severe (90%) stenosis of the proximal left internal carotid artery. 2. Age-indeterminate but likely occlusion of the proximal to mid left vertebral artery. Diminutive bu t patent distal left cervical and intracranial portions of left vertebral artery. 3. Severe stenosis at the origin of the left external carotid artery. 3. Moderate plaque within the right carotid bifurcation. No stenosis of the right internal carotid ar angie. ACT 112: Negative or not required by law. Electronically signed by: Davion Ledesma M.D. 09/02/2024 2:31 PM
[2024-09-02 15:53] LABS: Appearance Urine Clear (Clear); Bacteria Urine Automated 4+ (None Seen); Bilirubin Urine Negative (Negative); Blood Urine Negative (Negative); Cast Urine Automated 0-2 /lpf (0-2); Color Urine Yellow; Epithelial Cell Urine Auto 0-2 /hpf (0-2); Glucose Urine UA Negative (Negative); Ketones Urine Negative (Negative); Leukocyte Esterase Urine Trace (Negative); Nitrite Urine Positive (Negative); Protein Urine Negative (Negative); RBC Urine Automated 0-2 /hpf (0-2); Specific Gravity Urine 1.036 (1.000-1.030); Urobilinogen Urine Negative (Negative); pH Urine 7.5 (4.5-7.5)
[2024-09-02] MEDS: cefTRIAXone SODIUM 2,000 MG/50 ML BAG IV STA (17:26)
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
--- NOTE | 2024-09-02 18:06 | Electrocardiogram Report ---
Test Reason : Blood Pressure : */* mmHG Vent. Rate : 56 BPM Atrial Rate : 56 BPM P-R Int : 160 ms QRS Dur : 78 ms QT Int : 396 ms P-R-T Axes : 69 42 26 degrees QTcB Int : 382 ms Sinus bradycardia with PACs Low voltage QRS Abnormal ECG When compared with ECG of 20-Mar-2024 10:29, T wave inversion less evident in Inferior leads T wave inversion no longer evident in Anterolateral leads QT has shortened Confirmed by Jose Montero ([id number]) on 09/02/2024 6:06:46 PM Referred By: Confirmed By: Jose Montero
[2024-09-02] MEDS: cloNIDine HCL 0.1 MG TAB PO ONE (18:30)
--- NOTE | 2024-09-02 20:03 | Magnetic Resonance Report ---
MRI of the brain performed without IV contrast History: Confusion Comparison:06/03/2023 Technique: Sagittal T1-weighted and axial T2-weighted, T2/FLAIR and diffusion-weighted with ADC map images of the brain were obtained without IV contrast. Findings: No evidence for intracranial mass lesion, mass-effect, midline shift, or abnormal extra-axial fluid collection. There is advanced cerebral atrophy. There are numerous, chronic, multifocal infarcts, including at the high right frontal lobe, the right occipital lobe, and throughout both cerebellar hemispheres. There is a punctate focus of restricted diffusion suggesting acute infarct at the high right frontal lobe. The right TUNNEL ELASTIC OPERATOR ZIGZAG flow-void is not well-seen, possibly due to chronic occlusion or diminutive size Due to chronic right occipital lobe infarct. Remaining flow-voids appear grossly patent. Impression: Single punctate focus of restricted diffusion suggesting acute infarct of the high right frontal lobe. Advance cerebral atrophy and chronic multifocal infarcts additionally seen. Electronically signed by Jose Orta 09-02-2024 8:02 PM
[2024-09-02] MEDS ORDERED: GLUCOSE 40% GEL 15 GM TUBE PO PRN (20:15)
[2024-09-02] MEDS ORDERED: DEXTROSE 50% 50 ML SYRINGE IV PRN (20:15)
[2024-09-02] MEDS ORDERED: GLUCOSE 10 TAB/TUBE PO PRN (20:15)
[2024-09-02] MEDS ORDERED: CARBOHYDRATES FOR HYPOGLYCEMIA PO PRN (20:15)
[2024-09-02] MEDS ORDERED: FAMOTIDINE 20 MG TAB PO PRN (20:15)
[2024-09-02] MEDS ORDERED: POLYETHYLENE (MIRALAX) 17 GM PACK PO PRN (20:15)
[2024-09-02] MEDS ORDERED: GLUCAGON FOR INJ 1 MG VIAL SQ PRN (20:15)
--- OUTSIDE RECORDS SUMMARY | 2024-09-02 20:42 | External Medical Summary | Continuity of Care Document ---
Author Name Unknown Organization [facility] [address] Address [address] [place], [place] [id number] Care Team Providers Care Sales Order Processor Name Role Phone Anh Manriquez Primary Care Physician [phone] [id number] Date(s): 06/09/24 - 06/09/24 [facility] [address] [facility] [address] [facility] [address] [place], [place] [phone] Encounter Diagnosis Other specified postprocedural states(Final) - Other specified abnormal findings of blood chemistry(Final) - Discharge Disposition: Home or Self Care Attending Physician: HEIDY Damon Stacey L Referring Physician: HEIDY Damon Stacey L Allergies, Adverse Reactions, Alerts Substance Criticality Severity Reaction Reaction Severity Status atenolol SOB Active codeine vomiting nausea Active Bactrim vomiting nausea Active Benicar kidney issues Active erythromycin vomiting nausea Active lisinopril hair loss Active sulfa drugs voiting nausea Active Immunizations Given and Recorded Vaccine Date Status Refusal Reason SARS-CoV-2 mRNA ([id number]-[id number]) 07/12/21 Re corded SARS-CoV-2 (COVID-19) mRNA-1273 vaccine 10/07/20 R ecorded SARS-CoV-2 (COVID-19) mRNA-1273 vaccine 09/09/20 R ecorded tetanus/diphtheria/pertuss, acel (Tdap) 05/04/20 R ecorded pneumococcal 23-valent vaccine 03/16/20 Recorded Medications amLODIPine 10 mg oral tablet Start: 09/16/23 8:02:00 AM EDT, 1 tab, PO, Daily, Disp# 90 tab, Refills: 3, Pharmacy: [id number] Start Date: 09/16/23 Status: Ordered aspirin 81 mg oral delayed release tablet Start: 10/18/23 3:20:00 PM EDT, 1 tab, PO, Daily Start Date: 10/18/23 Status: Ordered Brilinta (ticagrelor) 90 mg oral tablet 1 tab, PO, bid, TAKE 1 TABLET BY MOUTH TWICE DAILY Start Date: 03/31/24 Status: Ordered cloNIDine 0.2 mg oral tablet Start: 03/30/24 1:43:00 PM EDT, 1 tab, PO, qid, Disp# 360 tab, Pharmacy: [facility] 2229 Start Date: 03/30/24 Stop Date: 06/28/24 Status: Ordered esomeprazole 40 mg oral delayed release capsule Start: 03/12/24 8:15:00 AM EDT, 1 cap, PO, Daily, Disp# 90 cap, Refills: 3, Pharmacy: [facility] 2229 Start Date: 03/12/24 Stop Date: 03/07/25 Status: Ordered famotidine 20 mg oral tablet Start: 03/12/24 8:15:00 AM EDT, 1 tab, PO, bid, Disp# 180 tab, Refills: 3, Pharmacy: [facility] 2229 Start Date: 03/12/24 Stop Date: 03/07/25 Status: Ordered FreeStyle Dayday 2 - 14 day reader Start: 08/16/22 4:04:00 PM EST, See Instructions, Disp# 2 each, continous glucose monitoring, Pharmacy: [facility] Start Date: 08/16/22 Status: Ordered FreeStyle Dayday 2 - 14 day sensor Start: 08/16/22 4:04:00 PM EST, See Instructions, Disp# 2 each, Refills: 11, Continous glucose monitoring, Pharmacy: [facility] Start Date: 08/16/22 Status: Ordered Lantus Solostar Pen 100 units/mL subcutaneous solution Start: 02/10/24 9:38:00 AM EDT, 13 unit =, subQ, Daily, Disp# 15 mL, Refills: 1, ADJUST BASED ON GLUCOSE MONITORING., Brand Medically Necessary, Pharmacy: [facility] Start Date: 02/10/24 Status: Ordered levalbuterol CFC free 45 mcg/inh inhalation aerosol Start: 03/26/23 9:56:00 AM EDT, 2 puff, inhaled, q4h, Disp# 1 each, Refills: 5, INHALE 2 PUFFS BY MOUTH EVERY 4 HOURS NEEDED FOR WHEEZING, Pharmacy: [facility] Start Date: 03/26/23 Stop Date: 09/22/23 Status: Ordered Metoprolol Tartrate 25 mg oral tablet TAKE 1 TABLET BY MOUTH TWICE DAILY Start Date: 03/31/24 Status: Ordered montelukast 10 mg oral tablet Start: 09/24/22 8:22:00 AM EDT, 1 tab, PO, Daily, Disp# 30 tab, Refills: 5, TAKE 1 TABLET BY MOUTH ONCE DAILY NEEDED FOR ALLERGIES, Pharmacy: [facility] Start Date: 09/24/22 Status: Ordered nitroglycerin 0.4 mg sublingual tablet Start: 06/02/24 4:12:00 PM EST, 1 tab, SL, q5min, Disp# 25 tab, Refills: 1, not to exceed 3 doses/15 min--if pain persists, seek medical attention must be dispensed & stored in original containers, PRN: as needed for chest pain, Pharmacy: [facility] Start Date: 06/02/24 Status: Ordered Ozempic (0.25 mg or 0.5 mg dose) 2 mg/3 mL subQ pen Start: 04/23/24 2:25:00 PM EST, 0.5 mg, subQ, q7days, Disp# 3 mL, Refills: 5, Pharmacy: [facility]229, Supply Start Date: 04/23/24 Status: Ordered RELION PEN NEEDLE [id number] MIS USE ONCE DAILY Start Date: 07/30/22 Status: Ordered Repatha SureClick 140 mg/mL subcutaneous solution INJECT 1 SYRINGE SUBCUTANEOUSLY EVERY TWO WEEKS Start Date: 03/12/24 Status: Ordered spironolactone 25 mg oral tablet Start: 05/20/24 8:09:00 AM EST, 1 tab, PO, Daily, Disp# 30 tab, Refills: 5, Pharmacy: [facility] Start Date: 05/20/24 Status: Ordered Symbicort 160 mcg-4.5 mcg/inh inhalation aerosol Start: 02/05/23 1:37:00 PM EDT, See Instructions, Disp# 11 g, Refills: 5, Inhale 2 puffs by mouth twice daily, Brand Medically Necessary, Pharmacy: [facility] Start Date: 02/05/23 Status: Ordered valACYclovir 1 g oral tablet Start: 05/21/24 7:34:00 AM EST, 2 tab, PO, q12h, Disp# 4 tab, Pharmacy: [facility] Start Date: 05/21/24 Stop Date: 05/22/24 Status: Ordered Problem List Condition Confirmation Course Effective Dates Status H ealth Status Informant Benign hypertension without CHF Confirmed Active Bilateral carotid artery stenosis Confirmed Active Chronic kidney disease (CKD) stage [...] long-term current use of insulin Confirmed Active Procedures Procedure Date Related Diagnosis Body Site Status PCI (percutaneous coronary intervention) of left anterior descending branch of coronary artery 03/18/[address] of head 1 06/08/[address] [place] [address] IMPRESSION: 1. No acute intracranial hemorrhage. 2. Expected evolution of the subacute right frontal and left occipital infarcts shown on MRI of June 03, 2023. Possible subacute right cerebellar infarct. No hemorrhagic conversion. No significant mass effect. 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 Results Laboratory List Name Date Basic Metabolic Panel (BASIC METAB PANEL ) 06/09/24 Most recent to oldest [Reference Range]: 1 eGFR CKD-EPI [>60 mL/min/1.73 m2] 40 mL/ min/1.73 m2 1 *LOW* (06/09/24 12:07 PM) Estimated CrCl 41.40 mL/min (06/09/24 12:40 PM) Anion Gap [5-14 mmol/L] 9 mmol/L (06/09/24 12:07 PM) BUN [7-20 mg/dL] 17 mg/dL (06/09/24 12:07 PM) Ca [8.4-10.2 mg/dL] 9.4 mg/dL (06/09/24 12:07 PM) Cl- [96-107 mmol/L] 106 mmol/L (06/09/24 12:07 PM) HCO3 [22-30 mmol/L] 28 mmol/L (06/09/24 12:07 PM) Cret [0.60-1.00 mg/dL] 1.39 mg/dL *HI* (06/09/24 12:07 PM) Glu [74-106 mg/dL] 136 mg/dL *HI* (06/09/24 12:07 PM) K [3.5-5.1 mmol/L] 4.7 mmol/L (06/09/24 12:07 PM) Na [137-145 mmol/L] 143 mmol/L (06/09/24 12:07 PM) 1Result Comment: Testing Performed By: Dept of Pathology [facility] Jordan De Jesus, [address] [place] [address] Social History Social History Type Response Smoking Status Never smoked cigaret domenic Sex Female Sex Representation Female (finding) Patient Care team information Care Team Personnel Name: MD Caesar, Bin Jackson Position: Physician - Gastro Member Role: Lifetime Relationship Address: [address] [place] [id number] Name: CHERRY Erickson Lynn Position: Physician Electromechanical Equipment Assembler Exempt - Vasc Surg Member Role: Lifetime Relationship Address: [address] [place] [id number] Name: CHERRY Manriquez Jessica A Position: Physician Asst Exmpt - Family Med Member Role: Primary Care Provider Address: [address] [place] [address] Care Team Related Persons Name: ZAKIA ARANDA
--- OUTSIDE RECORDS SUMMARY | 2024-09-02 20:42 | External Medical Summary | Continuity of Care Document ---
Author Name Unknown Organization [facility] Address [address] [place] [address] [phone] Care Team Providers Care Shadowgraph Scale Operator Name Role Phone Anh Manriquez Primary Care Physician [phone] Encounter [facility] [id number] Date(s): 06/02/24 - 06/03/[address] [id number] [phone] Encounter Diagnosis CAD (coronary artery disease)(Discharge Diagnosis) - 06/02/24 S/P percutaneous transluminal angioplasty (CATAPULT AND ARRESTING GEAR OFFICER) with stent placement(Discharge Diagnosis) - 06/02/24 Atherosclerotic heart disease of [place] coronary artery without angina pectoris (Final) - Discharge Disposition: Home or Self Care Attending Physician: MD Delmar, Jeet Greenberg Referring Physician: DO Gutierrez Michelle L Allergies, Adverse Reactions, Alerts Substance Criticality Severity Reaction Reaction Severity Status atenolol SOB Active codeine vomiting nausea Active erythromycin vomiting nausea Active lisinopril hair loss Active sulfa drugs voiting nausea Active Bactrim vomiting nausea Active Benicar kidney issues Active Functional Status 06/03/24 History of Fall in Last 3 Months Zarate N o Presence of Secondary Diagnosis Zarate No Use of Ambulatory Aid Zarate None/bedrest /nurse assist IV/Heparin Lock Fall Risk Zarate No Gait/Transferring Fall Risk Zarate Normal /bedrest/immobile Mental Status Fall Risk Zarate Oriented t o own ability Zarate Fall Risk Score 0 Zarate Fall Risk No Risk 06/03/24 Neurological Symptoms None ADLs Independent Facial Symmetry Symmetric Gait Steady Swallowing Difficulty None Level of Consciousness Neuro Alert Hallucinations Present None Speech Pattern Clear Immunizations Given and Recorded Vaccine Date Status Refusal Reason SARS-CoV-2 mRNA ([id number]) 07/12/21 Re corded SARS-CoV-2 (COVID-19) mRNA-1273 vaccine 10/07/20 R ecorded SARS-CoV-2 (COVID-19) mRNA-1273 vaccine 09/09/20 R ecorded tetanus/diphtheria/pertuss, acel (Tdap) 05/04/20 R ecorded pneumococcal 23-valent vaccine 03/16/20 Recorded Medications amLODIPine 10 mg oral tablet Start: 09/16/23 8:02:00 AM EDT, 1 tab, PO, Daily, Disp# 90 tab, Refills: 3, Pharmacy: [facility] 2229 Start Date: 09/16/23 Status: Ordered aspirin 81 [...] tab, PO, qid, Disp# 360 tab, Pharmacy: [facility] 2229 Start Date: 03/30/24 Stop Date: 06/28/24 Status: Ordered esomeprazole 40 mg oral delayed release capsule Start: 03/12/24 8:15:00 AM EDT, 1 cap, PO, Daily, Disp# 90 cap, Refills: 3, Pharmacy: [facility] Start Date: 03/12/24 Stop Date: 03/07/25 Status: Ordered famotidine 20 mg oral tablet Start: 03/12/24 8:15:00 AM EDT, 1 tab, PO, bid, Disp# 180 tab, Refills: 3, Pharmacy: [facility] Start Date: 03/12/24 Stop Date: 03/07/25 Status: Ordered FreeStyle Dayday 2 - 14 day reader Start: 08/16/22 4:04:00 PM EST, See Instructions, Disp# 2 each, continous glucose monitoring, Pharmacy: [facility] 2229 Start Date: 08/16/22 Status: Ordered FreeStyle Dayday 2 - 14 day sensor Start: 08/16/22 4:04:00 PM EST, See Instructions, Disp# 2 each, Refills: 11, Continous glucose monitoring, Pharmacy: [facility] 2229 Start Date: 08/16/22 Status: Ordered HumaLOG Sliding Scale Ultra Low Dose Range: SSI, injection, subQ, 06/03/24 7:30:00 AM EST, 06/03/24 6:40:47 AM EST, Estimated correction need for patients using total insulin daily dose less than or equal to 30 units. Nursing to order low dose syringes from [facility] (see order comments)., 06/02/24 17:04:00 EST Start Date: 06/03/24 Stop Date: 06/03/24 Status: Completed Lantus Solostar Pen 100 units/mL subcutaneous solution Start: 02/10/24 9:38:00 AM EDT, 13 unit =, subQ, Daily, Disp# 15 mL, Refills: 1, ADJUST BASED ON GLUCOSE MONITORING., Brand Medically Necessary, Pharmacy: [facility] 2229 Start Date: 02/10/24 Status: Ordered levalbuterol CFC free 45 mcg/inh inhalation aerosol Start: 03/26/23 9:56:00 AM EDT, 2 puff, inhaled, q4h, Disp# 1 each, Refills: 5, INHALE 2 PUFFS BY MOUTH EVERY 4 HOURS NEEDED FOR WHEEZING, Pharmacy: [facility] 2229 Start Date: 03/26/23 Stop Date: 09/22/23 Status: Ordered Metoprolol Tartrate 25 mg oral tablet TAKE 1 TABLET BY MOUTH TWICE DAILY Start Date: 03/31/24 Status: Ordered montelukast 10 mg oral tablet Start: 09/24/22 8:22:00 AM EDT, 1 tab, PO, Daily, Disp# 30 tab, Refills: 5, TAKE 1 TABLET BY MOUTH ONCE DAILY NEEDED FOR ALLERGIES, Pharmacy: [facility] Start Date: 09/24/22 Status: Ordered nitroglycerin 0.4 mg sublingual tablet Start: 06/02/24 4:12:00 PM EST, 1 tab, SL, q5min, Disp# 25 tab, Refills: 1, not to exceed 3 doses/15 min--if pain persists, seek medical attention must be dispensed & stored in original containers, PRN: as needed for chest pain, Pharmacy: [facility] Start Date: 06/02/24 Status: Ordered Ozempic (0.25 mg or 0.5 mg dose) 2 mg/3 mL subQ pen Start: 04/23/24 2:25:00 PM EST, 0.5 mg, subQ, q7days, Disp# 3 mL, Refills: 5, Pharmacy: [facility], Supply Start Date: 04/23/24 Status: Ordered RELION PEN NEEDLE [id number] MIS USE ONCE DAILY Start Date: 07/30/22 Status: Ordered Repatha SureClick 140 mg/mL subcutaneous solution INJECT 1 SYRINGE SUBCUTANEOUSLY EVERY TWO WEEKS Start Date: 03/12/24 Status: Ordered spironolactone 25 mg oral tablet Start: 05/20/24 8:09:00 AM EST, 1 tab, PO, Daily, Disp# 30 tab, Refills: 5, Pharmacy: [facility] Start Date: 05/20/24 Status: Ordered Symbicort 160 mcg-4.5 mcg/inh inhalation aerosol Start: 02/05/23 1:37:00 PM EDT, See Instructions, Disp# 11 g, Refills: 5, Inhale 2 puffs by mouth twice daily, Brand Medically Necessary, Pharmacy: [facility] Start Date: 02/05/23 Status: Ordered valACYclovir 1 g oral tablet Start: 05/21/24 7:34:00 AM EST, 2 tab, PO, q12h, Disp# 4 tab, Pharmacy: [facility] Start Date: 05/21/24 Stop Date: [...] Effective Dates Health Status Clinical Service Informant CAD (coronary artery disease) Discharge Diagnosis 06/02/24 Non-Specified S/P percutaneous transluminal angioplasty (CATAPULT AND ARRESTING GEAR OFFICER) with stent placement Discharge Diagnosis 06/02/24 Non-Specified Procedures Procedure Date Related Diagnosis Body Site Status PCI (percutaneous coronary intervention) of left anterior descending branch of coronary artery 03/18/[address] of head 1 06/08/[address] [place] [address] IMPRESSION: 1. No acute intracranial hemorrhage. 2. Expected evolution of the subacute right frontal and left occipital infarcts shown on MRI of June 03, 2023. Possible subacute right cerebellar infarct. No hemorrhagic conversion. No significant mass effect. 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 Results Laboratory List Name Date Glucose Meter (GLUCOSE METER) 06/03/24 Glucose Meter (GLUCOSE METER) 06/02/24 Glucose Meter (GLUCOSE METER) 06/02/24 ACT Celite, by ISmonicat ([employer]) (ACT CE LITE ISTAT (CATH)) 06/02/24 Basic Metabolic Panel (BMP) 06/02/24 Complete Blood Count w Differential (CBC w Platelets and Diff) 06/02/24 Most recent to oldest [Reference Range]: 1 2 3 eGFR CKD-EPI [>60 mL/min/1.73 m2] 40 mL/min/1.73 m2 *LOW* (06/02/24 9:36 AM) Blood Glucose [70-120 mg/dL] 103 mg/dL 1 (06/03/24 6:40 AM) Estimated CrCl 41.75 mL/min (06/02/24 10:23 AM) MPV [9.0-12.2 fL] 11.7 fL (06/02/24 9:36 AM) Immature Gran% 0.3 % (06/02/24 9:36 AM) Neut% 76.6 % (06/02/24 9:36 AM) Lymph% 16.4 % (06/02/24 9:36 AM) Thurston% 4.2 % (06/02/24 9:36 AM) Baso% 0.7 % (06/02/24 9:36 AM) Eos% 1.8 % (06/02/24 9:36 AM) Immat Gran, Abs [0-0.4 K/uL] 0.02 K/uL (06/02/24 9:36 AM) Neut, Abs [2.0-7.7 K/uL] 5.69 K/uL (06/02/24 9:36 AM) Lymph, Abs [1.0-3.4 K/uL] 1.22 K/uL (06/02/24 9:36 AM) Thurston, Abs [0-1.0 K/uL] 0.31 K/uL (06/02/24 9:36 AM) Baso, Abs [0-0.1 K/uL] 0.05 K/uL (06/02/24 9:36 AM) Eos, Abs [0-0.5 K/uL] 0.13 K/uL (06/02/24 9:36 AM) Type of Diff: AUTO *Unknown* (06/02/24 9:36 AM) RDW [11.5-14.2 %] 12.7 % (06/02/24 9:36 AM) Anion Gap [5-14 mmol/L] 12 mmol/L (06/02/24 9:36 AM) BUN [6-23 mg/dL] 21 mg/dL (06/02/24 9:36 AM) Ca [8.4-10.2 mg/dL] 9.8 mg/dL (06/02/24 9:36 AM) Cl- [98-107 mmol/L] 109 mmol/L *HI* (06/02/24 9:36 AM) HCO3 [22-29 mmol/L] 23 mmol/L (06/02/24 9:36 AM) Cret [0.60-1.00 mg/dL] 1.39 mg/dL *HI* (06/02/24 9:36 AM) Glu [74-109 mg/dL] 88 mg/dL 2 (06/02/24 9:36 AM) Gluc Meter [74-109 mg/dL] 103 mg/dL (06/03/24 6:37 AM) 163 mg/dL *HI* (06/02/24 8:44 PM) 85 mg/dL (06/02/24 4:35 PM) Hct [35-44 %] 38.4 % (06/02/24 9:36 AM) Hgb [11.7-15.0 g/dL] 12.6 g/dL (06/02/24 9:36 AM) K [3.5-5.1 mmol/L] 4.2 mmol/L (06/02/24 9:36 AM) MCH [28-33 pg] 31.7 pg (06/02/24 9:36 AM) MCHC [32-36 g/dL] 32.8 g/dL (06/02/24 9:36 AM) MCV [81-96 fL] 96.5 fL *HI* (06/02/24 9:36 AM) Na [136-145 mmol/L] 144 mmol/L (06/02/24 9:36 AM) Plts [150-350 K/uL] 197 K/uL (06/02/24 9:36 AM) RBC [3.90-5.00 M/uL] 3.98 M/uL (06/02/24 9:36 AM) ACT (Celite), POC [74-125 seconds] 349 seconds *HI* (06/02/24 2:26 PM) WBC [4.0-10.4 K/uL] 7.42 K/uL (06/02/24 9:36 AM) 1Result Comment: Performed at: [facility], [address] [place] [address] JOCELIN KAN, JASON [phone] 2Result Comment: ADA recommendation for FASTING Serum/Plasma Glucose: Normal: 70-100 mg/dL Prediabetes: 100-125 mg/dL Diabetes: 126 mg/dL or higher Vital Signs Most recent to oldest [Reference Range]: 1 2 3 Height 169.3 cm (06/01/24 11:37 AM) Patient Weight 88 kg (06/02/24 3:15 PM) Temperature [36.5-37.9 DegC] 36.5 DegC (06/03/24 8:02 AM) 36.5 DegC (06/03/24 5:30 AM) 36.5 DegC (06/02/24 11:00 PM) Heart Rate 59 bpm (06/03/24 8:02 AM) 50 bpm (06/03/24 5:30 AM) 68 bpm (06/03/24 4:44 AM) Respiratory Rate 18 br/min (06/03/24 8:02 AM) 16 br/min (06/03/24 4:44 AM) 12 br/min (06/02/24 11:10 PM) Blood Pressure 126/71mmHg (06/03/24 8:02 AM) 137/58mmHg (06/03/24 4:44 AM) 98/58mmHg (06/02/24 11:00 PM) Mean Blood Pressure 87 mmHg (06/03/24 8:02 AM) 80 mmHg (06/03/24 4:44 AM) 70 mmHg (06/02/24 11:00 PM) Cuff Pulse Pressure 55 mmHg (06/03/24 8:02 AM) 79 mmHg (06/03/24 4:44 AM) 40 mmHg (06/02/24 11:00 PM) BP Location # 1 Left Arm (06/03/24 4:44 AM) Left Arm (06/02/24 11:00 PM) Left Arm (06/02/24 3:00 PM) Social History Social History Type Response Smoking Status Never smoked cigaret domenic Sex Female Sex Representation Female (finding) EKG study * Contributor_system, [email or web address]: VERIFY, PERFORM Event Display: EKG Authored Date: [id number] Please click on link to see image. * Contributor_system, [email or web address]: VERIFY, PERFORM Event Display: EKG Authored Date: [id number] Please click on link to see image. Pre-OP H & P * MD Delmar, Jeet Greenberg: MODIFY MD Jacobsen Chad J: MODIFY, MODIFY, MODIFY, MODIFY, MODIFY Event Display: Pre-OP H & P Authored Date: [id number] PRE-OPERATIVE HISTORY AND PHYSICAL Name: IZABEL CAMACHO Patient Number: [id number] : 1950 Date of Service: 06/02/2024 PRE-OP Diagnosis: Known 3 vessel CAD with partial revascularization (LAD + RCA PCI) Planned Procedure: LCx PCI Chief Complaint: Staged PCI, post GA History of Present Illness (including history relevant to procedure): 74 year old female with medical history of CAD 2/2 STEMI on 03/18/2024 s/p PCI to the RCA and subsequent staged PCI of the LAD. She also has history of hyperlipidemia, bilateral carotid artery stenosis, CKD, DM2, HFpEF and HTN. During the emergent cardiac cath after her STEMI she was diagnosed with 3 vessel CAD reason for why her LAD was initially treated as the culprit lesion but now presents as part of her staged approach to complete revascularization with LCx PCI. The patient was evaluated at bedside today and found in no acute distress. She was able to explain her initial presentation and explains that the day she had her STEMI her presenting symptoms were severe chest pressure and SOB. She explains that before that day she has never noticed any chest pain or cardiovascular symptoms. After both PCIs she was able to enroll in cardiac rehab (currently on hold until revascularization is complete) and she was able to exercise without limitations. She only reported mild occasional SOB which she attributes to asthma. She is able to complete all her ADLs without any symptomatic limitation. Past Medical History: Problems: Bilateral carotid artery stenosis Left carotid artery stenosis History of CVA (cerebrovascular accident) Chronic kidney disease (CKD) stage G3b/A2, moderately decreased glomerular filtration rate (GFR) between 30-44 mL/min/1.73 square meter and albuminuria creatinine ratio between 30-299 mg/g Controlled type 2 diabetes mellitus with stage 3 chronic kidney disease, with long-term current useof insulin Benign hypertension without CHF Hyperlipidemia LDL goal <70 HTN, goal below 130/80 Diastolic CHF Asthma, moderate persistent, well-controlled Procedure History Procedure Procedure Date Comments PCI (percutaneous coronary intervention) of left anterior descending branch of coronary artery 03/18/2024 CT [facility]. No acute intracranial hemorrhage.2. Expected evolution of the subacute right frontal and [facility] Possiblesubacute right cerebellar infarct. No hemorrhagic conversion. No significant mass effect.3. Severalold infarcts Allergies and Sensitivities: erythromycin(nausea) erythromycin(vomiting) sulfa drugs(nausea) sulfa drugs(voiting) codeine(nausea) codeine(vomiting) lisinopril(hair loss) atenolol(SOB) Benicar(kidney issues) Bactrim(nausea) Bactrim(vomiting) Current Home Meds: (Last Updated 05/21 07:34) amLODIPine (amLODIPine 10 mg oral tablet) 1 tab PO Daily aspirin (aspirin 81 mg oral delayed release tablet) 81 mg PO Daily budesonide-formoterol (Symbicort 160 mcg-4.5 mcg/inh inhalation aerosol) Inhale 2 puffs by mouth twice daily cloNIDine (cloNIDine 0.2 mg oral tablet) 0.2 mg PO qid diabetes supplies (FreeStyle Dayday 2 - 14 day reader) continous glucose monitoring diabetes supplies (FreeStyle Dayday 2 - 14 day sensor) Continous glucose monitoring esomeprazole (esomeprazole 40 mg oral delayed release capsule) 40 mg PO Daily evolocumab (Repatha SureClick 140 mg/mL subcutaneous solution) INJECT 1 SYRINGE SUBCUTANEOUSLY EVERY TWO WEEKS famotidine (famotidine 20 mg oral tablet) 20 mg PO bid insulin glargine (Lantus Solostar Pen 100 units/mL subcutaneous solution) 13 unit subQ Daily ADJUSTBASED ON GLUCOSE MONITORING. levalbuterol (levalbuterol CFC free 45 mcg/inh inhalation aerosol) 2 puff inhaled q4h INHALE 2 PUFFS BY MOUTH EVERY 4 HOURS NEEDED FOR WHEEZING NOTE: restricted to continuation of home therapy in pediatric patients only. No new starts in house.NOTE: restricted to continuation of home therapy in pediatric patients only. No new starts in house. Michelle Manriquez 03/26 09:56 metoprolol (Metoprolol Tartrate 25 mg oral tablet) TAKE 1 TABLET BY MOUTH TWICE DAILY montelukast (montelukast 10 mg oral tablet) 10 mg PO Daily TAKE 1 TABLET BY MOUTH ONCE DAILY NEEDED FOR ALLERGIES semaglutide (Ozempic (0.25 mg or 0.5 mg dose) 2 mg/3 mL subQ pen) 0.5 mg subQ q7days spironolactone (spironolactone 25 mg oral tablet) 1 tab PO Daily HAZARDOUS MEDICATION | tablet: green | suspension: teal Michelle Manriquez 05/20 08:09 ticagrelor (Brilinta (ticagrelor) 90 mg oral tablet) 90 mg PO bid TAKE 1 TABLET BY MOUTH TWICE DAILY unlisted medication (RELION PEN NEEDLE [id number] MIS) USE ONCE DAILY valACYclovir (valACYclovir 1 g oral tablet) 2 g PO q12h No Vital Signs Data Available Initial Wt: No Data Available Physical Exam: (relevant to the procedure, including heart and lung evaluation) General: lying comfortably in bed without any acute distress HEENT: PERRLA, EOMI, no scleral icterus Neck: no JVD, no carotid bruits CV: regular rhythm, normal rate, normal S1, S2, no murmurs Lungs: clear to auscultation bilaterally, no wheezing, no rhonchi Abd: soft, non-tender, non-distended, normoactive BS Ext: 2+ distal pulses, no edema, warm, pulses +2 throughout Neuro: non focal, CN II-XII intact Studies of Lab Results (relevant to the procedure): _ ASSESSMENT: 74 year old female with medical history of CAD 2/2 STEMI on 03/18/2024 s/p PCI to the RCA and subsequent staged PCI of the LAD. She also has history of hyperlipidemia, bilateral carotid artery stenosis, CKD, DM2, HFpEF and HTN. During the emergent cardiac cath after her STEMI she was diagnosed with 3 vessel CAD reason for why her LAD was initially treated as the culprit lesion but now presents as part of her staged approach to complete revascularization with LCx PCI. The risks and benefits from the procedure were explained to the patient who expresses understanding and agrees to proceed with the planned procedures. - Will proceed with planned LCx PCI Interventional Cardiology Attending Admit Note: I have personally seen and evaluated the patient on 06/02/2024 13:34:10. The patient's database was reviewed. I agree with the physical examination findings and assessment and plan as outlined above. I have discussed my concerns with the house staff and have reviewed my clinical impressions with the patient. The risks: benefits of the possible coronary atherectomy and percutaneous coronary interventionwere discussed with the patient and all questions, issues and concerns were answered and addressed. Risks of the procedure including renal failure\\need for dialysis, myocardial infarction, , stroke, vessel injury\\perforation, and bleeding were discussed with the patient who is amenable to proceeding. Electronic Signature on File Electronically Reviewed/Signed by: Omar Mcgraw MD Author Signature Dt/Tm:06/02/2024 09:41 AM Resident [facility] [place] Electronically Reviewed/Signed by: Jeet Jacobsen MD Cosigner Signature Dt/Tm: 06/02/2024 01:34 PM [facility] HO Discharge instructions * HEIDY Damon Stacey L: PERFORM, MODIFY, MODIFY Event Display: Patient Discharge Instructions Authored Date: [id number] IZABEL CAMACHO :1950 Visit Date:06/02/2024 Patient Discharge Instructions [facility] For medical concerns, call: . Date of Admission:06/02/2024 Date of Discharge:06/03/2024 Physician:MD Jacobsen Chad J Service:Cardiology Discharge Disposition: . Advance Directive:No Reason for Hospitalization CAD (coronary artery disease) Your Diagnoses CAD (coronary artery disease) S/P percutaneous transluminal angioplasty (CATAPULT AND ARRESTING GEAR OFFICER) with stent placement 2.5mm X 23mm Xience Skypoint STONE placed in the circumflex/obtuse marginal artery My Health Patient Portal: [facility] [employer] makes it easy for you to manage your health information online. My [employer] [place] is a free service that provides you instant, secure access to your medical information anytime, anywhere. Sign in or set up your account today at [email or web address] Thank you for allowing us to assist you with your healthcare needs. If you need additional community resources, [facility] 211 can help at [email or web address].[email or web address]. 211 can assist you in connecting with social programs based on your unique needs and locations. 211 is an anonymous search that can help you locate resources for: Food, Housing, Transportation, Goods, Education and Healthcare. Medications What How Much When Why Instructions Next Dose Unchanged amLODIPine (amLODIPine 10 mg oral tablet) 1 tab(s) by mouth Once daily next dose tomorrow AM Unchanged aspirin (aspirin 81 mg oral delayed release tablet) 1 tab(s) by mouth Once daily next dose tomorrow AM Unchanged budesonide-formoterol (Symbicort 160 mcg-4.5 mcg/ inh inhalation aerosol) See instructions Inhale 2 puffs by mouth twice daily Unchanged cloNIDine (cloNIDine 0.2 mg oral tablet) 1 tab(s) by mouth 4 times daily Duration: 90 Days given this AM, resume your normal schedule Unchanged diabetes supplies (FreeStyle Dayday 2 - 14 day reader) See instructions Type 2 diabetes, HbA1c goal < 7% continous glucose monitoring Unchanged diabetes supplies (FreeStyle Dayday 2 - 14 day sensor) See instructions Type 2 diabetes, HbA1c goal < 7% Continous glucose monitoring Unchanged esomeprazole (esomeprazole 40 mg oral delayed release capsule) 1 cap by mouth Once daily Duration: 90 Days Unchanged evolocumab (Repatha SureClick 140 mg/ mL subcutaneous solution) INJECT 1 SYRINGE SUBCUTANEOUSLY EVERY TWO WEEKS Unchanged famotidine (famotidine 20 mg oral tablet) 1 tab(s) by mouth 2 times daily Duration: 90 Days Unchanged insulin glargine (Lantus Solostar Pen 100 units/ mL subcutaneous solution) 13 unit(s) subcutaneously Once daily ADJUST BASED ON GLUCOSE MONITORING. Unchanged levalbuterol (levalbuterol CFC free 45 mcg/ inh inhalation aerosol) 2 puff(s) Inhalation Every 4 hours Duration: 30 Days INHALE 2 PUFFS BY MOUTH EVERY 4 HOURS NEEDED FOR WHEEZING Unchanged metoprolol (Metoprolol Tartrate 25 mg oral tablet) TAKE 1 TABLET BY MOUTH TWICE DAILY take this afternoon per your preference Unchanged montelukast (montelukast 10 mg oral tablet) 1 tab(s) by mouth Once daily TAKE 1 TABLET BY MOUTH ONCE DAILY NEEDED FOR ALLERGIES Unchanged nitroglycerin (nitroglycerin 0.4 mg sublingual tablet) 1 tab(s) sublingually Every 5 minutes as needed for as needed for chest pain not to exceed 3 doses/ 15 min--if pain persists, seek medical attention must be dispensed & stored in original containers Pickup at [facility] Unchanged semaglutide (Ozempic (0.25 mg or 0.5 mg dose) 2 mg/ 3 mL subQ pen) 0.5 Milligram subcutaneously Every 7 days Unchanged spironolactone (spironolactone 25 mg oral tablet) 1 tab(s) by mouth Once daily resume when you get home Unchanged ticagrelor (Brilinta (ticagrelor) 90 mg oral tablet) 1 tab(s) by mouth 2 times daily TAKE 1 TABLET BY MOUTH TWICE DAILY next dose tonight Unchanged unlisted medication (RELION PEN NEEDLE [id number] MIS) USE ONCE DAILY Unchanged valACYclovir (valACYclovir 1 g oral tablet) 2 tab(s) by mouth Every 12 hours Duration: 1 Days Pharmacy Information [phone] [facility], [place] [phone] Allergies Bactrimvomiting, nausea Benicarkidney issues atenololSOB codeinevomiting, nausea erythromycinvomiting, nausea lisinoprilhair loss sulfa drugsvoiting, nausea What to do next Instructions From Your Doctor PATIENT DISCHARGE INSTRUCTIONS: CARDIOLOGY INTERVENTION Medications You will be on two (2) medications to keep your blood thin. Expect to be onAspirin 81 mgfor therest of you life or unless you are instructed otherwise by your physician. Do not discontinue your Aspirin without first discussing that decision with your physician(s). You will be on ticagrelor 90 mg twice daily.(Brilinta). You have an active prescription for Brilinta. You will be on UNITERRUPTEDBrilinta for a minimum of 6 months. You will need to call if younote excessive bleeding or bruising due to the above medications. Do not discontinue the above two (2) medications without calling your patient care provider and discussing this issue. You may contact us for further clarification. Angina occurs when your heart doesnt get enough oxygen. It is often due to a blockage in the heart arteries as a result of fatty (cholesterol) deposits. When the heart lacks oxygen, you may experience what is medically called "angina". If angina occurs takeNitroglycerin (NTG) as instructed. Anginal symptoms are not the same for each person. These symptoms can feel like: shortness of breath; fullness in the stomach (indigestion); a squeezing, tight pressure, burning or pain in your neck, jaw, chest, shoulders or arms; or a burning feeling under your breastbone (indigestion-like). If you didnt already have a prescription for Nitroglycerin, you should have been given a prescription for this medication. It should be taken as indicated or when needed. Keep your nitroglycerin tablets in the original glass bottle. To use, place one tablet under tongue. Wait five minutes. If anginal symptoms remain or get more severe, take a second nitroglycerin tablet and call 911 for transport to the emergency department. Chest PainIF YOU HAVE CHEST PAIN, STOP WHAT YOU ARE DOING, SIT DOWN AND REST. If the pain stops when you rest, call to let us know. If the chest pain doesnt go away: Do not get up. Place one nitroglycerin tablet under your tongue and let it dissolve. Wait 5 minutes. If the chest pain doesnt go away or gets worse, call 911.You may be having a heartattack.Do not drive to a hospital. You may use a second tablet 5 minutes after you take the first tablet. If the pain still does not go away, a third tablet may be used after another 5 minutes. After you use nitroglycerin, you may be dizzy, feel flushing of your face or have a mild headache. This is normal.If you do not have nitroglycerin or if the chest pain lasts longer than 10 minutes:Call 911.You may be having a heart attack.Do not drive to a hospital. Medications Please take your medications as directed. Follow the fact sheets included in your discharge packet.Do not miss any doses or stop taking them without asking first. Do not stop any medications before asking your trace evidence technician, even if another doctor tells you to do so. We have give you a prescription for nitroglycerin to be used of needed for chest pain. CAD, Blood Pressure & Cholesterol Management, Obesity, Diabetes, etc. will be managed by your physiciansDr. Anupama Gutierrez and your Primary Care Physician. Follow up labs Please have follow up labs drawn between 06/05/24-06/07/24. You have been provided a lab slip to have these drawn locally. Diet Due to the contrast dye used during your procedure, it is important to drink plenty of fluids over the next three days. It is recommended that you continue/follow your heart healthy, diabetic, low-fat, high-fiber, and no added salt diet. Please refer to the educational information that was provided by your dietary consult and/or nurse. In your discharge packet, you will find additional healthinformation on reading labels while grocery shopping. ActivityWhen you go home it is normal to feel weak and tired for a few days. Ask your caregiver about when you can go back to work. For 2 days starting the day after your procedure: Do not drive. Do not use any heavy machinery (tractors, lawn mowers). Drink a lot of fluids without caffeine. Do not drink alcohol. After a Wrist Approach For 2 daysstarting the day after your procedure: Do not lift anything that weighs more than 1 pound with the involved arm. Limit bending and straightening your wrist. For 5 daysstarting the day after your procedure: Do not use the involved arm for any activity like tennis, golfing, vacuuming, extensive typing, or push mowing. If you had a stent placed: Please carry your stent card with you at all times. Your stent will not set off a metal detector alarm. You can have an MRI. Wound Care You may shower the day after your procedure. Slowly take off your dressings and wash gently with soap and water, being careful not to remove any scab. Pat dry and put on a clean, dry bandaid. Do not use lotions, ointments or powders on your wound. Reapply a clean dry bandaid every day until the skin is closed. Do not allow the wound to stay under water for a long period of time for three days, oruntil it is closed. It isnormalto: Have bruising under the skin. This may take weeks to get better. Have a small lump under the wound. This should get smaller in size over time. Have a little pain at the wound site for 3-5 days. Using a warm compress for 20 minutesthree to four times a day may help. Check your wound every day until the skin is closed for signs of infection. Call us if you have any of the following: oFever over 100oFahrenheit. oPain that is getting worse instead of getting better. oRedness or warmth at the wound. oSwelling or red streaks down your arm or leg. oAny wound drainage. If the involved arm or leg becomes cold, blue or numb, call 911. BleedingIf there is a small amount of bleeding from your wound, lie down and apply firm pressure with two fingers right above the site for 10 minutes, or until the bleeding has stopped. If the bleeding stops: oSit quietly, keeping the involved arm or leg straight for 4 hours. oCall us as soon as possible. If the bleeding does not stop or if there is a large amount of bleeding or spurting: oCall [address] to a hospital. oContinue to lie down and hold firm pressure until help arrives. Remember that recovery after a heart attack takes time. Plan to return to normal activity gradually over the next several weeks. Do not sit or lay immobile for prolonged periods of time. You should walk daily - starting with no more than 5 minutes at an easy pace, increase your activity daily No strenuous activity (no lifting greater than 10 pounds) for one week. Do not submerge the catheterization site in a bathtub or with swimming for 7 days. Showers are allowed. If your procedure site was at your wrist: No repetitive motions for one week with the involved arm. Cardiac Rehabilitation It is important that you think about Cardiac Rehabilitation. Cardiac Rehabilitation is a program that will help you to maintain the healthiest lifestyle possible. You will be able to exercise in a monitored environment, returning you to an active, productive lifestyle while providing education to yo u and your family. We have forwarded your name to the [facility]. They will forward your information to [facility] your home. Call them, if they donot call you within the next week. The [facility] be reached by calling [phone] or you may call the 24 hour Careline at [phone]. We have provided Educational Information for you and your family. It includes tips for a healthy life, exercise, and some ideas on how to manage stress with relaxation. The impact of lifestyle interventions involving nutrition and physical activity occur over time. It is recommended that you walk daily at a comfortable pace. Specific information on activity maybe found in your [facility] Patient Education Discharge Instructions for Discharge after Cardiac Interventional Procedure and other printed information. You will find specific instructions regarding the procedure for: hygiene, pain, procedure site, bleeding, chest pain, helpful hints, and other information that may be of benefit to you.PLEASE read this information prior toleaving the hospital.This information includes phone numbers to call for answers to any questions. Call your doctor if Please contact your physician if you have: excessive bleeding, black or tarry stools, blood in urine, bruising, hives or painful rash, swollen lips or tongue, swollen throat or face, less urinating than usual, yellowing of the skin or eyes, swelling in legs and/or increased anginal symptoms (chest pain, chest pressure, indigestion, shortness of breath, tightness in neck, chest or arms). Do not discontinue medications without first discussing this with your physician. Other instructions Smoking [id number] Continue the heart healthy habit of not smoking and remember to avoid secondary and environmental smoke Your cholesterol levels were not checked while you were in the hospital. Please have your primary care physician check them within 6-8 weeks from discharge. For the most recent research on cardiac disease, you may find the following websites helpful: www.[facility].com www.americanheart.org Read the newest information and assistance with the risk factors of: high blood sugar, physical inactivity, abnormal blood fats (lipids), overweight (diet with weight management), and cigarette smoking on the above websites. You have been given a copy of yourcoronary tree diagramreport from your Cardiac Catheterization.Please take your printed discharge instructions, blood work, and copy of your report with you when you have the next scheduled visit with your family or local physicians. Contact InformationIf you should have any questions/concerns regarding your procedure at this institution, please call HEIDY Coffey at [phone] (available Saturday-Saturday7:30-4:30). If you have general questions about your cardiovascular health, please contact your Solution Specialist at their office. If you are not able to reach the above phone number, call the Heart and Vascular Outpatient Unit [phone] or the toll-free number- [phone]) [facility] and ask for assistance. On weekends, holidays or before 8:00 a.m. or after 5:00 p.m.: , for the hospital breaker operator to page the Interventional bio medical technician industry consultant. for the Care Line, 24 hours a day, 7 days a week. When you get home, you should call the caregiver who referred you to us. If you cannot reach your primary care provider and have questions about the results of your procedure, you may call our cardiology office on weekdays between 8:00 a.m. and 5:00 p.m. at ; please ask for the Finance Specialist who performed your procedure. If you notice the following symptoms See above. Contact the [facility] Careline at . If unable to contact your physician and you feel it is an emergency, go to the nearest Emergency Room or call 424 Diet Instructions As above. Activity Instructions As above. Follow-Up Appointments Scheduled Follow-Up Appointments Date/Time:[facility]: [facility] Location/Instructions:[facility] [address], [address], [address], [place] [address] . Please arrive 15 min earlier than your appointment time for Check In Process. Date/Time:Provider/Resource: Jun 01:45 DO Miranda Michelle L [facility]Instructions[facility], [address], [facility], [place] [address] . Please arrive 15 min earlier than your appointment time for Check In Process. Date/Time:Provider/Resource: Aug 01:10 JASON Mckinney Jessica A Location/Instructions:[facility] [address], [address], [address], [place], [place] [address] . Please arrive 15 min earlier than your appointment time for Check In Process. The Following Equipment/Treatments Have Been Ordered for You You have been referred to Cardiac Rehab. You will be contacted directly for scheduling. The Following Services Have Been Arranged for You No Post-Acute Placement(s) Listed No Post-Acute Service(s) Listed Tests Pending Please have follow up labs drawn between 06/05/24-06/07/24. We provided you a lab slip to have these drawn locally. Procedures Performed Cardiac Catheterization and PCI 06/02/2024 Special Instructions Common Emergency Awareness Tips Call 911 immediately if: experiencing any of the warning signs and symptoms of stroke: B.E. F.A.S.T. Balance: is there trouble with walking or coordination Eyes: is there double vision or visual loss Face: Smile, do both sides of face move equally Arm: Raise arms, do both arms move equally Speech: Is speech slurred or inappropriate Time: Time is critical, call 911 immediately Heart Attack Signs Chest discomfort: Most heart attacks involve discomfort in the center of the chest and lasts more than a few minutes, or goes away and comes back. It can feel like uncomfortable pressure, squeezing, fullness or pain. Discomfort in upper body: Symptoms can include pain or discomfort in one or both arms, back, neck, jaw or stomach. Shortness of breath: With or without discomfort. Other signs: Breaking out in a cold sweat, nausea, or lightheaded. Remember, MINUTES DO MATTER. If you experience any of these heart attack warning signs, call to get immediate medical attention! Anesthesia records * Services, CPDI: PERFORM Event Display: Sedation & Analgesia Record Authored Date: [id number] Patient Care team information Care Team Personnel Name: MD Caesar, Bin Jackson Position: Physician - Gastro Member Role: Lifetime Relationship Address: [address] [place] [id number] [place] Name: CHERRY Erickson Lynn Position: Physician Survey Cad Technician Exempt - Vasc Surg Member Role: Lifetime Relationship Address: [address] [place] [address] Name: CHERRY Manriquez Jessica A Position: Physician Asst Exmpt - Family Med Member Role: Primary Care Provider Address: [address] [place] [address] Care Team Related Persons Name: ZAKIA ARANDA
--- OUTSIDE RECORDS SUMMARY | 2024-09-02 20:42 | External Medical Summary | Continuity of Care Document ---
Author Name Unknown Organization [facility] [address] [facility] Address [address], [place] [id number] Care Team Providers Care Speech Language Pathology Assistant Name Role Phone Anh Manriquez Primary Care Physician [phone] Encounter [facility] [id number] Date(s): 08/19/24 - 08/19/24 [facility] [address], [address] [place] [address] [phone] Discharge Disposition: Home or Self Care Attending Physician: DO Gutierrez Michelle L Encounter Type: Clinic Allergies, Adverse Reactions, Alerts Substance Criticality Severity Reaction Reaction Severity Status atenolol SOB Active codeine vomiting nausea Active lisinopril hair loss Active Bactrim vomiting nausea Active Benicar kidney issues Active erythromycin vomiting nausea Active sulfa drugs voiting nausea Active Immunizations Given and Recorded Vaccine Date Status Refusal Reason SARS-CoV-2 mRNA ([id number]) 07/12/21 Re corded SARS-CoV-2 (COVID-19) mRNA-1273 vaccine 10/07/20 R ecorded SARS-CoV-2 (COVID-19) mRNA-1273 vaccine 09/09/20 R ecorded tetanus/diphtheria/pertuss, acel (Tdap) 05/04/20 R ecorded pneumococcal 23-valent vaccine 03/16/20 Recorded Medications amLODIPine 10 mg oral tablet Start: 09/16/23 8:02:00 AM EDT, 1 tab, PO, Daily, Disp# 90 tab, Refills: 3, Pharmacy: [id number] Start Date: 09/16/23 Status: Ordered Quantity: 90.0 Unit: tab Repeat number: 1 aspirin 81 mg oral delayed release tablet Start: 10/18/23 3:20:00 PM EDT, 1 tab, PO, Daily Start Date: 10/18/23 Status: Ordered Repeat number: 1 Brilinta (ticagrelor) 90 mg oral tablet 1 tab, PO, bid, TAKE 1 TABLET BY MOUTH TWICE DAILY Start Date: 03/31/24 Status: Ordered Repeat number: 1 cloNIDine 0.2 mg oral tablet Start: 03/30/24 1:43:00 PM EDT, 1 tab, PO, qid, Disp# 360 tab, Pharmacy: [id number] Start Date: 03/30/24 Stop Date: 06/28/24 Status: Ordered Quantity: 360.0 Unit: tab Repeat number: 1 esomeprazole 40 mg oral delayed release capsule Start: 03/12/24 8:15:00 AM EDT, 1 cap, PO, Daily, Disp# 90 cap, Refills: 3, Pharmacy: [facility] Start Date: 03/12/24 Stop Date: 03/07/25 Status: Ordered Quantity: 90.0 Unit: cap Repeat number: 4 famotidine 20 mg oral tablet Start: 03/12/24 8:15:00 AM EDT, 1 tab, PO, bid, Disp# 180 tab, Refills: 3, Pharmacy: [facility] Start Date: 03/12/24 Stop Date: 03/07/25 Status: Ordered Quantity: 180.0 Unit: tab Repeat number: 4 FreeStyle Dayday 2 - 14 day reader Start: 08/16/22 4:04:00 PM EST, See Instructions, Disp# 2 each, continous glucose monitoring, Pharmacy: [facility] Start Date: 08/16/22 Status: Ordered Quantity: 2.0 Unit: each Repeat number: 1 Indication: Type 2 diabetes mellitus without complications FreeStyle Dayday 2 - 14 day sensor Start: 08/16/22 4:04:00 PM EST, See Instructions, Disp# 2 each, Refills: 11, Continous glucose monitoring, Pharmacy: [facility] Start Date: 08/16/22 Status: Ordered Quantity: 2.0 Unit: each Repeat number: 12 Indication: Type 2 diabetes mellitus without complications Lantus Solostar Pen 100 units/mL subcutaneous solution Start: 06/15/24 8:17:00 AM EST, 20 TO 25 UNITS, subQ, Daily, Disp# 15 mL, Refills: 5, ADJUST BASED ON GLUCOSE MONITORING. Dx: E11.9, Brand Medically Necessary, Pharmacy: [facility] Start Date: 06/15/24 Status: Ordered Quantity: 15.0 Unit: mL Repeat number: 6 levalbuterol CFC free 45 mcg/inh inhalation aerosol Start: 03/26/23 9:56:00 AM EDT, 2 puff, inhaled, q4h, Disp# 1 each, Refills: 5, INHALE 2 PUFFS BY MOUTH EVERY 4 HOURS NEEDED FOR WHEEZING, Pharmacy: [facility] Start Date: 03/26/23 Stop Date: 09/22/23 Status: Ordered Quantity: 1.0 Unit: each Repeat number: 6 metoprolol succinate 50 mg oral capsule, extended release Start: 08/19/24 11:09:00 AM EST, 1 cap, PO, qPM, Disp# 90 cap, Refills: 3, Note to Pharmacy: pt will increase current supply of metoprolol tartrate 25mg to 50mg bid until all then switch to metoprolol succinate qpm, Pharmacy: [facility] Start Date: 08/19/24 Status: Ordered Quantity: 90.0 Unit: cap Repeat number: 4 montelukast 10 mg oral tablet Start: 09/24/22 8:22:00 AM EDT, 1 tab, PO, Daily, Disp# 30 tab, Refills: 5, TAKE 1 TABLET BY MOUTH ONCE DAILY NEEDED FOR ALLERGIES, Pharmacy: [facility] Start Date: 09/24/22 Status: Ordered Quantity: 30.0 Unit: tab Repeat number: 6 nitroglycerin 0.4 mg sublingual tablet Start: 06/02/24 4:12:00 PM EST, 1 tab, SL, q5min, Disp# 25 tab, Refills: 1, not to exceed 3 doses/15 min--if pain persists, seek medical attention must be dispensed & stored in original containers, PRN: as needed for chest pain, Pharmacy: [facility] Start Date: 06/02/24 Status: Ordered Quantity: 25.0 Unit: tab Repeat number: 2 Ozempic (0.25 mg or 0.5 mg dose) 2 mg/3 mL subQ pen Start: 04/23/24 2:25:00 PM EST, 0.5 mg, subQ, q7days, Disp# 3 mL, Refills: 5, Pharmacy: [facility], Supply Start Date: 04/23/24 Status: Ordered Quantity: 3.0 Unit: mL Repeat number: 6 RELION PEN NEEDLE [id number] MIS USE ONCE DAILY Start Date: 07/30/22 Status: Ordered Repeat number: 1 Repatha SureClick 140 mg/mL subcutaneous solution INJECT 1 SYRINGE SUBCUTANEOUSLY EVERY TWO WEEKS Start Date: 03/12/24 Status: Ordered Repeat number: 1 spironolactone 25 mg oral tablet Start: 05/20/24 8:09:00 AM EST, 1 tab, PO, Daily, Disp# 30 tab, Refills: 5, Pharmacy: [facility] Start Date: 05/20/24 Status: Ordered Quantity: 30.0 Unit: tab Repeat number: 1 Symbicort 160 mcg-4.5 mcg/inh inhalation aerosol Start: 02/05/23 1:37:00 PM EDT, See Instructions, Disp# 11 g, Refills: 5, Inhale 2 puffs by mouth twice daily, Brand Medically Necessary, Pharmacy: [facility] Start Date: 02/05/23 Status: Ordered Quantity: 11.0 Unit: g Repeat number: 1 valACYclovir 1 g oral tablet Start: 05/21/24 7:34:00 AM EST, 2 tab, PO, q12h, Disp# 4 tab, Pharmacy: [facility] Start Date: 05/21/24 Stop Date: 05/22/24 Status: Ordered Quantity: 4.0 Unit: tab Repeat number: 1 Problem List Condition Confirmation Course Effective Dates [...] Completed CT of head 1 06/08/[address] [place] [address] IMPRESSION: 1. No acute intracranial hemorrhage. 2. Expected evolution of the subacute right frontal and left occipital infarcts shown on MRI of June 03, 2023. Possible subacute right cerebellar infarct. No hemorrhagic conversion. No significant mass effect. 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 Anupama Gutierrez DO on 08/19/2024 02:44 PM [place] Act 112: Yes - Discussed with patient Summary 1. Limited 2D and spectral Doppler imaging performed to evaluate left ventricular systolic function. 2. Small, under-filled left ventricle. 3. Akinesis of the basal inferoseptal and basal inferior smith consistent with RCA infarct. 4. Preserved left ventricular systolic function; ejection fraction as calculated by Biplane Simpsons method is 70 %. 5. Mild to moderate concentric left ventricular hypertrophy. 6. Grade I diastolic dysfunction of the left ventricle (impaired relaxation pattern) with indeterminate left atrial pressure. 7. Normal right ventricular size and function. 8. Normal biatrial size. 9. No prior studies for comparison. Recommendations * Metoprolol increased to succinate 50mg q pm. Patient Info Name: IZABEL CAMACHO Age: 74 years : 1950 Gender: Female Ht: 168 cm Wt: 87 kg BSA: 2.04 m2 HR: 72 bpm BP: 150 / 60 mmHg Heart Rhythm: Sinus Rhythm Technical Quality: Fair Exam Date: 08/19/2024 9:05 AM Exam Location: [facility] Patient Status: Outpatient Staff Ordering Physician: Anupama Gutierrez Seasonal Recruiter: Rosalinda Crabtree RDCS, RVT Attending Physician: Anupama Gutierrez ([email or web address]) Study Info CPT 56236 - 27641 - Indications I25.10 - CAD in [place] artery I21.3 - STEMI (ST elevation myocardial infarction) Procedure(s) * A limited two-dimensional transthoracic echocardiogram was performed. * Limited spectral Doppler was performed. Exam Type: Cardiac Basic Left Ventricle Small, under-filled left ventricle. Akinesis of the basal inferoseptal and basal inferior smith consistent with RCA infarct. Preserved left ventricular systolic function; ejection fraction as calculated by Biplane Simpsons method is 70 %. Mild to moderate concentric left ventricular hypertrophy. Grade I diastolic dysfunction of the left ventricle (impaired relaxation pattern) with indeterminate left atrial pressure. Right Ventricle Normal right ventricular size and function. TAPSE is normal, 2.2 cm. Left Atrium Normal left atrial size. Right Atrium Normal right atrial size. Mitral Valve Name Value Normal MV Doppler MV PHT 98 ms MV Diastolic Function MV E Peak Velocity 0.71 m/s <=0.50 MV A Peak Velocity 1.03 m/s MV E/A 0.68 <=0.80 MV Decel Time 338 ms MV Annular TDI MV Septal s' Velocity 7.94 cm/s MV Septal e' Velocity 5.98 cm/s >=7.00 MV E/e' (Septal) 11.8 <=8.0 MV Lateral s' Velocity 9.14 cm/s MV Lateral e' Velocity 4.57 cm/s >=10.00 MV E/e' (Lateral) 15.44 <=8.00 MV e' Average 5.28 MV E/e' (Average) 13.62 <=14.00 Ventricles Name Value Normal LV Dimensions 2D/MM IVS Diastolic Thickness (2D) 1.2 cm 0.6-0.9 LVID Diastole (2D) 3.8 cm 3.3-5.1 LVIW Diastolic Thickness (2D) 1.3 cm 0.6-0.9 LVID Systole (2D) 2.1 cm 2.2-3.5 LV Mass (2D Cubed) 162.57 g 67.00-162.00 Relative Wall Thickness (2D) 0.70 LV Fractional Shortening/Ejection Fraction 2D/MM LV Fractional Shortening (2D) 45 % 27-45 LV Diastolic Volume (4C MOD) 39 ml LV Diastolic Volume (2C MOD) 38 ml LV Diastolic Volume (BP MOD) 38 ml 46-106 LV Diastolic Volume Index (BP MOD) 18.84 ml/m2 29.00-61.00 LV Systolic Volume (BP MOD) 13 ml 14-42 LV Systolic Volume Index (BP MOD) 6.25 ml/m2 8.00-24.00 LV EF (BP MOD) 70 % 58-69 LV SV (BP MOD) 25.69 ml RV Dimensions 2D/MM RV Basal Diastolic Dimension 3.4 cm 2.5-4.1 TAPSE 2.2 cm >=1.7 Atria Name Value Normal LA Dimensions LA Area (4C) 13.8 cm2 LA Length (4C) 4.4 cm LA Area (2C) 18.3 cm2 LA Length (2C) 4.8 cm LA Volume (4C A-L) 37.12 ml LA Volume (2C A-L) 58.60 ml LA Volume (BP A-L) 49 ml 22-52 LA Volume Index (BP A-L) 23.99 ml/m2 <=34.00 RA Dimensions RA Area (4C) 10.1 cm2 <=18.0 Final Signed by:DO Gutierrez Michelle L Signed (Electronic Signature):08/19/2024 9:05 a Social History Social History Type Response Smoking Status Never smoked cigaret domenic Sex Female Sex Representation Female (finding) Patient Care team information Care Team Personnel Name: MD Caesar, Bin Jackson Position: Physician - Gastro Member Role: Lifetime Relationship Address: [address] [place] [address] Telecom: [phone] Name: CHERRY Erickson Lynn Position: Physician Rayon Winder Exempt - Vasc Surg Member Role: Lifetime Relationship Address: [address] [place] [address] Telecom: [phone] Name: CHERRY Manriquez Jessica A Position: Physician Asst Exmpt - Family Med Member Role: Primary Care Provider Address: [address] [place] [address] Telecom: [phone] Care Team Related Persons Name: ZAKIA ARANDA Insurance Providers Guarantor name[facility] Plan Information #: 1 Payer: [employer] Member Number: [id number] Policy Number: NA Group Number: [id number] Plan Information #: 2 Payer: [employer] Member Number: [id number] Policy Number: NA Group Number: NA
--- OUTSIDE RECORDS SUMMARY | 2024-09-02 20:42 | External Medical Summary | Continuity of Care Document ---
Author Name Unknown Organization [facility] [address] [facility] Address [address] [place], [place] [id number] Care Team Providers Care Instrument Technician Name Role Phone Anh Manriquez Primary Care Physician [phone] Encounter [facility] [id number] Date(s): 08/19/24 - 08/19/24 [facility] [address], [address] [place] [address] [phone] Encounter Diagnosis Body mass index [BMI] 31.0-31.9, adult(Discharge Diagnosis) - 08/19/24 CAD (coronary artery disease)(Discharge Diagnosis) - 08/19/[address] elevation (STEMI) myocardial infarction of inferior wall(Discharge Diagnosis) - 08/19/24 Familial hypercholesteremia(Discharge Diagnosis) - 08/19/24 Bilateral carotid artery stenosis(Discharge Diagnosis) - 08/19/24 Discharge Disposition: Home or Self Care Attending Physician: DO Gutierrez Michelle L Encounter Type: Clinic Allergies, Adverse Reactions, Alerts Substance Criticality Severity Reaction Reaction Severity Status atenolol SOB Active codeine vomiting nausea Active Bactrim vomiting nausea Active Benicar kidney issues Active erythromycin vomiting nausea Active lisinopril hair loss Active sulfa drugs voiting nausea Active Assessment and Plan Extracted from: Title:Cardiology Office Visit Note Author:DO Gutierrez Michelle L Date:08/19/24 1.CAD (coronary artery dis ease) 3 vessel CAD s/p [address] intervention[address] 2[address]Sub[address] elevation (STEMI) myocardial infarction of inferior wall 3.Familial hypercholesteremia 4.Bilateral carotid artery stenosis A cardiac standpoint she will continue dual antiplatelet therapy along with beta-blockeras well asPCSK9 inhibitor. Her cholesterol is managed by a cholesterol specialist in [facility] she has been seeing for many years. I do not have recent [facility] is managing her lipids. A goal LDL cholesterol less than 50-60 is recommended given her multivessel multisystemvascular disease. Preopcardiac standpoint she is considered to be an appropriate candidate forany carotid intervention deemed necessary by Dr. Botello either open surgical or acatheter based stent. She will need to continue her dual antiplatelet therapy indefinitelyif she decides to not have any intervention done. I strongly encouraged her to have this discussion with her family so that they are aware that sheis refusing to havecarotid intervention at this time. She does not want to finish cardiac rehab due to her transportation issues. She will follow-upto see me in the office in approximately 6 months. Thank you for allowing me to participate in the care of this very nice patient. I look forward to participating in their care with you. Anupama Gutierrez DO [facility] Vending Managermanager domestic [facility] [place] [facility] Immunizations Given and Recorded Vaccine Date Status Refusal Reason SARS-CoV-2 mRNA ([id number]) 07/12/21 Re corded SARS-CoV-2 (COVID-19) mRNA-1273 vaccine 10/07/20 R ecorded SARS-CoV-2 (COVID-19) mRNA-1273 vaccine 09/09/20 R ecorded tetanus/diphtheria/pertuss, acel (Tdap) 05/04/20 R ecorded pneumococcal 23-valent vaccine 03/16/20 Recorded Medications amLODIPine 10 mg oral tablet Start: 09/16/23 8:02:00 AM EDT, 1 tab, PO, Daily, Disp# 90 tab, Refills: 3, Pharmacy: [id number] Start Date: 09/16/23 Status: Ordered Quantity: 90.0 [...] tab, PO, qid, Disp# 360 tab, Pharmacy: [facility] 2229 Start Date: 03/30/24 Stop Date: 06/28/24 Status: Ordered Quantity: 360.0 Unit: tab Repeat number: 1 esomeprazole 40 mg oral delayed release capsule Start: 03/12/24 8:15:00 AM EDT, 1 cap, PO, Daily, Disp# 90 cap, Refills: 3, Pharmacy: [facility] 2229 Start Date: 03/12/24 Stop Date: 03/07/25 Status: Ordered Quantity: 90.0 Unit: cap Repeat number: 4 famotidine 20 mg oral tablet Start: 03/12/24 8:15:00 AM EDT, 1 tab, PO, bid, Disp# 180 tab, Refills: 3, Pharmacy: [facility] 2229 Start Date: 03/12/24 Stop Date: 03/07/25 Status: Ordered Quantity: 180.0 Unit: tab Repeat number: 4 FreeStyle Dayday 2 - 14 day reader Start: 08/16/22 4:04:00 PM EST, See Instructions, Disp# 2 each, continous glucose monitoring, Pharmacy: [facility] 2229 Start Date: 08/16/22 Status: Ordered Quantity: 2.0 Unit: each Repeat number: 1 Indication: Type 2 diabetes mellitus without complications FreeStyle Dayday 2 - 14 day sensor Start: 08/16/22 4:04:00 PM EST, See Instructions, Disp# 2 each, Refills: 11, Continous glucose monitoring, Pharmacy: [facility] 2229 Start Date: 08/16/22 Status: Ordered Quantity: 2.0 Unit: each Repeat number: 12 Indication: Type 2 diabetes mellitus without complications Lantus Solostar Pen 100 units/mL subcutaneous solution Start: 06/15/24 8:17:00 AM EST, 20 TO 25 UNITS, subQ, Daily, Disp# 15 mL, Refills: 5, ADJUST BASED ON GLUCOSE MONITORING. Dx: E11.9, Brand Medically Necessary, Pharmacy: [facility] 2229 Start Date: 06/15/24 Status: Ordered Quantity: 15.0 Unit: mL Repeat number: 6 levalbuterol CFC free 45 mcg/inh inhalation aerosol Start: 03/26/23 9:56:00 AM EDT, 2 puff, inhaled, q4h, Disp# 1 each, Refills: 5, INHALE 2 PUFFS BY MOUTH EVERY 4 HOURS NEEDED FOR WHEEZING, Pharmacy: [facility] 2229 Start Date: 03/26/23 Stop Date: 09/22/23 Status: Ordered Quantity: 1.0 Unit: each Repeat number: 6 metoprolol succinate 50 mg oral capsule, extended release Start: 08/19/24 11:09:00 AM EST, 1 cap, PO, qPM, Disp# 90 cap, Refills: 3, Note to Pharmacy: pt will increase current supply of metoprolol tartrate 25mg to 50mg bid until all then switch to metoprolol succinate qpm, Pharmacy: [facility] 2229 Start Date: 08/19/24 Status: Ordered Quantity: 90.0 Unit: cap Repeat number: 4 montelukast 10 mg oral tablet Start: 09/24/22 8:22:00 AM EDT, 1 tab, PO, Daily, Disp# 30 tab, Refills: 5, TAKE 1 TABLET BY MOUTH ONCE DAILY NEEDED FOR ALLERGIES, Pharmacy: [facility] 2229 Start Date: 09/24/22 Status: Ordered Quantity: 30.0 Unit: tab Repeat number: 6 nitroglycerin 0.4 mg sublingual tablet Start: 06/02/24 4:12:00 PM EST, 1 tab, SL, q5min, Disp# 25 tab, Refills: 1, not to exceed 3 doses/15 min--if pain persists, seek medical attention must be dispensed & stored in original containers, PRN: as needed for chest pain, Pharmacy: [facility] 2229 Start Date: 06/02/24 Status: Ordered Quantity: 25.0 Unit: tab Repeat number: 2 Ozempic (0.25 mg or 0.5 mg dose) 2 mg/3 mL subQ pen Start: 04/23/24 2:25:00 PM EST, 0.5 mg, subQ, q7days, Disp# 3 mL, Refills: 5, Pharmacy: [facility] 2229, Supply Start Date: 04/23/24 Status: Ordered Quantity: 3.0 Unit: mL Repeat number: 6 RELION PEN NEEDLE [id number] MIS USE ONCE DAILY Start Date: 07/30/22 Status: Ordered Repeat number: 1 Repatha SureClick 140 mg/mL subcutaneous solution INJECT 1 SYRINGE SUBCUTANEOUSLY EVERY TWO WEEKS Start Date: 03/12/24 Status: Ordered Repeat number: 1 spironolactone 25 mg oral tablet Start: 05/20/24 8:09:00 AM EST, 1 tab, PO, Daily, Disp# 30 tab, Refills: 5, Pharmacy: [facility] 2229 Start Date: 05/20/24 Status: Ordered Quantity: 30.0 Unit: tab Repeat number: 1 Symbicort 160 mcg-4.5 mcg/inh inhalation aerosol Start: 02/05/23 1:37:00 PM EDT, See Instructions, Disp# 11 g, Refills: 5, Inhale 2 puffs by mouth twice daily, Brand Medically Necessary, [facility] Start Date: 02/05/23 Status: Ordered Quantity: 11.0 Unit: g Repeat number: 1 valACYclovir 1 g oral tablet Start: 05/21/24 7:34:00 AM EST, 2 tab, PO, q12h, Disp# 4 tab, Pharmacy: [facility] 2229 Start Date: 05/21/24 Stop Date: 05/22/24 Status: Ordered Quantity: 4.0 Unit: tab Repeat number: 1 Mental Status 08/19/24 Barriers to Learning one year None evide nt Mandatory Health Literacy Documentation Yes Health Literacy Communication Barriers N ever Primary Language Syriac Problem List Condition Confirmation Course Effective Dates [...] Effective Dates Health Status Clinical Service Informant Subsequent ST elevation (STEMI) myocardial infarction of inferior wall Discharge Diagnosis 08/19/24 Non-Specified Body mass index [BMI] 31.0-31.9, adult Discharge Diagnosis 08/19/24 Non-Specified CAD (coronary artery disease) Discharge Diagnosis 08/19/24 Non-Specified Bilateral carotid artery stenosis Discharge Diagnosis 08/19/24 Non-Specified Familial hypercholesteremia Discharge Diagnosis 08/19/24 Non-Specified Procedures Procedure Date Related Diagnosis Body Site Status PCI (percutaneous coronary intervention) of left anterior descending branch of coronary artery 03/18/[address] of head 1 06/08/[address] [place] [address] IMPRESSION: 1. No acute intracranial hemorrhage. 2. Expected evolution of the subacute right frontal and left occipital infarcts shown on MRI of June 03, 2023. Possible subacute right cerebellar infarct. No hemorrhagic conversion. No significant mass effect. 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 Vital Signs Most recent to oldest [Reference Range]: 1 Height 167 cm (08/19/24 10:25 AM) Patient Weight 87.1 kg (08/19/24 10:25 AM) Body Mass Index 31.23 kg/m2 (08/19/24 10:25 AM) Heart Rate 81 bpm (08/19/24 10:25 AM) Blood Pressure 146/90mmHg (08/19/24 10:25 AM) Cuff Pulse Pressure 56 mmHg (08/19/24 10:25 AM) Social History Social History Type Response Smoking Status Never smoked cigaret domenic Sex Female Sex Representation Female (finding) Cardiology Outpatient Note * DO Gutierrez Michelle L: PERFORM Event Display: Cardiology Outpt Note Authored Date: [id number] Primary Care Provider CHERRY Manriquez Jessica A Reason for Consultation Dr. Botello Chief Complaint pt had 3 caths this fall, last one being [facility] 06/09. only did one rehab has no car. mild fatigue. now swelling History of Present Illness Izabel was seen today in cardiac follow-up. She has been on hold to have hercarotidsurgery with Dr. Franco to her multivessel CAD. She proceeds to tell me today that she has decided she is not going to have her carotid intervened upon. I strongly recommend against her not having thisdone. This is a conversation she needs to have with vascular surgeryif she is decided not to have surgery done. I reviewed with her that given her tight carotid diseaseshe is at risk for having stroke. She also needs to make sure thatthis decision to not have this intervened upon is discussed with her family so that they are aware. From a cardiac standpointat this pointshe has had interventions on all 3 coronary arteries and she is deemed to be an appropriate candidate forany carotid intervention necessary howeverat this pointI think she is refusing to havesurgery done at all. She is s/p her [facility] Cx.Did well with this procedure. As you know, in March, she presented with an Inferior STEMI and underwent staged intervention to the RCA and thenthe LAD. Her cath in May showed: Left Main: The left main coronary artery arises from the left sinus of Valsalva, is a large calibervessel and mildly diseased. LAD: The left anterior descending coronary artery arises from the left main and is a large caliber vessel. It wraps around the apex and supplies the distal inferior wall. The Proximal LAD is large insize and mildly diseased. The Mid LAD is large in size, mildly diseased, and has an existing stent.The Distal LAD is medium in size and mildly diseased. The 1st Diagonal is small in size and mildly diseased. The 2nd Diagonal is medium in size and mildly diseased. Circumflex: The circumflex coronary artery arises from the left main, is a large caliber vessel andmildly diseased. The Proximal Circumflex is large in size and mildly diseased. The Mid Circumflex is large in size and severely diseased. There is a 90% 20 mm long, complex type C, culprit lesion in the mid portion of the Mid Circumflex with GEETA III flow. The mid LCx had tandem 80% and 90% lesions. IVUS was performed on the Mid Circumflex. The plaque is Calcified < 180 Degree. The Distal Circumflex is small in size and not diseased. The 1st Marginal is large in size and not diseased. The 2nd Marginal is medium in size and mildly diseased. Interventional Details: Circumflex: The 90%, 20 mm long Mid Circumflex lesion was treated with a STENT DRUG ELUTING XIENCE SKYPOINT [id number], NC Euphora RX Balloon 3.25 mm x 12 mm, SC Euphora RX Balloon 3.0 mm x 12 mm, Teleport Microcatheter 2.1FR X 13, Catheter IVUS [place] [facility] 24 cm RX 150 cm, SC Euphora RX Balloon 2.25 mm x 12 mm, Guidewire Runthrough NS Floppy Tip .014 mm x 180 cm and Guidewire High Torque Wiggle Straight Tip .014 in. x 190 cm. Post intervention stenosis was 0% with GEETA III flow. Her ECHO today showed LVH with hyperdynamic LV function as well as diastolic dysfunction. She has only been to cardiac once [facility]. This is the first time I am seeing hersince the Cx intervention-this has been due to transportation issues. Review of Systems General: no fevers, chills, weight loss of gain HEENT: no changes in vision or hearing; no recent falls or head trauma Cardiac: No other symptoms other than reported in HPI Pulmonary: No symptoms other than reported in HPI Abdomen: No changes in bowel habits, nausea, vomiting, no BRBPR : no changes in urine frequency Extremities: no edema or claudication Physical Exam Vitals & Measurements HR:81(Monitored) BP:146/90 SpO2:98% HT:167cm WT:87.1kg WT:87.100kg(Dosing) BMI:31.23 BMI:31.23 kg/m2 Patient is awake alert and oriented x3 and in no acute distress HEENT: 2+ carotid upstrokes, left carotid bruit noted LUNGS: Clear to auscultation bilaterally no rales rhonchi or wheezing HEART: Regular rate and rhythm no appreciable murmurs rubs or gallops ABDOMEN: Soft nontender nondistended positive bowel sounds EXTREMITIES: No evidence of clubbing cyanosis or edema PSYCHIATRIC: Patients affect appeared appropriate Assessment/Plan 1.CAD (coronary artery disease) 3 vessel CAD s/p 3 [address] intervention. 2.Subsequent ST elevation (STEMI) myocardial infarction of inferior wall 3.Familial hypercholesteremia 4.Bilateral carotid artery stenosis A cardiac standpoint she will continue dual antiplatelet therapy along with beta-blockeras well asPCSK9 inhibitor. Her cholesterol is managed by a cholesterol specialist in [facility] she has been seeing for many years. I do not have recent [facility]. A goal LDL cholesterol less than 50-60 is recommended given her multivessel multisystemvascular disease. Preopcardiac standpoint she is considered to be an appropriate candidate forany carotid intervention deemed necessary by Dr. Botello either open surgical or acatheter based stent. She will need to continue her dual antiplatelet therapy indefinitelyif she decides to not have any intervention done. I strongly encouraged her to have this discussion with her family so that they are aware that sheis refusing to havecarotid intervention at this time. She does not want to finish cardiac rehab due to her transportation issues. She will follow-upto see me in the office in approximately 6 months. Thank you for allowing me to participate in the care of this very nice patient. I look forward toparticipating in their care with you. Anupama Gutierrez DO [facility] Vending Managermanager domestic [facility] [place] [facility] Attestation I, Anupama Gutierrez DO [facility] have spent 40minutes performing the activities necessary in the patients visit. This time does not include separately reported service. Activities include the following: _x_ review of the medical record _x_ obtaining a history _x_ physical exam/evaluation x__counseling/educating patient/family/caregiver x__ discussion/referral to other healthcare professionals x__ documenting care in the medical record x__ independent interpretation of results _x_ communication of results to patient/family/caregiver x__ coordination of care Problem List/Past Medical History Ongoing Asthma, moderate persistent, well-controlled Benign hypertension without CHF Bilateral carotid artery stenosis Chronic kidney disease (CKD) stage G3b/A2, moderately [...] artery stenosis Resolved Other hyperlipidemia Procedure/Surgical History PCI (percutaneous coronary intervention) of left anterior descending branch of coronary artery| Service Date: 03/18/2024T of head| Service Date: 06/08/2023 Cardiac History Inferior STEMI March 2024-staged intervention to RCA (culprit) and then LAD following day. Cx intervention May 2024 done at [facility] due to complex disease Medications amLODIPine(amLODIPine 10 mg oral tablet), 1 tab, PO, Daily aspirin(aspirin 81 mg oral delayed release tablet), 81 mg= 1 tab, PO, Daily budesonide-formoterol(Symbicort 160 mcg-4.5 mcg/inh inhalation aerosol), See Instructions cloNIDine(cloNIDine 0.2 mg oral tablet), 0.2 mg= 1 tab, PO, qid diabetes supplies(FreeStyle Dayday 2 - 14 day [...] subcutaneous solution), 20 TO 25 UNITS, subQ, Daily, 5 refills levalbuterol(levalbuterol CFC free 45 mcg/inh inhalation aerosol), 2 puff, inhaled, q4h, 5 refills metoprolol(metoprolol succinate 50 mg oral capsule, extended release), 50 mg= 1 cap, PO, qPM, 3 refills montelukast(montelukast 10 mg oral tablet), 10 mg= 1 tab, PO, Daily, 5 refills nitroglycerin(nitroglycerin 0.4 mg sublingual tablet), 0.4 mg= 1 tab, SL, q5min, PRN, 1 refills semaglutide(Ozempic (0.25 mg or 0.5 mg dose) 2 mg/3 mL subQ pen), 0.5 mg, subQ, q7days, 5 refills spironolactone(spironolactone 25 mg oral tablet), 1 tab, PO, Daily ticagrelor(Brilinta (ticagrelor) 90 mg oral tablet), 90 mg= 1 tab, PO, bid unlisted medication(RELION PEN NEEDLE [id number] MIS) valACYclovir(valACYclovir 1 g oral tablet), 2 g= 2 tab, PO, q12h Allergies Bactrimvomiting, nausea Benicarkidney issues atenololSOB codeinevomiting, nausea erythromycinvomiting, nausea lisinoprilhair loss sulfa drugsvoiting, nausea Social History Smoking Status Never smoked cigarettes Family History Cancer: Mother and Brother. Heart attack: Father. Heart disease: Sister. Type I diabetes mellitus: Sister. Health Status Family Member(s) Lab Results Test Name Test Result Date/Time Na 143 mmol/L 06/09/2024 12:07 EST K 4.7 mmol/L 06/09/2024 12:07 EST Cl- 106 mmol/L 06/09/2024 12:07 EST HCO3 28 mmol/L 06/09/2024 12:07 EST Anion Gap 9 mmol/L 06/09/2024 12:07 EST BUN 17 mg/dL 06/09/2024 12:07 EST Cret 1.39 mg/dL 06/09/2024 12:07 EST eGFR CKD-EPI 40 mL/min/1.73 m2 06/09/2024 12:07 EST Glu 136 mg/dL 06/09/2024 12:07 EST Ca 9.4 mg/dL 06/09/2024 12:07 EST Electronic Signature on File Electronically Reviewed/Signed by: Anupama Gutierrez DO Author Signature Dt/Tm:08/19/2024 11:18 AM Division of General Cardiology [facility] Patient Care team information Care Team Personnel Name: MD Caesar, Bin Jackson Position: Physician - Gastro Member Role: Lifetime Relationship Address: [address] [place] [address] Telecom: [phone] Name: CHERRY Erickson Lynn Position: Physician Investigations Manager Exempt - Vasc Surg Member Role: Lifetime Relationship Address: [address] [place] [address] Telecom: [phone] Name: CHERRY Manriquez Jessica A Position: Physician Asst Exmpt - Family Med Member Role: Primary Care Provider Address: [address] [place] [address] Telecom: [phone] Care Team Related Persons Name: ZAKIA ARANDA Insurance Providers Guarantor name: IZABEL CAMACHO [email or web address] Plan Information #: 1 Payer: [employer] Member Number: [id number] Policy Number: NA Group Number: [id number] Health Plan Information #: 2 Payer: [employer] Member Number: [id number] Policy Number: NA Group Number: [id number]"
--- OUTSIDE RECORDS SUMMARY | 2024-09-02 20:43 | External Medical Summary | Continuity of Care Document ---
Author Name Unknown Organization [facility] [address] [address] Address [address] [place], [place] [id number] Care Team Providers Care Choker Setter Name Role Phone FaisalAnh leo Huma Primary Care Physician [phone] [id number] Date(s): 04/07/[facility] - 04/07/24 [facility] [address], [address] [place] [address] [phone] Discharge Disposition: Home or Self Care Attending Physician: DO Gutierrez Michelle L Referring Physician: DO Gutierrez Michelle L Allergies, Adverse Reactions, Alerts Substance Criticality Severity Reaction Reaction Severity Status atenolol SOB Active codeine vomiting nausea Active erythromycin vomiting nausea Active lisinopril hair loss Active sulfa drugs voiting nausea Active Bactrim vomiting nausea Active Benicar kidney issues Active Immunizations Given and Recorded Vaccine Date Status Refusal Reason SARS-CoV-2 mRNA ([id number]) 07/12/21 Re corded SARS-CoV-2 (COVID-19) mRNA-1273 vaccine 10/07/20 R ecorded SARS-CoV-2 (COVID-19) mRNA-1273 vaccine 09/09/20 R ecorded tetanus/diphtheria/pertuss, acel (Tdap) 05/04/20 R ecorded pneumococcal 23-valent vaccine 03/16/20 Recorded Medications amLODIPine 10 mg oral tablet Start: 09/16/23 8:02:00 AM EDT, 1 tab, PO, Daily, Disp# 90 tab, Refills: 3, Pharmacy: [id number] Start Date: 09/16/23 Status: Ordered aspirin 81 [...] tab, PO, qid, Disp# 360 tab, Pharmacy: [facility] 2229 Start Date: 03/30/24 Stop Date: 06/28/24 Status: Ordered esomeprazole 40 mg oral delayed release capsule Start: 03/12/24 8:15:00 AM EDT, 1 cap, PO, Daily, Disp# 90 cap, Refills: 3, Pharmacy: [facility] 2229 Start Date: 03/12/24 Stop Date: 03/07/25 Status: Ordered famotidine 20 mg oral tablet Start: 03/12/24 8:15:00 AM EDT, 1 tab, PO, bid, Disp# 180 tab, Refills: 3, Pharmacy: [facility] 2229 Start Date: 03/12/24 Stop Date: 03/07/25 Status: Ordered FreeStyle Dayday 2 - 14 day reader Start: 08/16/22 4:04:00 PM EST, See Instructions, Disp# 2 each, continous glucose monitoring, Pharmacy: [facility] 2229 Start Date: 08/16/22 Status: Ordered FreeStyle Dayday 2 - 14 day sensor Start: 08/16/22 4:04:00 PM EST, See Instructions, Disp# 2 each, Refills: 11, Continous glucose monitoring, Pharmacy: [facility] 2229 Start Date: 08/16/22 Status: Ordered Lantus Solostar Pen 100 units/mL subcutaneous solution Start: 02/10/24 9:38:00 AM EDT, 13 unit =, subQ, Daily, Disp# 15 mL, Refills: 1, ADJUST BASED ON GLUCOSE MONITORING., Brand Medically Necessary, Pharmacy: [facility] 2229 Start Date: 02/10/24 Status: Ordered levalbuterol CFC free 45 mcg/inh inhalation aerosol Start: 03/26/23 9:56:00 AM EDT, 2 puff, inhaled, q4h, Disp# 1 each, Refills: 5, INHALE 2 PUFFS BY MOUTH EVERY 4 HOURS NEEDED FOR WHEEZING, Pharmacy: [facility] Start Date: 03/26/23 Stop Date: 09/22/23 Status: Ordered Metoprolol Tartrate 25 mg oral tablet TAKE 1 TABLET BY MOUTH TWICE DAILY Start Date: 03/31/24 Status: Ordered montelukast 10 mg oral tablet Start: 09/24/22 8:22:00 AM EDT, 1 tab, PO, Daily, Disp# 30 tab, Refills: 5, TAKE 1 TABLET BY MOUTH ONCE DAILY NEEDED FOR ALLERGIES, Pharmacy: [facility] Start Date: 09/24/22 Status: Ordered Ozempic (0.25 mg or 0.5 mg dose) 2 mg/3 mL subQ pen Start: 03/13/24 11:17:00 AM EDT, See Instructions, subQ, q7days, Disp# 3 mL, Inject 0.25 mg every 7 days X 4 weeks then increase to 0.5 mg SQ every 7 days., Pharmacy: [facility], Supply Start Date: 03/13/24 Status: Ordered RELION PEN NEEDLE [id number] MIS USE ONCE DAILY Start Date: 07/30/22 Status: Ordered Repatha SureClick 140 mg/mL subcutaneous solution INJECT 1 SYRINGE SUBCUTANEOUSLY EVERY TWO WEEKS Start Date: 03/12/24 Status: Ordered spironolactone 25 mg oral tablet Start: 02/21/24 2:31:00 PM EDT, 1 tab, PO, Daily, Disp# 30 tab, Refills: 2, Pharmacy: [facility] Start Date: 02/21/24 Stop Date: 05/21/24 Status: Ordered Symbicort 160 mcg-4.5 mcg/inh inhalation aerosol Start: 02/05/23 1:37:00 PM EDT, See Instructions, Disp# 11 g, Refills: 5, Inhale 2 puffs by mouth twice daily, Brand Medically Necessary, Pharmacy: [facility] Start Date: 02/05/23 Status: Ordered Problem [...] Completed CT of head 1 06/08/[address] [place] [address] IMPRESSION: 1. No acute intracranial hemorrhage. 2. Expected evolution of the subacute right frontal and left occipital infarcts shown on MRI of June 03, 2023. Possible subacute right cerebellar infarct. No hemorrhagic conversion. No significant mass effect. 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 Social History Social History Type Response Smoking Status Never smoked cigaret domenic Sex Female Sex Representation Female (finding) Patient Care team information Care Team Personnel Name: MD Caesar, Bin Jackson Position: Physician - Gastro Member Role: Lifetime Relationship Address: [address] [place] [address] Name: CHERRY Erickson Lynn Position: Physician Lead Front End Developer Exempt - Vasc Surg Member Role: Lifetime Relationship Address: [address] [place] [id number] [place] Name: CHERRY Manriquez Jessica A Position: Physician Asst Exmpt - Family Med Member Role: Primary Care Provider Address: [address] [place] [address] Care Team Related Persons Name: ZAKIA ARANDA
--- OUTSIDE RECORDS SUMMARY | 2024-09-02 20:43 | External Medical Summary | Continuity of Care Document ---
Author Name Unknown Organization [place] [address] [address] [place] [phone] Care Team Providers Care Charter Bus Driver Name Role Phone JahAnh victor Huma Primary Care Physician [phone] En[facility] [id number] Date(s): 03/30/24 - 03/30/24 [facility] [address] [address] [phone] Encounter Diagnosis Body mass index [BMI] 32.0-32.9, adult(Discharge Diagnosis) - 03/30/24 ST elevation IN (STEMI)(Discharge Diagnosis) - 03/30/24 Shoulder blade pain(Discharge Diagnosis) - 03/30/24 Discharge Disposition: Home or Self Care Attending Physician: DO Cheema Kristen M Referring Physician: MD Margo, Mora Gasca Allergies, Adverse Reactions, Alerts Substance Criticality Severity Reaction Reaction Severity Status atenolol SOB Active codeine vomiting nausea Active lisinopril hair loss Active Bactrim vomiting nausea Active Benicar kidney issues Active erythromycin vomiting nausea Active sulfa drugs voiting nausea Active Assessment and Plan Extracted from: Title:Office Visit Note Author:MD Kiara, Kristen Date:03/30/24 1.ST elevation IN (STEMI) Acute, uncomplicated illness/injury Goal:Resolution Data: Plan: -MultivesseldiseaseS/P RCS stenting on Mar 20, 2024. -Planned for Circumflex stenting innear future at [place]. - Machine Cell Tuber appointment tomorrow; will discuss plan ahead. - No newissuespost PCI. - Increased clonidine dose from 0.1 to 0.2 mg QID as per discharge record. - Explained side effects of medicine. - Continue medication as per discharge. 2.Shoulder blade pain Chronic condition, stable Goal:Resolution Data: Plan: - Likely muscle origin rather than bone. - Associated with tingling sometimes; has been there since long. - Physical therapy referraldone. - F/U after PT for possible need of imaging if PT does not help. Advised Flu shot : deferred by patient. Immunizations Given and Recorded Vaccine Date Status Refusal Reason SARS-CoV-2 mRNA ([id number]) 07/12/21 Re corded SARS-CoV-2 (COVID-19) mRNA-1273 vaccine 10/07/20 R ecorded SARS-CoV-2 (COVID-19) mRNA-1273 vaccine 09/09/20 R ecorded tetanus/diphtheria/pertuss, acel (Tdap) 05/04/20 R ecorded pneumococcal 23-valent vaccine 03/16/20 Recorded Medications amLODIPine 10 mg oral tablet Start: 09/16/23 8:02:00 AM EDT, 1 tab, PO, Daily, Disp# 90 tab, Refills: 3, Pharmacy: [facility] Start Date: 09/16/23 Status: Ordered aspirin [...] tab, PO, qid, Disp# 360 tab, Pharmacy: [facility] Start Date: 03/30/24 Stop Date: 06/28/24 Status: Ordered esomeprazole 40 mg oral delayed release capsule Start: 03/12/24 8:15:00 AM EDT, 1 cap, PO, Daily, Disp# 90 cap, Refills: 3, Pharmacy: [facility] Start Date: 03/12/24 Stop Date: 03/07/25 Status: Ordered famotidine 20 mg oral tablet Start: 03/12/24 8:15:00 AM EDT, 1 tab, PO, bid, Disp# 180 tab, Refills: 3, Pharmacy: [facility] Start Date: 03/12/24 Stop Date: 03/07/25 Status: Ordered FreeStyle Dayday 2 - 14 day reader Start: 08/16/22 4:04:00 PM EST, See Instructions, Disp# 2 each, continous glucose monitoring, Pharmacy: [facility] 2[facility] Start Date: 08/16/22 Status: Ordered FreeStyle Dayday 2 - 14 day sensor Start: 08/16/22 4:04:00 PM EST, See Instructions, Disp# 2 each, Refills: 11, Continous glucose monitoring, Pharmacy: [facility] Start Date: 08/16/22 Status: Ordered Lantus Solostar Pen 100 units/mL subcutaneous solution Start: 02/10/24 9:38:00 AM EDT, 13 unit =, subQ, Daily, Disp# 15 mL, Refills: 1, ADJUST BASED ON GLUCOSE MONITORING., Brand Medically Necessary, Pharmacy: [facility] Start Date: 02/10/24 Status: Ordered levalbuterol CFC free 45 mcg/inh inhalation aerosol Start: 03/26/23 9:56:00 AM EDT, 2 puff, inhaled, q4h, Disp# 1 each, Refills: 5, INHALE 2 PUFFS BY MOUTH EVERY 4 HOURS NEEDED FOR WHEEZING, Pharmacy: [facility] Start Date: 03/26/23 Stop Date: 09/22/23 Status: Ordered Metoprolol Tartrate 25 mg oral tablet TAKE 1 TABLET BY MOUTH TWICE DAILY Start Date: 03/31/24 Status: Ordered montelukast 10 mg oral tablet Start: 09/24/22 8:22:00 AM EDT, 1 tab, PO, Daily, Disp# 30 tab, Refills: 5, TAKE 1 TABLET BY MOUTH ONCE DAILY NEEDED FOR ALLERGIES, Pharmacy: [facility] Start Date: 09/24/22 Status: Ordered Ozempic (0.25 mg or 0.5 mg dose) 2 mg/3 mL subQ pen Start: 03/13/24 11:17:00 AM EDT, See Instructions, subQ, q7days, Disp# 3 mL, Inject 0.25 mg every 7 days X 4 weeks then increase to 0.5 mg SQ every 7 days., Pharmacy: [facility], Supply Start Date: 03/13/24 Status: Ordered RELION PEN NEEDLE [id number] MIS USE ONCE DAILY Start Date: 07/30/22 Status: Ordered Repatha SureClick 140 mg/mL subcutaneous solution INJECT 1 SYRINGE SUBCUTANEOUSLY EVERY TWO WEEKS Start Date: 03/12/24 Status: Ordered spironolactone 25 mg oral tablet Start: 02/21/24 2:31:00 PM EDT, 1 tab, PO, Daily, Disp# 30 tab, Refills: 2, Pharmacy: [facility] Start Date: 02/21/24 Stop Date: 05/21/24 Status: Ordered Symbicort 160 mcg-4.5 mcg/inh inhalation aerosol Start: 02/05/23 1:37:00 PM EDT, See Instructions, Disp# 11 g, Refills: 5, Inhale 2 puffs by mouth twice daily, Brand Medically Necessary, Pharmacy: [facility] Start Date: 02/05/23 Status: Ordered Mental Status 03/30/24 Mandatory Health Literacy Documentation Yes Health Literacy Communication Barriers N ever Primary Language Tajik Problem List Condition Confirmation Course Effective Dates [...] Dates Health Status Cl inical Service Informant Body mass index [BMI] 32.0-32.9, adult Discharge Diagnosis 03/30/24 Non-Specified ST elevation IN (STEMI) Discharge Diagnosis 03/30/24 Non-Specified Shoulder blade pain Discharge Diagnosis 03/30/24 Non-Specified Procedures Procedure Date Related Diagnosis Body Site Status PCI (percutaneous coronary intervention) of left anterior descending branch of coronary artery 03/18/[address] of head 1 06/08/[address] [place] [address] IMPRESSION: 1. No acute intracranial hemorrhage. 2. Expected evolution of the subacute right frontal and left occipital infarcts shown on MRI of June 03, 2023. Possible subacute right cerebellar infarct. No hemorrhagic conversion. No significant mass effect. 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 Vital Signs Most recent to oldest [Reference Range]: 1 Height 169.3 cm (03/30/24 12:56 PM) Patient Weight 92.3 kg (03/30/24 12:56 PM) Body Mass Index 32.2 kg/m2 (03/30/24 12:56 PM) Temperature [36.5-37.9 DegC] 36.6 DegC (03/30/24 12:56 PM) Respiratory Rate 16 br/min (03/30/24 12:56 PM) Blood Pressure 124/72mmHg (03/30/24 12:56 PM) Cuff Pulse Pressure 52 mmHg (03/30/24 12:56 PM) Social History Social History Type Response Smoking Status Never smoked cigaret domenic Sex Female Sex Representation Female (finding) FCM Outpt Note * MD Margo, Mora Gasca: MODIFY MD Aragon Amy L: MODIFY, MODIFY, PERFORM MD Craig Astha: PERFORM Event Display: FCM Outpt Note Authored Date: Chief Complaint F/U after hospital for heart attack History of Present Illness Patient is a 74 year old Fpresenting to the office for F/U after STEMI S/P RCA stenting. H/O chest pain in past : admitted for few days. New chest pain: No new Bleeding Any new changes? Dizziness,SOB, Swelling,lightheadedness : None Med Side effects: None Meds regularly: Yes F/U with cardio: Tomorrow. Any other plan for CAD: Stenting Circumflex at [place]; will be decided tomorrow at cardio appointment Vitals: Stable BP: 124/72 BMI: 32 SpO2: 98 HR: 64 Clonidine changed from 0.1 to 0.2( prescription was not changed) Review of Systems As per HPI Physical Exam Vitals & Measurements T:36.6C RR:16 BP:124/72 SpO2:98% HT:169.3cm WT:92.300kg(Dosing) WT:92.3kg BMI:32.2 PHQ2 Data(Data Documented on:03/30/2024 12:54) Emotional health assessment NEGATIVE General: Alert and oriented, No acute distress Cardiovascular: Normal rate, Regular rhythm, No murmur, No gallop. Respiratory: Lungs are clear to auscultation, Respirations are non-labored, Breath sounds are equal Psych: Mood-affect congruence. Reports no SI/HI. Speech is of normal pace and content Stent Site: Healed and dry Assessment/Plan 1.ST elevation IN (STEMI) Acute, uncomplicated illness/injury Goal:Resolution Data: Plan: -MultivesseldiseaseS/P RCS stenting on Mar 20, 2024. -Planned for Circumflex stenting innear future at [place]. - Machine Cell Tuber appointment tomorrow; will discuss plan ahead. - No newissuespost PCI. - Increased clonidine dose from 0.1 to 0.2 mg QID as per discharge record. - Explained side effects of medicine. - Continue medication as per discharge. 2.Shoulder blade pain Chronic condition, stable Goal:Resolution Data: Plan: - Likely muscle origin rather than bone. - Associated with tingling sometimes; has been there since long. - Physical therapy referraldone. - F/U after PT for possible need of imaging if PT does not help. Advised Flu shot : deferred by patient. Attestation Attestation -I discussed and evaluated this patient with Dr. Craig. Pt is established with appropriate specialists & has appts & procedures scheduled appropriately. The assessment and plan was developed with her and carried out at my direction. I have read and agree with her note. Problem List/Past Medical History Ongoing Asthma, moderate [...] Date: 03/18/2024T of head| Service Date: 06/08/2023 Medications amLODIPine(amLODIPine [...] glargine(Lantus Solostar Pen 100 units/mL subcutaneous solution), 13 unit, subQ, Daily levalbuterol(levalbuterol CFC free 45 mcg/inh inhalation aerosol), 2 puff, inhaled, q4h, 5 refills metoprolol(metoprolol succinate 25 mg oral capsule, extended release) montelukast(montelukast 10 mg oral tablet), 10 mg= 1 tab, PO, Daily, 5 refills semaglutide(Ozempic (0.25 mg or 0.5 mg dose) 2 mg/3 mL subQ pen), See Instructions, subQ, q7days spironolactone(spironolactone 25 mg oral tablet), 25 mg= 1 tab, PO, Daily, 2 refills unlisted medication(RELION PEN NEEDLE [id number] MIS) Allergies Bactrimvomiting, nausea Benicarkidney issues atenololSOB codeinevomiting, nausea erythromycinvomiting, nausea lisinoprilhair loss sulfa drugsvoiting, nausea Social History Smoking Status Never smoked cigarettes Family History Cancer: Mother and Brother. Heart attack: Father. Heart disease: Sister. Type I diabetes mellitus: Sister. Health Status Family Member(s) Immunizations Vaccine Date Status SARS-CoV-2 mRNA ([id number]) 07/12/2021 Recorded SARS-CoV-2 (COVID-19) mRNA-1273 vaccine 10/07/2020 Recorded SARS-CoV-2 (COVID-19) mRNA-1273 vaccine 09/09/2020 Recorded tetanus/diphtheria/pertuss, acel (Tdap) 05/04/2020 Recorded pneumococcal 23-valent vaccine 03/16/2020 Recorded Recommendations Health Maintenance Pending(in the next year) OverDue Adult Influenza Vaccine due12/15/23and every 1year Due Breast Cancer Screening due02/03/24and every 731day Adult COVID-19 Vaccination due03/30/24Unknown Frequency Adult Social Determinants of Health Screening due03/30/24Unknown Frequency Colorectal Cancer Screening due03/30/24Unknown Frequency Hepatitis C Screening due03/30/24One-time only Medicare Annual Wellness Visit due03/30/24and every 1year Osteoporosis Screening due03/30/24One-time only Shingles Vaccine due03/30/24One-time only Due In Future Diabetic Eye Exam not due until01/01/25and every 731day Diabetes Management A1c not due until03/13/25and every 366day Satisfied(in the past 1 year) Satisfied Body Mass Index on03/30/24.Satisfied by LALO Morales Kathryn Diabetes Management A1c on03/12/24.Satisfied by Contributor_system, [email or web address] Diabetes Nephropathy Management on03/12/24.Satisfied by Contributor_system, [email or web address] Lipid Screening on03/12/24.Satisfied by Contributor_system, [email or web address] Electronic Signature on File Electronically Reviewed/Signed by: Kristen Craig MD Author Signature Dt/Tm:03/30/2024 01:59 PM Resident Department of Family Medicine Electronically Reviewed/Signed by: Kristen Craig MD Cosigner Signature Dt/Tm: 03/30/2024 02:06 PM Resident Department of Family Medicine Electronically Reviewed/Signed by: Kristen Craig MD Cosigner Signature Dt/Tm: 03/30/2024 02:08 PM Resident Department of Family Medicine Electronically Reviewed/Signed by: Mora Aragon MD Cosigner Signature Dt/Tm: 03/30/2024 06:41 PM Director Of Direct Marketing Family and Community Medicine [facility] [address], [address] [place] [address] [place] Patient Care team information Care Team Personnel Name: MD Caesar, Bin Jackson Position: Physician - Gastro Member Role: Lifetime Relationship Address: [address] [place] [id number] [place] Name: CHERRY Erickson Lynn Position: Physician Smokehouse Operator Exempt - Vasc Surg Member Role: Lifetime Relationship Address: [address] [place] [id number] Name: CHERRY Manriquez Jessica A Position: Physician Asst Exmpt - Family Med Member Role: Primary Care Provider Address: [address] [place] [id number] Care Team Related Persons Name: ZAKIA ARANDA"
--- OUTSIDE RECORDS SUMMARY | 2024-09-02 20:43 | External Medical Summary | Continuity of Care Document ---
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 Parts Fabricator Name Role Phone JahkayleighYehudaAnh A Primary Care Physician [phone] [id number] Date(s): 03/31/24 - 03/31/24 [facility] [address], [address] [place] [address] [phone] Encounter Diagnosis Body mass index [BMI] 31.0-31.9, adult(Discharge Diagnosis) - 03/31/24 STEMI (ST elevation myocardial infarction)(Discharge Diagnosis) - 03/31/24 CAD in [place] artery(Discharge Diagnosis) - 03/31/24 Diabetes(Discharge Diagnosis) - 03/31/24 Hypercholesterolemia(Discharge Diagnosis) - 03/31/24 Carotid artery disease(Discharge Diagnosis) - 03/31/24 Palpitations(Discharge Diagnosis) - 03/31/24 Verbosity and circumstantial detail obscuring reason for contact(Discharge Diagnosis) - 03/31/24 Discharge Disposition: Home or Self Care Attending Physician: DO Gutierrez Michelle L Allergies, Adverse Reactions, Alerts Substance Criticality Severity Reaction Reaction Severity Status atenolol SOB Active codeine vomiting nausea Active erythromycin vomiting nausea Active lisinopril hair loss Active Bactrim vomiting nausea Active Benicar kidney issues Active sulfa drugs voiting nausea Active Immunizations Given and Recorded Vaccine Date Status Refusal Reason SARS-CoV-2 mRNA ([id number]) 07/12/21 Re corded SARS-CoV-2 (COVID-19) mRNA-1273 vaccine 10/07/20 R ecorded SARS-CoV-2 (COVID-19) mRNA-1273 vaccine 09/09/20 R ecorded tetanus/diphtheria/pertuss, acel (Tdap) 05/04/20 R ecorded pneumococcal 23-valent vaccine 03/16/20 Recorded Medications amLODIPine 10 mg oral tablet Start: 09/16/23 8:02:00 AM EDT, 1 tab, PO, Daily, Disp# 90 tab, Refills: 3, Pharmacy: [id number] Start Date: 09/16/23 Status: Ordered [...] Daily, Disp# 90 cap, Refills: 3, Pharmacy: [facility] Start Date: 03/12/24 Stop Date: 03/07/25 Status: Ordered famotidine 20 mg oral tablet Start: 03/12/24 8:15:00 AM EDT, 1 tab, PO, bid, Disp# 180 tab, Refills: 3, Pharmacy: [facility] Start Date: 03/12/24 Stop Date: 03/07/25 Status: Ordered FreeStyle Dayday 2 - 14 day reader Start: 08/16/22 4:04:00 PM EST, See Instructions, Disp# 2 each, continous glucose monitoring, Pharmacy: [facility] Start Date: 08/16/22 Status: Ordered FreeStyle Dayday 2 - 14 day sensor Start: 08/16/22 4:04:00 PM EST, See Instructions, Disp# 2 each, Refills: 11, Continous glucose monitoring, Pharmacy: [facility] Start Date: 08/16/22 Status: Ordered Lantus Solostar Pen 100 units/mL subcutaneous solution Start: 02/10/24 9:38:00 AM EDT, 13 unit =, subQ, Daily, Disp# 15 mL, Refills: 1, ADJUST BASED ON GLUCOSE MONITORING., Brand Medically Necessary, Pharmacy: [facility] Start Date: 02/10/24 Status: Ordered levalbuterol CFC free 45 mcg/inh inhalation aerosol Start: 03/26/23 9:56:00 AM EDT, 2 puff, inhaled, q4h, Disp# 1 each, Refills: 5, INHALE 2 PUFFS BY MOUTH EVERY 4 HOURS NEEDED FOR WHEEZING, Pharmacy: [facility] Start Date: 03/26/23 Stop Date: 09/22/23 Status: Ordered Metoprolol Tartrate 25 mg oral tablet TAKE 1 TABLET BY MOUTH TWICE DAILY Start Date: 03/31/24 Status: Ordered montelukast 10 mg oral tablet Start: 09/24/22 8:22:00 AM EDT, 1 tab, PO, Daily, Disp# 30 tab, Refills: 5, TAKE 1 TABLET BY MOUTH ONCE DAILY NEEDED FOR ALLERGIES, Pharmacy: [facility] Start Date: 09/24/22 Status: Ordered Ozempic (0.25 mg or 0.5 mg dose) 2 mg/3 mL subQ pen Start: 03/13/24 11:17:00 AM EDT, See Instructions, subQ, q7days, Disp# 3 mL, Inject 0.25 mg every 7 days X 4 weeks then increase to 0.5 mg SQ every 7 days., Pharmacy: [facility], Supply Start Date: 03/13/24 Status: Ordered RELION PEN NEEDLE [id number] MIS USE ONCE DAILY Start Date: 07/30/22 Status: Ordered Repatha SureClick 140 mg/mL subcutaneous solution INJECT 1 SYRINGE SUBCUTANEOUSLY EVERY TWO WEEKS Start Date: 03/12/24 Status: Ordered spironolactone 25 mg oral tablet Start: 02/21/24 2:31:00 PM EDT, 1 tab, PO, Daily, Disp# 30 tab, Refills: 2, Pharmacy: [facility] Start Date: 02/21/24 Stop Date: 05/21/24 Status: Ordered Symbicort 160 mcg-4.5 mcg/inh inhalation aerosol Start: 8/22/23 1:37:00 PM EDT, See Instructions, Disp# 11 g, Refills: 5, Inhale 2 puffs by mouth twice daily, Brand Medically Necessary, Pharmacy: [id number] Start Date: 02/05/23 Status: Ordered Mental Status 03/31/24 Barriers to Learning one year None evide nt Mandatory Health Literacy Documentation Yes Health Literacy Communication Barriers N ever Primary Language Pashto Problem List Condition Confirmation Course Effective Dates [...] Effective Dates Health Status Clinical Service Informant Body mass index [BMI] 31.0-31.9, adult Discharge Diagnosis 03/31/24 Non-Specifie d Hypercholesterolemia Discharge Diagnosis 03/31/24 Non-Specifie d Palpitations Discharge Diagnosis 03/31/24 Non-Specifie d STEMI (ST elevation myocardial infarction) Discharge Diagnosis 03/31/24 Non-Specifie d CAD in [place] artery Discharge Diagnosis 03/31/24 Non-Specifie d Diabetes Discharge Diagnosis 03/31/24 Non-Specifie d Carotid artery disease Discharge Diagnosis 03/31/24 Non-Specifie d Verbosity and circumstantial detail obscuring reason for contact Discharge Diagnosis 03/31/24 Non-Specifie d Procedures Procedure Date Related Diagnosis Body Site Status PCI (percutaneous coronary intervention) of left anterior descending branch of coronary artery 03/18/[address] of head 1 06/08/[address] [place] [address] IMPRESSION: 1. No acute intracranial hemorrhage. 2. Expected evolution of the subacute right frontal and left occipital infarcts shown on MRI of June 03, 2023. Possible subacute right cerebellar infarct. No hemorrhagic conversion. No significant mass effect. 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 Patient Care team information Care Team Personnel Name: MD Caesar, Bin Jackson Position: Physician - Gastro Member Role: Lifetime Relationship Address: [address] [place] [id number] Name: CHERRY Erickson Lynn Position: Physician Floor Molder Exempt - Vasc Surg Member Role: Lifetime Relationship Address: [address] [place] [id number] [place] Name: CHERRY Manriquez Jessica A Position: Physician Asst Exmpt - Family Med Member Role: Primary Care Provider Address: [address] [place] [address] Care Team Related Persons Name: ZAKIA ARANDA
--- OUTSIDE RECORDS SUMMARY | 2024-09-02 20:43 | External Medical Summary | Summary of Care ---
Author Name Unknown Organization [facility] Address [address] [facility] [place] [address] Phone [phone] Care Team Providers Care Medical Insurance Claims Specialist Name Role Phone Svetlana Bravo MD Primary Care Provider [phone] Reason for Visit * Reason Comments eRx-Medication Refill Encounter Details Date Type Department Care Team (Late st Contact Info) Description 05/09/[address] [phone] Svetlana Bravo MD [address] [place] [address] Type 2 diabetes mellitus with stage 3b chronic kidney disease, without long-term current use of insulin ([facility]) Allergies Active Allergy Reactions Criticality Noted Date Comments Atenolol Tachycardia High 03/26/2018 Olmesartan Other (Please comment) High 03/26/2018 Unable to void Codeine 10/27/1997 Vomiting Rosuvastatin Nausea/vomiting 01/20/2020 Pollen 08/31/2021 Other trees Erythromycin Nausea/vomiting High 08/24/2013 Atorvastatin Nausea/vomiting 01/20/2020 Lost 20lbs Lisinopril 03/26/2018 Hair loss Sulfa Antibiotics Nausea/vomiting Low 05/13/2018 Simvastatin Nausea/vomiting 01/20/2020 documented as of this encounter (statuses as of 05/11/2024) Medications Cetirizine HCl 10 MG CapsuleIndication s:Chronic rhinitis,Nasal turbinate hypertrophy Take 1 Cap by mouth daily. 30 Cap 5 11/01/19 18 Active Additional Information Patient taking differently:10 mg OralDAILY PRN, Reported on 01/20/2020 Glucose Blood (RELION PRIME TEST) STRPIndications:T ype 1 diabetes mellitus with hemoglobin A1c goal of less than 7.0% (HCC) Test glucose 5 times daily Dx: E11.22 200 Strip 11 04/14/20 19 Active Blood Glucose Monitoring Suppl (RELION PRIME MONITOR) DEVIIndications:T ype 1 diabetes mellitus with hemoglobin A1c goal of less than 7.0% (HCC) Test Glucose 5 times daily Dx: E11.22 1 Device 04/14/20 19 Active RELION LANCETS MICRO-THIN 33G MISCIndications:T ype 1 diabetes mellitus with hemoglobin A1c goal of less than 7.0% (HCC) Test glucose 5 times daily DX: E11.22 200 Each 11 04/14/20 19 Active Zoster Vac Recomb Adjuvanted 50 MCG/0.5ML Intramuscular Suspension Reconstituted (Shingrix)Indicat ions:Need for vaccination for zoster Inject 0.5 mL into a large muscle now and repeat dose in 60 to 180 days 1 Each 1 03/30/20 20 Active Montelukast Sodium 10 MG Oral Tablet (Singulair)Indica tions:Asthma with severity to be determined Take 1 Tab by mouth daily as needed for Allergies. 90 Tab 3 01/21/20 21 Active metFORMIN HCl 500 MG Oral Tablet (Glucophage) TAKE 1 TABLET BY MOUTH TWICE DAILY WITH MORNING MEAL AND WITH EVENING MEAL 180 Tab 1 01/27/20 21 Active Additional Information Patient taking differently: Has been using prn, Reported on 05/24/2021 Levalbuterol HCl 1.25 MG/3ML Inhalation Nebulization Solution (Xopenex)Indicati ons:Mild intermittent asthma with exacerbation,Acut e bronchitis, antibiotics not indicated Inhale 3 mL via nebulizer every 4 hours as needed for Wheezing or Shortness of Breath. 120 mL 1 05/22/20 21 Active ALPRAZolam 0.5 MG Oral Tablet (xaNAX)Indication s:Anxiety state Take by mouth 1 Tablet as needed in the morning AND 1 Tablet as needed at noon AND 1 Tablet as needed in the evening for Anxiety. 30 Tablet 08/01/19 22 Active cloNIDine HCl 0.1 MG Oral Tablet (Catapres)Indicat ions:HTN, goal below 140/90 TAKE 1 TABLET BY MOUTH THREE TIMES DAILY 270 Tablet 3 08/09/19 22 Active Tylenol 325 MG Oral Capsule (Acetaminophen) Take by mouth 325 mg as needed for Headache. Active PreserVision AREDS Oral Capsule Take by mouth 1 Capsule daily . Macusheild gold instead of this Active Famotidine 20 MG Oral Tablet (Pepcid)Indicatio ns:Gastroesophage al reflux disease without esophagitis Take by mouth 1 Tablet in the morning. 90 Tablet 3 10/12/19 22 Active Aspirin 81 MG Oral Tablet Chewable (Aspirin 81) Take by mouth 81 mg in the morning. Active Triamcinolone Acetonide 0.1 % External Cream (Aristocort)Indic ations:Dermatitis Apply topically to affected area 2 times a day as needed for Irritation. To affected area. 80 g 5 02/01/20 22 Active Triamcinolone Acetonide 0.1 % External Lotion (Aristocort)Indic ations:Folliculit is Apply topically to affected area 2 times a day . To affected area. 60 mL 5 02/01/20 22 Active Levalbuterol Tartrate 45 MCG/ACT Inhalation Aerosol (Xopenex Hfa)Indications:A sthma with severity to be determined INHALE 2 PUFFS BY MOUTH EVERY 4 HOURS NEEDED FOR WHEEZING 15 g 02/28/20 22 Active Lantus SoloStar 100 UNIT/ML Subcutaneous Solution Pen-injectorIndic ations:Type 2 diabetes mellitus with stage 3b chronic kidney disease, without long-term current use of insulin ([facility]) INJECT 8 to 11 UNITS SUBCUTANEOUSLY ONCE DAILY (ADJUST DOSING DEPENDING ON GLUCOSE MONITORING) 15 mL 3 02/28/20 22 Active amLODIPine Besylate 10 MG Oral Tablet (Norvasc) Take 1 tablet by mouth once daily 90 Tablet 08/25/19 23 Active ReliOn Pen [place] 32G X 4 MM (Insulin Pen Needle)Indication s:Type 2 diabetes mellitus with stage 3b chronic kidney disease, without long-term current use of insulin ([facility]) USE ONCE DAILY 100 Each 3 04/11/20 23 Active documented as of this encounter (statuses as of 05/11/2024) Active Problems Problem Noted Date Diagnosed Date [...] 07/14/2019 Cerebrovascular disease, arteriosclerotic, post- stroke 05/13/2018 Gastroesophageal reflux disease without esophagi tis 10/25/2005 Family history of premature CAD 01/24/2002 Overview (09/08/2015): ICD-10 update of inactive term PLANTAR FIBROMATOSIS 11/02/1998 Asthma with severity to be determined 09/23/1998 Overview (09/26/2015): ICD-10 update of inactive term FAMILY HX-BREAST MALIG FAM HX-DIABETES MELLITUS Osteitis condensans Major depressive disorder without psychotic feat ures Overview (04/09/2017): ICD-10 update of inactive term BENIGN HYPERTENSION documented as of this encounter (statuses as of 05/11/2024) Resolved Problems Problem Noted Date Diagnosed Date Resolved Date Chronic kidney disease, stage 3b 10/25/2020 07/19/2021 Overview (07/19/2021): Per CKD protocol Duplicate Skin lesion 11/04/2019 11/04/2019 Hypertensive kidney disease with stage 3 chronic kidney disease 07/14/2019 04/28/2020 Overview: Per CKD protocol Gastroesophageal reflux dise ase without esophagitis 07/14/2019 07/14/2019 Hyperlipidemia, unspecified 07/14/2019 07/19/2021 Overview (07/19/2021): Duplicate. More specific code in use Diabetes mellitus with stage 3 chronic kidney disease 08/25/2018 10/27/2020 Overview: Per CKD protocol #1 Type 1 diabetes mellitus wit h hemoglobin A1c goal of less than 7.0% 05/13/2018 10/20/2019 ADVANCE DIRECTIVE INFORMATION 10/25/2005 04/20/2024 Overview (10/25/2005): No, Advance Directive brochure offered , patient declined. PERIAPICAL ABSCESS 01/24/2002 9 DIARRHEA 01/24/2002 08/06/2018 Other chronic sinusitis 01/24/200206/18 Heartburn 01/24/2002 08/06/2018 Skin Tags 01/21/2002 11/04/2019 documented as of this encounter (statuses as of 05/11/2024) Immunizations Name Administration Dates Next Due COVID-19 mRNA, LNP-s, No Pre serve, 2-Dose Series (Moderna) 10/07/2020,09/09/2020 PPD 07/18/2004 Pneumococcal Polysaccharide PPV23 (Pneumovax) 03/16/2020 Seasonal Influenza, PF, 6 M & above, IM , (FluLaval or Fluzone) 03/30/2020,07/14/2019,05/13/2018 05/13/2019 TDAP (age 10 and older)(Boostrix) [...] money to get more. Never true 08/10/2020 Comments No Sex and Gender Information Value Date Recorded Sex Assigned at Not on file Legal Sex Female 5:56 AM EST Gender Identity Not on file Sexual Orientation Not on file Occupation Industry Job Start Date Job End Date [employer] Not on file Not on file Not on file documented as of this encounter Miscellaneous Notes * Telephone Encounter - Svetlana Bravo MD - 05/11/2024 11:32 AM ESTRefused Prescriptions: Disp Refills ReliOn Pen [place] 32G X 4 MM (Insulin Pen*50 Each0 Sig: USE 1 ONCE DAILYRefused By: SVETLANA BRAVO for Refusal: Prescriber not at this practice * Telephone Encounter - Svetlana Bravo MD - 05/11/2024 11:31 AM ESTPending Prescriptions: Disp Refills ReliOn Pen [place] 32G X 4 MM (Insulin Pen*50 Each0 Sig: USE 1 ONCE DAILY * Telephone Encounter - Fany Freitas CPhT - 05/11/2024 11:16 AM EST Pt is returning a call. I relayed the message from another note regarding an appt. Pt states she switched to [facility] [employer] about 2 years ago and no longer continues with [employer]. Please cancel request. Thank you, Nathaly Freitas CPhT Assistant Womens Volleyball Coach III [facility] [address] [place] [address], [address] [place] [address] [phone] * Telephone Encounter - Ayan Garg event marketing coordinator - 05/11/2024 11:10 AM ESTPending Prescriptions: Disp Refills ReliOn Pen [place] 32G X 4 MM (Insulin Pen*50 Each0 Sig: USE 1 ONCE DAILY * Telephone Encounter - Ayan Garg event marketing coordinator - 05/11/2024 11:09 AM EST Received message from [facility] regarding patient needing an appointment. Call Placed, Left message on voicemail to call back and schedule appointment. Thank you, Ayan Garg Shot Peen Operator [facility] 05/11/2024, 11:09 AM * Telephone Encounter - Janell Santos [facility] - 05/11/2024 9:45 AM ESTPending Prescriptions: Disp Refills ReliOn Pen [place] 32G X 4 MM (Insulin Pen*50 Each0 Sig: USE 1 ONCE DAILY * Telephone Encounter - Janell Santos [facility] - 05/11/2024 9:44 AM EST Please contact patient so that an appointment can be scheduled with her PRIMARY CARE provider before this refill can be authorized. After contacting patient, please forward request to Svetlana Bravo MD. Last Visit: 01/31/2022 (in office), Visit date not found (telemedicine) Next Visit: Visit date not found Thank you, Janell Santos, PharmD Clinical Pharmacist [facility] 05/11/24 9:45 AM [phone] documented in this encounter Plan of Treatment Health Maintenance Due Date Last Done Comments DXA Scan 1950 Hepatitis C Screening 01/08/1970 Cologuard 01/08/1997 Colonoscopy 01/08/1997 Sigmoidoscopy 01/08/1997 Colorectal Cancer Screening 05/05/1997 Fecal Occult Blood Test 05/05/1997 05/05/1996 Zoster Vaccines (1 of 2) 01/08/2002 Albumin/Creatinine Ratio 10/23/2020 10/24/2019 Pneumococcal Vaccine: 65+ Years (2 of 2 - PCV) 03/16/2021 03/16/2020 Depression Monitoring 08/10/2021 08/10/2020 Diabetic Foot Exam 08/10/2021 08/10/2020, 07/14/2019 *SPIROMETRY ONCE FOR ASTHMA-ADULT 05/10/2022 CKD HGB USE SMARTSET 07135 05/22/202205/22, 05/22/2021, 11/24/2020, Additional history exists CKD PHOS USE SMARTSET 60321 05/22/2022 05/22/2021, 0 10/24/2019 GFR 05/27/2022 11/25/2021, 12/0 11/2020, 08/23/2020, Additional history exists HbA1c 05/27/2022 11/25/2021, 11/15, 08/23/2020, Additional history exists B-12 11/25/2022 11/25/2021, 11/15, 08/23/2020, Additional history exists Mammogram 02/02/2023 02/02/2022, 01/15, 11/29/2020 Diabetic Eye Exam 01/02/2024 01/01/2023, , 05/02/2020, Additional history exists COVID-19 Vaccine ( season) 2024 10/07/2020, 09/09/2020 Influenza Vaccine (FLU shot) (#1) 2024 03/30/2020, 07/14/2019, 05/13/2018 DTap/Tdap Vaccines (2 - Td or Tdap) 05/04/2030 05/04/2020 HPV (Gardasil) Vaccine Aged Out No lo nger eligible based on patient's age to complete this topic Hepatitis B Vaccine Aged Out No longe r eligible based on patient's age to complete [...] (HCC) documented in this encounter Care Teams Medical Insurance Claims Specialist Relationship Specialty Start Date End Date Svetlana Bravo MD [address] [place] [address] PCP - General Family Medicine 03/26/18 documented as of this encounter
--- OUTSIDE RECORDS SUMMARY | 2024-09-02 20:43 | External Medical Summary | Continuity of Care Document ---
Author Name Unknown Organization [facility] Address [address] [place], [place] [id number] Care Team Providers Care Tennis Ball Coverer Hand Name Role Phone Anh Manriquez Primary Care Physician [phone] [id number] Date(s): 04/23/24 - 04/23/24 [facility], [address] [place] [address] [phone] Encounter Diagnosis Bilateral carotid artery stenosis(Discharge Diagnosis) - 04/23/24 Discharge Disposition: Home or Self Care Attending Physician: CHERRY Erickson Lynn Referring Physician: CHERRY Manriquez Jessica A Allergies, Adverse Reactions, Alerts Substance Criticality Severity Reaction Reaction Severity Status atenolol SOB Active codeine vomiting nausea Active erythromycin vomiting nausea Active Bactrim vomiting nausea Active Benicar kidney issues Active lisinopril hair loss Active sulfa drugs voiting nausea Active Assessment and Plan Extracted from: Title:Clinical Document Author:CHERRY Erickson Lynn Date:04/23/24 [facility] OUTPATIENT NOTE Name: IZABEL CAMACHO Patient Number: [id number] : 1950 Date of Service: 04/23/2024 Chief Complaint: _Follow-up for carotid stenosis HPI: _Mrs. Camacho is an elderly female who presents to Dr. Botello's vascular surgery clinic today for a follow-up visit regarding her history of carotid stenosis. Patient was originally seen by Dr. Botello in follow-up 2022, at which time he suspected that she had a 90% carotid stenosis on the left, and suggested that she consider surgical intervention. Patient declined to begin taking the statin medication due to intolerance(nausea and vomiting), and so Dr. Botello suggested that she consider endarterectomy. At the time patient had been suffering from symptoms of eosinophilic esophagitis, and wished to be evaluated for that prior to proceeding with any surgical intervention. Patient presents today for reevaluation regarding her carotid disease. She states that she has not had any symptoms that she feels are stroke like. Specifically she denies amaurosis, unilateral extremity weakness numbness or tingling, difficulty speaking or swallowing, facial droop, sudden onset confusion. She did unfortunately suffer a STEMI about a month ago for which she was seen at [facility] and underwent cardiac catheterization with stent placement. According to notes from that hospital stay, as well as an outpatient cardiology evaluation, there is a question as to whether she needs further stenting of her circumflex, for which she is being set up at [facility]. Patient overall states that she is feeling much better now than she did before her [place]. Her carotid ultrasound performed prior to today's appointment demonstrates severe stenosis of her left ICA, with systolic velocities over 500 cm/s, and diastolic velocities of over 160 cm/s, and an ICA to CCA ratio of 10. Current Home Meds: (Last Updated 04/23 14:25) amLODIPine (amLODIPine 10 mg oral tablet) 1 [...] units/mL subcutaneous solution) 13 unit subQ Daily ADJUST BASED ON GLUCOSE MONITORING. levalbuterol (levalbuterol CFC free [...] q7days spironolactone (spironolactone 25 mg oral tablet) 25 mg PO Daily ticagrelor (Brilinta (ticagrelor) 90 mg oral tablet) 90 mg PO bid TAKE 1 TABLET BY MOUTH TWICE DAILY unlisted medication (RELION PEN NEEDLE [id number] MIS) USE ONCE DAILY Allergies and Sensitivities: erythromycin(nausea) erythromycin(vomiting) sulfa drugs(nausea) sulfa drugs(voiting) codeine(nausea) codeine(vomiting) lisinopril(hair loss) atenolol(SOB) Benicar(kidney issues) Bactrim(nausea) Bactrim(vomiting) Past Medical History: Problems: Bilateral carotid artery stenosis Left carotid artery stenosis History of CVA (cerebrovascular accident) Chronic kidney disease (CKD) stage G3b/A2, moderately decreased glomerular filtration rate (GFR) between 30-44 mL/min/1.73 square meter and albuminuria creatinine ratio between 30-299 mg/g Controlled type 2 diabetes mellitus with stage 3 chronic kidney disease, with long-term current use of insulin Benign hypertension without CHF Hyperlipidemia LDL goal <70 HTN, goal below 130/80 Diastolic CHF Asthma, moderate persistent, well-controlled OBJECTIVE Vitals: Last Updated 04/23/24 14:15 Date Temp BP Location Pulse RR SpO2 Pain 04/23/24 142/84 Left Arm 57 98 04/23/24 0 03/31/24 150/84 62 98 Vital Signs are the last 3 documented. No Orthostatic Data Available Height and Weight: Last Updated 03/31/24 08:10 Date BMI Wt(kg) Wt(lb) Method Ht(cm) (ft-in) Method 03/31/24 31.23 89.5 197 Standing Scale 03/30/24 32.2 92.3 203 Standing Scale 169.3 5-6 Standing 03/12/24 94.6 208 Standing Scale Heights and Weights are the last 3 documented. Physical Exam Constitutional: In general patient is a healthy-appearing well-nourished well-developed elderly female no distress. Is alert and oriented without any focal deficits. Her left carotid does demonstrate a bruit. Her heart is regular, lungs are decreased but clear. The remainder of her physical examination was declined by the patient. ASSESSMENT: _ PLAN: _ 1 ) _severe left ICA stenosis Patient does have a severe stenosis of her left ICA of at least 95% based on the velocities noted on her ultrasound. This is mildly worse in comparison to last year's ultrasound. She has not yet undergone CTA evaluation of her carotid arteries to determine whether she could undergo a TCAR procedure or will need endarterectomy. She is also currently in the process of scheduling an evaluation with interventional cardiology at [facility] to possibly intervene on her circumflex artery, and recently suffered a STEMI. She is tolerating aspirin and Brilinta, and does take Repatha injections. At this point we would like to see her back after she undergoes her full cardiology evaluation, and she is felt to be medically optimized. At that time we will discuss surgical options and likely send her for a CTA of the neck, providing renal protection. Patient is in agreement to this plan. She did have some questions regarding her cardiac medications and her appointment at [place], for which she was referred back to her time study clerk. Thank you for letting us participate in the care of this patient. Immunizations Given and Recorded Vaccine Date Status Refusal Reason SARS-CoV-2 mRNA ([id number]) 07/12/21 Re corded SARS-CoV-2 (COVID-19) mRNA-1273 vaccine 10/07/20 R ecorded SARS-CoV-2 (COVID-19) mRNA-1273 vaccine 09/09/20 R ecorded tetanus/diphtheria/pertuss, acel (Tdap) 05/04/20 R ecorded pneumococcal 23-valent vaccine 03/16/20 Recorded Medications amLODIPine 10 mg oral tablet Start: 09/16/23 8:02:00 AM EDT, 1 tab, PO, Daily, Disp# 90 tab, Refills: 3, [facility] Start Date: 09/16/23 Status: Ordered aspirin [...] tab, PO, qid, Disp# 360 tab, Pharmacy: [facility] 2[facility] Start Date: 03/30/24 Stop Date: 06/28/24 Status: Ordered esomeprazole 40 mg oral delayed release capsule Start: 03/12/24 8:15:00 AM EDT, 1 cap, PO, Daily, Disp# 90 cap, Refills: 3, Pharmacy: [facility] 2229 Start Date: 03/12/24 Stop Date: 03/07/25 Status: Ordered famotidine 20 mg oral tablet Start: 03/12/24 8:15:00 AM EDT, 1 tab, PO, bid, Disp# 180 tab, Refills: 3, Pharmacy: [facility] Start Date: 03/12/24 Stop Date: 03/07/25 Status: Ordered FreeStyle Dayday 2 - 14 day reader Start: 08/16/22 4:04:00 PM EST, See Instructions, Disp# 2 each, continous glucose monitoring, Pharmacy: [facility] 2[address] Start Date: 08/16/22 Status: Ordered FreeStyle Dayday 2 - 14 day sensor Start: 08/16/22 4:04:00 PM EST, See Instructions, Disp# 2 each, Refills: 11, Continous glucose monitoring, Pharmacy: [facility] 2229 Start Date: 08/16/22 Status: Ordered Lantus Solostar Pen 100 units/mL subcutaneous solution Start: 02/10/24 9:38:00 AM EDT, 13 unit =, subQ, Daily, Disp# 15 mL, Refills: 1, ADJUST BASED ON GLUCOSE MONITORING., Brand Medically Necessary, Pharmacy: [facility] 2229 Start Date: 02/10/24 Status: Ordered levalbuterol CFC free 45 mcg/inh inhalation aerosol Start: 03/26/23 9:56:00 AM EDT, 2 puff, inhaled, q4h, Disp# 1 each, Refills: 5, INHALE 2 PUFFS BY MOUTH EVERY 4 HOURS NEEDED FOR WHEEZING, Pharmacy: [facility] 2[address] Start Date: 03/26/23 Stop Date: 09/22/23 Status: Ordered Metoprolol Tartrate 25 mg oral tablet TAKE 1 TABLET BY MOUTH TWICE DAILY Start Date: 03/31/24 Status: Ordered montelukast 10 mg oral tablet Start: 09/24/22 8:22:00 AM EDT, 1 tab, PO, Daily, Disp# 30 tab, Refills: 5, TAKE 1 TABLET BY MOUTH ONCE DAILY NEEDED FOR ALLERGIES, Pharmacy: [facility] Start Date: 09/24/22 Status: Ordered Ozempic (0.25 mg or 0.5 mg dose) 2 mg/3 mL subQ pen Start: 04/23/24 2:25:00 PM EST, 0.5 mg, subQ, q7days, Disp# 3 mL, Refills: 5, Pharmacy: [facility]229, Supply Start Date: 04/23/24 Status: Ordered RELION PEN NEEDLE [id number] MIS USE ONCE DAILY Start Date: 07/30/22 Status: Ordered Repatha SureClick 140 mg/mL subcutaneous solution INJECT 1 SYRINGE SUBCUTANEOUSLY EVERY TWO WEEKS Start Date: 03/12/24 Status: Ordered spironolactone 25 mg oral tablet Start: 02/21/24 2:31:00 PM EDT, 1 tab, PO, Daily, Disp# 30 tab, Refills: 2, Pharmacy: [facility] Start Date: 02/21/24 Stop Date: 05/21/24 Status: Ordered Symbicort 160 mcg-4.5 mcg/inh inhalation aerosol Start: 02/05/23 1:37:00 PM EDT, See Instructions, Disp# 11 g, Refills: 5, Inhale 2 puffs by mouth twice daily, Brand Medically Necessary, Pharmacy: [facility] Start Date: 02/05/23 Status: Ordered Mental Status 04/23/24 Barriers to Learning one year None evide nt Mandatory Health Literacy Documentation Yes Health Literacy Communication Barriers N ever Primary Language Azerbaijani Problem List Condition Confirmation Course Effective Dates [...] Dates Health Status Cl inical Service Informant Bilateral carotid artery stenosis Discharge Diagnosis 04/23/24 Procedures Procedure Date Related Diagnosis Body Site Status PCI (percutaneous coronary intervention) of left anterior descending branch of coronary artery 03/18/[address] of head 1 06/08/[address] [place] [address] IMPRESSION: 1. No acute intracranial hemorrhage. 2. Expected evolution of the subacute right frontal and left occipital infarcts shown on MRI of June 03, 2023. Possible subacute right cerebellar infarct. No hemorrhagic conversion. No significant mass effect. 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 Vital Signs Most recent to oldest [Reference Range]: 1 Heart Rate 57 bpm (04/23/24 2:15 PM) Blood Pressure 142/84mmHg (04/23/24 2:15 PM) Cuff Pulse Pressure 58 mmHg (04/23/24 2:15 PM) BP Location # 1 Left Arm (04/23/24 2:15 PM) Social History Social History Type Response Smoking Status Never smoked cigaret domenic Sex Female Sex Representation Female (finding) [facility] Out[facility] Note * CHERRY Erickson Lynn: PERFORM Event Display: [facility] Out[facility] Note Authored Date: [id number] [facility] OUTPATIENT NOTE Name: IZABEL CAMACHO Patient Number: [id number] : 1950 Date of Service: 04/23/2024 Chief Complaint: _Follow-up for carotid stenosis HPI: _Mrs. Camacho is an elderly female who presents to Dr. Botello's vascular surgery clinic today for a follow-up visit regarding her history of carotid stenosis. Patient was originally seen by Dr. Botello in follow-up 2022, at which time he suspected that she had a 90% carotid stenosis on the left, and suggested that she consider surgical intervention. Patient declined to begin taking the statin medication due to intolerance(nausea and vomiting), and so Dr. Botello suggested that she consider endarterectomy. At the time patient had been suffering from symptoms of eosinophilic esophagitis, and wished to be evaluated for that prior to proceeding with any surgical intervention. Patient presents t [facility] for reevaluation regarding her carotid disease. She states that she has not had any symptoms that she feels are stroke like. Specifically she denies amaurosis, unilateral extremity weakness numbness or tingling, difficulty speaking or swallowing, facial droop, sudden onset confusion. She did unfortunately suffer a STEMI about a month ago for which she was seen at [facility] and underwent cardiac catheterization with stent placement. According to notes from that hospital stay, as well as an outpatient cardiology evaluation, there is a question as to whether sheneeds further stenting of her circumflex, for which she is being set up at [facility]. Patient overall states that she is feeling much better now than she did before her [place]. Her carotid ultrasound performed prior to today's appointment demonstrates severe stenosis of her left ICA, with systolic velocities over 500 cm/s, and diastolic velocities of over 160 cm/s, and an ICA to CCA ratio of 10. Current Home Meds: (Last Updated 04/23 14:25) amLODIPine (amLODIPine 10 mg oral tablet) 1 [...] q7days spironolactone (spironolactone 25 mg oral tablet) 25 mg PO Daily ticagrelor (Brilinta (ticagrelor) 90 mg oral tablet) 90 mg PO bid TAKE 1 TABLET BY MOUTH TWICE DAILY unlisted medication (RELION PEN NEEDLE [id number] MIS) USE ONCE DAILY Allergies and Sensitivities: erythromycin(nausea) erythromycin(vomiting) sulfa drugs(nausea) sulfa drugs(voiting) codeine(nausea) codeine(vomiting) lisinopril(hair loss) atenolol(SOB) Benicar(kidney issues) Bactrim(nausea) Bactrim(vomiting) Past Medical History: Problems: Bilateral carotid artery [...] 130/80 Diastolic CHF Asthma, moderate persistent, well-controlled OBJECTIVE Vitals: Last Updated 04/23/24 14:15 Date Temp BP Location Pulse RR SpO2 Pain 04/23/24 142/84 Left Arm 57 98 04/23/24 0 03/31/24 150/84 62 98 Vital Signs are the last 3 documented. No Orthostatic Data Available Height and Weight: Last Updated 03/31/24 08:10 Date BMI Wt(kg) Wt(lb) Method Ht(cm) (ft-in) Method 03/31/24 31.23 89.5 197 Standing Scale 03/30/24 32.2 92.3 203 Standing Scale 169.3 5-6 Standing 03/12/24 94.6 208 Standing Scale Heights and Weights are the last 3 documented. Physical Exam Constitutional: In general patient is a healthy-appearing well-nourished well- developed elderly female no distress. Is alert and oriented without any focal deficits. Her left carotid does demonstratea bruit. Her heart is regular, lungs are decreased but clear. The remainder of her physical examination was declined by the patient. ASSESSMENT: _ PLAN: _ 1 ) _severe left ICA stenosis Patient does have a severe stenosis of her left ICA of at least 95% based on the velocities noted on her ultrasound. This is mildly worse in comparison to last year's ultrasound. She has not yet undergone CTA evaluation of her carotid arteries to determine whether she could undergo a TCAR procedureor will need endarterectomy. She is also currently in the process of scheduling an evaluation with interventional cardiology at [facility] to possibly intervene on her circumflex artery, and recently suffered a STEMI. She is tolerating aspirin and Brilinta, and does take Repatha injections. At this point we would like to see her back after she undergoes her full cardiology evaluation,and she is felt to be medically optimized. At that time we will discuss surgical options and likelysend her for a CTA of the neck, providing renal protection. Patient is in agreement to this plan. She did have some questions regarding her cardiac medications and her appointment at [place], for which she was referred back to her time study clerk. Thank you for letting us participate in the care of this patient. Electronic Signature on File CC: Anh Manriquez PA-C,[facility] [address] [place] [address] CC: Anupama Gutierrez, [address] [place] [id number] Electronically Reviewed/Signed by: Fanny Erickson PA-C Author Signature Dt/Tm:04/23/2024 03:06 PM [facility] [place] 303 [facility], [facility] [address] [place] [address] IDA Patient Care team information Care Team Personnel Name: MD Caesar, Bin Jackson Position: Physician - Gastro Member Role: Lifetime Relationship Address: [address] [place] [address] [place] Name: CHERRY Erickson Lynn Position: Physician Asset Availability Leader Exempt - Vasc Surg Member Role: Lifetime Relationship Address: [address] [place] [address] [place] Name: CHERRY Manriquez Jessica A Position: Physician Asst Ext - Family Med Member Role: Primary Care Provider Address: [address] [place] [address] [place] Care Team Related Persons Name: ZAKIA ARANDA
--- OUTSIDE RECORDS SUMMARY | 2024-09-02 20:43 | External Medical Summary | Continuity of Care Document ---
Author Name Unknown Organization [facility] [address] [facility] Address [address] [place], [place] [id number] Care Team Providers Care Patient Case Coordinator Name Role Phone BlancacaitlinAnh leo Huma Primary Care Physician [phone] [id number] Date(s): 03/31/24 - 03/31/24 [facility] [address] [place] [address] [phone] Discharge Disposition: Home or Self Care Attending Physician: DO Gutierrez Michelle L Allergies, Adverse Reactions, Alerts Substance Criticality Severity Reaction Reaction Severity Status atenolol SOB Active codeine vomiting nausea Active lisinopril hair loss Active Bactrim vomiting nausea Active Benicar kidney issues Active erythromycin vomiting nausea Active sulfa drugs voiting nausea Active Immunizations Given and Recorded Vaccine Date Status Refusal Reason SARS-CoV-2 mRNA ([id number]) 07/12/21 Re corded SARS-CoV-2 (COVID-19) mRNA-1273 vaccine 10/07/20 R ecorded SARS-CoV-2 (COVID-19) mRNA-1273 vaccine 09/09/20 R ecorded tetanus/diphtheria/pertuss, acel (Tdap) 05/04/20 R ecorded pneumococcal 23-valent vaccine 03/16/20 Recorded Medications amLODIPine 10 mg oral tablet Start: 09/16/23 8:02:00 AM EDT, 1 tab, PO, Daily, Disp# 90 tab, Refills: 3, Pharmacy: [facility] Start Date: 09/16/23 Status: Ordered aspirin 81 [...] tab, PO, qid, Disp# 360 tab, Pharmacy: [facility] 2229 Start Date: 03/30/24 Stop Date: 06/28/24 Status: Ordered esomeprazole 40 mg oral delayed release capsule Start: 03/12/24 8:15:00 AM EDT, 1 cap, PO, Daily, Disp# 90 cap, Refills: 3, Pharmacy: [facility] 2229 Start Date: 03/12/24 Stop Date: 03/07/25 Status: Ordered famotidine 20 mg oral tablet Start: 03/12/24 8:15:00 AM EDT, 1 tab, PO, bid, Disp# 180 tab, Refills: 3, Pharmacy: [facility] 2[address] Start Date: 03/12/24 Stop Date: 03/07/25 Status: Ordered FreeStyle Dayday 2 - 14 day reader Start: 08/16/22 4:04:00 PM EST, See Instructions, Disp# 2 each, continous glucose monitoring, Pharmacy: [facility] 2229 Start Date: 08/16/22 Status: Ordered FreeStyle Dayday 2 - 14 day sensor Start: 08/16/22 4:04:00 PM EST, See Instructions, Disp# 2 each, Refills: 11, Continous glucose monitoring, Pharmacy: [facility] 2[address] Start Date: 08/16/22 Status: Ordered Lantus Solostar Pen 100 units/mL subcutaneous solution Start: 02/10/24 9:38:00 AM EDT, 13 unit =, subQ, Daily, Disp# 15 mL, Refills: 1, ADJUST BASED ON GLUCOSE MONITORING., Brand Medically Necessary, Pharmacy: [facility] 2229 Start Date: 02/10/24 Status: Ordered levalbuterol CFC free 45 mcg/inh inhalation aerosol Start: 03/26/23 9:56:00 AM EDT, 2 puff, inhaled, q4h, Disp# 1 each, Refills: 5, INHALE 2 PUFFS BY MOUTH EVERY 4 HOURS NEEDED FOR WHEEZING, Pharmacy: [facility] 2229 Start Date: 03/26/23 Stop Date: 09/22/23 Status: Ordered Metoprolol Tartrate 25 mg oral tablet TAKE 1 TABLET BY MOUTH TWICE DAILY Start Date: 03/31/24 Status: Ordered montelukast 10 mg oral tablet Start: 09/24/22 8:22:00 AM EDT, 1 tab, PO, Daily, Disp# 30 tab, Refills: 5, TAKE 1 TABLET BY MOUTH ONCE DAILY NEEDED FOR ALLERGIES, Pharmacy: [facility] Start Date: 09/24/22 Status: Ordered Ozempic (0.25 mg or 0.5 mg dose) 2 mg/3 mL subQ pen Start: 03/13/24 11:17:00 AM EDT, See Instructions, subQ, q7days, Disp# 3 mL, Inject 0.25 mg every 7 days X 4 weeks then increase to 0.5 mg SQ every 7 days., Pharmacy: [facility], Supply Start Date: 03/13/24 Status: Ordered RELION PEN NEEDLE [id number] MIS USE ONCE DAILY Start Date: 07/30/22 Status: Ordered Repatha SureClick 140 mg/mL subcutaneous solution INJECT 1 SYRINGE SUBCUTANEOUSLY EVERY TWO WEEKS Start Date: 03/12/24 Status: Ordered spironolactone 25 mg oral tablet Start: 02/21/24 2:31:00 PM EDT, 1 tab, PO, Daily, Disp# 30 tab, Refills: 2, Pharmacy: [facility] Start Date: 02/21/24 Stop Date: 05/21/24 Status: Ordered Symbicort 160 mcg-4.5 mcg/inh inhalation aerosol Start: 02/05/23 1:37:00 PM EDT, See Instructions, Disp# 11 g, Refills: 5, Inhale 2 puffs by mouth twice daily, Brand Medically Necessary, Pharmacy: [facility] Start Date: 02/05/23 [...] Completed CT of head 1 06/08/[address] [place] [address] IMPRESSION: 1. No acute intracranial hemorrhage. 2. [...] - Gastro Member Role: Lifetime Relationship Address: [address] [place] [id number] Name: CHERRY Erickson Lynn Position: Physician [place] House Operator Exempt - Vasc Surg Member Role: Lifetime Relationship Address: [address] [place] [id number] [place] Name: CHERRY Manriquez Jessica A Position: Physician Jonast Harisht - Family Med Member Role: Primary Care Provider Address: [address] [place] [address] [place] Care Team Related Persons Name: ZAKIA ARANDA
--- OUTSIDE RECORDS SUMMARY | 2024-09-02 20:43 | External Medical Summary | Continuity of Care Document ---
Author Name Unknown Organization [facility] [address] [address] Address [address] [place], [place] [id number] Care Team Providers Care Motor Tune Up Specialist Name Role Phone BlancacaitlinAnh leo Huma Primary Care Physician [phone] [facility]counter [facility] [id number] Date(s): 04/06/24 - 04/06/24 [facility] [address], [address] [place] [address] [phone] Discharge Disposition: Home or Self Care Attending Physician: CHERRY Erickson Lynn Referring Physician: CHERRY Erickson Lynn Allergies, Adverse Reactions, Alerts Substance Criticality Severity Reaction Reaction Severity Status atenolol SOB Active codeine vomiting nausea Active lisinopril hair loss Active sulfa drugs voiting nausea Active Bactrim vomiting nausea Active Benicar kidney issues Active erythromycin vomiting nausea Active Immunizations Given and Recorded Vaccine Date Status Refusal Reason SARS-CoV-2 mRNA ([id number]) 07/12/21 Re corded SARS-CoV-2 (COVID-19) mRNA-1273 vaccine 10/07/20 R ecorded SARS-CoV-2 (COVID-19) mRNA-1273 vaccine 09/09/20 R ecorded tetanus/diphtheria/pertuss, acel (Tdap) 05/04/20 R ecorded pneumococcal 23-valent vaccine 03/16/20 Recorded Medications amLODIPine 10 mg oral tablet Start: 09/16/23 8:02:00 AM EDT, 1 tab, PO, Daily, Disp# 90 tab, Refills: 3, Pharmacy: [id number] Start Date: 09/16/23 Status: Ordered aspirin 81 [...] tab, PO, qid, Disp# 360 tab, Pharmacy: [facility]229 Start Date: 03/30/24 Stop Date: 06/28/24 Status: Ordered esomeprazole 40 mg oral delayed release capsule Start: 03/12/24 8:15:00 AM EDT, 1 cap, PO, Daily, Disp# 90 cap, Refills: 3, Pharmacy: [facility] Start Date: 03/12/24 Stop Date: 03/07/25 Status: Ordered famotidine 20 mg oral tablet Start: 03/12/24 8:15:00 AM EDT, 1 tab, PO, bid, Disp# 180 tab, Refills: 3, Pharmacy: [facility] Start Date: 03/12/24 Stop Date: 03/07/25 Status: Ordered FreeStyle Dayday 2 - 14 day reader Start: 08/16/22 4:04:00 PM EST, See Instructions, Disp# 2 each, continous glucose monitoring, Pharmacy: [facility] Start Date: 08/16/22 Status: Ordered FreeStyle Dayday 2 - 14 day sensor Start: 08/16/22 4:04:00 PM EST, See Instructions, Disp# 2 each, Refills: 11, Continous glucose monitoring, Pharmacy: [facility] Start Date: 08/16/22 Status: Ordered Lantus Solostar Pen 100 units/mL subcutaneous solution Start: 02/10/24 9:38:00 AM EDT, 13 unit =, subQ, Daily, Disp# 15 mL, Refills: 1, ADJUST BASED ON GLUCOSE MONITORING., Brand Medically Necessary, Pharmacy: [facility] Start Date: 02/10/24 Status: Ordered levalbuterol CFC free 45 mcg/inh inhalation aerosol Start: 03/26/23 9:56:00 AM EDT, 2 puff, inhaled, q4h, Disp# 1 each, Refills: 5, INHALE 2 PUFFS BY MOUTH EVERY 4 HOURS NEEDED FOR WHEEZING, Pharmacy: [facility] Start Date: 03/26/23 Stop Date: 09/22/23 Status: Ordered Metoprolol Tartrate 25 mg oral tablet TAKE 1 TABLET BY MOUTH TWICE DAILY Start Date: 03/31/24 Status: Ordered montelukast 10 mg oral tablet Start: 09/24/22 8:22:00 AM EDT, 1 tab, PO, Daily, Disp# 30 tab, Refills: 5, TAKE 1 TABLET BY MOUTH ONCE DAILY NEEDED FOR ALLERGIES, Pharmacy: [facility] Start Date: 09/24/22 Status: Ordered Ozempic (0.25 mg or 0.5 mg dose) 2 mg/3 mL subQ pen Start: 03/13/24 11:17:00 AM EDT, See Instructions, subQ, q7days, Disp# 3 mL, Inject 0.25 mg every 7 days X 4 weeks then increase to 0.5 mg SQ every 7 days., Pharmacy: [facility], Supply Start Date: 03/13/24 Status: Ordered RELION PEN NEEDLE [id number] MIS USE ONCE DAILY Start Date: 07/30/22 Status: Ordered Repatha SureClick 140 mg/mL subcutaneous solution INJECT 1 SYRINGE SUBCUTANEOUSLY EVERY TWO WEEKS Start Date: 03/12/24 Status: Ordered spironolactone 25 mg oral tablet Start: 02/21/24 2:31:00 PM EDT, 1 tab, PO, Daily, Disp# 30 tab, Refills: 2, Pharmacy: [facility] Start Date: 02/21/24 Stop Date: 05/21/24 Status: Ordered Symbicort 160 mcg-4.5 mcg/inh inhalation aerosol Start: 02/05/23 1:37:00 PM EDT, See Instructions, Disp# 11 g, Refills: 5, Inhale 2 puffs by mouth twice daily, Brand Medically Necessary, Pharmacy: [facility] Start Date: 02/05/23 Status: Ordered Problem [...] Completed CT of head 1 06/08/[address] [place] [address] IMPRESSION: 1. No acute intracranial hemorrhage. 2. Expected evolution of the subacute right frontal and left occipital infarcts shown on MRI of June 03, 2023. Possible subacute right cerebellar infarct. No hemorrhagic conversion. No significant mass effect. 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 Results Radiology Reports * Exam Date Time Procedure Performing Provider Status 04/06/24 10:52 AM VL Carotid Duplex Bilateral Venessa Rubio; Final Notes: (VL Carotid Duplex Bilateral) Reason For Exam: harley VL Carotid Duplex Bilateral [facility] FINAL REPORT Name: IZABEL CAMACHO : 1950 Visit: [id number] Date: 06 Apr 2024 TYPE OF TEST: Cerebrovascular Duplex REASON FOR TEST Known carotid stenosis - 1 year follow up INTERPRETATION/FINDINGS Arterial duplex imaging of the bilateral carotid arteries was performed. 1. No hemodynamically significant stenosis in the right internal carotid artery. 2. 80-99% stenosis of the left internal carotid artery. 3. >50% stenosis of the left external carotid artery. 4. Normal, antegrade flow in the right vertebral artery. 5. Unable to visualize the left vertebral artery. 6. Normal flow in the bilateral subclavian arteries. Plaque Morphology: Complex, calcified plaque bilaterally and irregular-surfaced, fatty plaque in the left internal carotid artery. Retrospective comparison: No significant change compared to the prior exam dated 03/28/2023. IMPRESSION/COMMENTS I have personally reviewed the data relevant to the interpretation of this study. TECHNOLOGIST: JOSSIE Tavares,RDMS,RVT PHYSICIAN: Landon Botello M.D. Signed: 04/07/2024 01:35 PM Final Dictated by:MD Botello Eugene J Dictated DT/TM:04/07/2024 1:36 Signed by:MD Botello Eugene J Signed (Electronic Signature):04/07/2024 1:35 p Transcribed by:NOA Social History Social History Type Response Smoking Status Never smoked cigaret domenic Sex Female Sex Representation Female (finding) Patient Care team information Care Team Personnel Name: MD Caesar, Bin Jackson Position: Physician - Gastro Member Role: Lifetime Relationship Address: [address] [place] [address] [place] Name: CHERRY Erickson Lynn Position: Physician Computational Mathematician Exempt - Vasc Surg Member Role: Lifetime Relationship Address: [address] [place] [address] [place] Name: CHERRY Manriquez Jessica A Position: Physician Asst Exmpt - Family Med Member Role: Primary Care Provider Address: [address] [place] [address] Care Team Related Persons Name: ZAKIA ARANDA
[2024-09-02] MEDS: INSULIN ASPART PER UNIT CHARGE SC SCH (21:01)
[2024-09-02] MEDS: ENOXAPARIN INJ 40 MG/0.4 ML SYR SQ SCH (21:05)
[2024-09-02] MEDS: ASPIRIN 81 MG ECTAB PO SCH (21:05)
[2024-09-02] MEDS: TICAGRELOR 90 MG TAB PO SCH (21:05)
[2024-09-02] MEDS: METOPROLOL SUCC 50MG EXT REL TAB PO SCH (21:06)
[2024-09-02] MEDS: ACETAMINOPHEN 325 MG TAB PO PRN (21:19)
[2024-09-02] MEDS ORDERED: NON-FORMULARY MEDICATION (Clonidine Hcl 0.2 mg tablet) PO SCH (22:00)
[2024-09-02] MEDS: cloNIDine HCL 0.1 MG TAB PO SCH (23:09)
[2024-09-03 07:13] LABS: Basophils # (auto) 0.04 K/uL (0.00-0.20); Basophils % (auto) 0.8 %; Eosinophils # (auto) 0.15 K/uL (0.00-0.50); Hematocrit (blood only) 36.3 % (37.0-47.0); Immature Granulocytes # (auto) 0.02 K/uL (0.01-0.20); Immature Granulocytes % (auto) 0.4 %; Lymphocytes % (auto) 24.2 %; Mean Corpuscular Hemoglobin 31.4 pg (25.0-34.0); Mean Corpuscular Hgb Conc 33.1 g/dL (32.0-36.0); Mean Platelet Volume 12.9 fL (9.4-12.4); Monocytes # (auto) 0.38 K/uL (0.11-0.59); Monocytes % (auto) 7.7 %; Neutrophils # (auto) 3.16 K/uL (1.40-6.50); Neutrophils % (auto) 63.9 %; Platelet Count 176 K/uL (130-400); RDW Coefficient of Variation 12.9 % (11.5-14.5); RDW Standard Deviation 44.7 fL (36.4-46.3); Red Blood Count 3.82 M/uL (4.20-5.40); White Blood Count 4.95 K/ul (4.8-10.8)
[2024-09-03 07:33] LABS: BUN Creatinine Ratio 11.5 (10-20); Chol HDL Ratio 4.1 (0-5); Creatinine Clr Calc Pharmacy 41.3 ml/min; Potassium 3.9 mmol/L (3.5-5.1)
[2024-09-03 07:51] LABS: Estimated Average Glucose 111 mg/dl; Hemoglobin A1C 5.5 % (4.5-5.6)
[2024-09-03] MEDS: amLODIPine BESYLATE 5 MG TAB PO SCH (08:10)
[2024-09-03] MEDS ORDERED: FLUTICASONE/VILANTEROL 200/25MCG 14 PUFFS/INHALER INH PRN (09:00)
--- NOTE | 2024-09-03 11:08 | Neurology Consultation ---
Date of Consultation September 03, 2024 Assessment & Plan (1) Acute CVA (cerebrovascular accident): (2) Acute confusion: (3) Carotid stenosis, left: (4) Occlusion of left vertebral artery: Plan This patient had the sudden onset of acute confusion of the short-lived nature on September 02. It is resolved and she is back to baseline. A E. coli urinary tract infection was discovered and she is being treated with antibiotics. Incidentally, there may have been a tiny acute right frontal stroke (top of head) but this was not conclusive. If so, it was small vessel ischemic disease on top of dual antiplatelet therapy of aspirin and Brilinta. Currently, she has no focal neurologic findings or deficits, meningeal signs, or encephalopathy. I do not believe that this possible (tiny) acute stroke, seen on MRI cause her any symptoms, including confusion. Confusion was likely sec ondary to the UTI. The patient has a left internal carotid artery stenosis of 90% and an occluded left vertebral artery. There is other evidence of vascular issues of the head and neck noted on previous angiography. Recommendations: 1. Continue dual antiplatelet therapy including 81 mg aspirin tablet daily and Brilinta 90 mg twice daily. 2. Continue evolocumab 140 mg subcu every 2 weeks. The patient has allergies to statins. 3. Continue to control glucose and blood pressure as is being done 4. I have no further neurologic testing or treatment recommendations to make at this time. Please contact me if I can be of further assistance on this case. Overall, I spent a total of 75 minutes with this case including review of records, review of MRI films, direct evaluation the patient bedside, report generation, and discussion of the case with the patient and RN at bedside and Dr. Singh including differential diagnosis and treatment options History of Present Illness Reason for Consultation: Patient is a 74-year-old, who I was asked to see at the request of Collette Singh MD, for neurologic evaluation regarding confusion Requesting Physician: Collette Singh MD Attending Physician: Collette Singh MD History of Present Illness This patient has a history of diabetes, hypertension, dyslipidemia, asthma, and cardiac issues. She is post multiple MIs and 3 stents. 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 In May 2023, the patient was admitted with multiple strokes including the right frontal, left occipital, and right cerebellum. MRI also showed old strokes in the right occipital and left cerebellar hemispheres. She has been on aspirin 81 mg and Brilinta 90 mg twice a day since. Patient was brought to the emergency room by her children on September 02 for acute onset confusion earlier that day. The patient denies being confused and the family said she was "disoriented". There was no headache, weakness, numbness, dizziness, speech or balance issues. The patient had no history of dementia. This has happened to her in the past and they have found a urinary tract infection which they have treated successfully. She arrived to emergency room September 02 at 1233, with a temperature of 36.7, pulse 68 regular, respirate 18, blood pressure 136/82, and O2 saturation 97%. Examination revealed full orientation and no neurologic deficits. CBC and CHEM profile were unremarkable. Chest x-ray showed no acute changes. CT scan of the head showed the old infarcts from before. CT angiography of the head showed an occluded right CANVAS GOODS SUPERVISOR (this is old). CT angiography neck revealed a 90% stenosis of the left internal carotid artery and an occluded proximal left vertebral artery. There is good collateral flow. MRI of the brain showed punctate) right high frontal acute infarct. When I reviewed this MRI film I did see what the radiologist saw but there was no corresponding lesion on ADC map. The MRI also revealed old right frontal, right occipital, and bilateral cerebellar hemispheric strokes and moderate old small vessel ischemic disease. Nursing reports no issues overnight. Today the patient denies headache, vision problems, weakness, numbness, balance issues, confusion, dizziness, or speech problems. She has been in normal sinus rhythm. Today CBC is unremarkable. CHEM profile shows a mildly elevated creatinine as before and glucose was 119. Triglycerides are elevated at 174 and total cholesterol is quite normal at 135. Urine from yesterday is growing E. coli. Hemoglobin A1c is quite controlled at 5.5. Allergies Allergy/AdvReac Type Severity Reaction Status Date / Time olmesartan [From Benicar] Allergy Severe Stopped me Unverified 09/02/24 15:31 from urinating erythromycin base AdvReac Severe Gastrointestinal Verified 09/02/24 15:31 Upset Sycbnvs-AUN-DxS Reductase AdvReac Severe Nausea and Verified 09/02/24 15:31 Inhibitor vomiting Sulfa (Sulfonamide AdvReac Severe Gastrointestinal Unverified 09/02/24 15:31 Antibiotics) Upset codeine AdvReac Intermediate Nausea Unverified 09/02/24 15:31 atenolol AdvReac Unknown Worsening Verified 09/02/24 15:31 Asthma Home Medications Medication Instructions Recorded Confirmed Type amlodipine 10 mg tablet 10 mg PO QAM 03/16/20 09/02/24 History levalbuterol tartrate 45 2 inh inhalation Q6H PRN Shortness 03/16/20 09/02/24 History mcg/actuation aerosol inhaler Of Breath Or Wheezing (Xopenex HFA) montelukast 10 mg tablet 10 mg PO DAILY PRN asthma 03/16/20 09/02/24 History budesonide-formoterol HFA 160 2 puff inhalation BID PRN seasonal 06/03/23 09/02/24 History mcg-4.5 mcg/actuation aerosol inhaler (Symbicort) esomeprazole magnesium 40 mg 40 mg PO DAILY PRN gerd/nausea 03/18/24 09/02/24 History capsule,delayed release evolocumab 140 mg/mL subcutaneous 140 mg subcut .EVERY 2 WEEKS 03/18/24 09/02/24 History pen injector (Too Jo) famotidine 20 mg tablet 20 mg PO DAILY PRN gerd/nausea 03/18/24 09/02/24 History semaglutide 0.25 mg or 0.5 mg (2 0.5 mg subcut WK 03/18/24 09/02/24 History mg/3 mL) subcutaneous pen injector (Ozempic) spironolactone 25 mg tablet 25 mg PO DAILY PRN Edema 03/18/24 09/02/24 History ticagrelor 90 mg tablet (Brilinta) 90 mg PO BID #180 tabs 03/20/24 09/02/24 Rx aspirin 81 mg tablet,delayed 81 mg PO BID 09/02/24 09/02/24 History release clonidine HCl 0.2 mg tablet 0.2 mg PO QID 09/02/24 09/02/24 History insulin glargine 100 unit/mL (3 20 - 25 unit subcut BID 09/02/24 09/02/24 History mL) subcutaneous pen (Lantus Solostar U-100 Insulin) metoprolol succinate 50 mg 50 mg PO QPM 09/02/24 09/02/24 History tablet,extended release 24 hr Patient History Medical History Type 2 diabetes mellitus Hyperlipidemia Abnormal urinalysis Headache Asthma Diabetes No pertinent family history Surgical History No pertinent past surgical history Family History Mother , age 75 of lung cancer Lung cancer Father , age 65 of an [place] Myocardial infarction Social History (Updated 09/03/24 @ 10:54 by Benito Ambrose MD) Smoking Status: Never smoker Second Hand Exposure: No; Do You Dip or Chew Tobacco: No; Hx Alcohol Use: Yes Alcohol type: beer and wine Hx Substance Use: No Preferred Language: Khmer Communication Ability: Effective Oil Spot Washer Required: No Beliefs That Will Affect Care: None Current Living Situation: Alone Current Living Situation Comment: lives at home alone - family frequently checks on her 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al status: retired 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 Feels Safe at Home: Yes Assistive Devices: Denture - Upper and Denture - Lower Review of Systems Constitutional: no fever, no fatigue and no weakness Eyes: no diplopia, no eye pain and no worsening vision Ear, Nose, Mouth, Throat: no ear pain, no tinnitus, no hearing loss, no dizziness, no snoring, no hoarseness and no dysphagia Respiratory: no cough and no dyspnea Cardiovascular: no chest pain, no palpitations and no lightheadedness Gastrointestinal: no abdominal pain, no nausea and no vomiting Genitourinary: no dysuria, no urinary frequency and no urinary incontinence Musculoskeletal: no back pain, no neck pain, no radicular pain, no joint pain and no myalgia Integumentary: no rash and no lesions Neurologic: no gait abnormality, no localized weakness, no generalized weakness, no tingling, no numbness, no tremor(s), no abnormal movements, no headache(s), no abnormal speech, no confusion and no memory loss Psychiatric: no depression, no irritability, no anxiety, no difficulty concentrating, no confusion and no hallucinations Endocrine: no fatigue and no flushing Hematologic / Lymphatic: no easy bleeding and no easy bruising Allergy / Immunological: no urticaria and no problem reported Exam (Neuro) Physical Exam: The patient is right-handed. The patient is awake, alert, and attentive. Speech is normal without any aphasia or dysarthria. Mentation and thought processes are intact, with full orientation and normal fund of knowledge. Mood and affect are normal and appropriate. Appearance and grooming are normal. Short and long-term memory are intact. The discs are sharp with positive venous pulsations bilaterally. There are no exudates, hemorrhages, or blood vessel changes seen. Pupils are 4 mm bilaterally and reactive to light. Extraocular eye muscles are intact without nystagmus. Visual acuity and visual smith seem normal grossly to confrontation. There are no deficits to sensation in the face in all 3 distributions of the fifth cranial nerve bilaterally. Corneal reflexes are positive bilaterally. Facial strength and symmetry was normal bilaterally. Hearing seems intact grossly to voice and finger rub bilaterally. Palate moves well without asymmetry. There is normal sternocleidomastoid and trapezius strength bilaterally. Tongue is midline with good strength bilaterally. Neck has a full range of motion without discomfort. There are no cervical bruits bilaterally. There are no cranial or ocular bruits. Heart is without murmur. There is a regular rhythm and rate. Cervical, thoracic, and lumbar spine are nontender to palpation. Gait was not tested but stance sitting up in bed is quite normal With outstretched arms there is no drift. There are no resting, postural, or action tremors. There is no ataxia with finger to nose testing. There is good facility in the hands. No other abnormal involuntary movements are noted. Motor strength is 5/5 diffusely in the arms bilaterally including deltoids, biceps, triceps, brachioradialis, wrist flexors and extensors, aerospace engineer, and intrinsic hand muscles. Motor strength is 5/5 diffusely in the legs bilaterally including hip flexors, quadriceps, hamstrings, gastrocnemius, tibialis anterior, tibialis posterior, and Peroneii muscles bilaterally. Toe extensors are normal and there is good bulk in the extensor digitorum brevis muscles bilaterally. The limbs have good tone without rigidity or spasticity. There is no atrophy noted in the muscles. Muscle bulk is normal, there is no tenderness to palpation, no myotonia to percussion, and no fasciculations seen. Sensory examination is intact to touch and pin throughout all 4 limbs diffusely. Reflexes are 2/4 in the biceps, triceps, and brachioradialis tendons bilaterally. Quadriceps tendon reflexes are 1/4 bilaterally at Achilles tendon reflexes were absent. Toes are downgoing with plantar stimulation bilaterally. Peripheral pulses are present and of normal quality distally in all 4 limbs. There is no peripheral edema noted in the limbs. Results & Data Vital Signs (Past 12 Hours) Vital Signs Temp Pulse Pulse Resp BP Pulse Ox O2 Del Method 09/03/24 07:40 36.7 C 67 16 126/75 96 Room Air 09/03/24 06:45 59 L 09/03/24 03:33 36.6 C 61 18 138/67 96 Room Air 09/02/24 22:54 36.2 C L 60 18 118/73 95 Room Air PG Care Time/CCT Total # of Minutes Spent Total Time Spent with Patient: Total time spent is greater than 50% in coordination of care (as documented) at patient's floor/unit and/or counseling patient: Coding Level of Care Code 09667 INT INP/OBS CARE 3/75MIN Diagnoses Acute CVA (cerebrovascular accident) I63.9 Acute confusion R41.0 Carotid stenosis, left I65.22 Occlusion of left vertebral artery I65.02 Time Spent (min) 75
[2024-09-03 11:33] VITALS: RESP 16
--- NOTE | 2024-09-03 13:53 | Consultation ---
Date of Consultation September 03, 2024 Assessment & Plan (1) Carotid stenosis, left: At this point recommended intervention of her left carotid. We discussed TCAR versus endarterectomy. She is agreeable to undergo a TCAR of her left carotid. This will be scheduled next 2 weeks. She is to stay on her Repatha, Brilinta, and aspirin for this procedure. My office will call her early next week to schedule the procedure. Thank you very much for letting us participate in the care of this patient. History of Present Illness Reason for Consultation: Left internal carotid artery stenosis Attending Physician: Collette Singh MD History of Present Illness This is a 74-year-old female who we have seen in the past for a severe stenosis of her left internal carotid artery. She came to the hospital with acute onset of confusion which lasted a short period of time. Apparently she did not have evidence of a hemispheric stroke. She is on Brilinta, aspirin, and Repatha. She is seen by cardiology for her coronary disease. She returned to baseline fairly quickly and was normal neurologically when she presented to the ED. Allergies Allergy/AdvReac Type Severity Reaction Status Date / Time olmesartan [From Benicar] Allergy Severe Stopped me Unverified 09/02/24 15:31 from urinating erythromycin base AdvReac Severe Gastrointestinal Verified 09/02/24 15:31 Upset Bnymciu-[id number]-PwF Reductase AdvReac Severe Nausea and Verified 09/02/24 15:31 Inhibitor vomiting Sulfa (Sulfonamide AdvReac Severe Gastrointestinal Unverified 09/02/24 15:31 Antibiotics) Upset codeine AdvReac Intermediate Nausea Unverified 09/02/24 15:31 atenolol AdvReac Unknown Worsening Verified 09/02/24 15:31 Asthma Home Medications Medication Instructions Recorded Confirmed Type amlodipine 10 mg tablet 10 mg PO QAM 03/16/20 09/02/24 History levalbuterol tartrate 45 2 inh inhalation Q6H PRN Shortness 03/16/20 09/02/24 History mcg/actuation aerosol inhaler Of Breath Or Wheezing (Xopenex HFA) montelukast 10 mg tablet 10 mg PO DAILY PRN asthma 03/16/20 09/02/24 History budesonide-formoterol HFA 160 2 puff inhalation BID PRN seasonal 06/03/23 09/02/24 History mcg-4.5 mcg/actuation aerosol inhaler (Symbicort) esomeprazole magnesium 40 mg 40 mg PO DAILY PRN gerd/nausea 03/18/24 09/02/24 History capsule,delayed release evolocumab 140 mg/mL subcutaneous 140 mg subcut .EVERY 2 WEEKS 03/18/24 09/02/24 History pen injector (Repatha SureClick) famotidine 20 mg tablet 20 mg PO DAILY PRN gerd/nausea 03/18/24 09/02/24 History semaglutide 0.25 mg or 0.5 mg (2 0.5 mg subcut WK 03/18/24 09/02/24 History mg/3 mL) subcutaneous pen injector (Ozempic) spironolactone 25 mg tablet 25 mg PO DAILY PRN Edema 03/18/24 09/02/24 History ticagrelor 90 mg tablet (Brilinta) 90 mg PO BID #180 tabs 03/20/24 09/02/24 Rx aspirin 81 mg tablet,delayed 81 mg PO BID 09/02/24 09/02/24 History release clonidine HCl 0.2 mg tablet 0.2 mg PO QID 09/02/24 09/02/24 History insulin glargine 100 unit/mL (3 20 - 25 unit subcut BID 09/02/24 09/02/24 History mL) subcutaneous pen (Lantus Solostar U-100 Insulin) metoprolol succinate 50 mg 50 mg PO QPM 09/02/24 09/02/24 History tablet,extended release 24 hr Patient History Medical History Type 2 diabetes mellitus Hyperlipidemia Abnormal urinalysis Headache Asthma Diabetes No pertinent family history Surgical History No pertinent past surgical history Family History Mother , age 75 of lung cancer Lung cancer Father , age 65 of an MA Myocardial infarction Social History Smoking Status: Never smoker Second Hand Exposure: No; Do You Dip or Chew Tobacco: No; Hx Alcohol Use: Yes Alcohol type: beer and wine Hx Substance Use: No Preferred Language: Jordanian Communication Ability: Effective Claims Counsel Required: No Beliefs That Will Affect Care: None Current Living Situation: Alone Current Living Situation Comment: lives at home alone - family frequently checks on her 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al status: retired 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 Other Information That Helps Us Care for You: No Feels Safe at Home: Yes Safety Concerns: Feels Safe At This Time Assistive Devices: None Review of Systems Review of Systems: All systems reviewed & are unremarkable except as noted in HPI & below Physical Exam Respiratory: normal respiratory effort, lungs clear to auscultation Cardiovascular: RRR, no murmur, no edema Vessels: normal peripheral pulses Extremities: normal capillary refill Gastrointestinal (Abdomen): Inspection/Auscultation: abdomen normal to inspection Percussion/Palpation: abdomen soft Neurologic: CN's II-XI intact bilaterally and moves all extremities Psychiatric: A+Ox3, euthymic affect Results & Data Vital Signs (Past 12 Hours) Vital Signs Temp Pulse Pulse Resp BP Pulse Ox O2 Del Method 09/03/24 11:21 36.3 C L 58 L 16 130/73 97 Room Air 09/03/24 07:40 36.7 C 67 16 126/75 96 Room Air 09/03/24 06:45 59 L 09/03/24 03:33 36.6 C 61 18 138/67 96 Room Air
[2024-09-03 15:37] VITALS: BP 130/79; PULSE 72; TEMP 98.1; O2SAT 96
--- NOTE | 2024-09-03 19:45 | Discharge Summary ---
Discharge Summary Date of Service September 03, 2024 Principal Dx & Hospital Course #1 = Principal Diagnosis (1) Acute confusion: (2) Acute UTI: (3) History of coronary artery disease: (4) Type 2 diabetes mellitus: Lanny Zarate is a pleasant 73-year-old female with PMH of T2DM, CVA, HTN, and asthma who presents with for confusion. initial workup concerning for carotid stenosis, possible UTI, and patient had stroke workup initiated in the ED. Will be admitted for vascular surgery evaluation, brain MRI and further workup possible acute ischemic strokereviewed brain MRI which was obtained overnight there is a tiny punctate area of possible right frontal lobe stroke. Consulted neurology discussed with Dr. Ambrose he is not sure this is even a stroke. He recommended continuing DAPT with aspirin and Brilinta continuing Repatha for cholesterol she has been intolerant of statins. reviewed lipid panel she is well-controlled on the Repatha. A1c is low. She just had a TTE at Dr. Gutierrez's office 2 weeks ago I obtained to the report and there were no findings that would contribute to stroke. Left carotid stenosissevere, 90%known previously, confirmed on admitting CTA head and neck. Consulted Dr. Botello who has seen her in the pastrecommended continuing DAPT and she will be scheduled for TCAR within the next 2 weeks severe cerebrovascular disease with multiple prior strokes bilaterally in various territories based on imaging. acute metabolic encephalopathy - episode of transient confusion morning of admission noted by her daughter, resolved. Tiny possible right frontal infarct on brain MRI would not explain this. It may be related to urinary tract infection Possible urinary tract infectionhas pyuria on UA and had confusion however does not have any specific dysuria or urinary frequency. Given presentation will treat for UTI. Culture is growing E. coli sensitivities pending discharged on Cefadroxil, I will follow-up the sensitivities and alter antibiotic coverage if necessary. she stated she had had side effects to Bactrim and fluoroquinolones. Diabetes type 2 Home regimen: Lantus 20 units twice daily, Ozempic (takes Saturdays) AM A1c - 5.5%, continue usual regimen HTN - continue clonidine, amlodipine, metoprolol. blood pressure mildly to moderately elevated in ED but has been normal for past 24 hours Notes For Next Care Provider TCAR for left carotid planned within 2 weeks sensitivities on E. coli and urine culture still pending Medication Changes From Visit added antibiotic Admission HPI Per Admitting Provider Tessa is a pleasant 73-year-old female with PMH of T2DM, CVA, HTN, and asthma who presents with for confusion. acute onset of confusion this morning. At the time of my evaluation her confusion is completely resolved. She does have a positive urinalysis but she denies any urinary frequency urgency or burning. Does endorse weakness/fatigue last few days. Does not use any assistive devices with ambulation Recent medication changes states her metoprolol was increased from metoprolol to tartrate to metoprolol succinate. does have a history of a stroke. Denies single extremity weakness or sensory deficits. Denies visual field changes. Is reporting a mild headache ER course: Rocephin 2 g IV x 1 Discharge Exam PHYSICAL EXAMINATION Last 24h vital signs reviewed, see documentation in flowsheet General: comfortable appearing, no distress HEENT: Normocephalic, atraumatic, pupils round and equal, sclerae anicteric, no conjunctival injection, moist mucus membranes Lungs: Normal respiratory effort. Clear to auscultation bilaterally. No RRW Heart: Regular rate and rhythm, no murmurs. No JVD Abdomen: Soft, nontender, nondistended. Bowel sounds present. Extremities: Warm, dry, well-perfused. No extremity edema. Neuro: Alert and oriented x 4, face symmetric, moves 4 extremities well Psych: Normal affect and behavior Discharge Plan Discharge Items Patient Disposition: Home - Self-Care Reason For Visit: CONFUSION, CARTOID STENOSIS Discharge Diagnosis: Possible small right frontal stroke, urinary tract infection, severe left carotid stenosis Activity: Resume your previous activity Non-emergency contact: Primary Care Provider and Surgeon Call non-emergency contact if: you have any medication questions and your symptoms worsen Follow-up/Referrals: Landon Botello MD [Physician] - Anh Manriquez PA-C [Primary Care Provider] - Diet: Heart Healthy Addtl Attending Provider Instructions: You were evaluated for an episode of confusion and weakness that resolved This may be related to urinary tract infection -complete the course of antibiotics -I will call you if the bacteria is resistant and we need to change antibiotics There is a possible tiny new stroke in the right frontal lobe. The neurologist Dr. Ambrose did not feel it was clearcut that this was actually stroke. He didn't think it would explain the symptoms of confusion and weakness. This area is on the opposite side of the carotid stenosis and not related. Dr. Ambrose and Dr. Botello recommended continuing aspirin and brilinta as well as your Repatha (cholesterol medication). Your cholesterol is well controlled. I reviewed the recent Echo done by Dr. Gutierrez and there weren't any issues that would contribute to stroke. Dr. Botello plans TCAR (carotid stenting procedure) within the next two weeks. His office will call you to schedule. You can stay on the aspirin and brilinta for the procedure. You did well with physical therapy, including stairs It was a pleasure taking care of you in the hospital, Collette Singh MD Pending Studies at Discharge: No Stand-Alone Forms: My [facility], Smoking Cessation Medications and DC Order Prescriptions: New cefadroxil 500 mg capsule 500 mg PO BID Qty: 12 0RF Continued amlodipine 10 mg tablet 10 mg PO QAM montelukast 10 mg Tablet 10 mg PO DAILY PRN (Reason: asthma) levalbuterol tartrate [Xopenex HFA] 45 mcg/actuation Hfa Aerosol Inhaler 2 inh INHALATION Q6H PRN (Reason: Shortness Of Breath Or Wheezing) budesonide-formoterol [Symbicort] 160-4.5 mcg/actuation HFA aerosol inhaler 2 puff INHALATION BID PRN (Reason: seasonal) Ozempic 0.25 mg or 0.5 mg (2 mg/3 mL) pen injector 0.5 mg SUBCUT WK Rx Instructions: Saturday spironolactone 25 mg tablet 25 mg PO DAILY PRN (Reason: Edema) Rx Instructions: ordered daily but only takes prn famotidine 20 mg Tablet 20 mg PO DAILY PRN (Reason: gerd/nausea) esomeprazole magnesium 40 mg capsule,delayed release(DR/EC) 40 mg PO DAILY PRN (Reason: gerd/nausea) Repatha SureClick 140 mg/mL pen injector 140 mg SUBCUT .EVERY 2 WEEKS Rx Instructions: DUE NOW Brilinta 90 mg Tablet 90 mg PO BID Qty: 180 3RF Rx Instructions: take at 1400 & 0200 metoprolol succinate 50 mg tablet extended release 24 hr 50 mg PO QPM clonidine HCl 0.2 mg tablet 0.2 mg PO QID Rx Instructions: 0500,1000,1800,1200 insulin glargine [Lantus Solostar U-100 Insulin] 100 unit/mL (3 mL) insulin pen 20 - 25 unit SUBCUT BID Rx Instructions: ACCORDING TO GLUCOSE MONITORING aspirin 81 mg tablet,delayed release (DR/EC) 81 mg PO BID Rx Instructions: take at 1400 & 0200 Discharge Orders: Discharge Order (Routine); Ordered 09/03/24 Ordered By: Collette Alford/Other Patient Handouts: Carotid Artery Disease Admission Data Admit Date/Time: 09/02/24 18:12 Attending Provider: Collette Singh Admit Provider: Collette Singh Primary Care Provider: Anh Manriquez Other Providers: Landon Botello; Armando Stanley; Benito Ambrose; Lulú Granados; Abena Nichols; Lisa Mays; Tyler Rojas; Collette Singh Other Interventions: Discharge Summary Assessment (RN) Last Done: 09/03/24 15:19 Hospital Stay Data Consultations 09/02/24 18:24 ED Decision to Admit Stat 09/02/24 20:15 Consult Vascular Surgery Routine 09/02/24 21:38 Consult Neurology Routine Diagnostic Imagining Performed 09/02/24 13:23 CT angio head w con Stat CT angio neck with con Stat CT head/brain wo con Stat 09/02/24 17:34 MR brain wo con Routine Chest X-Ray 09/02/24 12:40 XR chest 1V portable CLINICAL HISTORY: Weakness COMPARISON STUDY: 03/18/2024 FINDINGS: Heart size and pulmonary vasculature are normal. No effusion, consolidation, or pneumothorax. IMPRESSION: No acute findings. ACT 112: Negative or not required by law. Electronically signed by: Esau Hernandez M.D. 09/02/2024 1:[address] 09/02/24 13:23 CT OF THE HEAD WITHOUT CONTRAST CLINICAL HISTORY: acute confusion, since resolved; h/o ICH COMPARISON STUDY: MRI of the brain June 03, 2023. Head CT June 08, 2023. TECHNIQUE: Helical axial images of the head were obtained without IV contrast. Automated exposure control was utilized for the study. A dose lowering technique was utilized adhering to the principles of ALARA. FINDINGS: No acute intracranial hemorrhage is present. Ventricular system is stable. Basal cisterns are patent. There are no extra-axial collection. M ultifocal encephalomalacia represents old infarcts which were shown on CT of June 08, 2023 and include right frontal, bilateral occipital and bilateral cerebellar infarcts. There are no findings to suggest acute dural sinus thrombosis or acute territorial infarct. There are no calvarial fractures. IMPRESSION: 1. No acute intracranial findings. 2. Multiple old infarcts which were shown on prior CT of June 08, 2023. ACT 112: Negative or not required by law. Electronically signed by: Davion Ledesma M.D. 09/02/2024 2:25 PM Head CTA 09/02/24 13:23 CT angio head w con CLINICAL HISTORY: acute confusion, since resolved; h/o ICH. COMPARISON STUDY: MRA of 06/03/2023 TECHNIQUE: Unenhanced axial CT scan of the brain is performed. Subsequently, following the IV administration of 120 cc of Optiray, CT angiogram of the brain was performed from the skull base to the vertex. Images are reviewed in the axial, sagittal, and coronal planes. 3-D MIPS images are created and assessed. IV contrast was administered without complication. All measurements were obtained according to NASCET criteria. A dose lowering technique was utilized adhering to the principles of ALARA. CT DOSE: 996 FINDINGS: There are atherosclerotic calcifications distally at the internal carotid arteries without significant narrowing. Right vertebral artery is dominant and the left vertebral artery is diminutive but patent, anatomic variant. Basilar artery is widely patent. The anterior and middle cerebral arteries are patent bilaterally. The left posterior cerebral artery is patent. The right posterior cerebral artery demonstrates short segment occlusion proximally, stable compared with the prior MRA. This correlates with the region of the old infarction medial right CHEMIST STEROIDS distribution. IMPRESSION: 1. Stable short segment occlusion proximal right CHEMIST STEROIDS. 2. No new arterial occlusion seen of the brain. ACT 112: Negative or not required by law. The above report was generated using voice recognition software. It may contain grammatical, syntax or spelling errors. Electronically signed by: Esau Hernandez M.D. 09/02/2024 2:30 PM Neck CTA 09/02/24 13:23 CT ANGIOGRAPHY OF THE NECK WITH CONTRAST CLINICAL HISTORY: acute confusion, since resolved; h/o ICH COMPARISON STUDY: No previous studies for comparison. Technique: CT angiography of the carotid and vertebral arteries was obtained using Optiray and 3D reconstruction on an independent workstation. NASCET criteria was utilized. Automated exposure control was utilized for the study. A dose lowering technique was utilized adhering to the principles of ALARA. CT DOSE: 996.55 mGy.cm Findings: Visualized portions of the lung disease are unremarkable. There is no cervical spine fracture. There is no cervical lymphadenopathy. Extensive calcified and noncalcified plaque within the proximal left internal carotid artery 90% stenosis of the vessel, 1 cm distal to the vessel origin. There is moderate plaque within the right carotid bifurcation without stenosis. There is also severe stenosis of the proximal left external carotid artery. The right vertebral artery is dominant and patent. No flow is identified within the proximal to mid left vertebral artery. There is trace flow within a diminutive distal cervical portion of the left internal carotid artery. Intracranial portion of the left vertebral artery is diminutive but patent. IMPRESSION: 1. Severe (90%) stenosis of the proximal left internal carotid artery. 2. Age-indeterminate but likely occlusion of the proximal to mid left vertebral artery. Diminutive but patent distal left cervical and intracranial portions of left vertebral artery. 3. Severe stenosis at the origin of the left external carotid artery. 3. Moderate plaque within the right carotid bifurcation. No stenosis of the right internal carotid artery. ACT 112: Negative or not required by law. Electronically signed by: Davion Ledesma M.D. 09/02/2024 2:31 PM Brain MRI 09/02/24 17:34 MRI of the brain performed without IV contrast History: Confusion Comparison:06/03/2023 Technique: Sagittal T1-weighted and axial T2-weighted, T2/FLAIR and diffusion-weighted with ADC map images of the brain were obtained without IV contrast. Findings: No evidence for intracranial mass lesion, mass-effect, midline shift, or abnormal extra-axial fluid collection. There is advanced cerebral atrophy. There are numerous, chronic, multifocal infarcts, including at the high right frontal lobe, the right occipital lobe, and throughout both cerebellar hemispheres. There is a punctate focus of restricted diffusion suggesting acute infarct at the high right frontal lobe. The right CHEMIST STEROIDS flow-void is not well-seen, possibly due to chronic occlusion or diminutive size Due to chronic right occipital lobe infarct. Remaining flow-voids appear grossly patent. Impression: Single punctate focus of restricted diffusion suggesting acute infarct of the high right frontal lobe. Advance cerebral atrophy and chronic multifocal infarcts additionally seen. Electronically signed by Jose Orta 09-02-2024 8:02 PM Pending Results Patient Have Any Pending Studies at Discharge: No Discharge Instructions Given to Patient (Per Discharging Provider) You were evaluated for an episode of confusion and weakness that resolved This may be related to urinary tract infection -complete the course of antibiotics -I will call you if the bacteria is resistant and we need to change antibiotics There is a possible tiny new stroke in the right frontal lobe. The neurologist Dr. Ambrose did not feel it was clearcut that this was actually stroke. He didn't think it would explain the symptoms of confusion and weakness. This area is on the opposite side of the carotid stenosis and not related. Dr. Ambrose and Dr. Botello recommended continuing aspirin and brilinta as well as your Repatha (cholesterol medication). Your cholesterol is well controlled. I reviewed the recent Echo done by Dr. Gutierrez and there weren't any issues that would contribute to stroke. Dr. Botello plans TCAR (carotid stenting procedure) within the next two weeks. His office will call you to schedule. You can stay on the aspirin and brilinta for the procedure. You did well with physical therapy, including stairs It was a pleasure taking care of you in the hospital, Collette Singh MD Total Time Total Time Spent Total Time Spent (In Minutes): I personally spent: 50 minutes today on clinical care activities including: reviewing chart notes and vital signs reviewing labs reviewing studies discussion with product consultant(s) examining and counseling the patient writing orders writing prescriptions, discharge instructions documentation Coding Level of Care Code 34700 INP/OBS DISCH >30 MIN Diagnoses Acute confusion R41.0 Acute UTI N39.0 History of coronary artery disease Z86.79 Type 2 diabetes mellitus E11.9
== END 2024-09-03 18:39 | disposition home or self-care (01) ==
LOC: ED 12:25 → 2N 12:25

== ENCOUNTER 2024-09-22 06:21 | Inpatient (IN) ==
--- NOTE | 2024-09-14 15:29 | Anesthesiology Consultation ---
Date of Service September 14, 2024 Assessment & Plan (1) Encounter for pre-operative examination: Chart Review Chart Review: Acceptable Risk for Surgery (pending anesthesia evaluation DOS ) and Patient NOT seen in Pre Admission Testing - Check BSG AM DOS - Ozempic instructions: Patient informed by PAT nursing to stop 7 days prior to surgery. Patient advised by PAT nursing to check with prescriber to see if alternative diabetic management changes recommended while holding Ozempic- if so, patient to call back to PAT to update chart and discuss if any further preop medication instructions needed. Last dose of Ozempic given 09/13/24- will be off Ozempic x 9 days by DOS on 09/22/24 -Infectious Disease screening: Per PAT nursing assessment on 09/14/24. No known infectious disease contacts in past 10 days or current infectious disease symptoms. No recent travel outside the country. Patient seen by cardio 08/19/24= seen for cardiac follow up. Patient has been on hold to have carotid surgery with Dr Botello due to multivessel CAD. [facility] that she does not want to pursue carotid treatment. Cardio strongly recommends against this and encourages patient to follow up with vascular surgery to discuss further. Patient at risk for stroke with carotid disease. From a cardiac standpoint- she had interventions to all three coronary arteries and she is deemed to be an appropriate candidate for any carotid intervention necessary however at this point, she is refusing to have surgery done. CADthree-vessel status post three-vessel intervention. Subsequent STEMI. Hypercholesterolemia. Bilateral carotid stenosis. From a cardiac standpoint she will continue dual antiplatelet therapy along with beta-demarco as well as PCSK9 inhibitor. Lipid management deferred to different provider. Preop cardiac standpoint she is considered to be an appropriate candidate for any carotid intervention deemed necessary by Dr. Botello either open surgical or a catheter-based stent. She will need to continue her dual antiplatelet therapy indefinitely if she decides to not have any intervention done. Strongly encouraged her to have this discussion with her family so that they are aware she is refusing carotid intervention at this time. Declines wanting to finish cardiac rehab due to transportation issues. Will follow-up in 6 months. History Surgery Operation Date: 09/22/24 10:10 Proposed Procedures p Left Transcarotid Artery Revascularization - Landon Botello MD Height/Weight Height: 5 ft 6 in Weight: 88.904 kg Allergies Allergy/AdvReac Type Severity Reaction Status Date / Time olmesartan [From Benicar] Allergy Severe Stopped me Verified 09/14/24 14:30 from urinating erythromycin base AdvReac Severe Gastrointestinal Verified 09/14/24 14:30 Upset Nlcjeyb-SVI-[id number] Reductase AdvReac Severe Nausea and Verified 09/14/24 14:30 Inhibitor vomiting Sulfa (Sulfonamide AdvReac Severe Gastrointestinal Verified 09/14/24 14:30 Antibiotics) Upset codeine AdvReac Intermediate Nausea Verified 09/14/24 14:30 atenolol AdvReac Unknown Worsening Verified 09/14/24 14:30 Asthma Medications Home Medications Medication Instructions Recorded Confirmed Last Taken amlodipine 10 mg tablet 10 mg PO QAM 03/16/20 09/14/24 09/02/24 levalbuterol tartrate 45 2 inh inhalation Q6H PRN Shortness 03/16/20 09/14/24 03/18/24 mcg/actuation aerosol inhaler Of Breath Or Wheezing (Xopenex HFA) montelukast 10 mg tablet 10 mg PO DAILY PRN asthma 03/16/20 09/14/24 Unknown budesonide-formoterol HFA 160 2 puff inhalation BID PRN seasonal 06/03/23 09/14/24 06/08/23 mcg-4.5 mcg/actuation aerosol inhaler (Symbicort) esomeprazole magnesium 40 mg 40 mg PO DAILY PRN gerd/nausea 03/18/24 09/14/24 Unknown capsule,delayed release evolocumab 140 mg/mL subcutaneous 140 mg subcut .EVERY 2 WEEKS 03/18/24 09/14/24 03/06/24 pen injector (Repatha SureOdellick) famotidine 20 mg tablet 20 mg PO DAILY PRN gerd/nausea 03/18/24 09/14/24 Unknown semaglutide 0.25 mg or 0.5 mg (2 0.5 mg subcut WK 03/18/24 09/14/24 08/30/24 mg/3 mL) subcutaneous pen injector (Ozempic) spironolactone 25 mg tablet 25 mg PO DAILY PRN Edema 03/18/24 09/14/24 Unknown ticagrelor 90 mg tablet (Brilinta) 90 mg PO BID #180 tabs 03/20/24 09/14/2409/02/25 14:00 aspirin 81 mg tablet,delayed 81 mg PO BID 09/02/24 09/14/24 09/02/24 release 1400 clonidine HCl 0.2 mg tablet 0.2 mg PO QID 09/02/24 09/14/24 09/02/24 10:00 insulin glargine 100 unit/mL (3 20 - 25 unit subcut BID 09/02/24 09/14/24 09/02/24 mL) subcutaneous pen (Lantus am Solostar U-100 Insulin) metoprolol succinate 50 mg 50 mg PO QPM 09/02/24 09/14/24 09/01/24 tablet,extended release 24 hr Past Medical History Medical History Asthma triggered by environment allergies, rare use of inhalers CAD (coronary artery disease) 03/18/24 RCA stent (STONE) 03/20/24- stent to mid LAD (STONE) 05/2024- STONE to mid Cx Carotid artery stenosis Left ICA 90% stenosis with occluded left vertebral artery (with good collateral flow) CKD (chronic kidney disease) no chocolate packer GERD (gastroesophageal reflux disease) History of confusion (09/03/24) - admitted to [facility], work up for cva- had incidental tiny acute right frontal stroke that was not conclusive; per neuro (09/03/24) "do not believe that this possible (tiny) acute stroke, seen on MRI cause her any symptoms, including confusion. Confusion was likely secondary to the UTI." History of ST elevation myocardial infarction (STEMI) (03/2024) STEMI 03/18/24; 03/18/24 RCA stent (STONE) 03/20/24- stent to mid LAD (STONE) 05/2024- 1 stent to Cx per patient History of stroke (2017) - Right [employer] infarct 2018- "traumatic" stroke, as a result of hitting head on car door, resolved, treated at [facility], no deficits - May 2023- admitted for multiple strokes including the right front, left occipital and right cerebellum (MRI at that time also showed right occipital and left cerebellar hemisphere strokes)- started on ASA and Brillinta - 09/03/24 "Incidentally, there may have been a tiny acute right frontal stroke (top of head) but this was not conclusive."; neuro did not feel acute confusion 09/03/24 was caused by this finding- felt it was due to UTI at the time Hx of ovarian cyst Hx: UTI (urinary tract infection) (09/03/24) completed abx, states no current symptoms Hyperlipidemia Hypertension Irregular heartbeat had a holter monitor in past Occlusion of left vertebral artery with good collateral flow per records Type 2 diabetes mellitus Past Family History Family History Mother , age 75 of lung cancer Lung cancer Father , age 65 of an OR Myocardial infarction Past Surgical History Surgical History (Updated 09/16/24 @ 10:46 by Rachael Rodríguez PA-C) History of carpal tunnel surgery of left wrist History of laparotomy (1987) ovarian cyst Hx of cardiac catheterization (05/2024) x2 [facility] 03/18/24 stent- rca 03/20/24 stent-lad stent -circumflex- josephine Follows with cardio [facility] (08/19/24) Hx of section (04/1990) Hx of heart artery stent x3 03/18/24 stent- rca- [facility] 03/20/24 stent-lad- [facility] stent -circumflex- josephine [facility] (08/[facility]) Hx of tubal ligation (04/1990) Social History Smoking Status: Never smoker Do You Dip or Chew Tobacco: No Hx Alcohol Use: Yes Alcohol type: beer and wine alcohol intake frequency: holidays/special occasions only Alcohol Intake Frequency Comment: rare Hx Substance Use: No substance use type: does not use Lab Results Anesthesia Preop Results Results Anesthesia Widget: WBC 4.95 K/ul (4.8-10.8) 09/03/24 Hgb 12.0 g/dl (12.0-16.0) 09/03/24 Hct 36.3 % (37.0-47.0) L 09/03/24 Plt 176 K/uL (130-400) 09/03/24 Na 141 mmol/L (136-145) 09/03/24 K 3.9 mmol/L (3.5-5.1) 09/03/24 Cl 108 mmol/L (98-107) H 09/03/24 CO2 27 mmol/L (21-32) 09/03/24 BUN 16 mg/dl (6-23) 09/03/24 Creat 1.39 mg/dl (0.6-1.2) H 09/03/24 POC Glucose 96 mg/dl (70-99) 09/03/24 PT 10.2 Seconds (9.0-12.0) 09/02/24 PTT 25 Seconds (21-31) 09/02/24 INR 0.9 (0.9-1.1) 09/02/24 TSH 1.712 uIu/ml (0.300-4.500) 09/02/24 HA1c 5.5 % (4.5-5.6) 09/03/24 Urine Color Yellow 09/02/24 Urine Appearance Clear (Clear) 09/02/24 Urine pH 7.5 (4.5-7.5) 09/02/24 Urine Specific [place] 1.036 (1.000-1.030) H 09/02/24 Urine Protein Negative (Negative) 09/02/24 Urine Glucose (UA) Negative (Negative) 09/02/24 Urine Ketones Negative (Negative) 09/02/24 Urine Blood Negative (Negative) 09/02/24 Urine Nitrite Positive (Negative) A 09/02/24 Urine Bilirubin Negative (Negative) 09/02/24 Urine Urobilinogen Negative (Negative) 09/02/24 Urine Leukocyte Esterase Trace (Negative) H 09/02/24 Urine WBC (Auto) 11-20 /hpf (0-5) H 09/02/24 Urine RBC (Auto) 0-2 /hpf (0-2) 09/02/24 Urine Hyaline Casts (Auto) 0-2 /lpf (0-2) 09/02/24 Urine Epithelial Cells (Auto) 0-2 /hpf (0-2) 09/02/24 Urine Bacteria (Auto) 4+ (None Seen) H 09/02/24 Testing Laboratory Results 09/02/24= URINE CULTURE: E coli >100,000 CFU/ml, plus low counts of other mixed zachary ( Admitted to [facility] and treated with abxs) Electrocardiogram Date: 09/02/24 SB with PACs at 56bpm Low voltage QRS When compared to EKG from Mar 20, 2024- T wave inversion less evident in inferior leads, T wave inversion no longer evident in anterolateral leads, QT has shortened per cardio Chest X-Ray Date: 09/02/24 Findings: + NAD Echocardiogram Date: 03/18/24 EF: 60-65% LV Function: normal Other Findings: + LVH (moderate/concentric) and + diastolic dysfunction (Grade I ) Very mild inferior HK consistent with RCA territory OR Normal RV function Mild MR. Mild TR Compared to prior study, there is no significant change ECHO 08/19/24 per cardio note (unable to get formal report)= LVH with hyperdynamic LV function as well as diastolic dysfunction Cardiac Catheterization Date: 03/18/24 Coronary angiography findings: Left [id number]. Bifurcates into LAD and circumflex. No disease. [id number]-fsulr-dunbbur. Gives an early arising medium caliber branching first diagonal. This has proximal 95% stenosis. LAD then gives a large septal branch. Beyond this in the mid to distal vessel there is a long eccentric 90 to 95% stenosis. The distal vessel beyond this has mild luminal irregularities. [id number]-[id number]-uxdcmea and nondominant. Proximally there is mild less than 20% stenosis. The AV groove vessel gives a small OM1 and shortly thereafter a small OM 2. Then there is a large caliber branching OM 3. In the distal AV groove circumflex which remains relatively large in caliber there is a long eccentric up to 90% stenosis occurring before the ostium of a large posterolateral branch. RCA-proximally this is 100% occluded. GEETA 0 flow. PCI of RCA-there is less than 10% residual stenosis post PCI. This appears to be mostly thrombus but also some residual "cheese grater" effect from the stent. No evidence of dissection or perforation post PCI GEETA II flow post PCI Post PCI the mid and distal RCA are visualized. The mid has no significant disease but as it transitions to the distal segment there is up to 50% stenosis. The RCA then bifurcates into a large multi branching posterior lateral and a long PDA. Posterolateral has scattered up to 50% stenosis. The PDA has sluggish flow distally but no focal stenosis. Summary: 1. Severe multivessel coronary artery disease as described. Culprit lesion for ST elevation OR is the RCA. 2. Successful PCI of the RCA with a large caliber drug-eluting stent. 3. Significant residual coronary disease in the LAD and circumflex. These may be appropriate for PCI in the near future. 4. Dual antiplatelet therapy with aspirin 81 mg daily and Brilinta 90 mg p.o. twice daily. Therapy should continue for up to 2 years. Consideration can be made for change to clopidogrel. 5. Guideline directed medical therapy for secondary prevention of coronary disease. Patient will be on aspirin 81 mg daily, will initiate beta-demarco as tolerated, reported allergy to olmesartan but will consider alternative GARDENIA inhibitor/ARB given diabetes, and patient was on Praluent. While hospitalized she will be on statin as I do not see this as a listed allergy but she will resume PCSK9 inhibitor as an outpatient. She reportedly follows with the hyperlipidemia clinic in [place]. 6. Highly recommend the patient participate in cardiac rehab after discharge. Cardiac Catheterization 03/20/24= PCI findings: 0% residual stenosis in the mid LAD post PCI (90% reduced to 0% stenosis) GEETA-3 flow post PCI No evidence of dissection or perforation post PCI Summary: 1. Successful PCI of the mid LAD using a single drug-eluting stent. 2. Continue dual antiplatelet therapy with aspirin and Brilinta to complete 1 to 2 years. 3. Continue guideline directed medical therapy for secondary prevention of coronary disease per primary seasonal delivery driver. Cardiac catheterization 05/2024 per 08/19/24 cardio office visit (attempted to get report but was unsuccessful)= LM = mildly diseased LAD = proximal LAD mildly diseased. Mid LAD mildly diseased and has existing stent. Distal LAD mildly diseased. Circumflex = proximal circumflex mildly diseased. Mid circumflex severely % stenosis. Culprit lesion in the midportion. Distal circumflex not diseased Intervention [id number]% to 20 mm long mid circumflex lesion was treated with STONE. Other Testing Brain MRI 09/02/24= Single punctate focus of restricted diffusion suggesting acute infarct of the high right frontal lobe. Advance cerebral atrophy and chronic multifocal infarcts additionally seen. Neck CTA 09/02/24= Severe (90%) stenosis of the proximal left internal carotid artery. Age-indeterminate but likely occlusion of the proximal to mid left vertebral artery. Diminutive but patent distal left cervical and intracranial portions of left vertebral artery. Severe stenosis at the origin of the left external carotid artery. Moderate plaque within the right carotid bifurcation. No stenosis of the right internal carotid artery. Head CTA 09/02/24= Stable short segment occlusion proximal right [employer]. No new arterial occlusion seen of the brain. Head CT 09/02/24= No acute intracranial findings. Multiple old infarcts which were shown on prior CT of June 08, 2023.
--- NOTE | 2024-09-21 09:57 | History & Physical Report ---
Date of Service September 21, 2024 History of Present Illness Primary Care Provider: Anh Manriquez PA-C [facility] [place] [address] Consultation Signed Patient: IZABEL CAMACHO Admit Date: 09/02/24 MR#: [id number] Att Phy: Collette Singh MD Acct ID: [id number] Preeti Phy: Anh Manriquez PA-C Date: 1950 Fam Phy: Age: 74 Location: 2N Sex: F Room/Bed: N275-1 Legal Sex: F cc: ~ *NOTICE TO RECEIVING LIBERTARIAN/AGENCY This information is strictly Confidential and protected under [place] law. [place] law prohibits you from making any further disclosure of this information unless further disclosure is expressly permitted by the written consent of the person to whom it pertains or is authorized by law. A general authorization for the release of medical or other information is not sufficient for this purpose. Hospital accepts no responsibility if the information is made available to any other person, INCLUDING THE PATIENT. Date of Consultation September 03, 2024 Assessment & Plan (1) Carotid stenosis, left: At this point recommended intervention of her left carotid. We discussed TCAR versus endarterectomy. She is agreeable to undergo a TCAR of her left carotid. This will be scheduled next 2 weeks. She is to stay on her Repatha, Brilinta, and aspirin for this procedure. My office will call her early next week to schedule the procedure. Thank you very much for letting us participate in the care of this patient. History of Present Illness Reason for Consultation: Left internal carotid artery stenosis Attending Physician: Collette Singh MD History of Present Illness This is a 74-year-old female who we have seen in the past for a severe stenosis of her left internal carotid artery. She came to the hospital with acute onset of confusion which lasted a short period of time. Apparently she did not have evidence of a hemispheric stroke. She is on Brilinta, aspirin, and Repatha. She is seen by cardiology for her coronary disease. She returned to baseline fairly quickly and was normal neurologically when she presented to the ED. Allergies Allergy/AdvReac Type Severity Reaction Status Date / Time olmesartan [From Benicar] Allergy Severe Stopped me Unverified 09/02/24 15:31 from urinating erythromycin base AdvReac Severe Gastrointestinal Verified 09/02/24 15:31 Upset [id number] Reductase AdvReac Severe Nausea and Verified 09/02/24 15:31 Inhibitor vomiting Sulfa (Sulfonamide AdvReac Severe Gastrointestinal Unverified 09/02/24 15:31 Antibiotics) Upset codeine AdvReac Intermediate Nausea Unverified 09/02/24 15:31 atenolol AdvReac Unknown Worsening Verified 09/02/24 15:31 Asthma Home Medications Medication Instructions Recorded Confirmed Type amlodipine 10 mg tablet 10 mg PO QAM 03/16/20 09/02/24 History levalbuterol tartrate 45 2 inh inhalation Q6H PRN Shortness 03/16/20 09/02/24 History mcg/actuation aerosol inhaler Of Breath Or Wheezing (Xopenex HFA) montelukast 10 mg tablet 10 mg PO DAILY PRN asthma 03/16/20 09/02/24 History budesonide-formoterol HFA 160 2 puff inhalation BID PRN seasonal 06/03/23 09/02/24 History mcg-4.5 mcg/actuation aerosol inhaler (Symbicort) esomeprazole magnesium 40 mg 40 mg PO DAILY PRN gerd/nausea 03/18/24 09/02/24 History capsule,delayed release evolocumab 140 mg/mL subcutaneous 140 mg subcut .EVERY 2 WEEKS 03/18/24 09/02/24 History pen injector (Repstephanie SureAlbina) famotidine 20 mg tablet 20 mg PO DAILY PRN gerd/nausea 03/18/24 09/02/24 History semaglutide 0.25 mg or 0.5 mg (2 0.5 mg subcut WK 03/18/24 09/02/24 History mg/3 mL) subcutaneous pen injector (Ozempic) spironolactone 25 mg tablet 25 mg PO DAILY PRN Edema 03/18/24 09/02/24 History ticagrelor 90 mg tablet (Brilinta) 90 mg PO BID #180 tabs 03/20/24 09/02/24 Rx aspirin 81 mg tablet,delayed 81 mg PO BID 09/02/24 09/02/24 History release clonidine HCl 0.2 mg tablet 0.2 mg PO QID 09/02/24 09/02/24 History insulin glargine 100 unit/mL (3 20 - 25 unit subcut BID 09/02/24 09/02/24 History mL) subcutaneous pen (Lantus Solostar U-100 Insulin) metoprolol succinate 50 mg 50 mg PO QPM 09/02/24 09/02/24 History tablet,extended release 24 hr Patient History Medical History Type 2 diabetes mellitus Hyperlipidemia Abnormal urinalysis Headache Asthma Diabetes No pertinent family history Surgical History No pertinent past surgical history Family History Mother , age 75 of lung cancer Lung cancerFather , age 65 of an MS Myocardial infarction Social History Smoking Status: Never smoker Second Hand Exposure: No; Do You Dip or Chew Tobacco: No; Hx Alcohol Use: Yes Alcohol type: beer and wine Hx Substance Use: No Preferred Language: Hong Konger Communication Ability: Effective Staff Development Nurse Required: No Beliefs That Will Affect Care: None Current Living Situation: Alone Current Living Situation Comment: lives at home alone - family frequently checks on her 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al status: retired 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 Other Information That Helps Us Care for You: No Feels Safe at Home: Yes Safety Concerns: Feels Safe At This Time Assistive Devices: None Review of Systems Review of Systems: All systems reviewed & are unremarkable except as noted in HPI & below Physical Exam Respiratory: normal respiratory effort, lungs clear to auscultation Cardiovascular: RRR, no murmur, no edema Vessels: normal peripheral pulses Extremities: normal capillary refill Gastrointestinal (Abdomen): Inspection/Auscultation: abdomen normal to inspect ion Percussion/Palpation: abdomen soft Neurologic: CN's II-XI intact bilaterally and moves all extremities Psychiatric: A+Ox3, euthymic affect Results & Data Vital Signs (Past 12 Hours) Vital Signs Temp Pulse Pulse Resp BP Pulse Ox O2 Del Method 09/03/24 11:21 36.3 C L 58 L 16 130/73 97 Room Air 09/03/24 07:40 36.7 C 67 16 126/75 96 Room Air 09/03/24 06:45 59 L 09/03/24 03:33 36.6 C 61 18 138/67 96 Room Air Signed By: <Electronically signed by Landon Botello MD> 09/03/24 1358 Created: 09/03/24 1352 The status of this report is Signed. Draft = Not yet reviewed or approved by Medical Physician. Signed = Reviewed and approved by Medical Physician. Allergies Allergy/AdvReac Type Severity Reaction Status Date / Time olmesartan [From Benicar] Allergy Severe Stopped me Verified 09/14/24 14:30 from urinating erythromycin base AdvReac Severe Gastrointestinal Verified 09/14/24 14:30 Upset [id number] Reductase AdvReac Severe Nausea and Verified 09/14/24 14:30 Inhibitor vomiting Sulfa (Sulfonamide AdvReac Severe Gastrointestinal Verified 09/14/24 14:30 Antibiotics) Upset codeine AdvReac Intermediate Nausea Verified 09/14/24 14:30 atenolol AdvReac Unknown Worsening Verified 09/14/24 14:30 Asthma Home Medications Medication Instructions Recorded Confirmed Type amlodipine 10 mg tablet 10 mg PO QAM 03/16/20 09/14/24 History levalbuterol tartrate 45 2 inh inhalation Q6H PRN Shortness 03/16/20 09/14/24 History mcg/actuation aerosol inhaler Of Breath Or Wheezing (Xopenex HFA) montelukast 10 mg tablet 10 mg PO DAILY PRN asthma 03/16/20 09/14/24 History budesonide-formoterol HFA 160 2 puff inhalation BID PRN seasonal 06/03/23 09/14/24 History mcg-4.5 mcg/actuation aerosol inhaler (Symbicort) esomeprazole magnesium 40 mg 40 mg PO DAILY PRN gerd/nausea 03/18/24 09/14/24 History capsule,delayed release evolocumab 140 mg/mL subcutaneous 140 mg subcut .EVERY 2 WEEKS 03/18/24 09/14/24 History pen injector (Too Jo) famotidine 20 mg tablet 20 mg PO DAILY PRN gerd/nausea 03/18/24 09/14/24 History semaglutide 0.25 mg or 0.5 mg (2 0.5 mg subcut WK 03/18/24 09/14/24 History mg/3 mL) subcutaneous pen injector (Ozempic) spironolactone 25 mg tablet 25 mg PO DAILY PRN Edema 03/18/24 09/14/24 History ticagrelor 90 mg tablet (Brilinta) 90 mg PO BID #180 tabs 03/20/24 09/14/24 Rx aspirin 81 mg tablet,delayed 81 mg PO BID 09/02/24 09/14/24 History release clonidine HCl 0.2 mg tablet 0.2 mg PO QID 09/02/24 09/14/24 History insulin glargine 100 unit/mL (3 20 - 25 unit subcut BID 09/02/24 09/14/24 History mL) subcutaneous pen (Lantus Solostar U-100 Insulin) metoprolol succinate 50 mg 50 mg PO QPM 09/02/24 09/14/24 History tablet,extended release 24 hr Past Med/Surg History Problem List Encounter for pre-operative examination Occlusion of left vertebral artery (Acute) Carotid artery stenosis (Acute) Familial hypercholesterolemia CAD (coronary atherosclerotic disease) STEMI (ST elevation myocardial infarction) 03/2024 Diastolic dysfunction Medical History Hx of ovarian cyst History of confusion (09/03/24) - admitted to [facility], work up for cva- had incidental tiny acute right frontal stroke that was not conclusive; per neuro (09/03/24) "do not believe that this possible (tiny) acute stroke, seen on MRI cause her any symptoms, including confusion. 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 infarct 2017- "traumatic" stroke, as a result of hitting head on car door, resolved, treated at [facility], no deficits - May 2023- admitted for multiple strokes including the right front, left occipital and right cerebellum (MRI at that time also showed right occipital and left cerebellar hemisphere strokes)- started on ASA and Brillinta - 09/03/24 "Incidentally, there may have been a tiny acute right frontal stroke (top of head) but this was not conclusive."; neuro did not feel acute confusion 09/03/24 was caused by this finding- felt it was due to UTI at the time CAD (coronary artery disease) 03/18/24 RCA stent (STONE) 03/20/24- stent to mid LAD (STONE) 05/2024- STONE to mid Cx GERD (gastroesophageal reflux disease) Irregular heartbeat had a holter monitor in past Carotid artery stenosis Left ICA 90% stenosis with occluded left vertebral artery (with good collateral flow) History of ST elevation myocardial infarction (STEMI) (03/2024) STEMI 03/18/24; 03/18/24 RCA stent (STONE) 03/20/24- stent to mid LAD (STONE) 05/2024- 1 stent to Cx per patient Type 2 diabetes mellitus Hyperlipidemia Asthma triggered by environment allergies, rare use of inhalers Surgical History (Updated 09/16/24 @ 10:46 by Rachael Rodríguez PA-C) Hx of heart artery stent x3 03/18/24- 1 stent- rca- [facility] 03/20/24- 1 stent-lad- [facility] 05/2024- stent -circumflex- josephine Follows with cardio [facility]. [facility] (08/19/24) History of carpal tunnel surgery of left wrist History of laparotomy (1987) ovarian cyst Hx of tubal ligation (04/1990) Hx of section (04/1990) Hx of cardiac catheterization (05/2024) x2 [facility] 03/18/24- 1 stent- rca 03/20/24- 1 stent-lad 05/2024- stent -circumflex- josephine Follows with cardio dr. [facility] (08/19/24) Family History Mother , age 75 of lung cancer Lung cancer Father , age 65 of an MS Myocardial infarction Social History Smoking Status: Never smoker Second Hand Exposure: No; Do You Dip or Chew Tobacco: No; Tobacco Cessation Education Requested by Patient: No Hx Alcohol Use: Yes Alcohol type: beer and wine Hx Substance Use: No Preferred Language: [place]er Communication Ability: Effective Staff Development Nurse Required: No Beliefs That Will Affect Care: None Current Living Situation: Alone Current Living Situation Comment: lives at home alone - family frequently checks on her 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al status: retired 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
[2024-09-22] MEDS ORDERED: PHENYLEPHRINE HCL 25 MG/250 ML NSS IV ONE (06:53)
[2024-09-22] MEDS ORDERED: ROCURONIUM BROMIDE 10 MG/ML 5 ML VIAL IV ONE (07:01)
[2024-09-22] MEDS ORDERED: GLYCOPYRROLATE 0.2 MG/ML VIAL ONE (07:01)
[2024-09-22] MEDS ORDERED: LIDOCAINE 2% 2 ML VIAL/AMP(20MG/ML) INFIL ONE (07:01)
[2024-09-22] MEDS ORDERED: PROPOFOL IV EMULSION 10 MG/ML 20 ML VIAL IV ONE (07:01)
[2024-09-22] MEDS ORDERED: MIDAZOLAM HCL 1 MG/ML 2ML VIAL ONE (07:01)
[2024-09-22] MEDS ORDERED: ONDANSETRON INJ 2 MG/ML 2 ML VIAL ONE (07:01)
[2024-09-22] MEDS ORDERED: DEXAMETHASONE SOD INJ 4 MG/ML VIAL ONE (07:01)
[2024-09-22] MEDS ORDERED: fentaNYL citrate PF 100 MCG/2 ML VIAL ONE ×2 (07:01→08:42)
[2024-09-22] MEDS ORDERED: SUGAMMADEX SODIUM 200 MG/2 ML VIAL IV ONE (07:02)
[2024-09-22] MEDS ORDERED: PROTAMINE SULFATE 10 MG/ML 5 ML VIAL IV ONE (07:08)
[2024-09-22] MEDS ORDERED: HEPARIN SOD (PORCINE) 1000 UNIT/ML ONE (07:08)
[2024-09-22 07:25] LABS: BUN Creatinine Ratio 11.1 (10-20); Calcium 9.8 mg/dl (8.6-10.3); Creatinine Clr Calc Pharmacy 32.1 ml/min; Potassium 4.3 mmol/L (3.5-5.1)
--- NOTE | 2024-09-22 07:33 | History & Physical Bridge Note ---
Date of Service September 22, 2024 History & Physical Bridge Note I have examined the patient, reviewed the History & Physical and in the interval since the performance of the History & Physical I have noted the following changes of clinical significance: no changes noted
[2024-09-22 07:37] LABS: INR 0.9 (0.9-1.1); Partial Thromboplastin Ratio 0.9; Partial Thromboplastin Time 24 Seconds (21-31); Prothrombin Time 9.9 Seconds (9.0-12.0)
[2024-09-22] MEDS ORDERED: ONDANSETRON INJ 2 MG/ML 2 ML VIAL IV PRN (07:40)
[2024-09-22] MEDS ORDERED: fentaNYL citrate PF 100 MCG/2 ML VIAL IV PRN (07:40)
[2024-09-22] MEDS ORDERED: ATROPINE SULFATE 0.1 MG/ML 10ML SYR IV PRN (07:40)
[2024-09-22] MEDS ORDERED: ePHEDrine sulfate 50 MG/ML AMP IV PRN (07:40)
[2024-09-22] MEDS ORDERED: HYDROmorphone INJ 1 MG/ML SYRINGE IV PRN (07:40)
[2024-09-22] MEDS: SODIUM CHLORIDE 0.9% 1,000 ML IV SCH (07:48)
[2024-09-22] MEDS: ceFAZolin 2000MG 2,000 MG/15 ML SYR IV SCH ×2 (08:10→12:33)
--- OUTSIDE RECORDS SUMMARY | 2024-09-22 08:46 | External Medical Summary | Continuity of Care Document ---
Author Name Unknown Organization [facility] [address] [facility] Address [address] [place], [place] [id number] Care Team Providers Care Hay Rake Operator Name Role Phone Anh Manriquez Primary Care Physician [phone] Encounter [facility] [id number] Date(s): 09/10/24 - 09/10/24 [facility] [address], [address] [place] [address] [phone] Encounter Diagnosis Left carotid artery stenosis(Discharge Diagnosis) - 09/10/24 UTI (urinary tract infection)(Discharge Diagnosis) - 09/10/24 Ischemic cerebrovascular accident (CVA) of frontal lobe(Discharge Diagnosis) - 09/10/24 Acute confusion(Discharge Diagnosis) - 09/10/24 Controlled type 2 diabetes mellitus with stage 3 chronic kidney disease, with long-term current useof insulin(Discharge Diagnosis) - 09/10/24 Chronic kidney disease (CKD) stage G3b/A2, moderately decreased glomerular filtration rate (GFR) between 30-44 mL/min/1.73 square meter and albuminuria creatinine ratio between 30-299 mg/g(Discharge Diagnosis) - 09/10/24 Discharge Disposition: Home or Self Care Attending Physician: CHERRY Manriquez Jessica A Encounter Type: Clinic Allergies, Adverse Reactions, Alerts Substance Criticality Severity Reaction Reaction Severity Status atenolol SOB Active codeine vomiting nausea Active Bactrim vomiting nausea Active Statins (HMG-CoA reductase inhibitors) Nausea and vomiting Active erythromycin vomiting nausea Active lisinopril hair loss Active sulfa drugs voiting nausea Active Benicar kidney issues Active Assessment and Plan Extracted from: Title:hospital f/u Author:CHERRY Manriquez Jessi ca A Date:09/10/24 1. Acute confusion Acute confusion has resolved and was felt to be secondary to metabolic encephalopathy/UTI. [facility] discharge summary was reviewed today. 2. UTI (urinary tract infection) Acute UTI has resolved. Patient completed 7-day course of cefadroxil 500 mg, 1 tab p.o. twice daily. Results of urine culture were reviewed today that show >100,000 colonies of E. coli that is pansensitive. We did discuss that in the future if she would develop any sense of aching in her back consistent with what she feels is kidney discomfort to contact the office and we can place an order for urinalysis and culture as this was her only symptom prior to ending up in the ER with acute confusion. Patient agreed. 3. Ischemic cerebrovascular accident (CVA) of frontal lobe Patient did suffer a questionable ischemic CVA of the frontal lobe. During hospital admission neurology was consulted and recommended ongoing dual antiplatelet therapy with ASA 81 mg daily and Brilinta. To continue on Repatha injections every 2 weeks as well. Results of lipid profile completed on 09/03/2024 reviewed today and LDL stable at 67. 4. Left carotid artery stenosis Left carotid artery stenosis is severe greater than 90% blockage. Goal is stroke prevention. Patient is tentatively scheduled for TCAR a on 09/22/[address] Botello of [facility] vascular surgery. 5. Controlled type 2 diabetes mellitus with stage 3 chronic kidney disease, with long-term current use of insulin Controlled type 2 diabetes with stage IIIa CKD and long-term use of insulin is chronic. Diabetes is well-controlled. Results of A1c completed during hospitalization this month was 5.5%. Continues on Lantus 20 units daily and Ozempic 0.5 mg injected subcutaneously once weekly. May continue current regimen and follow-up again in 6 months. 6. Chronic kidney disease (CKD) stage G3b/A2, moderately decreased glomerular filtration rate (GFR) between 30-44 mL/min/1.73 square meter and albuminuria creatinine ratio between 30-299 mg/g Stage CKD is chronic and stable. GFR was stable at 1.37 during hospitalization, which is stable as compared to prior labs completed in February 2024. Time spent on pre-visit plannin minutes on chart review Face to face time spent w/ patient: 19 minutes Time spent documenting pertinent clinical information into the EMR: 9 minutes Total time: 41 minutes Immunizations Given and Recorded Vaccine Date Status Refusal Reason SARS-CoV-2 mRNA ([id number]) 07/12/21 Re corded SARS-CoV-2 (COVID-19) mRNA-1273 vaccine 10/07/20 R ecorded SARS-CoV-2 (COVID-19) mRNA-1273 vaccine 09/09/20 R ecorded tetanus/diphtheria/pertuss, acel (Tdap) 05/04/20 R ecorded pneumococcal 23-valent vaccine 03/16/20 Recorded Medications amLODIPine 10 mg oral tablet Start: 08/27/24 5:07:00 PM EDT, 1 tab, PO, Daily, Disp# 90 tab, Refills: 3, Pharmacy: [facility] Start Date: 08/27/24 Status: Ordered Quantity: 90.0 Unit: tab Repeat number: 4 aspirin 81 mg oral delayed release tablet Start: 10/18/23 3:20:00 PM EDT, 1 tab, PO, Daily Start Date: 10/18/23 Status: Ordered Repeat number: 1 Brilinta (ticagrelor) 90 mg oral tablet 1 tab, PO, bid, TAKE 1 TABLET BY MOUTH TWICE DAILY Start Date: 03/31/24 Status: Ordered Repeat number: 1 cloNIDine 0.2 mg oral tablet Start: 08/27/24 5:07:00 PM EDT, 1 tab, PO, qid, Disp# 360 tab, Refills: 1, Pharmacy: [facility] Start Date: 08/27/24 Stop Date: 02/23/25 Status: Ordered Quantity: 360.0 Unit: tab Repeat number: 2 esomeprazole 40 mg oral delayed release capsule Start: 08/27/24 5:07:00 PM EDT, 1 cap, PO, Daily, Disp# 90 cap, Refills: 3, Pharmacy: [facility] Start Date: 08/27/24 Stop Date: 08/22/25 Status: Ordered Quantity: 90.0 Unit: cap Repeat number: 4 famotidine 20 mg oral tablet Start: 08/27/24 5:07:00 PM EDT, 1 tab, PO, bid, Disp# 180 tab, Refills: 3, Pharmacy: [facility] Start Date: 08/27/24 Stop Date: 08/22/25 Status: Ordered Quantity: 180.0 Unit: tab Repeat number: 4 FreeStyle Dayday 2 - 14 day reader Start: 08/16/22 4:04:00 PM EST, See Instructions, Disp# 2 each, continous glucose monitoring, Pharmacy: [id number] Start Date: 08/16/22 Status: Ordered Quantity: 2.0 Unit: each Repeat number: 1 Indication: Type 2 diabetes mellitus without complications FreeStyle Dayday 2 - 14 day sensor Start: 08/16/22 4:04:00 PM EST, See Instructions, Disp# 2 each, Refills: 11, Continous glucose monitoring, Pharmacy: [id number] Start Date: 08/16/22 Status: Ordered Quantity: 2.0 Unit: each Repeat number: 12 Indication: Type 2 diabetes mellitus without complications Lantus Solostar Pen 100 units/mL subcutaneous solution Start: 08/27/24 5:07:00 PM EDT, 20 TO 25 UNITS, subQ, Daily, Disp# 15 mL, Refills: 5, ADJUST BASED ON GLUCOSE MONITORING. Dx: E11.9, Brand Medically Necessary, Pharmacy: [facility] Start Date: 08/27/24 Status: Ordered Quantity: 15.0 Unit: mL Repeat number: 6 levalbuterol CFC free 45 mcg/inh inhalation aerosol Start: 03/26/23 9:56:00 AM EDT, 2 puff, inhaled, q4h, Disp# 1 each, Refills: 5, INHALE 2 PUFFS BY MOUTH EVERY 4 HOURS NEEDED FOR WHEEZING, Pharmacy: [facility] Start Date: 03/26/23 Stop Date: 09/22/23 Status: Ordered Quantity: 1.0 Unit: each Repeat number: 6 metoprolol succinate 50 mg oral tablet, extended release Start: 09/04/24 11:41:00 AM EDT, 1 tab, PO, qhs, Disp# 90 tab, Refills: 3, Pharmacy: [facility] Start Date: 09/04/24 Status: Ordered Quantity: 90.0 Unit: tab Repeat number: 4 montelukast 10 mg oral tablet Start: 08/27/24 5:07:00 PM EDT, 1 tab, PO, Daily, Disp# 90 tab, Refills: 3, TAKE 1 TABLET BY MOUTH ONCE DAILY NEEDED FOR ALLERGIES, Pharmacy: [facility] Start Date: 08/27/24 Stop Date: 08/22/25 Status: Ordered Quantity: 90.0 Unit: tab Repeat number: 4 nitroglycerin 0.4 mg sublingual tablet Start: 06/02/24 4:12:00 PM EST, 1 tab, SL, q5min, Disp# 25 tab, Refills: 1, not to exceed 3 doses/15 min--if pain persists, seek medical attention must be dispensed & stored in original containers, PRN: as needed for chest pain, Pharmacy: [facility] Start Date: 06/02/24 Status: Ordered Quantity: 25.0 Unit: tab Repeat number: 2 Ozempic (0.25 mg or 0.5 mg dose) 2 mg/3 mL subQ pen Start: 04/23/24 2:25:00 PM EST, 0.5 mg, subQ, q7days, Disp# 3 mL, Refills: 5, Pharmacy: [facility] Start Date: 04/23/24 Status: Ordered Quantity: 3.0 Unit: mL Repeat number: 6 RELION PEN NEEDLE [id number] MIS USE ONCE DAILY Start Date: 07/30/22 Status: Ordered Repeat number: 1 Repatha SureClick 140 mg/mL subcutaneous solution INJECT 1 SYRINGE SUBCUTANEOUSLY EVERY TWO WEEKS Start Date: 03/12/24 Status: Ordered Repeat number: 1 spironolactone 25 mg oral tablet Start: 08/27/24 5:07:00 PM EDT, 1 tab, PO, Daily, Disp# 90 tab, Refills: 3, Pharmacy: [facility] Start Date: 08/27/24 Stop Date: 08/22/25 Status: Ordered Quantity: 90.0 Unit: tab Repeat number: 4 Symbicort 160 mcg-4.5 mcg/inh inhalation aerosol Start: 02/05/23 1:37:00 PM EDT, See Instructions, Disp# 11 g, Refills: 5, Inhale 2 puffs by mouth twice daily, Brand Medically Necessary, Pharmacy: [facility] Start Date: 02/05/23 Status: Ordered Quantity: 11.0 Unit: g Repeat number: 1 valACYclovir 1 g oral tablet Start: 05/21/24 7:34:00 AM EST, 2 tab, PO, q12h, Disp# 4 tab, Pharmacy: [id number] Start Date: 05/21/24 Stop Date: 05/22/24 Status: Ordered Quantity: 4.0 Unit: tab Repeat number: 1 Mental Status 09/10/24 Barriers to Learning one year None evide nt Mandatory Health Literacy Documentation Yes Health Literacy Communication Barriers N ever Primary Language Taiwanese Problem List Condition Confirmation Course Effective Dates [...] Effective Dates Health Status Clinical Service Informant Ischemic cerebrovascular accident (CVA) of frontal lobe Discharge Diagnosis 09/10/24 Non-Specified Left carotid artery stenosis Discharge Diagnosis 09/10/24 Non-Specified UTI (urinary tract infection) Discharge Diagnosis 09/10/24 Non-Specified Acute confusion Discharge Diagnosis 09/10/24 Non-Specified Chronic kidney disease (CKD) stage G3b/A2, moderately decreased glomerular filtration rate (GFR) between 30-44 mL/min/1.73 square meter and albuminuria creatinine ratio between 30-299 mg/g Discharge Diagnosis 09/10/24 Non-Specified Controlled type 2 diabetes mellitus with stage 3 chronic kidney disease, with long-term current use of insulin Discharge Diagnosis 09/10/24 Non-Specified Procedures Procedure Date Related Diagnosis Body Site Status PCI (percutaneous coronary intervention) of left anterior descending branch of coronary artery 03/18/[address] of head 1 06/08/[address] [place] [address] IMPRESSION: 1. No acute intracranial hemorrhage. 2. Expected evolution of the subacute right frontal and left occipital infarcts shown on MRI of June 03, 2023. Possible subacute right cerebellar infarct. No hemorrhagic conversion. No significant mass effect. 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 Vital Signs Most recent to oldest [Reference Range]: 1 Temperature [36.5-37.9 DegC] 36.8 DegC (09/10/24 1:15 PM) Heart Rate 56 bpm (09/10/24 1:15 PM) Respiratory Rate 20 br/min (09/10/24 1:15 PM) Blood Pressure 118/74mmHg (09/10/24 1:15 PM) Cuff Pulse Pressure 44 mmHg (09/10/24 1:15 PM) BP Location # 1 Left Arm, Manual (09/10/24 1:15 PM) Social History Social History Type Response Smoking Status Never smoked cigaret domenic Sex Female Sex Representation Female (finding) FCM Outpt Note * CHERRY Manriquez, Anh Finn: PERFORM Event Display: FCM Outpt Note Authored Date: [id number] Chief Complaint Routine follow-up. Recently inpatient History of Present Illness Izabel presents for follow-up after [facility] hospital admission from 09/02/2024 through 09/03/2024 for acute confusion. She had presented to the [facility] ER with acute confusion. She had been documented to have been confused earlier in the day when speaking with her daughter. She had labs completed, including CBC with differential, CMP, TSH, Troponin and urinalysis. Creatinine was elevated at 1.37, glucose was 133 and urinalysis was positive for nitrites and trace leukocyte esterase. Chest x-ray was negative. CT of the head and CTA of the head were negative, except for evidence of multiple old infarcts. CTA of the neck showed severe carotid artery stenosis with narrowing at 90% and vertebral artery occlusion of unknown chronicity. She did have an MRI of the brain as well that showed a tiny frontal lobe stroke. Neurology was consulted and it was unclear if abnormal MRI represented an acute stroke. He recommended continuing Brilinta and ASA for dual antiplatelet therapy, as well as Repatha for management of cholesterol as she is intolerant of statins. She had an echocardiogram in our office a couple of weeks prior to hospital admission and this showed no findings to contribute to possible CVA (echo did show akinesis of the basal inferoseptal and basal inferior smith consistent w/ RCA infarct). Confusion was felt to be related to either metabolic encephalopathy or possible UTI, butconfusion had resolved during hospitalization. Regarding abnormal urinalysis and possible UTI, miguel benedict was treated with antibiotics while inpatient and urine culture did show E. coli that was pansensitive. Discharged with cefadroxil due to prior side effects of Bactrim and fluoroquinolones. Also, carotid artery stenosis is severe had followed with [facility] vascular surgery previously. Vascular surgery was consulted during hospitalization as well and was to be scheduled for TCAR in 2weeks. Since her hospitalization she is feeling well. Completed antibiotics for her UTI. In retrospect she believes she had "kidney pain" on the days prior to having developed confusion. Had to aching at bilateral flank area, but no other symptoms. No recurrence of confusion to her knowledge. Also, she is scheduled for TCAR with Dr. Botello of [facility] vascular surgery on 09/22/2024 to be completed at [facility]. Lipid profile was completed during hospitalization and LDL was 67. Type 2 diabetes is chronic with long-term use of insulin. A1c was checked during most recent hospital admission and was 5.5%. At the time of our last appointment in February 2024 she was started on Ozempic and continues on 0.5 mg injected once weekly. We had discussed lowering her dose of insulin, but has not made any changes to this and continues on Lantus 20 units once daily. Notes that if she randomly checks her glucose and it is over 200 she will take an additional 20 unitsof Lantus. No claudication, chest pain, SOB, palpitations, tachycardia, dizziness, lightheadedness, weakness, near syncope, syncope, nausea, vomiting, diarrhea, constipation, cough, LE edema, headaches, blurred vision, loss of vision, confusion, epistaxis, dysuria, hematuria, cloudy or malodorous urine. Review of Systems ROS: All other systems negative, except HPI. Physical Exam Vitals & Measurements T: 36.8 °C HR: 56 (Monitored) RR: 20 BP: 118/74 SpO2: 97% PHQ2 Data (Data Documented on:09/10/2024 13:15) Emotional health assessment NEGATIVE General: Alert and oriented, No acute distress. Pleasant. Eye: Pupils are equal, round and reactive to light, Extraocular movements are intact, Normal conjunctiva. HENT: Normocephalic. TMs clear bilaterally. Posterior pharynx is pink. Uvula rises midline. No drooling, stridor or cyanosis. Neck: Supple, No lymphadenopathy, No thyromegaly. No audible carotid bruit. Respiratory: Lungs are clear to auscultation, Respirations are non-labored, Breath sounds are equal, Symmetrical chest wall expansion. Cardiovascular: Normal rate, Regular rhythm, No murmur, No gallop, Good pulses equal in all extremities, Normal peripheral perfusion. No LE edema. Abdomen: Normoactive BS x 4. Soft. No tenderness, palpable masses or organomegaly. Lymphatics: No submandibular, anterior or posterior cervical adenopathy palpable. Musculoskeletal Normal gait. FROM and 5/5 strength at BLE and BUE. Integumentary: Warm, [place], No pallor. Neurologic: Alert, Oriented, Cranial Nerves II-XII are grossly intact. Cognition and Speech: Oriented, Speech clear and coherent, Functional cognition intact. Psychiatric: Cooperative, Appropriate mood & affect, Normal judgment, Nonsuicidal. Assessment/Plan 1. Acute confusion Acute confusion has resolved and was felt to be secondary to metabolic encephalopathy/UTI. [facility] discharge summary was reviewed today. 2. UTI (urinary tract infection) Acute UTI has resolved. Patient completed 7-day course of cefadroxil 500 mg, 1 tab p.o. twice daily. Results of urine culture were reviewed today that show >100,000 colonies of E. coli that is pansensitive. We did discuss that in the future if she would develop any sense of aching in her back consistent with what she feels is kidney discomfort to contact the office and we can place an order for urinalysis and culture as this was her only symptom prior to ending up in the ER with acute confusion. Patient agreed. 3. Ischemic cerebrovascular accident (CVA) of frontal lobe Patient did suffer a questionable ischemic CVA of the frontal lobe. During hospital admission neurology was consulted and recommended ongoing dual antiplatelet therapy with ASA 81 mg daily and Brilinta. To continue on Repatha injections every 2 weeks as well. Results of lipid profile completed on 09/03/2024 reviewed today and LDL stable at 67. 4. Left carotid artery stenosis Left carotid artery stenosis is severe greater than 90% blockage. Goal is stroke prevention. Patient is tentatively scheduled for TCAR a on 09/22/[address] Botello of [facility] vascular surgery. 5. Controlled type 2 diabetes mellitus with stage 3 chronic kidney disease, with long-term currentuse of insulin Controlled type 2 diabetes with stage IIIa CKD and long-term use of insulin is chronic. Diabetesis well-controlled. Results of A1c completed during hospitalization this month was 5.5%. Continues on Lantus 20 units daily and Ozempic 0.5 mg injected subcutaneously once weekly. May continue current regimen and follow-up again in 6 months. 6. Chronic kidney disease (CKD) stage G3b/A2, moderately decreased glomerular filtration rate (GFR) between 30-44 mL/min/1.73 square meter and albuminuria creatinine ratio between 30-299 mg/g Stage CKD is chronic and stable. GFR was stable at 1.37 during hospitalization, which is stable as compared to prior labs completed in February 2024. Time spent on pre-visit plannin minutes on chart review Face to face time spent w/ patient: 19 minutes Time spent documenting pertinent clinical information into the EMR: 9 minutes Total time: 41 minutes Problem List/Past Medical History Ongoing Asthma, [...] artery stenosis Resolved Other hyperlipidemia Procedure/Surgical History •PCI (percutaneous coronary intervention) of left anterior descending branch of coronary artery| Service Date: 03/18/2024•CT of head| Service Date: 06/08/2023 Medications amLODIPine(amLODIPine 10 mg oral tablet), 1 tab, PO, Daily, 3 refills aspirin(aspirin 81 mg oral delayed release tablet), 81 mg= 1 tab, PO, Daily budesonide-formoterol(Symbicort 160 mcg-4.5 mcg/inh inhalation aerosol), See Instructions cloNIDine(cloNIDine 0.2 mg oral tablet), 0.2 mg= 1 tab, PO, qid, 1 refills diabetes supplies(FreeStyle Dayday 2 - 14 day [...] 5 refills metoprolol(metoprolol succinate 50 mg oral tablet, extended release), 50 mg= 1 tab, PO, qhs, 3 refills montelukast(montelukast 10 mg oral tablet), 10 mg= 1 tab, PO, Daily, 3 refills nitroglycerin(nitroglycerin 0.4 mg sublingual tablet), 0.4 mg= 1 tab, SL, q5min, PRN, 1 refills semaglutide(Ozempic (0.25 mg or 0.5 mg dose) 2 mg/3 mL subQ pen), 0.5 mg, subQ, q7days, 5 refills spironolactone(spironolactone 25 mg oral tablet), 1 tab, PO, Daily, 3 refills ticagrelor(Brilinta (ticagrelor) 90 mg oral tablet), 90 mg= 1 tab, PO, bid unlisted medication(RELION PEN NEEDLE [id number] MIS) valACYclovir(valACYclovir 1 g oral tablet), 2 g= 2 tab, PO, q12h Allergies Bactrim vomiting, nausea Benicar kidney issues Statins (HMG-CoA reductase inhibitors) Nausea and vomiting atenolol SOB codeine vomiting, nausea erythromycin vomiting, nausea lisinopril hair loss sulfa drugs voiting, nausea Social History Smoking Status Never smoked cigarettes Intake (IView) Smoking History Cigarette smoker: Never smoked cigarettes Tobacco Product Use: Never used other tobacco products Family History Cancer: Mother and Brother. Heart attack: Father. Heart disease: Sister. Type I diabetes mellitus: Sister. Health Status Family Member(s) Immunizations Vaccine Date Status SARS-CoV-2 mRNA ([id number]) 07/12/2021 Recorded SARS-CoV-2 (COVID-19) mRNA-1273 vaccine 10/07/2020 Recorded SARS-CoV-2 (COVID-19) mRNA-1273 vaccine 09/09/2020 Recorded tetanus/diphtheria/pertuss, acel (Tdap) 05/04/2020 Recorded pneumococcal 23-valent vaccine 03/16/2020 Recorded Recommendations Health Maintenance Pending (in the next year) OverDue Adult Influenza Vaccine due 12/16/23 and every 1 year Breast Cancer Screening due 02/03/24 and every 731 day Due Adult Social Determinants of Health Screening due 09/10/24 Unknown Frequency Colorectal Cancer Screening due 09/10/24 Unknown Frequency Hepatitis C Screening due 09/10/24 One-time only Medicare Annual Wellness Visit due 09/10/24 and every 1 year Osteoporosis Screening due 09/10/24 One-time only Pneumococcal Vaccine Older Adults due 09/10/24 One-time only Seasonal COVID 19 Vaccine due 09/10/24 Unknown Frequency Shingles Vaccine due 09/10/24 One-time only Due In Future Diabetic Eye Exam not due until 01/01/25 and every 731 day Diabetes Management A1c not due until 03/13/25 and every 366 day Kidney Health Evaluation not due until 03/13/25 and every 366 day Body Mass Index not due until 08/20/25 and every 366 day Satisfied (in the past 1 year) Satisfied Body Mass Index on 08/19/24. Satisfied by CRISTINE Conley Stephanie Diabetes Management A1c on 03/12/24. Satisfied by Contributor_system, [email or web address] Kidney Health Evaluation on 06/09/24. Satisfied by Contributor_system, [email or web address] Lipid Screening on 03/12/24. Satisfied by Contributor_system, [email or web address] Electronic Signature on File Electronically Reviewed/Signed by: Anh Manriquez PA-C,MPAS Author Signature Dt/Tm:503:45 PM Physician Magnetic Prospecting Operator [facility] [address], [address] [place]. [address] JAW Patient Care team information Care Team Personnel Name: MD Caesar, Bin Jackson Position: Physician - Gastro Member Role: Lifetime Relationship Address: [address] [place] [id number] Telecom: [phone] Name: CHERRY Erickson Lynn Position: Physician Magnetic Prospecting Operator Exempt - Vasc Surg Member Role: Lifetime Relationship Address: [address] [place] [address] Telecom: [phone] Name: CHERRY Manriquez Jessica A Position: Physician Asst Exmpt - Family Med Member Role: Primary Care Provider Address: [address] [place] [address] Telecom: [phone] Care Team Related Persons Name: ZAKIA ARANDA Insurance Providers Guarantor name: IZABEL Gasca [facility] [employer] Plan Information #: 1 Payer: [employer] Member Number: [id number] Policy Number: NA Group Number: [id number] Health Plan Information #: 2 Payer: [employer] Member Number: [id number] Policy Number: NA Group Number: NA
[2024-09-22] MEDS: VISIPAQUE IV PRN (09:26)
[2024-09-22] MEDS: THROMBIN FOR SOLN 20000 UNIT KIT ONE (09:29)
[2024-09-22] MEDS: GELATIN SPONGE SZ 100 ONE (09:29)
[2024-09-22] MEDS: ceFAZolin 330 MG/ML 1 GM VIAL ONE (09:34)
--- NOTE | 2024-09-22 09:34 | Post Operative Brief Note ---
Immediate Post Op Note Date of Surgery September 22, 2024 Pre & Post Diagnosis Operation Date: 09/22/24 08:00 Pre-Op Diagnosis: Left Internal Carotid Artery Stenosis Post-Op Diagnosis: Left Internal Carotid Artery Stenosis I identified the patient and participated in the time-out.: Yes Procedure Operation Date: 09/22/24 08:00 Actual Procedures p Left Transcarotid Artery Revascularization(Left), Ultrasound localization of right common femoral vein - Lanodn Botello MD Surgeon Landon Botello MD Metal Coater Operator MD Jeannie GravesMinarchick,PAC Estimated Blood Loss 10 Findings Consistent with Post-Op Diagnosis Anesthesia Type General Complications none Disposition Accompanied Patient To Recovery: No Disposition: Recovery Room
--- NOTE | 2024-09-22 09:36 | Operative Report ---
Post Operative Report Pre & Post Diagnosis Operation Date: 09/22/24 08:00 Pre-Op Diagnosis: Left Internal Carotid Artery Stenosis Post-Op Diagnosis: Left Internal Carotid Artery Stenosis I identified the patient and participated in the time-out.: Yes Procedure Operation Date: 09/22/24 08:00 Actual Procedures p Left Transcarotid Artery Revascularization(Left) - Landon Botello MD Surgeon Landon Botello MD Surveillance Investigator Aquiles Lomeli MD; Fanny Erickson PA-C Estimated Blood Loss 10 Findings Consistent with Post-Op Diagnosis On initial angiogram, there was severe stenosis of the left internal carotid artery. Following stent placement there was good stent expansion with resolution of the stenosis Specimens None Anesthesia Type General Complications None Disposition Accompanied Patient To Recovery: No Indications Tessa Almaraz is a pleasant 74 year old female who was found to have severe >80% stenosis of the left internal carotid artery. She is symptomatic. Surgical opti ons were discussed for stroke risk reduction. For this reason she was recommended TCAR and was agreeable to the procedure Description of Procedure The patient was taken to the operating room and placed in supine position. After general anesthesia was accomplished the left-side of the neck and right groin were prepped and draped in a sterile manner. A transverse 4cm incision was made on the left neck over the sternal and clavicular heads of the sternocleidomastoid muscle and below the omohyoid. Subcutaneous tissue and platysma were divided using electrocautery. Dissection using Metzenbaum scissors proceeded and the carotid sheath was identified medially. It was divided longitudinally. The internal jugular was retracted laterally. The common carotid artery was identified with the Vagus nerve posterolateral. The common carotid artery was mobilized with Metzenbaum scissors and umbilical tape was placed around the artery. Once sufficient length, about 2cm of the common carotid were mobilized, a 5-0 Proline suture was used to place a U-Stitch in the anterior surface of the left common carotid artery. Attention was turned to the right common femoral vein which was then accessed under ultrasound guidance using a micropuncture needle. This was exchanged for the Venous Return Sheath over the provided 0.035'' wire. Blood was aspirated fr om the flow line followed by flushing of the venous sheath with heparinized saline. The sheath was sutured in place to the patient's skin. 8000U of heparin was then given to obtain an ACT > 250. A micropuncture needle was used to access the common carotid artery in the center of the U-stitch. The micropuncture wire was then advance 4cm into the common carotid artery and the micropuncture needle was removed. The micropuncture sheath was advanced 2-3cm into the common carotid artery and the wire and dilator were removed. Next a 0.035'' J guidewire was was inserted and placed just proximal to the right internal carotid artery lesion without engaging the lesion. The micropuncture sheath was exchanged over the guidewire and the Transcarotid Arterial Sheath was advanced to the 2.5cm marker in correct coaxial orientation and the J wire and dilator were removed. The Sheath was sutured to the patient and then flushed with heparinized saline. No air bubbles visualized during flushing The flow controller was connected to the Transcarotid arterial sheath. Arterial blood was allowed to passively fill the device completely to which it was then connected to the Venous return sheath. The flow controller was set to high. The common carotid artery proximal to the access point was then clamped with an angled DeBakey and flow reversal was confirmed. A left carotid angiogram was then performed and the left internal carotid artery lesion was marked. HR and systolic blood pressures were adequate with HR of about 80 and blood pressure between 140 and 160 systolic. The carotid was clamped. The lesion was then crossed using a 0.014'' guidewire. The lesion was then pre-dilated using a 5mm x 25mm balloon. This balloon was then exchanged and primary stenting was performed with the Transcarotid stent, appropriately sized (8-6mm x 30mm). 2min following stent deployment was allowed for washout. Completion carotid angiography demonstrated patent stent with no significant residual stenosis. Carotid was unclamped. Total flow reversal time of 9 min. Antegrade flow was restored following release of the common carotid artery clamp. The arterial sheath was removed and U-Stitch tied. The femoral venous sheath was removed and pressure held for 5 min with adequate hemostasis. Adequate hemostasis was seen of the carotid artery. The wound was inspected and adequate hemostasis was obtained. It was then closed with a running 3-0 Vicryl suture for the platysmal layer and a 4-0 subcuticular Vicryl suture for the skin edges. Dermabond was used for dressing. Patient awoke from anesthesia without difficulties. Was neurovascularly intact, moving all extremities and following commands at case completion. The patient left the operating room in satisfactory condition and tolerated the procedure well A total of mG22y, 2.6 min of fluoroscopy time, and 9cc of contrast were used during the procedure. Dr. Botello was present and scrubbed for the entire procedure. I attest to the content of the Intraoperative Record and any orders documented therein. Any exceptions are noted below. Supervising Physician Co-Signing Physician Notes Landon Botello MD
[2024-09-22] MEDS: BUPIVACAINE/EPINEPHRINE 0.5% MPF 1:200,000 30 ML VIAL ONE (09:44)
--- NOTE | 2024-09-22 10:10 | Anesthesia Procedure Note ---
Anesthesia Procedure Note Arterial Line Note Patient medical history, medications, allergies and vitals reviewed Consent: Risk / Benefits Reviewed With: PT / POA / Parent / Guardian, Accepts Plan, Informed Consent Obtained and All Questions Answered Monitors attached: Blood Pressure, CO2, EKG and Pulse Oximetry Time out completed: Yes Laterality: Left Location: Radial Hand hygeine: Soap and water and Alcohol based hand rub Equipment/Supplies: Cap, Mask, Sterile gown, Sterile gloves, Sterile drapes and Sterile procedures used Skin prep: Chloraprep Local medication: 1% Lidocaine (ml) Ultrasound used: Yes US equipment and supplies: Sterile Gel Attempts: 2 Procedure Summary: 20 gauge angiocath advanced until return of bright red blood and needle was advanced beyond the artery using a through and through technique. Needle was removed and catheter withdrawn until return of pulsatile red blood. An arterial wire was advanced through the catheter and into the artery and the catheter was then treaded into place over the wire. The wire was removed and the catheter secured with tape and covered with occlusive dressing. Waveform consistent with correct arterial placement. After placement, normal perfusion was observed distal to the site of catheter placement. Post-Procedure: Pt hemodynamically stable, Pt tolerates well and No complication
--- NOTE | 2024-09-22 10:59 | Anesthesiology Progress Note ---
Date of Service September 22, 2024 Anesthesia Post Procedure Vital Signs Vital Signs: Temp Pulse Pulse Resp BP BP BP 09/22/24 10:50 36.3 C L 77 15 116/54 L 09/22/24 10:40 78 20 111/54 L 09/22/24 10:30 77 14 112/53 L 09/22/24 10:20 81 14 113/55 L 09/22/24 10:10 83 21 112/53 L 09/22/24 10:00 36.4 C L 84 15 122/67 09/22/24 07:11 09/22/24 07:11 36.7 C 65 18 124/65 135/65 Pulse Ox O2 Del Method O2 Flow Rate 09/22/24 10:50 94 Room Air 09/22/24 10:40 97 Room Air 09/22/24 10:30 96 Room Air 09/22/24 10:20 96 Room Air 09/22/24 10:10 100 Oxymask 4 09/22/24 10:00 100 Oxymask 8 09/22/24 07:11 Room Air 09/22/24 07:11 97 Room Air Transfer of Care Handoff Completed per policy Notes Mental Status: alert / awake / arousable Patient Amnestic to Procedure: Yes Nausea / Vomiting: adequately controlled Pain: adequately controlled Airway Patency, RR, SpO2: stable & adequate BP & HR: stable & adequate Hydration State: stable & adequate Anesthetic Complications: no major complications apparent and Pt Satisfied with anesthetic care
[2024-09-22] MEDS ORDERED: FAMOTIDINE 20 MG TAB PO PRN (11:18)
[2024-09-22] MEDS ORDERED: NON-FORMULARY MEDICATION (Semaglutide [Ozempic] 0.25 mg or 0.5 mg (2 mg/3 mL) pen injector SQ SCH (11:18)
[2024-09-22] MEDS ORDERED: LEVALBUTEROL TARTRATE 15 GM HFA.AER.AD INH PRN (11:18)
[2024-09-22] MEDS ORDERED: PHARMACY GLYCEMIC MGMT CONSULT PRN (11:18)
[2024-09-22] MEDS ORDERED: PHENYLEPHRINE/NSS 25 MG/250 ML BAG IV PRN (11:18)
[2024-09-22] MEDS ORDERED: SPIRONOLACTONE 25 MG TAB PO PRN (11:18)
[2024-09-22] MEDS ORDERED: MONTELUKAST SODIUM 10 MG TABLET PO PRN (11:18)
[2024-09-22] MEDS ORDERED: NON-FORMULARY MEDICATION (Evolocumab [Repatha Sureclick] 140 mg/mL pen injector) SQ SCH (11:18)
[2024-09-22] MEDS ORDERED: BUDESONIDE/FORMOTEROL FUMARATE 160/4.5 60 PUFFS/INHALER INH PRN (11:18)
[2024-09-22] MEDS ORDERED: PANTOprazole 40 MG TAB PO PRN (11:23)
--- NOTE | 2024-09-22 11:37 | Critical Care Consultation ---
Date of Consultation September 22, 2024 Assessment & Plan (1) Carotid artery stenosis: (2) Hypertension: (3) Renal insufficiency: Plan Impression: 74-year-old female with recent TIA now status post left-sided TCAR. She is hemodynamically stable and being observed in the ICU post procedurally. She does have a mild bump in her serum creatinine. She carries a history of coronary disease and hyperlipidemia. Recommendations: 1. Status post TCAR: Management per vascular surgery. Continue dual antiplatelet agents per vascular. Defer additional anticoagulation to them. Continue to follow neurologically. Activity and diet per surgery 2. Hypertension: Blood pressure parameters per vascular surgery. Hemodynamically stable currently. Patient takes amlodipine, clonidine, and metoprolol at baseline. Reinstitution of these medications when felt to be appropriate by vascular surgery. Will continue to follow heart rate and blood pressure response. 3. Hyperlipidemia: Continue high-dose statin. 4. Diabetes: Continue glycemic control per protocol. Last hemoglobin A1c 5.5 last month 5. Diastolic heart failure: Euvolemic currently. Continue blood pressure goals as outlined above. Hold diuretics for now. 6. Renal insufficiency: Baseline creatinine of around 1.4. Will recheck in a.m.. Suspect diabetic nephropathy. Thanks for the opportunity to precipitate in the care of this patient. Will continue to follow over the next 24 hours during her ICU course. Feel free to reach out to us with questions or concerns History of Present Illness Attending Physician: Landon Botello MD History of Present Illness Asked by vascular surgery to assist in evaluation management as patient status post TCAR on the left. History is obtained from discussion with the patient as well as review the electronic medical record. The patient is a 74-year-old female with a known history of severe left internal carotid stenosis. She was admitted back in August with possible TIA. Her symptoms resolved fairly quickly. She was on Brilinta aspirin and Repatha in the outpatient setting. She followed up with vascular surgery in the outpatient setting. They recommended TCAR. She presented today for that procedure. It was accomplished without difficulty. The patient was extubated in the OR. She was hemodynamically stable in the PACU and was transferred to the ICU for additional monitoring. The patient is currently awake alert and conversant. She has no voice changes. No numbness and tingling. Her pain at her incision site is well-controlled. She denies chest pain, palpitations, shortness of breath, nausea, or vomiting. Overall she feels like she is doing well clinically. She is hemodynamically stable. Allergies Allergy/AdvReac Type Severity Reaction Status Date / Time olmesartan [From Benicar] Allergy Severe Stopped me Verified 09/22/24 06:55 from urinating nickel Allergy Redness of Verified 09/22/24 07:25 Skin erythromycin base AdvReac Severe Gastrointestinal Verified 09/22/24 06:55 Upset [id number]-IcU Reductase AdvReac Severe Nausea and Verified 09/22/24 06:55 Inhibitor vomiting Sulfa (Sulfonamide AdvReac Severe Gastrointestinal Verified 09/22/24 06:55 Antibiotics) Upset codeine AdvReac Intermediate Nausea Verified 09/22/24 06:55 atenolol AdvReac Unknown Worsening Verified 09/22/24 06:55 Asthma Home Medications Medication Instructions Recorded Confirmed Type amlodipine 10 mg tablet 10 mg PO QAM 03/16/20 09/22/24 History levalbuterol tartrate 45 2 inh inhalation Q6H PRN Shortness 03/16/20 09/22/24 History mcg/actuation aerosol inhaler Of Breath Or Wheezing (Xopenex HFA) montelukast 10 mg tablet 10 mg PO DAILY PRN asthma 03/16/20 09/22/24 History budesonide-formoterol HFA 160 2 puff inhalation BID PRN seasonal 06/03/23 09/22/24 History mcg-4.5 mcg/actuation aerosol inhaler (Symbicort) esomeprazole magnesium 40 mg 40 mg PO DAILY PRN gerd/nausea 03/18/24 09/22/24 History capsule,delayed release evolocumab 140 mg/mL subcutaneous 140 mg subcut .EVERY 2 WEEKS 03/18/24 09/22/24 History pen injector (Repatha SureClick) famotidine 20 mg tablet 20 mg PO DAILY PRN gerd/nausea 03/18/24 09/22/24 History semaglutide 0.25 mg or 0.5 mg (2 0.5 mg subcut WK 03/18/24 09/22/24 History mg/3 mL) subcutaneous pen injector (Ozempic) spironolactone 25 mg tablet 25 mg PO DAILY PRN Edema 03/18/24 09/22/24 History ticagrelor 90 mg tablet (Brilinta) 90 mg PO BID #180 tabs 03/20/24 09/22/24 Rx aspirin 81 mg tablet,delayed 81 mg PO BID 09/02/24 09/22/24 History release clonidine HCl 0.2 mg tablet 0.2 mg PO QID 09/02/24 09/22/24 History insulin glargine 100 unit/mL (3 20 - 25 unit subcut BID 09/02/24 09/22/24 History mL) subcutaneous pen (Lantus Solostar U-100 Insulin) metoprolol succinate 50 mg 50 mg PO QPM 09/02/24 09/22/24 History tablet,extended release 24 hr Patient History Medical History (Updated 09/22/24 @ 11:41 by Maynor Flores MD) Hx of ovarian cyst History of confusion (09/03/24) - admitted to [facility], work up for cva- had incidental tiny acute right frontal stroke that was not conclusive; per neuro (09/03/24) "do not believe that this possible (tiny) acute stroke, seen on MRI cause her any symptoms, including confusion. 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"; neuro did not feel acute confusion 09/03/24 was caused by this finding- felt it was due to UTI at the time CAD (coronary artery disease) 03/18/24 RCA stent (STONE) 03/20/24- stent to mid LAD (STONE) 05/2024- STONE to mid Cx GERD (gastroesophageal reflux disease) Irregular heartbeat had a holter monitor in past Carotid artery stenosis Left ICA 90% stenosis with occluded left vertebral artery (with good collateral flow) History of ST elevation myocardial infarction (STEMI) (03/2024) STEMI 03/18/24; 03/18/24 RCA stent (STONE) 03/20/24- stent to mid LAD (STONE) 05/2024- stent to Cx per patient Type 2 diabetes mellitus Hyperlipidemia Asthma triggered by environment allergies, rare use of inhalers Surgical History Hx of heart artery stent x3 03/18/24- 1 stent- rca- [facility] 03/20/24- 1 stent-lad- [facility] 05/2024- stent -circumflex- josephine Follows with cardio [facility] (08/19/24) History of carpal tunnel surgery of left wrist History of laparotomy (1987) ovarian cyst Hx of tubal ligation (04/1990) Hx of section (04/1990) Hx of cardiac catheterization (05/2024) x2 [facility] 03/18/24- 1 stent- rca 03/20/24- 1 stent-lad 05/2024- stent -circumflex- josephine Follows with cardio [facility] (08/19/24) Family History Mother , age 75 of lung cancer Lung cancer Father , age 65 of an [place] Myocardial infarction Social History Smoking Status: Never smoker Second Hand Exposure: No; Do You Dip or Chew Tobacco: No; Tobacco Cessation Education Requested by Patient: No Hx Alcohol Use: Yes Alcohol type: beer and wine Hx Substance Use: No Preferred Language: Gabonese Communication Ability: Effective District Gauger Required: No Beliefs That Will Affect Care: None Current Living Situation: Alone Current Living Situation Comment: lives at home alone - family frequently checks on her 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al status: retired 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 Mild bruising Respiratory: normal respiratory effort, lungs clear to auscultation Cardiovascular: RRR, no murmur, no edema Gastrointestinal (Abdomen): normal bowel sounds, soft, nontender, no hepatosplenomegaly Musculoskeletal: Extremities: extremities normal to inspection Skin: no rashes, warm and dry Neurologic: Nonfocal exam Lymphatic: no cervical lymphadenopathy Results & Data Results & Data Vital Signs (Past 12 Hours) Vital Signs Temp Pulse Pulse Resp BP BP BP 09/22/24 11:10 73 22 118/53 L 140/74 09/22/24 11:00 74 22 125/57 L 138/78 09/22/24 10:50 36.3 C L 77 15 116/54 L 09/22/24 10:40 78 20 111/54 L 09/22/24 10:30 77 14 112/53 L 09/22/24 10:20 81 14 113/55 L 09/22/24 10:10 83 21 112/53 L 09/22/24 10:00 36.4 C L 84 15 122/67 09/22/24 07:11 09/22/24 07:11 36.7 C 65 18 124/65 135/65 Pulse Ox O2 Del Method O2 Flow Rate 09/22/24 11:10 96 Room Air 09/22/24 11:00 94 Room Air 09/22/24 10:50 94 Room Air 09/22/24 10:40 97 Room Air 09/22/24 10:30 96 Room Air 09/22/24 10:20 96 Room Air 09/22/24 10:10 100 Oxymask 4 09/22/24 10:00 100 Oxymask 8 09/22/24 07:11 Room Air 09/22/24 07:11 97 Room Air Critical Care Results & Data Vital Signs (Past 12 Hours) Vital Signs Temp Pulse Pulse Resp BP BP BP 09/22/24 11:10 73 22 118/53 L 140/74 09/22/24 11:00 74 22 125/57 L 138/78 09/22/24 10:50 36.3 C L 77 15 116/54 L 09/22/24 10:40 78 20 111/54 L 09/22/24 10:30 77 14 112/53 L 09/22/24 10:20 81 14 113/55 L 09/22/24 10:10 83 21 112/53 L 09/22/24 10:00 36.4 C L 84 15 122/67 09/22/24 07:11 09/22/24 07:11 36.7 C 65 18 124/65 135/65 Pulse Ox O2 Del Method O2 Flow Rate 09/22/24 11:10 96 Room Air 09/22/24 11:00 94 Room Air 09/22/24 10:50 94 Room Air 09/22/24 10:40 97 Room Air 09/22/24 10:30 96 Room Air 09/22/24 10:20 96 Room Air 09/22/24 10:10 100 Oxymask 4 09/22/24 10:00 100 Oxymask 8 09/22/24 07:11 Room Air 09/22/24 07:11 97 Room Air Lab & Micro Results (Past 24 Hours) No Data to Display Na 144 mmol/L (136-145) 09/22/24 K 4.3 mmol/L (3.5-5.1) 09/22/24 Cl 107 mmol/L (98-107) 09/22/24 CO2 29 mmol/L (21-32) 09/22/24 Anion Gap 8 (3-11) 09/22/24 BUN 20 mg/dl (6-23) 09/22/24 Creatinine 1.80 mg/dl (0.6-1.2) H 09/22/24 BUN/Creatinine Ratio 11.1 (10-20) 09/22/24 Glu 107 mg/dl (70-99(Fasting)) H 09/22/24 Ca 9.8 mg/dl (8.6-10.3) 09/22/24 Calcium Level 9.8 mg/dl (8.6-10.3) 09/22/24 06:35 Prothromb Time International Ratio 0.9 (0.9-1.1) 09/22/24 06:3 5 I & O Totals 24 Hours 09/21/24 09/22/24 09/23/24 06:59 06:59 06:59 Intake Total 1000 / 1000 Output Total Balance 990 / 990 Cumulative 09/07/24 09:04 thru 09/22/24 10:57 Intake Total 1000 Output Total 10 Balance 990 RT Ventilator Mngmt (Last Documented) Ventilator Ordered Settings Respiratory Rate 22 09/22/24 11:10 Ventilator - PT Measurements Respiratory Rate 22 Coding Level of Care Code 89656 INT INP/OBS CARE 2/55MIN Diagnoses Carotid artery stenosis I65.22 Laterality: left Hypertension I10 Renal insufficiency N28.9 (1) Carotid artery stenosis Laterality: left Qualified Code(s): I65.22 - Occlusion and stenosis of left carotid artery
[2024-09-22] MEDS ORDERED: GLUCOSE 40% GEL 15 GM TUBE PO PRN (12:15)
[2024-09-22] MEDS ORDERED: DEXTROSE 50% 50 ML SYRINGE IV PRN (12:15)
[2024-09-22] MEDS ORDERED: CARBOHYDRATES FOR HYPOGLYCEMIA PO PRN (12:15)
[2024-09-22] MEDS ORDERED: GLUCOSE 10 TAB/TUBE PO PRN (12:15)
[2024-09-22] MEDS ORDERED: GLUCAGON FOR INJ 1 MG VIAL SQ PRN (12:15)
[2024-09-22] MEDS: INSULIN ASPART PER UNIT CHARGE SC SCH (12:30)
[2024-09-22] MEDS: LACTATED RINGER'S 1,000 ML IV SCH (12:33)
[2024-09-22] MEDS: cloNIDine HCL 0.1 MG TAB PO SCH (12:34)
[2024-09-22] MEDS: ONDANSETRON INJ 2 MG/ML 2 ML VIAL IV PRN (12:55)
[2024-09-22] MEDS: oxyCODONE/ACETAMINOPHEN 5mg/325mg TAB PO PRN (12:55)
[2024-09-22] MEDS: ASPIRIN 81 MG ECTAB PO SCH (14:00)
--- NOTE | 2024-09-22 14:51 | Pharmacy Report ---
Pharmacy Glycemic Short Note 2 - Date of Service September 22, 2024 - Glycemic Short BSG Results (Last 24 hours): 09/22/24 09/22/24 09/22/24 06:35 06:56 10:05 Glucose 107 H POC Glucose 127 H 131 H 09/22/24 11:52 Glucose POC Glucose 135 H OUTPATIENT ANTIDIABETIC REGIMEN: * Lantus 20-25 units once daily * Semaglutide 0,5 mg SC weekly * A1c:5.5% 09/03/24 ASSESSMENT: * Patient admitted to the ICU post TCAR. Previous data indicated patient requires very little insulin while admitted. * Pre and postop BSGs have been within range (107-127-135 mg/dL) * Patient did not take home Lantus dose this morning. Unclear if steroid was administered perioperatively. * Patient ordered a diet but has yet to eat. * Will start with a novolog weight based stress of 2 and Lantus scale for this evening. PLAN FOR INPATIENT GLYCEMIC CONTROL: * Hold outpatient oral diabetes medications * Basal insulin * Lantus 0 or 10 units SQ HS based on scale * Bolus insulin * NovoLog per scale ACHS or Q6hrs while NPO * Goal Range: Low 110 mg/dL - High 140 mg/dL * Correction Factor: 25 mg/dL/unit * Nutritional / Prandial insulin per carb ratio of 1 unit per 9 grams CHO consumed
[2024-09-22] MEDS: ACETAMINOPHEN 325 MG TAB PO ONE (15:04)
[2024-09-22] MEDS: STAT IV Infusion **Titration per Protocol STA (15:04)
[2024-09-22] MEDS: LANTUS PER UNIT CHARGE SC SCH (20:06)
[2024-09-22] MEDS ORDERED: TICAGRELOR 90 MG TAB PO SCH (21:00)
[2024-09-22] MEDS ORDERED: METOPROLOL SUCC 50MG EXT REL TAB PO SCH (21:00)
[2024-09-22] MEDS ORDERED: NON-FORMULARY MEDICATION (Insulin Glargine [Lantus Solostar U-100 Insulin] 100 unit/mL (3 SQ SCH (21:00)
[2024-09-23] MEDS: TICAGRELOR 90 MG TAB PO SCH (01:20)
[2024-09-23 05:11] LABS: BUN Creatinine Ratio 13.8 (10-20); Calcium 8.8 mg/dl (8.6-10.3); Creatinine Clr Calc Pharmacy 39.8 ml/min; Potassium 4.5 mmol/L (3.5-5.1)
--- NOTE | 2024-09-23 07:36 | Critical Care Progress Note ---
Date of Service September 23, 2024 Assessment & Plan (1) Carotid artery stenosis: (2) Hypertension: (3) Renal insufficiency: Plan Impression: 74-year-old female with recent TIA now status post left-sided TCAR. She is hemodynamically stable and being observed in the ICU post procedurally. She carries a history of coronary disease and hyperlipidemia. Recommendations: 1. Status post TCAR: Management per vascular surgery. Continue dual antiplatelet agents per vascular. Defer additional anticoagulation to them. Continue to follow neurologically. Activity and diet per surgery. 2. Hypertension: Blood pressure parameters per vascular surgery. Hemodynamically stable currently. Patient takes amlodipine, clonidine, and metoprolol at baseline. Reinstitution of these medications when felt to be appropriate by vascular surgery. Will continue to follow heart rate and blood pressure response. Will discontinue arterial line at this time. 3. Hyperlipidemia: Continue high-dose statin. 4. Diabetes: Continue glycemic control per protocol. Last hemoglobin A1c 5.5 last month 5. Diastolic heart failure: Euvolemic currently. Continue blood pressure goals as outlined above. Hold diuretics for now. 6. Renal insufficiency: Back to baseline at this time. 7. Headache: history of migraines. Similar in character and quality. No focal neurological deficits. Takes APAP at home. Will provide dose this AM. Thanks for the opportunity to precipitate in the care of this patient. ICU will sign off at this time. Disposition planning per vascular surgery. Admission and Anticipated Discharge Date Admission Date: September 22, 2024 Subjective Patient seen and evaluated at bedside. She had a relatively uneventful night. She has complained of a mild headache which is similar in character to her prior history of migraines. No new or abrupt symptoms otherwise. No numbness or weakness to the extremities, double vision, slurred speech, etc. Physical Exam Physical Exam: VITAL SIGNS - Vital signs and nursing notes were reviewed. GENERAL - 74-year-old female appearing her stated age who is in no acute distress. Communicates well with provider and answers questions appropriately. SKIN - LEFT sided TCAR site with mild underlying ecchymosis but otherwise clean, dry, and intact. HEAD - NC/AT. EYES - PERRL with EOMI bilaterally. Sclera anicteric. EARS - No deformities of external structures noted on gross examination bilaterally. NOSE - Midline and without cyanosis. MOUTH/OROPHARYNX - Without perioral cyanosis. NECK - LEFT sided incision site as above. Neck with FROM. Supple to palpation. LUNGS - Chest wall symmetric without accessory muscle use, intercostals retractions, or central cyanosis. Normal vesicular breath sounds CTA B/L. No wheezes, rales, or rhonchi appreciated. CARDIAC - RRR with S1/S2. No murmur, rubs, or gallops appreciated. ABDOMEN - Abdominal contour obese without pulsations or visible masses. No TTP. EXTREMITIES - No clubbing or peripheral cyanosis. No pretibial edema present. +3/5 radial and dorsalis pedis pulses palpated throughout. +5/5 strength noted in UE/LE bilaterally. NEUROLOGIC - Cranial nerves II through XII grossly intact. PSYCH - A&Ox3 and cooperates fully with examiner. Pt is very pleasant and interacts well with examiner. Results & Data Results & Data Vital Signs (Past 12 Hours) Vital Signs Temp Pulse Resp BP Pulse Ox 09/23/24 06:30 63 12 96 09/23/24 06:03 55 L 12 93 09/23/24 06:00 131/69 09/23/24 05:57 57 L 14 91 09/23/24 05:30 62 19 95 09/23/24 05:12 58 L 14 96 09/23/24 04:30 59 L 19 98 09/23/24 04:09 48 L 14 94 09/23/24 03:51 51 L 12 93 09/23/24 03:00 36.6 C 09/23/24 03:00 58 L 14 94 09/23/24 03:00 120/57 L 09/23/24 02:30 52 L 12 94 09/23/24 02:12 53 L 16 92 09/23/24 02:00 134/64 09/23/24 01:39 55 L 12 95 09/23/24 01:36 56 L 18 95 09/23/24 01:18 97 09/23/24 01:00 133/59 L 09/23/24 00:51 57 L 13 97 09/23/24 00:00 56 L 09/23/24 00:00 139/68 09/23/24 00:00 139/68 09/23/24 00:00 139/68 09/23/24 00:00 56 L 13 97 09/22/24 23:39 60 12 97 09/22/24 23:06 57 L 14 09/22/24 23:00 36.7 C 09/22/24 22:48 73 22 09/22/24 22:06 55 L 14 94 09/22/24 21:30 52 L 15 94 09/22/24 21:00 50 L 15 93 09/22/24 21:00 116/54 L 09/22/24 21:00 116/54 L 09/22/24 20:36 48 L 15 93 09/22/24 20:03 61 18 95 09/22/24 20:00 36.6 C 09/22/24 20:00 143/70 H 09/22/24 20:00 143/70 H 09/22/24 20:00 143/70 H Coding Level of Care Code 88880 SUB INP/OBS CARE 07/11MIN Diagnoses Carotid artery stenosis I65.22 Laterality: left Hypertension I10 Renal insufficiency N28.9 (1) Carotid artery stenosis Laterality: left Qualified Code(s): I65.22 - Occlusion and stenosis of left carotid artery
[2024-09-23] MEDS: ACETAMINOPHEN 500 MG TAB PO PRN (07:45)
[2024-09-23 13:39] VITALS: TEMP 98.1
[2024-09-23] MEDS: amLODIPine BESYLATE 5 MG TAB PO SCH (13:49)
--- NOTE | 2024-09-23 13:55 | Surgery Progress Note ---
Date of Service September 23, 2024 Assessment & Plan (1) Carotid artery stenosis: Plan: Pt now POD #1 after uncomplicated L TCAR. Doing well post op. Moderately hypertensive, home meds restarted after being held by pharmacy. Ok for d/c home today. Admission and Anticipated Discharge Date Admission Date: September 22, 2024 Subjective 74 yo f POD #1 after uncomplicated L TCAR, seen in f/u today. Pt admits mild BOLAÑOS, similar to previous migraines. Is concerned that her antihypertensive meds were held today and wishes to restart them. Admtis mild L neck incisional pain, mild sore throat. No other new complaints. Review of Systems Review of Systems: All systems reviewed & are unremarkable except as noted in HPI & below Physical Exam Constitutional: WD/WN, vitals as above cooperative and comfortable; not in distress Neck: trachea midline L neck supraclavicular incision C/D/I, mild local ecchymosis and tenderness. Respiratory: normal respiratory effort, lungs clear to auscultation Auscultation: + diminished lung sounds Cardiovascular: Rate/Rhythm: regular rate and regular rhythm Vessels: posterior tibial pulses present, dorsalis pedis pulses present and radial pulses present; + abnormal peripheral pulses Extremities: normal capillary refill Gastrointestinal (Abdomen): Inspection/Auscultation: abdomen normal to inspection and normal bowel sounds Percussion/Palpation: abdomen soft; abdomen nontender Musculoskeletal: no cyanosis or clubbing, extremities motor strength 5/5 Skin: no rashes, warm and dry R groin puncture C/D/I. Nohematoma Neurologic: moves all extremities and awake; no focal motor deficits and not confused Psychiatric: A+Ox3, euthymic affect Results & Data Vital Signs (Past 12 Hours) Vital Signs Temp Pulse Pulse Resp BP BP Pulse Ox 09/23/24 13:39 36.7 C 09/23/24 13:03 68 14 98 09/23/24 13:02 183/83 H 09/23/24 12:57 77 10 L 97 09/23/24 12:48 182/79 H 09/23/24 12:42 65 15 97 09/23/24 12:15 65 15 98 09/23/24 12:00 134/64 09/23/24 11:48 65 18 97 09/23/24 11:00 178/89 H 09/23/24 11:00 76 20 09/23/24 10:06 55 L 13 100 09/23/24 10:00 150/66 H 09/23/24 09:45 56 L 15 100 09/23/24 09:12 57 L 16 98 09/23/24 09:00 133/66 09/23/24 08:57 55 L 15 98 09/23/24 08:12 59 L 18 97 09/23/24 08:12 151/66 H 09/23/24 08:10 36.5 C 60 20 151/66 H 95 09/23/24 08:00 09/23/24 08:00 53 L 09/23/24 07:15 58 L 12 97 09/23/24 07:01 129/69 09/23/24 06:30 63 12 96 09/23/24 06:03 55 L 12 93 09/23/24 06:00 131/69 09/23/24 05:57 57 L 14 91 09/23/24 05:30 62 19 95 09/23/24 05:12 58 L 14 96 09/23/24 04:30 59 L 19 98 09/23/24 04:09 48 L 14 94 09/23/24 03:51 51 L 12 93 09/23/24 03:00 36.6 C 09/23/24 03:00 58 L 14 94 09/23/24 03:00 120/57 L 09/23/24 02:30 52 L 12 94 09/23/24 02:12 53 L 16 92 09/23/24 02:00 134/64 O2 Del Method 09/23/24 13:39 09/23/24 13:03 09/23/24 13:02 09/23/24 12:57 09/23/24 12:48 09/23/24 12:42 09/23/24 12:15 09/23/24 12:00 09/23/24 11:48 09/23/24 11:00 09/23/24 11:00 09/23/24 10:06 09/23/24 10:00 09/23/24 09:45 09/23/24 09:12 09/23/24 09:00 09/23/24 08:57 09/23/24 08:12 09/23/24 08:12 09/23/24 08:10 Room Air 09/23/24 08:00 Room Air 09/23/24 08:00 09/23/24 07:15 09/23/24 07:01 09/23/24 06:30 09/23/24 06:03 09/23/24 06:00 09/23/24 05:57 09/23/24 05:30 09/23/24 05:12 09/23/24 04:30 09/23/24 04:09 09/23/24 03:51 09/23/24 03:00 09/23/24 03:00 09/23/24 03:00 09/23/24 02:30 09/23/24 02:12 09/23/24 02:00 (1) Carotid artery stenosis Laterality: left Qualified Code(s): I65.22 - Occlusion and stenosis of left carotid artery
--- NOTE | 2024-09-23 13:56 | Discharge Summary ---
Date of Service September 23, 2024 Admission HPI Per Admitting [place] [address] Consultation Signed Patient: IZABEL CAMACHO Admit Date: 09/02/24 MR#: [id number] Att Phy: Collette Singh MD Acct ID: [id number] Preeti Phy: Anh Manriquez PA-C Date: 1950 Fam Phy: Age: 74 Location: 2N Sex: F Room/Bed: N275-1 Legal Sex: F cc: ~ *NOTICE TO RECEIVING REPUBLICAN/AGENCY This information is strictly Confidential and protected under [place] law. [place] law prohibits you from making any further disclosure of this information unless further disclosure is expressly permitted by the written consent of the person to whom it pertains or is authorized by law. A general authorization for the release of medical or other information is not sufficient for this purpose. Hospital accepts no responsibility if the information is made available to any other person, INCLUDING THE PATIENT. Date of Consultation September 03, 2024 Assessment & Plan (1) Carotid stenosis, left: At this point recommended intervention of her left carotid. We discussed TCAR versus endarterectomy. She is agreeable to undergo a TCAR of her left carotid. This will be scheduled next 2 weeks. She is to stay on her Repatha, Brilinta, and aspirin for this procedure. My office will call her early next week to schedule the procedure. Thank you very much for letting us participate in the care of this patient. History of Present Illness Reason for Consultation: Left internal carotid artery stenosis Attending Physician: Collette Singh MD History of Present Illness This is a 74-year-old female who we have seen in the past for a severe stenosis of her left internal carotid artery. She came to the hospital with acute onset of confusion which lasted a short period of time. Apparently she did not have evidence of a hemispheric stroke. She is on Brilinta, aspirin, and Repatha. She is seen by cardiology for her coronary disease. She returned to baseline fairly quickly and was normal neurologically when she presented to the ED. Allergies Allergy/AdvReac Type Severity Reaction Status Date / Time olmesartan [From Benicar] Allergy Severe Stopped me Unverified 09/02/24 15:31 from urinating erythromycin base AdvReac Severe Gastrointestinal Verified 09/02/24 15:31 Upset [id number] Reductase AdvReac Severe Nausea and Verified 09/02/24 15:31 Inhibitor vomiting Sulfa (Sulfonamide AdvReac Severe Gastrointestinal Unverified 09/02/24 15:31 Antibiotics) Upset codeine AdvReac Intermediate Nausea Unverified 09/02/24 15:31 atenolol AdvReac Unknown Worsening Verified 09/02/24 15:31 Asthma Home Medications Medication Instructions Recorded Confirmed Type amlodipine 10 mg tablet 10 mg PO QAM 03/16/20 09/02/24 History levalbuterol tartrate 45 2 inh inhalation Q6H PRN Shortness 03/16/20 09/02/24 History mcg/actuation aerosol inhaler Of Breath Or Wheezing (Xopenex HFA) montelukast 10 mg tablet 10 mg PO DAILY PRN asthma 03/16/20 09/02/24 History budesonide-formoterol HFA 160 2 puff inhalation BID PRN seasonal 06/03/23 09/02/24 History mcg-4.5 mcg/actuation aerosol inhaler (Symbicort) esomeprazole magnesium 40 mg 40 mg PO DAILY PRN gerd/nausea 03/18/24 09/02/24 History capsule,delayed release evolocumab 140 mg/mL subcutaneous 140 mg subcut .EVERY 2 WEEKS 03/18/24 09/02/24 History pen injector (Repstephanie SureAlbina) famotidine 20 mg tablet 20 mg PO DAILY PRN gerd/nausea 03/18/24 09/02/24 History semaglutide 0.25 mg or 0.5 mg (2 0.5 mg subcut WK 03/18/24 09/02/24 History mg/3 mL) subcutaneous pen injector (Ozempic) spironolactone 25 mg tablet 25 mg PO DAILY PRN Edema 03/18/24 09/02/24 History ticagrelor 90 mg tablet (Brilinta) 90 mg PO BID #180 tabs 03/20/24 09/02/24 Rx aspirin 81 mg tablet,delayed 81 mg PO BID 09/02/24 09/02/24 History release clonidine HCl 0.2 mg tablet 0.2 mg PO QID 09/02/24 09/02/24 History insulin glargine 100 unit/mL (3 20 - 25 unit subcut BID 09/02/24 09/02/24 History mL) subcutaneous pen (Lantus Solostar U-100 Insulin) metoprolol succinate 50 mg 50 mg PO QPM 09/02/24 09/02/24 History tablet,extended release 24 hr Patient History Medical History Type 2 diabetes mellitus Hyperlipidemia Abnormal urinalysis Headache Asthma Diabetes No pertinent family history Surgical History No pertinent past surgical history Family History Mother , age 75 of lung cancer Lung cancerFather , age 65 of an [place] Myocardial infarction Social History Smoking Status: Never smoker Second Hand Exposure: No; Do You Dip or Chew Tobacco: No; Hx Alcohol Use: Yes Alcohol type: beer and wine Hx Substance Use: No Preferred Language: Italian Communication Ability: Effective Intranet Developer Required: No Beliefs That Will Affect Care: None Current Living Situation: Alone Current Living Situation Comment: lives at home alone - family frequently checks on her 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al status: retired 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 Other Information That Helps Us Care for You: No Feels Safe at Home: Yes Safety Concerns: Feels Safe At This Time Assistive Devices: None Review of Systems Review of Systems: All systems reviewed & are unremarkable except as noted in HPI & below Physical Exam Respiratory: normal respiratory effort, lungs clear to auscultation Cardiovascular: RRR, no murmur, no edema Vessels: normal peripheral pulses Extremities: normal capillary refill Gastrointestinal (Abdomen): Inspection/Auscultation: abdomen normal to inspection Percussion/Palpation: abdomen soft Neurologic: CN's II-XI intact bilaterally and moves all extremities Psychiatric: A+Ox3, euthymic affect Results & Data Vital Signs (Past 12 Hours) Vital Signs Temp Pulse Pulse Resp BP Pulse Ox O2 Del Method 09/03/24 11:21 36.3 C L 58 L 16 130/73 97 Room Air 09/03/24 07:40 36.7 C 67 16 126/75 96 Room Air 09/03/24 06:45 59 L 03/20/25 03:33 36.6 C 61 18 138/67 96 Room Air Signed By: <Electronically signed by Landon Benitez MD> 09/03/24 1358 Created: 09/03/24 1353 The status of this report is Signed. Draft = Not yet reviewed or approved by Medical Physician. Signed = Reviewed and approved by Medical Physician. Admission Exam Per Admitting Provider Respiratory: normal respiratory effort, lungs clear to auscultation Cardiovascular: RRR, no murmur, no edema Vessels: normal peripheral pulses Extremities: normal capillary refill Gastrointestinal (Abdomen): Inspection/Auscultation: abdomen normal to inspection Percussion/Palpation: abdomen soft Neurologic: CN's II-XI intact bilaterally and moves all extremities Psychiatric: A+Ox3, euthymic affect Principal Diagnosis 1. s/p L TCAR 2. L ICA stenosis Discharge Exam Constitutional WD/WN, vitals as above cooperative and comfortable; not in distress Neck trachea midline Respiratory normal respiratory effort, lungs clear to auscultation Auscultation: + diminished lung sounds Cardiovascular Rate/Rhythm: regular rate and regular rhythm Vessels: posterior tibial pulses present, dorsalis pedis pulses present and radial pulses present; + abnormal peripheral pulses Extremities: normal capillary refill Gastrointestinal (Abdomen) Inspection/Auscultation: abdomen normal to inspection and normal bowel sounds Percussion/Palpation: abdomen soft; abdomen nontender Musculoskeletal no cyanosis or clubbing, extremities motor strength 5/5 Skin no rashes, warm and dry Neurologic moves all extremities and awake; no focal motor deficits and not confused Psychiatric A+Ox3, euthymic affect Discharge Data Allergies Allergy/AdvReac Type Severity Reaction Status Date / Time olmesartan [From Benicar] Allergy Severe Stopped me Verified 09/22/24 06:55 from urinating nickel Allergy Redness of Verified 09/22/24 07:25 Skin erythromycin base AdvReac Severe Gastrointestinal Verified 09/22/24 06:55 Upset Mwtyzlk-UFK-DcN Reductase AdvReac Severe Nausea and Verified 09/22/24 06:55 Inhibitor vomiting Sulfa (Sulfonamide AdvReac Severe Gastrointestinal Verified 09/22/24 06:55 Antibiotics) Upset codeine AdvReac Intermediate Nausea Verified 09/22/24 06:55 atenolol AdvReac Unknown Worsening Verified 09/22/24 06:55 Asthma Consultations 09/22/24 11:18 Consult Town Planner Routine Procedures Performed Operation Date: 09/22/24 08:00 Actual Procedures p Left Transcarotid Artery Revascularization(Left) - Landon Benitez MD Ordered Studies 09/22/24 07:18 EV angio carotid cerv LT Routine US EV guide vascular access Routine Hospital Course (1) Carotid artery stenosis: Pt now POD #1 after uncomplicated L TCAR. Doing well post op. Moderately hypertensive, home meds restarted after being held by pharmacy. Ok for d/c home today. Total Time Total Time Spent Total Time Spent (In Minutes): 0 Discharge Plan Discharge Items Patient Disposition: Home - Self-Care Reason For Visit: Left Internal Carotid Artery Stenosis Discharge Diagnosis: 1. s/p L TCAR 2. L ICA stenosis Activity: Per Instructions section Non-emergency contact: Primary Care Provider and Surgeon Call non-emergency contact if: you have any medication questions, your symptoms worsen, your pain is not controlled, your pain is concerning for you, you have a fever, your wound has increased redness and your wound has increased drainage Follow-up/Referrals: Landon Benitez MD [Physician] - (Follow up with Dr Benitez or Fanny Erickson PA-C, in 2 weeks) Anh Manriquez PA-C [Primary Care Provider] - (Follow up with your PCP within 2 weeks) Diet: Carb Consistent or DM2 and Heart Healthy Addtl Attending Provider Instructions: SPECIAL CARE INSTRUCTIONS: Diet: * You may return to previous diet. Medications: * Continue to take Aspirin, brilinta, and cholesterol medications as directed.DO NOT STOP THESE MEDICATIONS WITHOUT SPEAKING TO DR BENITEZ'S OFFICE Incision Care: * You may shower, but do not rub incision. You may let the warm soapy water run over it. Be sure to dry the incision well after bathing. * Do not shave directly over the incision until it is healed. * DO NOT IMMERSE THE INCISION IN A TUB/POOL/etc. UNTIL HEALED. Restrictions: * Do not drive if you are still taking any narcotic pain medication. * Do not lift anything heavier than a gallon of milk for one week after going home. Possible Complications: * Numbness - It is normal to have some numbness around the incision. Numbness can extend beyond the incision to areas of the neck, ear and face. The numbness is due to bruising of nerves during the surgery and will gradually improve over a period of months. * Hoarseness/Difficulty Speaking and Swallowing - The bruising of nerves in the neck can also cause a hoarse voice, difficulty speaking or swallowing. This may improve over time, HOWEVER, if it continues for more than a few days please contact our office ([phone]). * Excessive Swelling - There will be some swelling immediately after surgery which usually resolves within one week. If you notice that the swelling is getting worse, notify your surgeon ([phone]). * Drainage/Bleeding - If there is any drainage or bleeding, it should be a very small amount (less than a teaspoon per day). If you have excessive bleeding or drainage from the incision, call your surgeon ([phone]) right away. ACTIVATION OF EMERGENCY MEDICAL SYSTEM: Call 911, immediately, if you experience any of the following: Warning Signs and Symptoms of Stroke: * Sudden numbness or weakness of the face, arm or leg, especially on one side of the body * Sudden confusion, trouble speaking or understanding * Sudden trouble seeing in one or both eyes * Sudden trouble walking, dizziness, loss of balance or coordination * Sudden severe headache with no cause Do not delay calling 911 if you experience any warning signs or symptoms of a stroke. Delay in seeking medical attention may affect what treatments can be given to you. Risk Factors for Stroke: You can reduce your chances of stroke by working with your medical provider to adopt a healthy lifestyle. Some specific ways to lower your chance of stroke are: * If you are a smoker, now is the time to stop smoking cigarettes * If you are diabetic, improve the control of your blood sugars * Avoid excessive amounts of alcohol * Control high blood pressure * Lose weight if you are overweight * Be sure to lead an active lifestyle * Eat a healthy diet low in salt, cholesterol and fat You should know about other risk factors for stroke that you are unable to control. These include: * Age 55 years or older * Male gender * Certain racial groups: , or / * Family History of Stroke, Mini stroke or Heart Attack * Sickle Cell Disease You will be receiving a call from the Vascular Surgery Nurse after you are discharged. FOLLOW UP VISIT: It is important for you to keep your follow up appointments with your medical provider. Keep any scheduled doctor appointments. Pending Studies at Discharge: No Stand-Alone Forms: [facility] [employer], Smoking Cessation Medications and DC Order Prescriptions: Continued amlodipine 10 mg tablet 10 mg PO QAM montelukast 10 mg Tablet 10 mg PO DAILY PRN (Reason: asthma) levalbuterol tartrate [Xopenex HFA] 45 mcg/actuation Hfa Aerosol Inhaler 2 inh INHALATION Q6H PRN (Reason: Shortness Of Breath Or Wheezing) budesonide-formoterol [Symbicort] 160-4.5 mcg/actuation HFA aerosol inhaler 2 puff INHALATION BID PRN (Reason: seasonal) Ozempic 0.25 mg or 0.5 mg (2 mg/3 mL) pen injector 0.5 mg SUBCUT WK Rx Instructions: Saturday spironolactone 25 mg tablet 25 mg PO DAILY PRN (Reason: Edema) Rx Instructions: ordered daily but only takes prn famotidine 20 mg Tablet 20 mg PO DAILY PRN (Reason: gerd/nausea) esomeprazole magnesium 40 mg capsule,delayed release(DR/EC) 40 mg PO DAILY PRN (Reason: gerd/nausea) Repatha SureClick 140 mg/mL pen injector 140 mg SUBCUT .EVERY 2 WEEKS Rx Instructions: next dose on 09/15 Brilinta 90 mg Tablet 90 mg PO BID Qty: 180 3RF Rx Instructions: take at 1400 & 0200 metoprolol succinate 50 mg tablet extended release 24 hr 50 mg PO QPM clonidine HCl 0.2 mg tablet 0.2 mg PO QID Rx Instructions: 0500,1000,1800,1200 insulin glargine [Lantus Solostar U-100 Insulin] 100 unit/mL (3 mL) insulin pen 20 - 25 unit SUBCUT BID Rx Instructions: ACCORDING TO GLUCOSE MONITORING aspirin 81 mg tablet,delayed release (DR/EC) 81 mg PO BID Rx Instructions: take at 1400 & 0200 Discharge Orders: Discharge Order (Routine); Ordered 09/23/24 Ordered By: Fanny Erickson Admission Data Admit Date/Time: 09/22/24 07:34 Attending Provider: Landon Benitez Admit Provider: Landon Benitez Primary Care Provider: Anh Manriquez Other Providers: Armando Hamm; Hernando Salvador; Tanner Melgar; Maynor Flores; Burton Barlow; Josh Pickard; Britt Salinas
[2024-09-23 16:37] VITALS: O2SAT 94
[2024-09-23 17:16] VITALS: BP 110/51
[2024-09-23 18:31] VITALS: PULSE 60; RESP 15
--- NOTE | 2024-09-24 05:30 | Electrocardiogram Report ---
Test Reason : Blood Pressure : */* mmHG Vent. Rate : 65 BPM Atrial Rate : 65 BPM P-R Int : 150 ms QRS Dur : 80 ms QT Int : 398 ms P-R-T Axes : 79 59 -24 degrees QTcB Int : 413 ms Sinus rhythm Low voltage QRS T wave abnormality, consider inferior ischemia Abnormal ECG When compared with ECG of 02-Sep-2024 12:42, T wave inversion more evident in Inferior leads Confirmed by Baltazar Vo ([id number]) on 09/24/2024 5:30:25 AM Referred By: Landon Botello Confirmed By: Baltazar Vo
== END 2024-09-23 18:46 | disposition home or self-care (01) | DRG 35 ==
LOC: ASU 06:21 → 1E 07:34
PROC: EV.TCAR (2024-09-22 08:00)

== ENCOUNTER 2025-01-15 15:39 | Inpatient (IN) ==
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
[2025-01-15 16:51] LABS: Hematocrit (blood only) 36.6 % (37.0-47.0); Hemoglobin 12.0 g/dl (12.0-16.0); Immature Granulocytes # (auto) 0.03 K/uL (0.01-0.20); Immature Granulocytes % (auto) 0.4 %; Mean Corpuscular Hemoglobin 30.9 pg (25.0-34.0); Mean Corpuscular Volume 94.3 fL (80.0-100.0); Platelet Count 202 K/uL (130-400); RDW Standard Deviation 43.6 fL (36.4-46.3); Red Blood Count 3.88 M/uL (4.20-5.40); White Blood Count 6.69 K/ul (4.8-10.8)
[2025-01-15 17:09] LABS: Alanine Aminotransferase 8.0 U/L (7-52); Albumin Globulin Ratio 1.3 (0.9-2); Alkaline Phosphatase 71.0 U/L (34-104); Anion Gap 9.0 (3-11); Bilirubin,Total 0.4 mg/dl (0.2-1.0); Blood Urea Nitrogen 16.0 mg/dl (6-23); Calcium 9.4 mg/dl (8.6-10.3); Carbon Dioxide 22.0 mmol/L (21-32); Chloride 110.0 mmol/L (98-107); Creatinine Clr Calc Pharmacy 38.2 ml/min; Globulin 3.1 gm/dl (2.5-4.0); Glucose 111.0 mg/dl (70-99(Fasting)); Potassium 4.0 mmol/L (3.5-5.1); Sodium 141.0 mmol/L (136-145); Total Protein 7.0 gm/dl (6.0-8.3)
[2025-01-15 17:30] LABS: Thyroid Stimulating Hormone 3.368 uIu/ml (0.300-4.500)
[2025-01-15 17:31] LABS: Acetaminophen 4 ug/ml (10-30); Salicylate < 3.0 mg/dl (3.0-30)
--- NOTE | 2025-01-15 17:33 | XRay Report ---
EXAM: XR chest 1V portable CLINICAL HISTORY: MHE KIS/EAK TECHNIQUE: An X-ray image of the chest is obtained in AP projection. COMPARISON: No prior studies are available for comparison. FINDINGS: Pulmonary Parenchyma: Lungs are clear bilaterally. No evidence of consolidation, collapse, or focal opacities. No pulmonary nodules are identified. No evidence of pleural effusion or pleural thickening. Heart and Mediastinum: Heart size and shape are normal. No mediastinal widening or masses. No hilar or mediastinal lymphadenopathy. Bony Thorax: Bony thorax appears intact without fractures or deformities. Soft Tissues: Soft tissues overlying the chest wall are unremarkable. IMPRESSION: No acute cardiopulmonary abnormalities are identified. Electronically signed by Donavan Weaver 01-15-2025 5:32 PM
[2025-01-15] MEDS: ACETAMINOPHEN 500 MG TAB PO STA (18:30)
--- NOTE | 2025-01-15 19:23 | Magnetic Resonance Report ---
EXAM: MR brain wo con CLINICAL HISTORY: AMS, Occluded L carotid stent. TECHNIQUE: Different pulse sequences were performed in different planes without GD-DTPA injection for the brain. Images were sent through PACs for interpretation. COMPARISON: Prior MRI dated 09/02/2024 FINDINGS: No hyperacute or acute infarctions could be detected. Chronic infarctions with encephalomalacia are seen in the right frontal lobe, Right temporooccipital region with a gliotic evacuee of the right lateral ventricle, and the right temporal horn, and at the Cerebellar hemispheres. Altered deep white matter signals are seen at the forceps minor, forceps major, periventricular, and centrum semiovale regions. These exhibit bright signals on T2 and FLAIR WI, and intermediate signals on T1 WI. Findings suggest consequences of small vessel disease, e.g., hypertensive and/or diabetic vasculopathy. Age-appropriate degenerative involutional changes are denoted by symmetrical dilatation of the ventricular system, prominent cortical sulci, sylvian fissures, cerebellar vermian folia, and basal cisterns. Normal MRI appearance of the central rodriguez matter aggregates. Normal MRI appearance of different anatomical parts of the brain stem, namely the midbrain, giovanni, and medulla oblongata. Normal MRI appearance of the petrous temporal bones, brainstem, vestibule cochlear nerves, and cerebellopontine angles with no definite masses. No shift of midline structures. No intracerebral or extra-axial hematomas or masses. Normal MRI appearance of orbital structures, both globes, optic nerves, optic chiasm, optic tracts, and optic radiations. The scanned paranasal sinuses are unremarkable. Hypertrophic nasal turbinates. A small synovial cyst is seen adjacent to the left aspect of the anterior arch of the atlas vertebra. IMPRESSION: 1. No hyperacute or acute infarctions could be depicted. 2. No intracerebral or extracerebral hematoma. 3. Chronic infarctions with encephalomalacia are seen in the right frontal lobe, Right temporooccipital region with a gliotic evacuee of the right lateral ventricle, and the right temporal horn, and at the inferior Cerebellar hemispheres. 4. Imaging features consistent with the consequences of small vessel disease, e.g., hypertensive and/or diabetic vasculopathy. ([place]azekas 2). 5. The comparison is consistent with a stationary course. Electronically signed by Donavan Weaver 01-15-2025 7:22 PM
[2025-01-15 19:55] LABS: Appearance Urine Clear (Clear); Glucose Urine UA Negative (Negative)
[2025-01-15 20:17] LABS: Amphetamines+Metham, Urine Neg (Neg); MDMA (Ecstacy), Urine Neg (Neg); Marijuana, Urine Neg (Neg)
--- NOTE | 2025-01-15 21:07 | History & Physical Report ---
Date of Service January 15, 2025 Assessment & Plan (1) AMS (altered mental status): (2) Visual hallucinations: (3) Left carotid artery occlusion: (4) CKD (chronic kidney disease): (5) Hypertension: (6) CAD (coronary artery disease): Plan The patient is a 75-year-old female with a past medical history including CKD stage III, occlusion of left vertebral artery, familial hypercholesterolemia, CAD, history of STEMI, diastolic dysfunction, left carotid stenosis status post left TCAR on 09/22/2024 during hospital admission from 09/21-. Patient was seen by vascular surgery on 11/05/2024, then seen by cardiology Dr. Loo on 01/11/2025. She was most recently seen by vascular surgery Dr. Botello on 01/14/2025, and since on 01/12 a CTA neck revealed a left carotid stent that was significantly occluded due to thrombosis, plans were being made for patient to undergo a left TCAR redo. Due to concerns regarding hallucinations and report of intruders into her home, patient was brought to the emergency department for further evaluation. [facility]. Altered mental status/visual hallucinations- Patient underwent MRI brain which showed right frontal lobe encephalomalacia, right temporal occipital lobe gliosis, and other chronic changes, with no acute findings. Urine drug screen is negative, alcohol level is less than 10.0, acetaminophen level is 4, and salicylates less than 3.0. Left carotid stenosis/status post left TCAR on 09/22/2024- CT angiography of neck on 01/12 revealed a left carotid stent with thrombosis and occlusion Vascular surgery Dr. Botello plans on a left TCAR redo while in hospital Continue aspirin 81 mg daily Continue Brilinta 90 mg p.o. twice daily Heparin 5000 units SQ every 12 hours for DVT prophylaxis CAD/hypertension/cerebrovascular disease- Continue metoprolol succinate 50 mg every evening, and clonidine 0.2 mg p.o. 4 times daily with hold parameters Hold amlodipine 10 mg p.o. every morning. Would allow increased pressure head to try to increase cerebral perfusion. CKD- Creatinine 1.51 on admission, with base around 1.45 Continue to follow laboratory serially Diabetes mellitus- Outpatient records show insulin glargine 20-25 units subcu every morning, which will be reduced to 10 units SQ every morning while in hospital Place on Accu-Cheks with NovoLog SSI Hold Ozempic GERD- Continue Nexium/pantoprazole per formulary interchange History of Present Illness Chief Complaint: The patient is brought to the emergency department due to concerns regarding hallucinations, reporting that they were intruders that had gone into her house. Crisis reports that police did not find any intruders present there. Review of outpatient records from [facility] reports the patient has had some unusual behaviors over the past several months, but reports of intruders were a new finding. Primary Care Provider: Anh Manriquez PA-C The patient is a 75-year-old female with a past medical history including CKD stage III, occlusion of left vertebral artery, familial hypercholesterolemia, CAD, history of STEMI, diastolic dysfunction, left carotid stenosis status post left TCAR on 09/22/2024 during hospital admission from 09/21-. Patient was seen by vascular surgery on 11/05/2024, then seen by cardiology Dr. Loo on 01/11/2025. She was most recently seen by vascular surgery Dr. Botello on 01/14/2025, and since on 01/12 a CTA neck revealed a left carotid stent that was significantly occluded due to thrombosis, plans were being made for patient to undergo a left TCAR redo. Due to concerns regarding hallucinations and report of intruders into her home, patient was brought to the emergency department for further evaluation. She was then [facility]. Allergies Allergy/AdvReac Type Severity Reaction Status Date / Time olmesartan [From Benicar] Allergy Severe Stopped me Verified 09/22/24 06:55 from urinating nickel Allergy Redness of Verified 09/22/24 07:25 Skin erythromycin base AdvReac Severe Gastrointestinal Verified 09/22/24 06:55 Upset Ewulore-ZQN-MnB Reductase AdvReac Severe Nausea and Verified 09/22/24 06:55 Inhibitor vomiting Sulfa (Sulfonamide AdvReac Severe Gastrointestinal Verified 09/22/24 06:55 Antibiotics) Upset codeine AdvReac Intermediate Nausea Verified 09/22/24 06:55 atenolol AdvReac Unknown Worsening Verified 09/22/24 06:55 Asthma Home Medications Medication Instructions Recorded Confirmed Type amlodipine 10 mg tablet 10 mg PO QAM 03/16/20 09/22/24 History levalbuterol tartrate 45 2 inh inhalation Q6H PRN Shortness 03/16/20 09/22/24 History mcg/actuation aerosol inhaler Of Breath Or Wheezing (Xopenex HFA) montelukast 10 mg tablet 10 mg PO DAILY PRN asthma 03/16/20 09/22/24 History budesonide-formoterol HFA 160 2 puff inhalation BID PRN seasonal 06/03/23 09/22/24 History mcg-4.5 mcg/actuation aerosol inhaler (Symbicort) esomeprazole magnesium 40 mg 40 mg PO DAILY PRN gerd/nausea 03/18/24 09/22/24 History capsule,delayed release evolocumab 140 mg/mL subcutaneous 140 mg subcut .EVERY 2 WEEKS 03/18/24 09/22/24 History pen injector (Repatha SureClick) famotidine 20 mg tablet 20 mg PO DAILY PRN gerd/nausea 03/18/24 09/22/24 History semaglutide 0.25 mg or 0.5 mg (2 0.5 mg subcut WK 03/18/24 09/22/24 History mg/3 mL) subcutaneous pen injector (Ozempic) spironolactone 25 mg tablet 25 mg PO DAILY PRN Edema 03/18/24 09/22/24 History ticagrelor 90 mg tablet (Brilinta) 90 mg PO BID #180 tabs 03/20/24 09/22/24 Rx aspirin 81 mg tablet,delayed 81 mg PO BID 09/02/24 09/22/24 History release clonidine HCl 0.2 mg tablet 0.2 mg PO QID 09/02/24 09/22/24 History insulin glargine 100 unit/mL (3 20 - 25 unit subcut BID 09/02/24 09/22/24 History mL) subcutaneous pen (Lantus Solostar U-100 Insulin) metoprolol succinate 50 mg 50 mg PO QPM 09/02/24 09/22/24 History tablet,extended release 24 hr Past Med/Surg History Problem List (Updated 01/15/25 @ 20:59 by Master Mancilla MD) Visual hallucinations AMS (altered mental status) (Acute) Left carotid artery occlusion (Acute) Encounter for pre-operative examination Renal insufficiency Occlusion of left vertebral artery (Acute) Familial hypercholesterolemia CAD (coronary atherosclerotic disease) STEMI (ST elevation myocardial infarction) 03/2024 Diastolic dysfunction Medical History (Updated 01/15/25 @ 20:59 by Master Mancilla MD) Hx of ovarian cyst History of confusion (09/03/24) - admitted to [facility], work up for cva- had incidental tiny acute right frontal stroke that was not conclusive; per neuro (09/03/24) "do not believe that this possible (tiny) acute stroke, seen on MRI cause her any symptoms, including confusion. 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 Occlusion of left vertebral artery with good collateral flow per records History of stroke (2017) - Right VAPOR COATER infarct 2017- "traumatic" stroke, as a result of hitting head on car door, resolved, treated at [facility], no deficits - May 2023- admitted for multiple strokes including the right front, left occipital and right cerebellum (MRI at that time also showed right occipital and left cerebellar hemisphere strokes)- started on ASA and Brillinta - 09/03/24 "Incidentally, there may have been a tiny acute right frontal stroke (top of head) but this was not conclusive."; neuro did not feel acute confusion 09/03/24 was caused by this finding- felt it was due to UTI at the time CAD (coronary artery disease) 03/18/24 RCA stent (STONE) 03/20/24- stent to mid LAD (STONE) 05/2024- STONE to mid Cx GERD (gastroesophageal reflux disease) Irregular heartbeat had a holter monitor in past Carotid artery stenosis Left ICA 90% stenosis with occluded left vertebral artery (with good collateral flow)- s/p left TCAR 09/22/24 Near complete thrombosis of proximal stent per 01/12/25 neck CTA- reason for upcoming procedure History of ST elevation myocardial infarction (STEMI) (03/2024) STEMI 03/18/24; 03/18/24 RCA stent (STONE) 03/20/24- stent to mid LAD (STONE) 05/2024- 1 stent to Cx per patient Type 2 diabetes mellitus Hyperlipidemia Asthma triggered by environment allergies, rare use of inhalers Surgical History (Updated 01/15/25 @ 16:03 by Rachael Rodríguez PA-C) History of transcarotid artery revascularization (TCAR) Left side 09/22/24 Hx of heart artery stent x3 03/18/24 stent- rca- [facility] 03/20/24 stent-lad- [facility] stent -circumflex- josephine Follows with cardio [facility] (08/19/24) History of carpal tunnel surgery of left wrist History of laparotomy (1987) ovarian cyst Hx of tubal ligation (04/1990) Hx of section (04/1990) Hx of cardiac catheterization (05/2024) x2 [facility] 03/18/24 stent- rca 03/20/24 stent-lad stent -circumflex- josephine Follows with cardio 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 Feels Safe at Home: No Is there a partner from a previous relationship who is making you feel unsafe now?: No Assistive Devices: None Review of Systems Review of Systems: The patient denies chest pain, palpitations, shortness of breath, dyspnea on exertion, cough, lower extremity swelling, sore throat, fevers, chills, sweats, weight change, fatigue, nausea, vomiting, diarrhea , constipation, abdominal pain, pelvic pain, blood in urine or stool, dysuria, urinary frequency or urgency, lightheadedness, dizziness, headache, memory loss, loss of consciousness, rash, abnormal bruising or bleeding, imbalance, focal or generalized weakness, numbness or tingling in arms or legs, generalized arthralgias or myalgias, back or neck pain, or night sweats. The review of systems is otherwise negative other than for that already noted above, and at least 10 systems have been reviewed. Physical Exam Physical Exam: The patient is awake, alert and oriented 3, well developed and well nourished, normocephalic and atraumatic, lying in bed and in no acute distress. HEENT--PERRL, EOMI, mucous membranes and oropharynx normal Neck--supple. No JVD. No bruits. Thyroid normal, trachea midline, no adenopathy. Heart--normal S1 and S2. No murmurs, rubs or gallops. Lungs--clear bilaterally, no respiratory distress, no accessory muscle use. Abdomen--normal bowel sounds and soft. Nontender. Nondistended, no hernias or masses, no organomegaly. Extremities--no cyanosis or clubbing. No edema. There are good distal pulses b/l. Dermatologic--normal skin turgor, normal color, no abnormal lymph nodes, no rash. Neurologic--cranial nerves II through XII grossly intact. Rheumatologic--normal range of motion. Psychiatric--normal affect. Results & Data Results & Data Vital Signs (Past 12 Hours) Vital Signs Temp Pulse Pulse Resp BP BP Pulse Ox 01/15/25 20:47 67 01/15/25 18:09 58 L 18 136/71 98 01/15/25 16:53 69 01/15/25 16:45 67 18 136/71 96 01/15/25 15:40 36.9 C 65 20 185/100 H 95 O2 Del Method 01/15/25 20:47 01/15/25 18:09 Room Air 01/15/25 16:53 01/15/25 16:45 Room Air 01/15/25 15:40 Room Air Laboratory Results Laboratory Results WBC 6.69 K/ul (4.8-10.8) 01/15/25 16:38 RBC 3.88 M/uL (4.20-5.40) L 01/15/25 16:38 Hgb 12.0 g/dl (12.0-16.0) 01/15/25 16:38 Hct 36.6 % (37.0-47.0) L 01/15/25 16:38 MCV 94.3 fL (80.0-100.0) 01/15/25 16:38 MCH 30.9 pg (25.0-34.0) 01/15/25 16:38 MCHC 32.8 g/dL (32.0-36.0) 01/15/25 16:38 RDW Std Deviation 43.6 fL (36.4-46.3) 01/15/25 16:38 RDW Coeff of Guillermina 12.6 % (11.5-14.5) 01/15/25 16:38 Plt Count 202 K/uL (130-400) 01/15/25 16:38 MPV 12.2 fL (9.4-12.4) 01/15/25 16:38 Immature Gran % (Auto) 0.4 % 01/15/25 16:38 Neut % (Auto) 69.1 % 01/15/25 16:38 Lymph % (Auto) 21.4 % 01/15/25 16:38 [place] % (Auto) 5.8 % 01/15/25 16:38 Eos % (Auto) 2.4 % 01/15/25 16:38 Baso % (Auto) 0.9 % 01/15/25 16:38 Neut # (Auto) 4.62 K/uL (1.40-6.50) 01/15/25 16:38 Lymph # (Auto) 1.43 K/uL (1.20-3.40) 01/15/25 16:38 [place] # (Auto) 0.39 K/uL (0.11-0.59) 01/15/25 16:38 Eos # (Auto) 0.16 K/uL (0.00-0.50) 01/15/25 16:38 Baso # (Auto) 0.06 K/uL (0.00-0.20) 01/15/25 16:38 Immature Gran # (Auto) 0.03 K/uL (0.01-0.20) 01/15/25 16:38 Sodium 141 mmol/L (136-145) 01/15/25 16:38 Potassium 4.0 mmol/L (3.5-5.1) 01/15/25 16:38 Chloride 110 mmol/L (98-107) H 01/15/25 16:38 Carbon Dioxide 22 mmol/L (21-32) 01/15/25 16:38 Anion Gap 9 (3-11) 01/15/25 16:38 BUN 16 mg/dl (6-23) 01/15/25 16:38 Creatinine 1.51 mg/dl (0.6-1.2) H 01/15/25 16:38 Est Cr Clr Drug Dosing 38.2 ml/min 01/15/25 16:38 eGFR 36.28 01/15/25 16:38 BUN/Creatinine Ratio 10.6 (10-20) 01/15/25 16:38 Glucose 111 mg/dl (70-99(Fasting)) H 01/15/25 16:38 Calcium 9.4 mg/dl (8.6-10.3) 01/15/25 16:38 Total Bilirubin 0.4 mg/dl (0.2-1.0) 01/15/25 16:38 AST 12 U/L (13-39) L 01/15/25 16:38 ALT 8 U/L (7-52) 01/15/25 16:38 Alkaline Phosphatase 71 U/L (34-104) 01/15/25 16:38 Total Protein 7.0 gm/dl (6.0-8.3) 01/15/25 16:38 Albumin 3.9 gm/dl (3.4-5.0) 01/15/25 16:38 Globulin 3.1 gm/dl (2.5-4.0) 01/15/25 16:38 Albumin/Globulin Ratio 1.3 (0.9-2) 01/15/25 16:38 TSH 3.368 uIu/ml (0.300-4.500) 01/15/25 16:38 Urine Color Yellow 01/15/25 19:42 Urine Appearance Clear (Clear) 01/15/25 19:42 Urine pH 7.0 (4.5-7.5) 01/15/25 19:42 Ur Specific [place] 1.011 (1.000-1.030) 01/15/25 19:42 Urine Protein Negative (Negative) 01/15/25 19:42 Urine Glucose (UA) Negative (Negative) 01/15/25 19:42 Urine Ketones Trace (Negative) H 01/15/25 19:42 Urine Blood Negative (Negative) 01/15/25 19:42 Urine Nitrite Negative (Negative) 01/15/25 19:42 Urine Bilirubin Negative (Negative) 01/15/25 19:42 Urine Urobilinogen Negative (Negative) 01/15/25 19:42 Ur Leukocyte Esterase Negative (Negative) 01/15/25 19:42 Urine Comment 01/15/25 19:42 Salicylates < 3.0 mg/dl (3.0-30) L 01/15/25 16:38 Urine Opiates Screen Neg (Neg) 01/15/25 19:42 Ur Methadone, Qual Neg (Neg) 01/15/25 19:42 Urine Fentanyl Screen Neg (Neg) 01/15/25 19:42 Acetaminophen 4 ug/ml (10-30) L 01/15/25 16:38 Urine Barbiturates Neg (Neg) 01/15/25 19:42 Ur Phencyclidine (PCP) Neg (Neg) 01/15/25 19:42 U Amphetamin/Meth Scrn Neg (Neg) 01/15/25 19:42 MDMA (Ecstasy) Screen Neg (Neg) 01/15/25 19:42 U Benzodiazepines Scrn Neg (Neg) 01/15/25 19:42 Ur Cocaine Metabolite Neg (Neg) 01/15/25 19:42 U Marijuana (THC) Screen Neg (Neg) 01/15/25 19:42 Ethyl Alcohol mg/dL < 10.0 mg/dl (<10.0) 01/15/25 16:38 SARS-CoV-2, RNA, NAAT NEGATIVE (NEGATIVE) 01/15/25 Unknown Impressions Chest X-Ray 01/15/25 15:52 EXAM: XR chest 1V portable CLINICAL HISTORY: E KIS/EAK TECHNIQUE: An X-ray image of the chest is obtained in AP projection. COMPARISON: No prior studies are available for comparison. FINDINGS: Pulmonary Parenchyma: Lungs are clear bilaterally. No evidence of consolidation, collapse, or focal opacities. No pulmonary nodules are identified. No evidence of pleural effusion or pleural thickening. Heart and Mediastinum: Heart size and shape are normal. No mediastinal widening or masses. No hilar or mediastinal lymphadenopathy. Bony Thorax: Bony thorax appears intact without fractures or deformities. Soft Tissues: Soft tissues overlying the chest wall are unremarkable. IMPRESSION: No acute cardiopulmonary abnormalities are identified. Electronically signed by Owen Donavan 01-15-2025 5:32 PM Brain MRI 01/15/25 16:12 EXAM: MR brain wo con CLINICAL HISTORY: AMS, Occluded L carotid stent. TECHNIQUE: Different pulse sequences were performed in different planes without GD-DTPA injection for the brain. Images were sent through PACs for interpretation. COMPARISON: Prior MRI dated 09/02/2024 FINDINGS: No hyperacute or acute infarctions could be detected. Chronic infarctions with encephalomalacia are seen in the right frontal lobe, Right temporooccipital region with a gliotic evacuee of the right lateral ventricle, and the right temporal horn, and at the Cerebellar hemispheres. Altered deep white matter signals are seen at the forceps minor, forceps major, periventricular, and centrum semiovale regions. These exhibit bright signals on T2 and FLAIR WI, and intermediate signals on T1 WI. Findings suggest consequences of small vessel disease, e.g., hypertensive and/or diabetic vasculopathy. Age-appropriate degenerative involutional changes are denoted by symmetrical dilatation of the ventricular system, prominent cortical sulci, sylvian fissures, cerebellar vermian folia, and basal cisterns. Normal MRI appearance of the central rodriguez matter aggregates. Normal MRI appearance of different anatomical parts of the brain stem, namely the midbrain, giovanni, and medulla oblongata. Normal MRI appearance of the petrous temporal bones, brainstem, vestibule cochlear nerves, and cerebellopontine angles with no definite masses. No shift of midline structures. No intracerebral or extra-axial hematomas or masses. Normal MRI appearance of orbital structures, both globes, optic nerves, optic chiasm, optic tracts, and optic radiations. The scanned paranasal sinuses are unremarkable. Hypertrophic nasal turbinates. A small synovial cyst is seen adjacent to the left aspect of the anterior arch of the atlas vertebra. IMPRESSION: 1. No hyperacute or acute infarctions could be depicted. 2. No intracerebral or extracerebral hematoma. 3. Chronic infarctions with encephalomalacia are seen in the right frontal lobe, Right temporooccipital region with a gliotic evacuee of the right lateral ventricle, and the right temporal horn, and at the inferior Cerebellar hemispheres. 4. Imaging features consistent with the consequences of small vessel disease, e.g., hypertensive and/or diabetic vasculopathy. ([place] 2). 5. The comparison is consistent with a stationary course. Electronically signed by Donavan Weaver 01-15-2025 7:22 PM Code Status & VTE Plan Code Status Full code VTE Prophylaxis Plan VTE Prophylaxis will be ordered: Yes PG Care Time/CCT Total # of Minutes Spent Total Time Spent with Patient: Total time spent is greater than 50% in coordination of care (as documented) at patient's floor/unit and/or counseling patient: Coding Level of Care Code 09097 INT INP/OBS CARE 3/75MIN Diagnoses AMS (altered mental status) R41.82 Visual hallucinations R44.1 Left carotid artery occlusion I65.22 CKD (chronic kidney disease) N18.9 Hypertension I10 CAD (coronary artery disease) I25.10
[2025-01-15] MEDS ORDERED: GLUCAGON FOR INJ 1 MG VIAL SQ PRN (22:51)
[2025-01-15] MEDS ORDERED: DEXTROSE 50% 50 ML SYRINGE IV PRN (22:51)
[2025-01-15] MEDS ORDERED: LEVALBUTEROL TARTRATE 15 GM HFA.AER.AD INH PRN (22:51)
[2025-01-15] MEDS ORDERED: CARBOHYDRATES FOR HYPOGLYCEMIA PO PRN (22:51)
[2025-01-15] MEDS ORDERED: ONDANSETRON INJ 2 MG/ML 2 ML VIAL IV PRN (22:51)
[2025-01-15] MEDS ORDERED: GLUCOSE 10 TAB/TUBE PO PRN (22:51)
[2025-01-15] MEDS ORDERED: GLUCOSE 40% GEL 15 GM TUBE PO PRN (22:51)
[2025-01-15] MEDS: METOPROLOL SUCC 50MG EXT REL TAB PO SCH (23:41)
[2025-01-15] MEDS: TICAGRELOR 90 MG TAB PO SCH (23:42)
[2025-01-15] MEDS: HEPARIN SOD 5,000 UNIT/0.5 ML VIAL SQ SCH (23:44)
[2025-01-15] MEDS: INSULIN ASPART PER UNIT CHARGE SC SCH (23:52)
[2025-01-16] MEDS: ACETAMINOPHEN 325 MG TAB PO PRN (03:37)
[2025-01-16 06:56] LABS: Hematocrit (blood only) 35.6 % (37.0-47.0); Hemoglobin 11.8 g/dl (12.0-16.0); Immature Granulocytes # (auto) 0.01 K/uL (0.01-0.20); Immature Granulocytes % (auto) 0.3 %; Mean Corpuscular Hemoglobin 31.4 pg (25.0-34.0); Mean Corpuscular Volume 94.7 fL (80.0-100.0); Platelet Count 175 K/uL (130-400); RDW Standard Deviation 43.7 fL (36.4-46.3); Red Blood Count 3.76 M/uL (4.20-5.40); White Blood Count 4.00 K/ul (4.8-10.8)
[2025-01-16 07:18] LABS: Hemoglobin A1C 5.7 % (4.5-5.6)
[2025-01-16 07:26] LABS: Alanine Aminotransferase 5.0 U/L (7-52); Albumin Globulin Ratio 1.5 (0.9-2); Alkaline Phosphatase 59.0 U/L (34-104); Anion Gap 6.0 (3-11); Bilirubin,Total 0.5 mg/dl (0.2-1.0); Blood Urea Nitrogen 12.0 mg/dl (6-23); Calcium 8.9 mg/dl (8.6-10.3); Carbon Dioxide 25.0 mmol/L (21-32); Chloride 110.0 mmol/L (98-107); Creatinine Clr Calc Pharmacy 41.5 ml/min; Globulin 2.5 gm/dl (2.5-4.0); Glucose 118.0 mg/dl (70-99(Fasting)); Magnesium 2.1 mg/dl (1.7-2.4); Potassium 4.1 mmol/L (3.5-5.1); Sodium 141.0 mmol/L (136-145); Total Protein 6.2 gm/dl (6.0-8.3)
[2025-01-16] MEDS: LANTUS PER UNIT CHARGE SQ SCH (08:13)
[2025-01-16] MEDS: ASPIRIN 81 MG ECTAB PO SCH (08:14)
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
--- NOTE | 2025-01-16 12:16 | Electrocardiogram Report ---
Test Reason : Blood Pressure : */* mmHG Vent. Rate : 70 BPM Atrial Rate : 70 BPM P-R Int : 204 ms QRS Dur : 78 ms QT Int : 394 ms P-R-T Axes : 49 34 4 degrees QTcB Int : 425 ms Sinus rhythm with Premature atrial complexes in a pattern of bigeminy Low voltage QRS Poor R wave progression, consider anterior AK vs. lead placement vs. LVH Abnormal ECG When compared with ECG of 23-Sep-2024 12:59, Minimal criteria for Anterior infarct are now Present Confirmed by Jose Montero ([id number]) on 01/16/2025 12:16:28 PM Referred By: REFERRED SELF Confirmed By: Jose Montero
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
[2025-01-16] MEDS ORDERED: ACETAMINOPHEN SUSP 325 MG/10.15 ML UDC PO PRN (16:33)
[2025-01-16] MEDS: ACETAMINOPHEN 500 MG TAB PO PRN (17:10)
--- NOTE | 2025-01-17 09:18 | Hospitalist Progress Note ---
Date of Service January 17, 2025 Assessment & Plan (1) Left carotid artery occlusion: (2) Encounter for pre-operative examination: (3) Visual hallucinations: (4) CKD stage 3b, GFR 30-44 ml/min: (5) Delusional disorder, persecutory type: Plan Pn summary this is a 75-year-old female admitted to [facility] for preoperative evaluation in the setting of restenosis of their left carotid artery of which they are currently asymptomatic; additionally found to be exhibi ting visual hallucinations and paranoia based on history and available data from the outpatient setting. #Left carotid artery occlusion, recurrent At this time the patient does not exhibit any acute symptoms of the left carotid artery occlusion; their imaging obtained in the outpatient setting as well as in the emergency department does exhibit significant right frontal lobe changes consequential of chronic infarcts and subsequent encephalomalacia which may be the cause of their psychiatric condition as discussed further below. At this time, the patient is medically optimized to proceed with surgical intervention Vascular surgery consulted #Delusional disorder, persecutory type // Frontal lobe encephalomalacia and chronic infarction With regard to the patient's paranoia and visual hallucinations, this may be consequential of their documented right frontal lobe vascular disease with MRI obtained in the emergency department on 01/15; this may also be consequential of progressive vascular dementia, other delusional psychiatric conditions, it does not appear this has been previously addressed and available charts to review today. Psychiatry consulted; recommend initiation of Abilify 5 mg daily with increase to 10 mg daily if tolerated well Admission and Anticipated Discharge Date Admission Date: January 15, 2025 Anticipated date of discharge: 01/20/25 Subjective Ms. Almaraz is a 75-year-old female whose active medical conditions include essential hypertension with coronary as well as peripheral atherosclerotic disease, CKD stage IIIb among other chronic medical conditions who was brought to the [facility] due to concern of visual hallucinations and paranoia. Incidentally, the patient was found to have a restenosis of the left carotid artery which has been previously stented, the at this time patient is not endorsing any symptoms of occlusion. No acute overnight events; patient feels well this morning with no specific complaints or concerns other than discussion as reviewed below with respect to their claim that their neighbor is living in their house. Review of Systems Review of Systems: Constitutional: denies fevers, chills, malaise, fatigue Cardiovascular: denies angina, palpitations, syncope, peripheral edema Pulmonary: denies cough, dyspnea on exertion, pleuritic chest pain Gastrointestinal: denies nausea, emesis, dysphagia, dyspepsia, constipation, diarrhea Neurologic: denies focal weakness, paresthesias or numbness, vision changes or diplopia, ataxia Integumentary: denies new or developing rashes or lesions Physical Exam Physical Exam: General: Elderly female in no acute distress Vital Signs: Reviewed HEENT: Normocephalic, atraumatic; pupils equally reactive to light, extraocular motions intact; moist mucous membranes Neck: No palpable lymphadenopathy Pulmonary: symmetric chest wall excursion; CTAB Cardiovascular: Regular rate and rhythm with no murmurs, rubs, or gallops; S1 and S2 normal; bilateral radial and posterior tibial pulses 2+; no notable lower extremity edema Gastrointestinal: soft, nondistended Neurologic: CN II-XII grossly intact; no discernible focal weakness nor paresthesias Psychiatric: Alert, oriented to self, place, time; similar psychiatric findings to 01/16 Results & Data Results & Data Vital Signs (Past 12 Hours) Vital Signs Temp Pulse Pulse Resp BP Pulse Ox O2 Del Method 01/17/25 08:01 36.7 C 59 L 18 110/69 95 Room Air 01/17/25 06:45 63 01/17/25 05:00 36.6 C 63 19 140/76 96 Room Air 01/16/25 23:32 Room Air 01/16/25 22:57 36.4 C L 56 L 20 111/62 97 Room Air 01/16/25 22:35 60 PG Care Time/CCT Total # of Minutes Spent Total Time Spent with Patient: Total time spent is greater than 50% in coordination of care (as documented) at patient's floor/unit and/or counseling patient: Coding Level of Care Code 88479 SUB INP/OBS CARE 2/35MIN Diagnoses Left carotid artery occlusion I65.22 Encounter for pre-operative examination Z01.818 Visual hallucinations R44.1 CKD stage 3b, GFR 30-44 ml/min N18.32 Delusional disorder, persecutory type F22
[2025-01-18] MEDS ORDERED: REPATHA 140 MG SQ SCH (07:00)
[2025-01-18] MEDS: SODIUM CHLORIDE 0.9% 1,000 ML IV ONE (07:21)
[2025-01-18] MEDS ORDERED: PHENYLEPHRINE/NSS 25 MG/250 ML BAG IV PRN ×2 (07:22→11:50)
[2025-01-18] MEDS ORDERED: HYDROmorphone INJ 1 MG/ML SYRINGE IV PRN (07:22)
[2025-01-18] MEDS ORDERED: ATROPINE SULFATE 0.1 MG/ML 10ML SYR IV PRN (07:22)
[2025-01-18] MEDS ORDERED: ONDANSETRON INJ 2 MG/ML 2 ML VIAL IV PRN (07:22)
--- NOTE | 2025-01-18 07:29 | History & Physical Bridge Note ---
Date of Service January 18, 2025 History & Physical Bridge Note I have examined the patient, reviewed the History & Physical and in the interval since the performance of the History & Physical I have noted the following changes of clinical significance: no changes noted
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
--- NOTE | 2025-01-18 07:41 | Anesthesiology Consultation ---
Date of Service January 18, 2025 Assessment & Plan Chart Review Chart Review: Acceptable Risk for Surgery Consults Requested none ASA ASA3 Proposed Anesthesia Anesthesia Type: General Regional Laterality: Left History Surgery Operation Date: 01/18/25 08:00 Proposed Procedures p Left Transcarotid Artery Revascularization - Landon Botello MD Height/Weight Height: 5 ft 6 in Weight: 90.9 kg Allergies Allergy/AdvReac Type Severity Reaction Status Date / Time olmesartan [From Benicar] Allergy Severe Stopped me Verified 01/18/25 07:05 from urinating nickel Allergy Redness of Verified 01/18/25 07:05 Skin erythromycin base AdvReac Severe Gastrointestinal Verified 01/18/25 07:05 Upset [id number] Reductase AdvReac Severe Nausea and Verified 01/18/25 07:05 Inhibitor vomiting Sulfa (Sulfonamide AdvReac Severe Gastrointestinal Verified 01/18/25 07:05 Antibiotics) Upset codeine AdvReac Intermediate Nausea Verified 01/18/25 07:05 atenolol AdvReac Unknown Worsening Verified 01/18/25 07:05 Asthma Medications Home Medications Medication Instructions Recorded Confirmed Last Taken amlodipine 10 mg tablet 10 mg PO QAM 03/16/20 09/22/24 09/22/24 07:02 levalbuterol tartrate 45 2 inh inhalation Q6H PRN Shortness 03/16/20 09/22/24 03/18/24 mcg/actuation aerosol inhaler Of Breath Or Wheezing (Xopenex HFA) montelukast 10 mg tablet 10 mg PO DAILY PRN asthma 03/16/20 09/22/24 Unknown budesonide-formoterol HFA 160 2 puff inhalation BID PRN seasonal 06/03/23 09/22/24 06/08/23 mcg-4.5 mcg/actuation aerosol inhaler (Symbicort) esomeprazole magnesium 40 mg 40 mg PO DAILY PRN gerd/nausea 03/18/24 09/22/24 09/21/24 20:00 capsule,delayed release evolocumab 140 mg/mL subcutaneous 140 mg subcut .EVERY 2 WEEKS 03/18/24 09/22/24 03/06/24 pen injector (Repstephanie SureOdellick) famotidine 20 mg tablet 20 mg PO DAILY PRN gerd/nausea 03/18/24 09/22/24 09/21/24 20:00 semaglutide 0.25 mg or 0.5 mg (2 0.5 mg subcut WK 03/18/24 09/22/24 09/21/24 09:00 mg/3 mL) subcutaneous pen injector (Ozempic) spironolactone 25 mg tablet 25 mg PO DAILY PRN Edema 03/18/24 09/22/24 Unknown ticagrelor 90 mg tablet (Brilinta) 90 mg PO BID #180 tabs 03/20/24 09/22/24 01/18/25 aspirin 81 mg tablet,delayed 81 mg PO BID 09/02/24 09/22/24 01/18/25 release clonidine HCl 0.2 mg tablet 0.2 mg PO QID 09/02/24 09/22/24 09/22/24 07:04 insulin glargine 100 unit/mL (3 20 - 25 unit subcut BID 09/02/24 09/22/24 09/21/24 15:00 mL) subcutaneous pen (Lantus 25 units Solostar U-100 Insulin) metoprolol succinate 50 mg 50 mg PO QPM 09/02/24 09/22/24 09/21/24 20:00 tablet,extended release 24 hr Active Medications Generic Name Dose Route Start Last Admin Trade Name Freq PRN Reason Stop Dose Admin Acetaminophen 1,000 mg 01/16/25 16:53 01/17/25 15:17 Acetaminophen 500 Mg Tab PO 02/15/25 16:52 1,000 mg Q6H PRN Administration Headache or Pain Aspirin 81 mg 01/16/25 09:00 01/18/25 06:34 Aspirin 81 Mg Ectab PO 02/15/25 08:59 81 mg QAM MAYANK Administration Clonidine HCl 0.2 mg 01/15/25 22:51 01/18/25 05:28 Clonidine Hcl 0.1 Mg Tab PO 02/14/25 22:50 0.2 mg QID@0500,1000,1200,1800 MAYANK Administration Sodium Chloride 1,000 mls @ 50 mls/hr 01/18/25 07:16 01/18/25 07:21 Nss IV 01/19/25 03:15 50 mls/hr .Q20H ONE Administration Insulin Aspart 0 units 01/15/25 22:51 01/18/25 06:56 Insulin Aspart Per Unit Charge SC 02/14/25 22:50 Not Given ACHS MAYANK Insulin Glargine 10 units 01/16/25 09:00 01/17/25 09:05 Lantus Per Unit Charge SQ 02/15/25 08:59 10 units QAM MAYANK Administration Metoprolol Succinate 50 mg 01/15/25 22:51 01/17/25 20:51 Metoprolol Succ 50mg Ext Rel Tab PO 02/14/25 22:50 50 mg QPM MAYANK Administration Ticagrelor 90 mg 01/15/25 22:51 01/18/25 06:34 Ticagrelor 90 Mg Tab PO 02/14/25 22:50 90 mg BID MAYANK Administration NPO Date Last Intake of Fluids: 01/18/25 Time Last Intake of Fluids: 06:30 Last Intake of Fluids Comment: sip with morning meds Date Last Intake of Solids: 01/17/25 Time Last Intake of Solids: 23:59 Past Medical History Medical History Familial hypercholesterolemia Hx of ovarian cyst History of confusion (09/03/24) - admitted to [facility], work up for cva- had incidental tiny acute right frontal stroke that was not conclusive; per neuro (09/03/24) "do not believe that this possible (tiny) acute stroke, seen on MRI cause her any symptoms, including confusion. 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 2017- "traumatic" stroke, as a result of hitting head on car door, resolved, treated at [facility], no deficits - May 2023- admitted for multiple strokes including the right front, left occipital and right cerebellum (MRI at that time also showed right occipital and left cerebellar hemisphere strokes)- started on ASA and Brillinta - 09/03/24 "Incidentally, there may have been a tiny acute right frontal stroke (top of head) but this was not conclusive."; neuro did not feel acute confusion 09/03/24 was caused by this finding- felt it was due to UTI at the time GERD (gastroesophageal reflux disease) Irregular heartbeat had a holter monitor in past Carotid artery stenosis Left ICA 90% stenosis with occluded left vertebral artery (with good collateral flow)- s/p left TCAR 09/22/24 Near complete thrombosis of proximal stent per 01/12/25 neck CTA- reason for upcoming procedure History of ST elevation myocardial infarction (STEMI) (03/2024) STEMI 03/18/24; 03/18/24 RCA stent (STONE) 03/20/24- stent to mid LAD (STONE) 05/2024- 1 stent to Cx per patient Type 2 diabetes mellitus Pt is understanding this am, no baseline to go by but she is acutely aware of her surroundings and understands what she is having done Exercise / Class Metabolic Activity III < 4 Walking/Shop/Light housework Past Family History Family History Mother , age 75 of lung cancer Lung cancer Father , age 65 of an [place] Myocardial infarction Past Surgical History Surgical History History of transcarotid artery revascularization (TCAR) Left side 09/22/24 Hx of heart artery stent x3 03/18/24- 1 stent- rca- [facility] 03/20/24- 1 stent-lad- [facility] 05/2024- stent -circumflex- josephine Follows with cardio [facility] (08/19/24) History of carpal tunnel surgery of left wrist History of laparotomy (1987) ovarian cyst Hx of tubal ligation (04/1990) Hx of section (04/1990) Hx of cardiac catheterization (05/2024) x2 [facility] 03/18/24- 1 stent- rca 03/20/24- 1 stent-lad 05/2024- stent -circumflex- josephine Follows with cardio [facility] (08/19/24) Past Anesthesia History No Hx of Anesthesia Complications History of PONV No Hx of PONV Social History Smoking Status: Unknown if ever smoked Do You Dip or Chew Tobacco: No Hx Alcohol Use: Yes Alcohol type: beer alcohol intake frequency: holidays/special occasions only Hx Substance Use: No substance use type: does not use Review of Systems ROS Unobtainable: All systems reviewed & are unremarkable except as noted in HPI & below Physical Exam Vital Signs Last Vital Signs Temp 37 C 01/18/25 06:59 Pulse 72 01/18/25 06:59 Resp 17 01/18/25 06:59 BP 169/83 H 01/18/25 06:59 Pulse Ox 98 01/18/25 06:59 O2 Del Method Room Air 01/18/25 06:59 Constitutional no acute distress ENMT Mouth: + poor dentition (Multiple missing ); no TMJ abnormality Thyromental Distance: > or= 3.5 Finger Breadths Mallampati Class: II Respiratory normal respiratory effort Auscultation: lungs clear to auscultation bilaterally Cardiovascular Rate/Rhythm: regular rate and regular rhythm Neurologic moves all extremities Psychiatric Orientation: alert and oriented x 3 Testing Laboratory Results 01/16/25 06:25 01/16/25 06:25 Hemoglobin A1c 5.7 % (4.5-5.6) H 01/16/25 06:25 Urine Color Yellow 01/15/25 19:42 Urine Appearance Clear (Clear) 01/15/25 19:42 Urine pH 7.0 (4.5-7.5) 01/15/25 19:42 Ur Specific [place] 1.011 (1.000-1.030) 01/15/25 19:42 Urine Protein Negative (Negative) 01/15/25 19:42 Urine Glucose (UA) Negative (Negative) 01/15/25 19:42 Urine Ketones Trace (Negative) H 01/15/25 19:42 Urine Nitrite Negative (Negative) 01/15/25 19:42 Ur Leukocyte Esterase Negative (Negative) 01/15/25 19:42 01/18/25 01/17/25 06:14 20:24 POC Glucose 113 H 102 H
--- NOTE | 2025-01-18 09:17 | Hospitalist Progress Note ---
Date of Service January 18, 2025 Assessment & Plan (1) Left carotid artery occlusion: (2) Encounter for pre-operative examination: (3) Visual hallucinations: (4) CKD stage 3b, GFR 30-44 ml/min: (5) Delusional disorder, persecutory type: Plan Pn summary this is a 75-year-old female admitted to [facility] for preoperative evaluation in the setting of restenosis of their left carotid artery of which they are currently asymptomatic; additionally found to be exhibi ting visual hallucinations and paranoia based on history and available data from the outpatient setting. #Left carotid artery occlusion, recurrent At this time the patient does not exhibit any acute symptoms of the left carotid artery occlusion; their imaging obtained in the outpatient setting as well as in the emergency department does exhibit significant right frontal lobe changes consequential of chronic infarcts and subsequent encephalomalacia which may be the cause of their psychiatric condition as discussed further below. At this time, the patient is medically optimized to proceed with surgical intervention Vascular surgery consulted; surgical intervention 01/18 anticipated #Delusional disorder, persecutory type // Frontal lobe encephalomalacia and chronic infarction With regard to the patient's paranoia and visual hallucinations, this may be consequential of their documented right frontal lobe vascular disease with MRI obtained in the emergency department on 01/15; this may also be consequential of progressive vascular dementia, other delusional psychiatric conditions, it does not appear this has been previously addressed and available charts to review today. Psychiatry consulted; recommend initiation of Abilify 5 mg daily with increase to 10 mg daily if tolerated well Admission and Anticipated Discharge Date Admission Date: January 15, 2025 Subjective Ms. Almaraz is a 75-year-old female whose active medical conditions include essential hypertension with coronary as well as peripheral atherosclerotic disease, CKD stage IIIb among other chronic medical conditions who was brought to the [facility] due to concern of visual hallucinations and paranoia. Incidentally, the patient was found to have a restenosis of the left carotid artery which has been previously stented, the at this time patient is not endorsing any symptoms of occlusion. No acute overnight events; anticipated surgical intervention today. Review of Systems Review of Systems: Constitutional: denies fevers, chills, malaise, fatigue Cardiovascular: denies angina, palpitations, syncope, peripheral edema Pulmonary: denies cough, dyspnea on exertion, pleuritic chest pain Gastrointestinal: denies nausea, emesis, dysphagia, dyspepsia, constipation, diarrhea Neurologic: denies focal weakness, paresthesias or numbness, vision changes or diplopia, ataxia Integumentary: denies new or developing rashes or lesions Physical Exam Physical Exam: General: Elderly female in no acute distress Vital Signs: Reviewed HEENT: Normocephalic, atraumatic; pupils equally reactive to light, extraocular motions intact; moist mucous membranes Neck: No palpable lymphadenopathy Pulmonary: symmetric chest wall excursion; CTAB Cardiovascular: Regular rate and rhythm with no murmurs, rubs, or gallops; S1 and S2 normal; bilateral radial and posterior tibial pulses 2+; no notable lower extremity edema Gastrointestinal: soft, nondistended Neurologic: CN II-XII grossly intact; no discernible focal weakness nor p aresthesias Psychiatric: Alert, oriented to self, place, time; similar psychiatric findings to 01/16 Results & Data Results & Data Vital Signs (Past 12 Hours) Vital Signs Temp Pulse Pulse Resp BP BP Pulse Ox 01/18/25 06:59 37 C 72 17 169/83 H 170/85 H 98 01/18/25 06:45 60 01/18/25 05:28 60 127/81 01/18/25 03:22 36.6 C 58 L 16 129/78 98 01/17/25 23:15 36.8 C 58 L 16 127/75 94 01/17/25 23:02 56 L O2 Del Method 01/18/25 06:59 Room Air 01/18/25 06:45 01/18/25 05:28 01/18/25 03:22 Room Air 01/17/25 23:15 Room Air 01/17/25 23:02 Coding Level of Care Code 23762 SUB INP/OBS CARE 07/11MIN Diagnoses Left carotid artery occlusion I65.22 Encounter for pre-operative examination Z01.818 Visual hallucinations R44.1 CKD stage 3b, GFR 30-44 ml/min N18.32 Delusional disorder, persecutory type F22
[2025-01-18] MEDS: VISIPAQUE IV ONE (09:52)
--- NOTE | 2025-01-18 09:55 | Post Operative Brief Note ---
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
[2025-01-18] MEDS: ARISTA ABSORBABLE HEMOSTAT 3GM TOP ONE (09:58)
[2025-01-18] MEDS: ceFAZolin 330 MG/ML 1 GM VIAL IR ONE (10:09)
--- NOTE | 2025-01-18 10:26 | Operative Report ---
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 After balloon angioplasty and relining of the stent, there was good stent apposition to the vessel wall. There were no areas of flow limiting stenosis identified. Patient was moving all extremities to command at conclusion of the case. Specimens None Anesthesia Type General Complications None Disposition Accompanied Patient To Recovery: Yes Indications 75 year old female with prior left transcarotid artery stent (TCAR) found to have a dissection of the carotid artery just proximal to the stent with flow limiting stenosis. Description of Procedure The patient was brought to the operating room, where lines were placed and general anesthesia was accomplished by anesthesia team. A shoulder roll was placed and the neck was rotated towards the right side of the patient. The left neck and bilateral groins were prepped and patient was draped in the usual sterile fashion. A timeout was performed identifying the correct patient by name, procedure, and location of procedure and all were in agreement. A 4cm transverse incision was made between the sternal and clavicular heads of the sternocleidomastoid muscle, taking care to perform the incision over the prior scar. The muscle heads were retracted to each side and the carotid sheath was id entified. There was some scar present from the prior surgery and care was taken to identify each plane and protect the underlying structures. Using blunt dissection, the carotid sheath was opened and 3cm of common carotid artery (CCA) were isolated. Umbilical tape was placed around the proximal CCA under direct visualization. A 5-0 prolene U-stitch was pre-placed in the anterior wall of the CCA to facilitate hemostasis after removal of the arterial sheath at completion of the procedure. The patient was given 8,000 units of IV heparin. The contralateral (right) common femoral vein was accessed under ultrasound guidance using a micropuncture needle, and a wire and sheath were placed using modified Seldinger technique. The venous return sheath was advanced into the common femoral vein over the 0.035" wire. Blood was aspirated from the flow line and the sheath was flushed with heparinized saline.The sheath was secured to the patient's skin with a 2-0 silk stitch to maintain position in the vessel. We then turned our attention back to the neck. ACT was confirmed to be above 250 seconds prior to arterial access. A 4-Bulgarian non-stiffened micropuncture set was used to puncture the artery with a 21G needle through the pre-placed U-stitch while holding gentle traction on the umbilical tape to stabilize the CCA within the incision. The micropuncture wire was advanced 3-4cm into the CCA and the 21G needle removed. The micropuncture sheath was advanced 2cm into the CCA and the wire and dilator were removed. A cerebral angiogram was obtained after ensuring there were no air bubbles in the system. The J-tipped guidewire was inserted and we stopped short of the bifurcation at the level of the distal common carotid artery. After micropuncture sheath removal, the transcarotid arterial sheath was advanced to the hub and the 0.035" wire and dilator were removed. Arterial sheath position was assessed under fluoroscopy. The arterial sheath was sutured to the patient at two sites. The Flow Controller was connected to the transcarotid arterial sheath, prepared by passively allowing arterial blood to backfill the line and then it was connected to the venous return sheath. The CCA was clamped proximally with a John tourniquet to ensure active flow reversal. Heparinized saline was delivered into the venous flow line to confirm adequate flow reversal. A left carotid angiogram was obtained. A TCAR timeout was performed, heart rate was >70bpm and systolic BP was >140mmHg. Patient had been pretreated with glycopyrrolate and atropine was available. The lesion was crossed with an 0.014" guidewire and we attempted to pass a Kumpe catheter to obtain an angiogram and confirm true lumen. The wire passed easily into the distal internal carotid artery and appeared to be in true lumen. The Kumpe would not pass easily. We removed the Kumpe and used an 0.018" QuikCross catheter instead. We were able to pass the QuikCross catheter to our distal internal carotid artery. We then exchanged our wire for a long 0.014" Command wire and put in an 0.014" balloon over the wire. We removed our wire and took an angiogram through the balloon to confirm that we were in the true lumen. We then removed the balloon over the wire and exchanged it for the [employer]kRoad rapid exchange 4x25mm pre-dilation balloon. This was inflated to 14 atmospheres for about 2 seconds. The balloon was then removed over the wire and a straight [id number] [id number] transcarotid stent was placed overlapping the prior stent and covering the proximal koi artery at the area of the dissection. Post-dilation balloon angioplasty was performed with a 5.5x35mm SilkRoad rapid exchange balloon inflated to 14 atmospheres for about 2 seconds. After allowing at least 2 minutes of continued flow reversal, a completion angiogram was performed showing appropriate stent position with good wall apposition. At TCAR case completion, antegrade flow was restored by releasing the tourniquet on the CCA and closing the stopcocks to the flow lines. The total clamp time was 35 minutes. The transcarotid arterial sheath was removed and the pre-placed suture was tied. 25mg of protamine were given. A repeat ACT was obtained 3 minutes after protamine was given and was 135. The venous return sheath was removed and hemostasis achieved with manual compression. The neck incision was irrigated with antibiotic solution and was hemostatic before closure. 20cc of 0.25% marcaine with epinephrine were used for local anesthesia around skin edges. The platysma was approximated with 3-0 Vicryl running suture and the skin was closed with 4-0 running Vicryl suture and covered with Dermabond. The patient tolerated the procedure well and was extubated in the operating room. She was moving all four extremities to command prior to transfer to the recovery room. All counts were correct at the end of the procedure. Fluoroscopy time was 7.7 minutes, radiation dose was 81 mGy and 24 cc of contrast were used. Dr. Botello was present and participated in all critical parts of the procedure. I attest to the content of the Intraoperative Record and any orders documented therein. Any exceptions are noted below.
[2025-01-18] MEDS: BUPIVACAINE/EPINEPHRINE 0.5% MPF 1:200,000 10 ML VIAL INFIL ONE (10:27)
--- NOTE | 2025-01-18 11:26 | Anesthesiology Progress Note ---
Date of Service January 18, 2025 Anesthesia Post Procedure Vital Signs Vital Signs: Temp Pulse Pulse Pulse Pulse Resp BP 01/18/25 11:15 73 12 161/66 H 01/18/25 11:00 36 C L 72 12 160/66 H 01/18/25 10:50 73 12 158/65 H 01/18/25 10:40 76 14 163/69 H 01/18/25 10:32 36.2 C L 86 16 01/18/25 06:59 37 C 72 17 169/83 H 01/18/25 06:45 60 01/18/25 05:28 60 127/81 01/18/25 03:22 36.6 C 58 L 16 129/78 01/17/25 23:15 36.8 C 58 L 16 127/75 01/17/25 23:02 56 L 01/17/25 19:46 36.5 C 62 16 123/68 01/17/25 17:40 63 133/80 01/17/25 15:13 36.6 C 61 18 144/79 H 01/17/25 13:20 59 L 01/17/25 11:36 36.6 C 61 18 117/69 BP Pulse Ox O2 Del Method 01/18/25 11:15 166/84 H 97 Room Air 01/18/25 11:00 175/83 H 99 Room Air 01/18/25 10:50 173/88 H 100 Room Air 01/18/25 10:40 162/95 H 99 Room Air 01/18/25 10:32 152/78 H 99 Room Air 01/18/25 06:59 170/85 H 98 Room Air 01/18/25 06:45 01/18/25 05:28 01/18/25 03:22 98 Room Air 01/17/25 23:15 94 Room Air 01/17/25 23:02 01/17/25 19:46 96 Room Air 01/17/25 17:40 01/17/25 15:13 97 Room Air 01/17/25 13:20 01/17/25 11:36 97 Room Air Pain Intensity Head: Pain Intensity: 4 Transfer of Care Handoff Completed per policy Notes Mental Status: alert / awake / arousable Patient Amnestic to Procedure: Yes Nausea / Vomiting: adequately controlled Pain: adequately controlled Airway Patency, RR, SpO2: stable & adequate BP & HR: stable & adequate Hydration State: stable & adequate Anesthetic Complications: no major complications apparent and Pt Satisfied with anesthetic care Notes: moves all extremities, Back to baseline, no issues comfortable
[2025-01-18] MEDS ORDERED: STAT IV Infusion **Titration per Protocol STA (11:50)
[2025-01-18] MEDS ORDERED: PHARMACY GLYCEMIC MGMT CONSULT PRN (11:50)
[2025-01-18] MEDS: LACTATED RINGER'S 1,000 ML IV SCH (12:06)
--- NOTE | 2025-01-18 13:58 | Pharmacy Report ---
Pharmacy Glycemic Short Note 2 - Date of Service January 18, 2025 - Glycemic Short BSG Results (Last 24 hours): 01/17/25 01/17/25 01/18/25 17:09 20:24 06:14 POC Glucose 100 H 102 H 113 H 01/18/25 01/18/25 10:37 11:59 POC Glucose 125 H 173 H OUTPATIENT ANTIDIABETIC REGIMEN: * lantus 20-25 units BID, ozempic weekly * A1c 5.7% ASSESSMENT: * Consulted following left TCAR. * BSGs have been stable with 10 units of lantus and Novolog although minimal novolog has been given * [phone] mg/dL yesterday. Will loosen novolog parameters. * Fasting this AM 113 mg/dL- will continue with 10 units of lantus qAM PLAN FOR INPATIENT GLYCEMIC CONTROL: * Hold outpatient oral diabetes medications * Basal insulin * Lantus 10 units SQ qAM * Bolus insulin * NovoLog per scale ACHS or Q6hrs while NPO * Goal Range: Low 120 mg/dL - High 160 mg/dL * Correction Factor: 35 mg/dL/unit * Nutritional / Prandial insulin per carb ratio of 1 unit per 14 grams CHO consumed
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
[2025-01-18] MEDS: EVOLOCUMAB 140 MG/ML SQ SCH (21:35)
[2025-01-18] MEDS: MoRPHine SULFATE 2 MG/ML CARP IV PRN (21:57)
[2025-01-18] MEDS: ONDANSETRON INJ 2 MG/ML 2 ML VIAL IV PRN (22:06)
[2025-01-18] MEDS: ONDANSETRON INJ 2 MG/ML 2 ML VIAL ONE (22:07)
[2025-01-19] MEDS: MoRPHine SULFATE 2 MG/ML CARP IV STA (03:29)
--- NOTE | 2025-01-19 03:32 | Communication Note ---
Date of Service: January 19, 2025 Patient complain of chest pain 7/10 over her left breast area. Pain reported pain as an ache and went away with her massaging the area so may have component of her incisional pain as well. ECG obtained and is without acute changes when compared to her previous ECG on the 15 of January. She is noted to be hypertensive and has received her Amlodipine as this was intervened on by the surgeon image consultant. Patient will also receive Morphine 2mg as she has refused her previous oral pain medications. Will follow her symptoms and hemodynamics. She remains on ASA, Brilinta, and Metoprolol, she will also receive her Clonidine within the next few hours. Josh MOODY (ACNP-)
[2025-01-19 06:06] VITALS: O2SAT 95
--- NOTE | 2025-01-19 07:26 | Critical Care Progress Note ---
Date of Service January 19, 2025 Assessment & Plan (1) CAD (coronary atherosclerotic disease): (2) Occlusion of left vertebral artery: (3) Left carotid artery occlusion: (4) CKD stage 3b, GFR 30-44 ml/min: (5) Essential hypertension: (6) Delusional disorder, persecutory type: (7) Type 2 diabetes mellitus: Plan 74-year-old female with recent TIA, had left-sided TCAR September 2024 but had restenosis, underwent another procedure today by Dr. Botello. In ICU for further care Past medical history: Coronary disease, HFpEF -- Carotid artery stenosis Left-sided TCAR 09/22/2024 with restenosis --> redo left TCAR 01/18/[address] Botello Continue with neurochecks Monitor for signs of bleeding --Hypertension On metoprolol succinate 50, spironolactone 25, clonidine 0.2 p.o. 4 times daily -- CKD Baseline creatinine 1.45 Monitor BUNs/creatinine --GERD On esomeprazole at home --Carries history of asthma On Symbicort 160 along with montelukast at home Does not seem to be in exacerbation -- History of psychiatric/delusional disorder Treated as per primary team --Normocytic anemia Monitor H&H --Prophylaxis VTE: IPC GI: Pantoprazole Lines: Left radial, peripheral Diet: Cardiac Plan: In/out: +3 L, urine output not clearly measured Disposition as per primary team and vascular surgery Please note the above document was generated using voice recognition software. It may contain grammatical, syntax or spelling errors.Any formal questions or concerns about the content, text or information contained within the body of this dictation should be directly addressed to the provider for clarification. Admission and Anticipated Discharge Date Admission Date: January 15, 2025 Subjective Patient seen and examined at bedside. No acute distress Around 2 AM today patient complained of some chest pain with increased blood pressure. EKG did not show any changes She got morphine and blood pressure medication and that resolved her chest pain Denies any chest pain, no shortness of breath, no coughing, no abdominal pain Had breakfast without any issues, no difficulty swallowing No nausea or vomiting Review of Systems 2 Review of Systems: All systems reviewed & are unremarkable except as noted in Subjective Physical Exam 2 Physical Exam: Constitutional: No acute distress HEENT: EOMI, PERRLA, left-sided TCAR incision clean Respiratory system: Good air entry bilaterally, no wheeze, no rhonchi, mild crackles right lower lobe CVS: S1-S2 positive, positive 2 out of 3 systolic murmur appreciated best at aorta Abdomen: Soft, nontender, nondistended, positive bowel sounds x4 Extremities: +2 pulses bilaterally radialis/ dorsalis pedis, no cyanosis, no edema Neuro: Awake alert oriented x3, cranial nerves II through XII grossly intact Psych: Normal mood and affect Skin: no rashes, warm and dry Lymphatic: no cervical or axillary lymphadenopathy Results & Data Results & Data Vital Signs (Past 12 Hours) Vital Signs Temp Pulse Resp BP Pulse Ox 01/19/25 06:00 65 12 95 01/19/25 05:11 162/78 H 01/19/25 05:03 66 15 94 01/19/25 05:00 66 18 95 01/19/25 04:11 151/76 H 01/19/25 04:03 71 13 96 01/19/25 03:09 72 14 97 01/19/25 03:00 62 16 176/85 H 97 01/19/25 02:47 189/89 H 01/19/25 02:39 183/91 H 01/19/25 02:27 73 16 97 01/19/25 02:12 186/89 H 01/19/25 02:12 72 11 L 96 01/19/25 02:03 70 14 97 01/19/25 01:11 176/93 H 01/19/25 01:03 71 14 97 01/19/25 00:12 71 23 97 01/19/25 00:12 153/88 H 01/19/25 00:12 153/88 H 01/19/25 00:03 36.4 C L 01/18/25 23:00 84 13 96 01/18/25 22:11 173/84 H 01/18/25 22:03 65 17 01/18/25 21:21 70 16 97 01/18/25 21:11 175/80 H 01/18/25 20:11 153/78 H 01/18/25 20:06 65 13 97 Laboratory Results 01/16/25 06:25 01/16/25 06:25 Coding Level of Care Code 80468 SUB INP/OBS CARE 1/25MIN Diagnoses CAD (coronary atherosclerotic disease) I25.10 Occlusion of left vertebral artery I65.02 Left carotid artery occlusion I65.22 CKD stage 3b, GFR 30-44 ml/min N18.32 Essential hypertension I10 Delusional disorder, persecutory type F22 Type 2 diabetes mellitus E11.9
[2025-01-19 07:31] VITALS: TEMP 99.3
--- NOTE | 2025-01-19 08:27 | Hospitalist Progress Note ---
Date of Service January 19, 2025 Assessment & Plan (1) Left carotid artery occlusion: (2) Visual hallucinations: (3) CKD stage 3b, GFR 30-44 ml/min: (4) Delusional disorder, persecutory type: Plan Pn summary this is a 75-year-old female admitted to [facility] for preoperative evaluation in the setting of restenosis of their left carotid artery of which they are currently asymptomatic; additionally found to be exhibiting visual hallucinations and paranoia based on history and available data from the outpatient setting. #Left carotid artery occlusion, recurrent At this time the patient does not exhibit any acute symptoms of the left carotid artery occlusion; their imaging obtained in the outpatient setting as well as in the emergency department does exhibit significant right frontal lobe changes consequential of chronic infarcts and subsequent encephalomalacia which may be the cause of their psychiatric condition as discussed further below. Vascular surgery consulted; underwent surgical intervention 01/18 #Delusional disorder, persecutory type // Frontal lobe encephalomalacia and chronic infarction With regard to the patient's paranoia and visual hallucinations, this may be consequential of their documented right frontal lobe vascular disease with MRI obtained in the emergency department on 01/15; this may also be consequential of progressive vascular dementia, other delusional psychiatric conditions, it does not appear this has been previously addressed and available charts to review today. Psychiatry consulted; recommended initiation of Abilify 5 mg daily with increase to 10 mg daily if tolerated well Admission and Anticipated Discharge Date Admission Date: January 15, 2025 Subjective Ms. Almaraz is a 75-year-old female whose active medical conditions include essential hypertension with coronary as well as peripheral atherosclerotic disease, CKD stage IIIb among other chronic medical conditions who was brought to the [facility] due to concern of visual hallucinations and paranoia. Incidentally, the patient was found to have a restenosis of the left carotid artery which has been previously stented, the at this time patient is not endorsing any symptoms of occlusion. No acute overnight events Review of Systems Review of Systems: Constitutional: denies fevers, chills, malaise, fatigue Cardiovascular: denies angina, palpitations, syncope, peripheral edema Pulmonary: denies cough, dyspnea on exertion, pleuritic chest pain Gastrointestinal: denies nausea, emesis, dysphagia, dyspepsia, constipation, diarrhea Neurologic: denies focal weakness, paresthesias or numbness, vision changes or diplopia, ataxia Integumentary: denies new or developing rashes or lesions Physical Exam Physical Exam: General: Elderly female in no acute distress Vital Signs: Reviewed HEENT: Normocephalic, atraumatic; pupils equally reactive to light, extraocular motions intact; moist mucous membranes Neck: No palpable lymphadenopathy Pulmonary: symmetric chest wall excursion; CTAB Cardiovascular: Regular rate and rhythm with no murmurs, rubs, or gallops; S1 and S2 normal; bilateral radial and posterior tibial pulses 2+; no notable lower extremity edema Gastrointestinal: soft, nondistended Neurologic: CN II-XII grossly intact; no discernible focal weakness nor paresthesias Psychiatric: Alert, oriented to self, place, time; similar psychiatric findings to 01/18 Results & Data Results & Data Vital Signs (Past 12 Hours) Vital Signs Temp Pulse Resp BP Pulse Ox 01/19/25 07:31 37.4 C 01/19/25 06:00 65 12 95 01/19/25 05:11 162/78 H 01/19/25 05:03 66 15 94 01/19/25 05:00 66 18 95 01/19/25 04:11 151/76 H 01/19/25 04:03 71 13 96 01/19/25 03:09 72 14 97 01/19/25 03:00 62 16 176/85 H 97 01/19/25 02:47 189/89 H 01/19/25 02:39 183/91 H 01/19/25 02:27 73 16 97 01/19/25 02:12 186/89 H 01/19/25 02:12 72 11 L 96 01/19/25 02:03 70 14 97 01/19/25 01:11 176/93 H 01/19/25 01:03 71 14 97 01/19/25 00:12 71 23 97 01/19/25 00:12 153/88 H 01/19/25 00:12 153/88 H 01/19/25 00:03 36.4 C L 01/18/25 23:00 84 13 96 01/18/25 22:11 173/84 H 01/18/25 22:03 65 17 01/18/25 21:21 70 16 97 01/18/25 21:11 175/80 H PG Care Time/CCT Total # of Minutes Spent Total Time Spent with Patient: Total time spent is greater than 50% in coordination of care (as documented) at patient's floor/unit and/or counseling patient: Coding Level of Care Code 79398 SUB INP/OBS CARE Diagnoses Left carotid artery occlusion I65.22 Visual hallucinations R44.1 CKD stage 3b, GFR 30-44 ml/min N18.32 Delusional disorder, persecutory type F22
--- NOTE | 2025-01-19 09:22 | Surgery Progress Note ---
Date of Service January 19, 2025 Assessment & Plan (1) Carotid stenosis, left: Plan: POD #1 after redo L TCAR, seen in f/u today. Doing well postop. Discussed with Dr Botello, transfer to med/surg. Pt stable for d/c from vascular standpoint. Discharge per medical team. Will see in office in 2 weeks. Please call if needed. Admission and Anticipated Discharge Date Admission Date: January 15, 2025 Subjective 75 yo f POD #1 after redo L TCAR, seen in f/u today. Pt admits L neck incisional pain. No other complaints presently. Review of Systems Review of Systems: All systems reviewed & are unremarkable except as noted in HPI & below Physical Exam Constitutional: WD/WN, vitals as above cooperative and comfortable; not in distress Neck: L supraclavicular incision C/D/I, mild local tenderness/edema and small hematoma. Respiratory: normal respiratory effort, lungs clear to auscultation Auscultation: + diminished lung sounds Cardiovascular: Rate/Rhythm: + irregularly irregular Vessels: posterior tibial pulses present, dorsalis pedis pulses present and brachial pulses present; + abnormal peripheral pulses Extremities: normal capillary refill Gastrointestinal (Abdomen): Inspection/Auscultation: abdomen normal to inspection and normal bowel sounds Percussion/Palpation: abdomen soft; abdomen nontender Musculoskeletal: no cyanosis or clubbing, extremities motor strength 5/5 Skin: no rashes, warm and dry groin puncture C/D/I Neurologic: moves all extremities and awake; no focal motor deficits and not confused Psychiatric: A+Ox3, euthymic affect Results & Data Vital Signs (Past 12 Hours) Vital Signs Temp Pulse Resp BP Pulse Ox 01/19/25 08:00 84 23 95 01/19/25 07:31 37.4 C 01/19/25 07:11 136/64 01/19/25 07:00 59 L 16 93 01/19/25 06:45 66 16 94 01/19/25 06:00 65 12 95 01/19/25 05:11 162/78 H 01/19/25 05:03 66 15 94 01/19/25 05:00 66 18 95 01/19/25 04:11 151/76 H 01/19/25 04:03 71 13 96 01/19/25 03:09 72 14 97 01/19/25 03:00 62 16 176/85 H 97 01/19/25 02:47 189/89 H 01/19/25 02:39 183/91 H 01/19/25 02:27 73 16 97 01/19/25 02:12 186/89 H 01/19/25 02:12 72 11 L 96 01/19/25 02:03 70 14 97 01/19/25 01:11 176/93 H 01/19/25 01:03 71 14 97 01/19/25 00:12 71 23 97 01/19/25 00:12 153/88 H 01/19/25 00:12 153/88 H 01/19/25 00:03 36.4 C L 01/18/25 23:00 84 13 96 01/18/25 22:11 173/84 H 01/18/25 22:03 65 17 01/18/25 21:21 70 16 97
[2025-01-19 10:36] VITALS: RESP 15
[2025-01-19 10:46] VITALS: BP 161/66; PULSE 73
--- NOTE | 2025-01-19 11:03 | Discharge Summary ---
Discharge Summary Date of Service January 19, 2025 Principal Dx & Hospital Course #1 = Principal Diagnosis (1) Left carotid artery occlusion: (2) Visual hallucinations: (3) CKD stage 3b, GFR 30-44 ml/min: (4) Delusional disorder, persecutory type: Plan In summary this is a 75-year-old female admitted to [facility] for preoperative evaluation in the setting of restenosis of their left carotid artery of which they are currently asymptomatic; additionally found to be exhibiting visual hallucinations and paranoia based on history and available data from the outpatient setting. #Left carotid artery occlusion, recurrent At this time the patient does not exhibit any acute symptoms of the left carotid artery occlusion; their imaging obtained in the outpatient setting as well as in the emergency department does exhibit significant right frontal lobe changes consequential of chronic infarcts and subsequent encephalomalacia which may be the cause of their psychiatric condition as discussed further below. Vascular surgery consulted; underwent surgical intervention 01/18 #Delusional disorder, persecutory type // Frontal lobe encephalomalacia and chronic infarction With regard to the patient's paranoia and visual hallucinations, this may be consequential of their documented right frontal lobe vascular disease with MRI obtained in the emergency department on 01/15; this may also be consequential of progressive vascular dementia, other delusional psychiatric conditions, it does not appear this has been previously addressed and available charts to review today. Psychiatry consulted; recommended initiation of Abilify 5 mg daily with increase to 10 mg daily if tolerated well Notes For Next Care Provider Medication Changes From Visit Start Abilify 10 mg p.o. daily Admission HPI Per Admitting Provider The patient is a 75-year-old female with a past medical history including CKD stage III, occlusion of left vertebral artery, familial hypercholesterolemia, CAD, history of STEMI, diastolic dysfunction, left carotid stenosis status post left TCAR on 09/22/2024 during hospital admission from 09/21-. Patient was seen by vascular surgery on 11/05/2024, then seen by cardiology Dr. Loo on 01/11/2025. She was most recently seen by vascular surgery Dr. Botello on 01/14/2025, and since on 01/12 a CTA neck revealed a left carotid stent that was significantly occluded due to thrombosis, plans were being made for patient to undergo a left TCAR redo. Due to concerns regarding hallucinations and report of intruders into her home, patient was brought to the emergency department for further evaluation. [facility]charge Exam General: Elderly female in no acute distress Vital Signs: Reviewed HEENT: Normocephalic, atraumatic; pupils equally reactive to light, extraocular motions intact; moist mucous membranes Neck: No palpable lymphadenopathy Pulmonary: symmetric chest wall excursion; CTAB Cardiovascular: Regular rate and rhythm with no murmurs, rubs, or gallops; S1 and S2 normal; bilateral radial and posterior tibial pulses 2+; no notable lower extremity edema Gastrointestinal: soft, nondistended Neurologic: CN II-XII grossly intact; no discernible focal weakness nor paresthesias Psychiatric: Alert, oriented to self, place, time; similar psychiatric findings to 01/18 Discharge Plan Discharge Items Patient Disposition: Home - Self-Care Reason For Visit: L CAROTID STENT THROMBOSIS, HX L TCAR, HALLUCINATI Discharge Diagnosis: Left carotid in-stent thrombosis, persecutory delusions Condition on Discharge: Good Activity: Per Instructions section Lifting: Wait until after follow-up appointment Bathing: Keep incision dry Exercise/Sports: Wait until after follow-up appointment Weightbearing: Full weightbearing Non-emergency contact: Primary Care Provider and Surgeon Call non-emergency contact if: you have any medication questions, your wound has increased redness, your wound has increased drainage and your wound pain has increased Follow-up/Referrals: Landon Botello MD [Physician] - Anh Manriquez PA-C [Primary Care Provider] - Kike Lomeli MD [Physician] - Diet: Heart Healthy Fluids: 1800ml (7 cups) Addtl Attending Provider Instructions: SPECIAL CARE INSTRUCTIONS: Call your doctor if: * Temperature above 101 degrees * Pain not relieved by pain medicine ordered * There is increased drainage or redness from any incision * You have any unanswered questions or concerns. Pending Studies at Discharge: No Stand-Alone Forms: My [facility] Medications and DC Order Prescriptions: New aripiprazole [Abilify] 10 mg tablet 10 mg PO DAILY 30 Days Qty: 30 0RF Continued amlodipine 10 mg tablet 10 mg PO QAM montelukast 10 mg Tablet 10 mg PO DAILY PRN (Reason: asthma) levalbuterol tartrate [Xopenex HFA] 45 mcg/actuation Hfa Aerosol Inhaler 2 inh INHALATION Q6H PRN (Reason: Shortness Of Breath Or Wheezing) budesonide-formoterol [Symbicort] 160-4.5 mcg/actuation HFA aerosol inhaler 2 puff INHALATION BID PRN (Reason: seasonal) Ozempic 0.25 mg or 0.5 mg (2 mg/3 mL) pen injector 0.5 mg SUBCUT WK Rx Instructions: Saturday spironolactone 25 mg tablet 25 mg PO DAILY PRN (Reason: Edema) Rx Instructions: ordered daily but only takes prn famotidine 20 mg Tablet 20 mg PO DAILY PRN (Reason: gerd/nausea) esomeprazole magnesium 40 mg capsule,delayed release(DR/EC) 40 mg PO DAILY PRN (Reason: gerd/nausea) Repatha SureClick 140 mg/mL pen injector 140 mg SUBCUT .EVERY 2 WEEKS Rx Instructions: next dose on 09/15 ticagrelor [Brilinta] 90 mg Tablet 90 mg PO BID Qty: 180 3RF Rx Instructions: take at 1400 & 0200 metoprolol succinate 50 mg tablet extended release 24 hr 50 mg PO QPM clonidine HCl 0.2 mg tablet 0.2 mg PO QID Rx Instructions: 0500,1000,1800,1200 insulin glargine [Lantus Solostar U-100 Insulin] 100 unit/mL (3 mL) insulin pen 20 - 25 unit SUBCUT BID Rx Instructions: ACCORDING TO GLUCOSE MONITORING aspirin 81 mg tablet,delayed release (DR/EC) 81 mg PO BID Rx Instructions: take at 1400 & 0200 Discharge Orders: Discharge Order (Routine); Ordered 01/19/25 Ordered By: Aquiles Kaplan Admission Data Admit Date/Time: 01/15/25 20:51 Attending Provider: Aquiles Kaplan Admit Provider: Master Mancilla Primary Care Provider: Anh Manriquez Other Providers: Master Mancilla; Landon Botello; Alva Napier; Esau Terrell; Galina Hayes; Nathalie Peters; Kike Lomeli; Kevon Blackwell; Erin Parra; Armando Hamm; Tanner Melgar; Maynor Flores; Burton Barlow; Josh Pickard; Britt Salinas; Pablito Yoo; Ariane Hassan Other Interventions: Discharge Summary Assessment (RN) Last Done: 01/19/25 10:45 Hospital Stay Data Consultations 01/15/25 20:06 ED Decision to Admit Stat 01/15/25 22:51 Consult Vascular Surgery Routine 01/16/25 07:08 Consult Psychiatry Routine 01/18/25 11:50 Consult Real Estate Professional Routine Procedures Performed Operation Date: 01/18/25 08:00 Actual Procedures p Re-do Left Transcarotid Artery Revascularization, Ultrasound localization of right common femoral vein(Left) - Landon Botello MD Diagnostic Imagining Performed 01/15/25 16:12 MR brain wo con Stat 01/18/25 07:15 EV angio carotid cerv LT Routine US EV guide vascular access Routine Pending Results Patient Have Any Pending Studies at Discharge: No Discharge Instructions Given to Patient (Per Discharging Provider) SPECIAL CARE INSTRUCTIONS: Call your doctor if: * Temperature above 101 degrees * Pain not relieved by pain medicine ordered * There is increased drainage or redness from any incision * You have any unanswered questions or concerns. Total Time Total Time Spent Total Time Spent (In Minutes): 45 Coding Level of Care Code 58669 INP/OBS DISCH >30 MIN Diagnoses Left carotid artery occlusion I65.22 Visual hallucinations R44.1 CKD stage 3b, GFR 30-44 ml/min N18.32 Delusional disorder, persecutory type F22
--- NOTE | 2025-01-19 11:17 | Electrocardiogram Report ---
Test Reason : Blood Pressure : */* mmHG Vent. Rate : 72 BPM Atrial Rate : 72 BPM P-R Int : 168 ms QRS Dur : 84 ms QT Int : 382 ms P-R-T Axes : 69 58 -12 degrees QTcB Int : 418 ms Normal sinus rhythm T wave abnormality, consider inferior ischemia Abnormal ECG When compared with ECG of 15-Jan-2025 16:30, Premature atrial complexes are no longer Present Minimal criteria for Anterior infarct are no longer Present Confirmed by Jose Montero ([id number]) on 01/19/2025 11:17:22 AM Referred By: REFERRED SELF Confirmed By: Jose Montero
== END 2025-01-19 12:02 | disposition home or self-care (01) | DRG 252 ==
LOC: SUATTDRO → ED 15:39 → 2E 20:51 → SUATTDRO 20:51 → 2E 21:20 → 2N 01-16 22:34 → 1E 01-18 11:31
PROC: EV.TCAR (2025-01-18 08:00)